=== PATIENT | female | born 1960 | race Caucasian/White ===

== ENCOUNTER 2016-11-27 14:53 | Emergency (ER) | payer BC, OTHER ==
[~2016-11-27] VITALS: Ht 154.9 cm; Wt 69.0 kg
[2016-11-27 15:05] VITALS: Ht 154.9 cm; Wt 69.0 kg
[2016-11-27] MEDS ORDERED: morphine 4 MG/ML VIAL IV STA (16:27)
[2016-11-27] MEDS ORDERED: ONDANSETRON 4 MG INJ IV STA (16:27)
[2016-11-27] MEDS ORDERED: HYDROCODONE/APAP (10/325) TAB PO ONE (16:30)
[2016-11-27 16:46] LABS: ADD SCAN DIFF NO
[2016-11-27 16:49] LABS: ABNORMAL IP MESSAGE 1; HEMATOCRIT 34.3 % (37.0-47.0); MEAN CORPUSCULAR HEMOGLOBIN 35.7 pg (29.0-33.0); MEAN CORPUSCULAR VOLUME 102.1 fl (82.0-101.0); MEAN PLATELET VOLUME 12.1 fl (7.4-10.4); RED BLOOD COUNT 3.36 10^6/ul (4.20-5.40); RED CELL DISTRIBUTION WIDTH 13.8 % (11.5-14.5)
[2016-11-27 17:22] LABS: ALBUMIN 3.3 g/dl (3.3-4.9); ALBUMIN/GLOBULIN RATIO 1.17; BILIRUBIN,DIRECT 0.5 mg/dl (0.00-0.20); BILIRUBIN,INDIRECT 2.8 mg/dl (0-1.1); BILIRUBIN,TOTAL 3.3 mg/dl (0.2-1.3); CALCIUM 8.5 mg/dl (8.4-10.2); CREATININE 0.41 mg/dl (0.44-1.00); POTASSIUM 3.5 mmol/L (3.5-5.1); TOTAL PROTEIN 6.1 g/dl (6.1-8.1)
--- NOTE | 2016-11-27 18:15 | RADRPT ---
PROCEDURE: Abdominal ultrasound CLINICAL INDICATION: Abdominal Pain TECHNIQUE: Multiple real-time images were acquired of the patient's right upper quadrant abdomen a nd retroperitoneum utilizing a high resolution transducer. COMPARISON: None FINDINGS: The liver measures 15.2 cm, and demonstrates moderately increased echogenicity. The main portal vein is patent with proper directional flow. There is no intrahepatic biliary ductal dilatation. The ext rahepatic common bile duct measures 3 mm. There is a 6.4 x 5.6 x 5.8 cm partially circumscribed heterogeneous mass in the posterior aspect of the right lobe of the liver. Minimal foci of vascular flow noted within it on Doppler. The gallbladder is without stones, wall thickening, or pericholecystic fluid. The visualized pancreas is unremarkable. The spleen measures 13.2 cm in length. The right kidney measures 11.5 x 5.1 x 6.1 cm and demonstrates normal echotexture. There is no right renal calculus or hydronephrosis. The visualized abdominal aorta and IVC are grossly unremarkable. IMPRESSION: 6.4 cm partially circumscribed mass with minimal vascular flow in the right lobe of the liver is non specific with differential considerations including the primary hepatic lesions/malignancy or a meta stasis. A contrast-enhanced CT or MR study is recommended for further evaluation. Moderate fatty infiltration of the liver. Mild splenomegaly. No cholelithiasis or acute cholecystitis. Normal CBD. RPTAT: EE Physician Citlalli Date Time Electronically viewed and signed by Physician Citlalli on 11/27/2016 18:14 /
[2016-11-27 18:22] LABS: LYMPHOCYTES # 0.2 10^3/ul (0.8-2.9); MONOCYTE # 0.2 10^3/ul (0.3-0.9); NEUTROPHIL # 1.8 10^3/ul (1.6-7.5)
[2016-11-27 18:23] LABS: PLATELET ESTIMATE PLT APPEAR DECREASED
[2016-11-27] MEDS ORDERED: TRAM50TA2 PO (19:13)
[2016-11-27] MEDS ORDERED: RANI150T9 PO (19:13)
--- NOTE | 2016-11-27 19:16 | ERD ---
ER Documentation Chief Complaint Date/Time DATE: 11/27/16 TIME: 19:14 Chief Complaint 8/10 abd pain x 1 week with N/V x yesterday HPI This is a 55-year-old female who complains of epigastric pain after eating yesterday with one episode of nausea vomiting is nonbilious nonbloody. She says today she still having pain after eating which occurs about 30 minutes after food. There is some radiation of pain to the back. She has no chest pain shortness of breath. Patient says she has a history of thrombocytopenia for years is not been worked up before. Patient was never been an alcoholic does not abuse NSAIDs. She describes the pain is crampy sometimes sharp currently is mild ROS All systems reviewed and are negative except as per history of present illness. Medications Home Meds Active Scripts Ranitidine Hcl* (Zantac*) 150 Mg Tablet, 150 MG PO BID Y for EPIGASTRIC PAIN, # 30 TAB Prov:CHIP,MECCASTOLOS A. DO 11/27/16 Tramadol HCl (Tramadol HCl) 50 Mg Tablet, 50 MG PO Q6, #20 TAB Prov:LESHAWNOS,APOSTOLOS A. DO 11/27/16 Allergies Allergies: Coded Allergies: No Known Allergy (Unverified , 11/27/16) PMhx/Soc History of Surgery: Yes (CSECTIONX3) Anesthesia Reaction: No Hx Neurological Disorder: No Hx Respiratory Disorders: No Hx Cardiac Disorders: No Hx Psychiatric Problems: No Hx Miscellaneous Medical Probl: Yes (DM) Hx Alcohol Use: No Hx Substance Use: No Hx Tobacco Use: Yes (2 CIG/WEEK) Smoking Status: Light tobacco smoker FmHx Family History: No coronary disease Physical Exam Vitals Vital Signs Date Time Temp Pulse Resp B/P Pulse Ox O2 Delivery O2 Flow Rate FiO2 11/27/16 15:05 98.9 69 16 152/65 99 Physical Exam Const: Well-developed, well-nourished Head: Atraumatic, normocephalic Eyes: Normal Conjunctiva, PERRLA, EOMI, normal sclera, no nystagmus ENT: Normal External Ears, Nose and Mouth, moist mucus membranes. Neck: Full range of motion. No meningismus, no lymphadenopathy. Resp: Clear to auscultation bilaterally, no wheezing, rhonchi, rales Cardio: Regular rate and rhythm, no murmurs, S1 S2 present Abd: Soft, mild epigastric tenderness, non distended. Normal bowel sounds, no guarding or rebound, no pulsitile abdominal masses or bruits Skin: No petechiae or rashes, no ecchymosis , no maculopapular rash Back: No midline or flank tenderness Ext: No cyanosis, or edema, FROM x 4, normal inspection, neurovascularly intact x 4 Neur: Awake and alert, STR 5/5 x 4, sensation intact x 4, no focal findings, cerebellum intact Psych: Normal Mood and Affect Result Diagram: 11/27/16 1640 11/27/16 1640 Results 24 hrs Laboratory Tests Test 11/27/16 16:40 White Blood Count 2.210^3/ul Red Blood Count 3.3610^6/ul Hemoglobin 12.0g/dl Hematocrit 34.3% Mean Corpuscular Volume 102.1fl Mean Corpuscular Hemoglobin 35.7pg Mean Corpuscular Hemoglobin Concent 35.0g/dl Red Cell Distribution Width 13.8% Platelet Count 4310^3/UL Mean Platelet Volume 12.1fl Neutrophils % 82.0% Band Neutrophils % 3.0% Lymphocytes % 8.0% Monocytes % 7.0% Neutrophils # 1.810^3/ul Lymphocytes # 0.210^3/ul Monocytes # 0.210^3/ul Platelet Estimate PLT APPEAR DECREASED Macrocytosis 1+ Sodium Level 134mmol/L Potassium Level 3.5mmol/L Chloride Level 100mmol/L Carbon Dioxide Level 28mmol/L Anion Gap 10 Blood Urea Nitrogen 10mg/dl Creatinine 0.41mg/dl Glucose Level 252mg/dl Calcium Level 8.5mg/dl Total Bilirubin 3.3mg/dl Direct Bilirubin 0.50mg/dl Indirect Bilirubin 2.8mg/dl Aspartate Amino Transf (AST/SGOT) 116IU/L Alanine Aminotransferase (ALT/SGPT) 62IU/L Alkaline Phosphatase 315IU/L Total Protein 6.1g/dl Albumin 3.3g/dl Globulin 2.80g/dl Albumin/Globulin Ratio 1.17 Lipase 87U/L Current Medications Medications (Trade) Dose Ordered Sig/Payton Route PRN Reason Start Time Stop Time Status Last Admin Dose Admin Morphine Sulfate (morphine) 4 mg ONCE STAT IV 11/27/16 16:27 11/27/16 16:31 DC Ondansetron HCl (Zofran Inj) 4 mg ONCE STAT IV 11/27/16 16:27 11/27/16 16:31 DC Acetaminophen/ Hydrocodone Bitart ([place] (10/325)) 1 tab ONCE ONCE PO 11/27/16 16:30 11/27/16 16:31 DC 11/27/16 18:58 Procedures/MDM PROCEDURE: Abdominal ultrasound CLINICAL INDICATION: Abdominal Pain TECHNIQUE: Multiple real-time images were acquired of the patient's right upper quadrant abdomen and retroperitoneum utilizing a high resolution transducer. COMPARISON: None FINDINGS: The liver measures 15.2 cm, and demonstrates moderately increased echogenicity. The main portal vein is patent with proper directional flow. There is no intrahepatic biliary ductal dilatation. The extrahepatic common bile duct measures 3 mm. There is a 6.4 x 5.6 x 5.8 cm partially circumscribed heterogeneous mass in the posterior aspect of the right lobe of the liver. Minimal foci of vascular flow noted within it on Doppler. The gallbladder is without stones, wall thickening, or pericholecystic fluid. The visualized pancreas is unremarkable. The spleen measures 13.2 cm in length. The right kidney measures 11.5 x 5.1 x 6.1 cm and demonstrates normal echotexture. There is no right renal calculus or hydronephrosis. The visualized abdominal aorta and IVC are grossly unremarkable. IMPRESSION: 6.4 cm partially circumscribed mass with minimal vascular flow in the right lobe of the liver is nonspecific with differential considerations including the primary hepatic lesions/malignancy or a metastasis. A contrast-enhanced CT or MR study is recommended for further evaluation. Moderate fatty infiltration of the liver. Mild splenomegaly. No cholelithiasis or acute cholecystitis. Normal CBD. RPTAT: EE Physician Citlalli Date Time Electronically viewed and signed by Physician Citlalli on 11/27/2016 18:14 RA/ CC: ELLIOTT SAUNDERS DO Patient is a low white blood count of 2.2 and 42,000 platelets also has mild elevated bilirubin and liver function test. There is a liver lesion in the right lobe of the liver. Patient did not know she had this. Had an extensive discussion with the patient about her blood work and her liver mass and needs to see her doctor for workup including daycare provider with MRI of liver as well as bone marrow biopsy. The patient says she has had low platelets for years does not recall her last levels. No history of spontaneous bleeding. I did stress the urgency of her following up and she understands I will call her doctor Wednesday Otherwise I feel her pain is likely due to some type of gastric issue up with pain after eating without gallbladder stones she could have biliary colic. Have her follow-up Departure Diagnosis: Primary Impression: Liver mass, right lobe Additional Impressions: Leukocytosis, unspecified Thrombocytopenia Abdominal pain Abdominal location: epigastric Qualified Code: R10.13 - Epigastric pain Condition: Stable Patient Instructions: Abdominal Pain, Thrombocytopenia ELLIOTT SAUNDERS DO Nov 27, 2016 19:16
[2016-11-27 19:45] VITALS: BP 140/71; PULSE 74; RESP 16; TEMP 98.6
[2016-12-01 06:56] LABS: PLATELET COUNT 43 10^3/UL (140-415); WHITE BLOOD COUNT 2.2 10^3/ul (4.8-10.8)
== END 2016-11-27 19:46 | disposition home or self-care (01) ==
LOC: FTE 14:53
DX: R16.0 Hepatomegaly, not elsewhere classified (principal); D72.829 Elevated white blood cell count, unspecified; D69.6 Thrombocytopenia, unspecified; E11.9 Type 2 diabetes mellitus without complications; F17.210 Nicotine dependence, cigarettes, uncomplicated
CPT/HCPCS: 76705; 80053; 83690; 85025; Z7502; Z7610; J2270; J2405

== ENCOUNTER 2017-03-18 13:07 | Inpatient (IN) | payer OTHER ==
[~2017-03-18] VITALS: Ht 162.6 cm; Wt 79.5 kg
[~2017-03-18 13:07] MED LIST: RANI150T9 PO; TRAM50TA2 PO
[2017-03-18 15:35] LABS: ABNORMAL IP MESSAGE 1; BASOPHILS % 0.6 % (0.0-2.0); EOSINOPHILS # 0.1 10^3/ul (0.0-0.5); EOSINOPHILS % 3.6 % (0.0-7.0); HEMATOCRIT 34.9 % (37.0-47.0); HEMOGLOBIN 12.1 g/dl (12.0-16.0); LYMPHOCYTES # 0.7 10^3/ul (0.8-2.9); LYMPHOCYTES % 18.3 % (15.0-51.0); MEAN CORPUSCULAR HEMOGLOBIN 36.6 pg (29.0-33.0); MEAN CORPUSCULAR HGB CONC 34.7 g/dl (32.0-37.0); MEAN CORPUSCULAR VOLUME 105.4 fl (82.0-101.0); MEAN PLATELET VOLUME 11.1 fl (7.4-10.4); MONOCYTE # 0.4 10^3/ul (0.3-0.9); MONOCYTES % 11.4 % (0.0-11.0); NEUTROPHIL # 2.4 10^3/ul (1.6-7.5); NEUTROPHILS % 65.8 % (39.0-77.0); PLATELET COUNT 63 10^3/UL (140-415); RED BLOOD COUNT 3.31 10^6/ul (4.20-5.40); RED CELL DISTRIBUTION WIDTH 14.7 % (11.5-14.5); WHITE BLOOD COUNT 3.6 10^3/ul (4.8-10.8)
[2017-03-18 15:37] LABS: POSITIVE DIFF @See below
[2017-03-18 15:44] LABS: INR 1.47; PARTIAL THROMBOPLASTIN TIME 36.4 Sec (25.0-35.0); PROTIME 17.9 Sec (12.2-14.2); PT RATIO 1.4
[2017-03-18] MEDS ORDERED: SIMV20TA2 PO (15:46)
[2017-03-18 15:50] LABS: ALANINE AMINOTRANSFERASE 60 IU/L (13-69); ALBUMIN 2.8 g/dl (3.3-4.9); ALKALINE PHOSPHATASE 302 IU/L (42-121); ANION GAP 8 (8-16); ASPARTATE AMINO TRANSFERASE 108 IU/L (15-46); BILIRUBIN,INDIRECT 4.7 mg/dl (0-1.1); BILIRUBIN,TOTAL 6.7 mg/dl (0.2-1.3); BLOOD UREA NITROGEN 8 mg/dl (7-20); CALCIUM 8.4 mg/dl (8.4-10.2); CARBON DIOXIDE 29 mmol/L (21-31); CHLORIDE 100 mmol/L (97-110); CREATININE 0.41 mg/dl (0.44-1.00); GLUCOSE 255 mg/dl (70-220); POTASSIUM 3.3 mmol/L (3.5-5.1); SODIUM 134 mmol/L (135-144); TOTAL PROTEIN 6.3 g/dl (6.1-8.1)
--- NOTE | 2017-03-18 15:54 | RADRPT ---
PROCEDURE: XR Chest. CLINICAL INDICATION: chest pain TECHNIQUE: Single AP view of the chest were obtained COMPARISON: None FINDINGS: The heart and mediastinum are within normal limits. The pulmonary vasculature are unremarkable. The aorta demonstrates atherosclerotic calcifications. There is blunting of the left costophrenic angl e with possible small left effusion. There is no right-sided effusion. The remainder of the lungs ar e otherwise clear. There is no pneumothorax. Degenerative changes are seen within the thoracic spin e. There is no acute osseous abnormality. IMPRESSION: Likely small left-sided pleural effusion with mild left basilar atelectasis. RPTAT: AA .David Wynn MD, MD Date Time Electronically viewed and signed by .David Wynn MD, on 03/18/2017 15:54 .Yonas/
[2017-03-18 16:01] LABS: B-TYPE NATRIURETIC PEPTIDE 98 PG/ML (0-125)
[2017-03-18 16:04] LABS: TROPONIN-I < 0.012 ng/ml (0.00-0.12)
[2017-03-18 16:15] LABS: ADD UMIC YES; UR ASCORBIC ACID NEGATIVE (NEGATIVE); UR BILIRUBIN (Dip) 1+ mg/dL (NEGATIVE); UR BLOOD (Dip) NEGATIVE (NEGATIVE); UR CLARITY SLIGHTLY CLOUDY (CLEAR); UR COLOR AMBER (YELLOW); UR GLUCOSE (Dip) 1+ mg/dL (NEGATIVE); UR KETONES (Dip) NEGATIVE (NEGATIVE); UR LEUKOCYTE ESTERASE (Dip) NEGATIVE Leu/ul (NEGATIVE); UR MUCUS MANY /HPF (NONE SEEN); UR NITRITE (Dip) NEGATIVE (NEGATIVE); UR RBC 2 /HPF (0-5); UR SPECIFIC GRAVITY (Dip) 1.032 (1.003-1.030); UR SQUAMOUS EPITHELIAL CELL FEW /HPF (FEW); UR TOTAL PROTEIN (Dip) 1+ mg/dl (NEGATIVE); UR UROBILINOGEN (Dip) 2+ mg/dL (NEGATIVE)
--- NOTE | 2017-03-18 16:40 | ERA ---
ER Documentation Chief Complaint Date/Time DATE: 03/18/17 TIME: 16:38 Chief Complaint Complains of SOB recently on antibiotics not working HPI This patient is a 56-year-old female with past medical history of type 2 diabetes, high cholesterol, liver mass/cyst diagnosed via ultrasound recently, now presenting to the emergency department today with complaints of shortness of breath ongoing intermittently for the past 3 days. She states symptoms are worse today. Symptoms are worse on exertion. She has never had these symptoms in the past, prior to 1 month ago when she developed a cough that has persisted by antibiotics being prescribed at that time. She is a former smoker of 1 pack per month for 10 years. She reports significant shortness of breath with short distances around her house forcing her to sit down to rest. The patient also endorses suprapubic discomfort but no tenderness. She does not endorse any urinary or bowel movement complaints otherwise. She denies any fever or chills. She denies a headache or vision changes. She does have yellow eyes. She denies nausea or vomiting. She denies chest pain. At rest, she does not feel short of breath. She has been told in the past that she has a little bit of fluid at the base of her lungs. She denies any focal deficits. ROS All systems reviewed and are negative except as per history of present illness. Medications Home Meds Reported Medications Metformin Hcl* (Metformin Hcl*) 500 Mg Tablet, 500 MG PO WITH BREAKFAST, #30 TAB EVERY OTHER DAY 03/18/17 Ergocalciferol (Vitamin D2) (VITAMIN D2) 50,000 Unit Capsule, 09656 UNIT PO Q7D , CAP 03/18/17 Simvastatin (Simvastatin) 20 Mg Tablet, 20 MG PO DAILY, #30 TAB 03/18/17 Discontinued Scripts Ranitidine Hcl* (Zantac*) 150 Mg Tablet, 150 MG PO BID Y for EPIGASTRIC PAIN, # 30 TAB Prov:MECCA SAUNDERSSTLORINS A. DO 11/27/16 Tramadol HCl (Tramadol HCl) 50 Mg Tablet, 50 MG PO Q6, #20 TAB Prov:LEKKOS,APOSTOLOS A. DO 11/27/16 Allergies Allergies: Coded Allergies: No Known Allergy (Unverified , 03/18/17) PMhx/Soc History of Surgery: Yes (CSECTIONX3) Anesthesia Reaction: No Hx Neurological Disorder: No Hx Respiratory Disorders: No Hx Cardiac Disorders: Yes (HIGH COLESTEROL; " CHEST INFECTION") Hx Psychiatric Problems: No Hx Miscellaneous Medical Probl: Yes (DM) Hx Alcohol Use: No Hx Substance Use: No Hx Tobacco Use: Yes (2 CIG/WEEK) Smoking Status: Current every day smoker FmHx Family History: No diabetes Physical Exam Vitals Vital Signs Date Time Temp Pulse Resp B/P Pulse Ox O2 Delivery O2 Flow Rate FiO2 03/18/17 17:11 98.9 99 16 118/90 100 Room Air 03/18/17 13:22 98.6 92 20 186/70 98 Physical Exam Const: NAD, Well developed, Well nourished Head: Atraumatic Eyes: Normal Conjunctiva ENT: Normal External Ears, Nose and Mouth. Neck: Full range of motion..~ No meningismus. Resp: bibasilar rales Cardio: Regular rate and rhythm, systolic murmur (known) Abd: Soft, non distended, suprapubic discomfort. Normal bowel sounds Skin: No petechiae or rashes Back: No midline or flank tenderness Ext: No cyanosis, or edema Neur: Awake and alert Psych: Normal Mood and Affect Result Diagram: 03/18/17 1520 03/18/17 1520 Results 24 hrs Laboratory Tests Test 03/18/17 15:20 03/18/17 15:47 White Blood Count 3.610^3/ul Red Blood Count 3.3110^6/ul Hemoglobin 12.1g/dl Hematocrit 34.9% Mean Corpuscular Volume 105.4fl Mean Corpuscular Hemoglobin 36.6pg Mean Corpuscular Hemoglobin Concent 34.7g/dl Red Cell Distribution Width 14.7% Platelet Count 6310^3/UL Mean Platelet Volume 11.1fl Neutrophils % 65.8% Lymphocytes % 18.3% Monocytes % 11.4% Eosinophils % 3.6% Basophils % 0.6% Nucleated Red Blood Cells % 0.0/100WBC Neutrophils # 2.410^3/ul Lymphocytes # 0.710^3/ul Monocytes # 0.410^3/ul Eosinophils # 0.110^3/ul Basophils # 0.010^3/ul Nucleated Red Blood Cells # 0.010^3/ul Prothrombin Time 17.9Sec Prothrombin Time Ratio 1.4 INR International Normalized Ratio 1.47 Activated Partial Thromboplast Time 36.4Sec Sodium Level 134mmol/L Potassium Level 3.3mmol/L Chloride Level 100mmol/L Carbon Dioxide Level 29mmol/L Anion Gap 8 Blood Urea Nitrogen 8mg/dl Creatinine 0.41mg/dl Glucose Level 255mg/dl Calcium Level 8.4mg/dl Total Bilirubin 6.7mg/dl Direct Bilirubin 2.00mg/dl Indirect Bilirubin 4.7mg/dl Aspartate Amino Transf (AST/SGOT) 108IU/L Alanine Aminotransferase (ALT/SGPT) 60IU/L Alkaline Phosphatase 302IU/L Troponin I < 0.012ng/ml B-Type Natriuretic Peptide 98PG/ML Total Protein 6.3g/dl Albumin 2.8g/dl Globulin 3.50g/dl Albumin/Globulin Ratio 0.80 Lipase 100U/L Urine Color BRANDON Urine Clarity SLIGHTLY CLOUDY Urine pH 5.0 Urine Specific [place] 1.032 Urine Ketones NEGATIVEmg/dL Urine Nitrite NEGATIVEmg/dL Urine Bilirubin 1+mg/dL Urine Urobilinogen 2+mg/dL Urine Leukocyte Esterase NEGATIVELeu/ul Urine Microscopic RBC 2/HPF Urine Microscopic WBC 3/HPF Urine Squamous Epithelial Cells FEW/HPF Urine Mucus MANY/HPF Urine Hemoglobin NEGATIVEmg/dL Urine Glucose 1+mg/dL Urine Total Protein 1+mg/dl Current Medications Medications (Trade) Dose Ordered Sig/Payton Route PRN Reason Start Time Stop Time Status Last Admin Dose Admin Ondansetron HCl (Zofran Inj) 4 mg BRIDGE ORDER PRN IV NAUSEA AND/OR VOMITING 03/18/17 18:30 03/19/17 18:29 Acetaminophen (Tylenol Tab) 650 mg ER BRIDGE PRN PO MILD PAIN/FEVER 03/18/17 18:30 03/19/17 18:29 Procedures/MDM MDM Patient's presentation warrants further investigation. The patient was initially triaged to 82, but there is concern of higher acuity and she was brought up to my attention. The patient had blood work drawn to evaluate for a cardiac versus metabolic abnormality. She also had a chest x-ray performed. LABS The patient's blood work was obtained and reviewed. The patient CBC showed a leukopenia in addition to a thrombocytopenia. The patient is afebrile, and I do not suspect a systemic infection. The patient is not anemic today. The patient's CMP shows mild hyponatremia and hypokalemia that does not need to be emergently treated. Her renal function is unremarkable. She does have a hyperglycemia, but no anion gap and no concern of DKA. The patient's LFTs are concerning for obstructive liver disease. She has a significantly elevated hyperbilirubinemia in addition to a transaminitis and hypoalbuminemia. Liver dysfunction also correlates with her thrombocytopenia. I do not see evidence of a systemic infection. However, am concerned of liver failure. Urinalysis does not demonstrate obvious infectious etiology. EKG EKG read by me: Rate/Rhythm: Regular rate and rhythm at a rate of 93 Intervals: Normal Echo: Normal Impression: No evidence of ischemia or arrhythmia IMAGING IMPRESSION: Likely small left-sided pleural effusion with mild left basilar atelectasis. Electronically viewed and signed by .David Wynn MD, MD on 03/18/2017 15:54 TREATMENT/DISPOSITION The patient's presentation is concerning for active cholestatic liver disease. She also has evidence of a pleural effusion on a chest x-ray with bibasilar rales on exam. This could be from liver dysfunction. She has scleral icterus as well which is concerning for liver failure. I do not suspect a systemic infection. The patient will have a right upper quadrant ultrasound ordered for further evaluation of her liver and gallbladder. She will be admitted to the panel service as per her insurance. Departure Diagnosis: Primary Impression: Shortness of breath Additional Impressions: Pleural effusion Obstructive cholestatic liver disease Thrombocytopenia Transaminitis Hyperbilirubinemia Condition: CHANCE Harris MD Mar 18, 2017 16:40
[2017-03-18] MEDS ORDERED: ERGO500037 PO (16:58)
[2017-03-18] MEDS ORDERED: METF500T4 PO (16:59)
[2017-03-18 17:11] VITALS: TEMP 98.9
[2017-03-18] MEDS ORDERED: ONDANSETRON 4 MG INJ IV PRN (18:30)
[2017-03-18] MEDS ORDERED: ACETAMINOPHEN 325 MG TAB PO PRN (18:30)
[2017-03-18 18:52] LABS: HAAIG REFLEX REFLEX FILED
--- NOTE | 2017-03-18 19:02 | RADRPT ---
PROCEDURE: Right upper quadrant ultrasound CLINICAL INDICATION: Jaundice TECHNIQUE: Multiple real-time images were acquired of the patient's abdomen and right retroperiton eum utilizing a high resolution transducer. COMPARISON: 11/27/2016 FINDINGS: The liver is coarse and heterogeneous in echotexture in echogenicity and measures 15.5 cm. There is new nodularity along the liver surface suggesting cirrhosis. A stable 6.8 x 6.3 x 6.5 cm mass is not ed in the posterior right hepatic lobe. No other focal liver lesions are seen. The gallbladder is pa rtially distended. The gallbladder is completely filled with gallstones. There is mild thickening of the gallbladder wall which is nonspecific finding in the setting of cirrhosis. The intra and extrah epatic bile ducts are normal in caliber. The common bile duct measures 4.4 mm. Doppler images demon strate the portal vein to be patent with hepatopetal flow. Doppler images demonstrate patent portal vein with hepatopetal flow. Midline images demonstrate the pancreas head and body to be normal in echogenicity without obvious i nflammatory change. Pancreatic tail is not seen Survey views of the right kidney demonstrate no evidence of hydronephrosis or renal calculi. The ri ght kidney measures 11.1 cm. New mild ascites is seen. IMPRESSION: 1. Cirrhotic appearing liver with coarse echotexture nodular surface which appears to have progress ed since the prior examination. 2. Stable 6.8 x 6.3 x 6.5 cm mass in the posterior right hepatic lobe. This is highly concerning fo r primary hepatocellular carcinoma. Recommend please phase CT or MRI for further characterization. 3. Extensive cholelithiasis. There is thickening of the gallbladder wall which is nonspecific findi ng in the setting of cirrhosis. 4. No biliary duct dilatation. 5. Interval development of mild ascites in the upper abdomen. 6. Patent portal vein with hepatopetal flow RPTAT: HH .Akira Colon MD, Date Time Electronically viewed and signed by .Akira Colon MD, MD on 03/18/2017 19:01 .W/
--- NOTE | 2017-03-18 19:58 | HP ---
Date/Time of Note Date/Time of Note DATE: 03/18/17 TIME: 19:44 Assessment/Plan VTE Prophylaxis VTE Prophylaxis Intervention: SCD's Lines/Catheters IV Catheter Type (from Nrsg): Peripheral IV Assessment/Plan Assessment/Plan 56 yo F with pmhx DM2 HTN HL here with 3-4 weeks GARCIA, LE swelling and abd distension. Liver imaging concerning for possible malignancy -triple phase CT ordered -check urine p/c given proteinuria -lasix for edema -check BNP though more likely volume overload from hepatic process -check hepatitis serologies and ferritin -cont home BP meds -hold metformin, SSI and check a1c -hold statin -macrocytosis most likely 2/2 underlying hepatic process but will check b12/tsh/ folate HPI/ROS Admit Date/Time Admit Date/Time Hx of Present Illness CC SOB HPI 56 yo F with pmhx DM2, vitamin D deficiency, HL presents with 3 weeks jaundice and SOB. Pt states she was started on a medication for her cholesterol that starts with a Z 3-4 weeks ago since then has been having progressive abd distension, LE edema, jaundice and GARCIA. No heavy EtOH abuse. No use of supplements/vitamins. PMH/Family/Social Social History Smoking Status: Current every day smoker Exam/Review of Systems Vital Signs Vitals Vital Signs Date Time Temp Pulse Resp B/P Pulse Ox O2 Delivery O2 Flow Rate FiO2 03/18/17 17:11 98.9 99 16 118/90 100 Room Air Exam Exam +jaundice with scleral icterus no mrg lungs with decreased breath sounds bl bases abd mildly distended 1+ bl pitting edema EOMI MMM labs and imaging reviewed problematic liver lesion noted Labs Result Diagram: 03/18/17 1520 03/18/17 1520 YOON ALVAREZ MD Mar 18, 2017 19:55
[2017-03-18] MEDS ORDERED: DOCUSATE SODIUM 100 MG CAP PO PRN (20:00)
[2017-03-18] MEDS ORDERED: MAGNESIUM HYDROXIDE 30ML CUP PO PRN (20:00)
[2017-03-18] MEDS ORDERED: NACL 0.9% 3 ML SYG IV SCH (20:00)
[2017-03-18] MEDS ORDERED: HYDROCODONE/APAP (5/325) TAB PO PRN (20:00)
[2017-03-18] MEDS ORDERED: BISACODYL (EC) 5 MG TAB PO PRN (20:00)
[2017-03-18] MEDS ORDERED: SOD CHLORIDE 0.9% 100 ML ONE (20:20)
[2017-03-18] MEDS ORDERED: IODIXANOL LOCM 100 ML BTL ONE (20:20)
[2017-03-18 20:29] LABS: HEPATITIS B CORE ANTIBODY REACTIVE (NEGATIVE)
[2017-03-18] MEDS ORDERED: GLUCOSE GEL 15 GRAM TUBE BUCCAL PRN (20:30)
[2017-03-18] MEDS ORDERED: GLUCAGON 1 MG INJ IM PRN (20:30)
[2017-03-18] MEDS ORDERED: DEXTROSE 50% 50 ML SYRINGE IV PRN ×2 (20:30)
[2017-03-18] MEDS ORDERED: GLUCOSE GEL 15 GRAM TUBE PO PRN ×2 (20:30)
[2017-03-18] MEDS: INSULIN ASPART [NOVOLOG] 3 ML PEN SC SCH (21:00)
--- NOTE | 2017-03-18 21:37 | RADRPT ---
PROCEDURE: CT abdomen and pelvis with intravenous contrast. CLINICAL INDICATION: Pain. TECHNIQUE: CT of the abdomen/pelvis was performed utilizing axial images with reconstructions in s agittal and coronal planes after uneventful administration of 100 cc Omnipaque 300. Images of the li bonilla were obtained in triple phase. The administered radiation dose is CTDI 17 mGy, DLP 3137 mGy-cm. One or more of the following dose reduction techniques were used: automated exposure control, adjust ment of the mA and/or kV according to patient size and/or use of iterative reconstruction technique. COMPARISON: No pertinent prior examinations were submitted for comparison. FINDINGS: Visualized Chest: The visualized lung bases are clear. Abdomen: The pancreas, and adrenal glands are unremarkable. The liver is small with diffusely nodular conto ur suggestive of cirrhosis. There is a 7.5 cm heterogeneously enhancing lesion within the right hepa tic lobe which contains some central fat density. There is a 5.7 cm lobulated lesion within the supe rior aspect of the right hepatic lobe. This lesion is partially exophytic. There appear to be severa l smaller adjacent satellite nodules. There is mild splenomegaly. The gallbladder is filled with stones and contains some wall calcificati ons. Upper abdominal varices are noted. The kidneys are without hydronephrosis. No definite urinary calculi are seen. There is no evidence of bowel obstruction. The appendix is normal. No intra-abdominal free air is seen. Numerous diverticula are noted along the sigmoid colon and descending colon without evidence of diverticulitis. There is moderate to marked intra-abdominal ascites. No intra-abdominal adenopathy is identified. V ascular calcifications are noted within the aorta and its branches. Pelvis: There is no evidence of pelvic adenopathy. The uterus and ovaries are without enlargement. The uri nary bladder is unremarkable. There is ascites within the pelvis. Osseous structures: Unremarkable. 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 Cirrhotic liver with associated splenomegaly and upper abdominal varices as well as moderate to larg e ascites. Cholelithiasis. Colonic diverticulosis. RPTAT: HIKT .Victor Hugo Kulkarni MD, MD Date Time Electronically viewed and signed by .Victor Hugo Kulkarni MD, on 03/18/2017 21:36 .T/
[2017-03-18 21:53] VITALS: BP 184/79; RESP 18
[2017-03-18 22:16] LABS: THYROID STIMULATING HORMONE 6.07 MIU/L (0.465-4.680)
[2017-03-18 22:21] VITALS: BP 152/70; PULSE 95; RESP 18
[2017-03-18 22:50] LABS: FOLATE 10.4 ng/ml (2.8-20.0)
[2017-03-18 23:54] VITALS: Ht 162.6 cm; Wt 79.5 kg
[2017-03-19 01:59] VITALS: BP 155/73
[2017-03-19] MEDS: ACCU-CHEK XX SCH (02:00)
[2017-03-19 06:14] LABS: ABNORMAL IP MESSAGE 1; BASOPHILS % 0.6 % (0.0-2.0); EOSINOPHILS # 0.1 10^3/ul (0.0-0.5); EOSINOPHILS % 3.4 % (0.0-7.0); LYMPHOCYTES # 0.7 10^3/ul (0.8-2.9); LYMPHOCYTES % 21.7 % (15.0-51.0); MEAN CORPUSCULAR HGB CONC 34.5 g/dl (32.0-37.0); MEAN CORPUSCULAR VOLUME 104.3 fl (82.0-101.0); MEAN PLATELET VOLUME 11.9 fl (7.4-10.4); MONOCYTE # 0.4 10^3/ul (0.3-0.9); MONOCYTES % 12.2 % (0.0-11.0); NEUTROPHILS % 61.8 % (39.0-77.0); PLATELET COUNT 51 10^3/UL (140-415); RED BLOOD COUNT 2.78 10^6/ul (4.20-5.40); RED CELL DISTRIBUTION WIDTH 14.6 % (11.5-14.5); WHITE BLOOD COUNT 3.3 10^3/ul (4.8-10.8)
[2017-03-19 06:28] LABS: POSITIVE DIFF @See below
[2017-03-19 07:01] LABS: ALBUMIN 2.1 g/dl (3.3-4.9); ALBUMIN/GLOBULIN RATIO 0.72; BILIRUBIN,DIRECT 1.3 mg/dl (0.00-0.20); BILIRUBIN,INDIRECT 3.2 mg/dl (0-1.1); BILIRUBIN,TOTAL 4.5 mg/dl (0.2-1.3); CALCIUM 7.5 mg/dl (8.4-10.2); CREATININE 0.38 mg/dl (0.44-1.00); POTASSIUM 3.2 mmol/L (3.5-5.1)
[2017-03-19 07:43] VITALS: BP 131/69; RESP 18
[2017-03-19] MEDS: INSULIN ASPART [NOVOLOG] 3 ML PEN SC SCH ×4 (08:15→20:17)
[2017-03-19] MEDS ORDERED: IODIXANOL LOCM 100 ML BTL ONE (10:50)
[2017-03-19] MEDS: ENOXAPARIN 40 MG/0.4 ML SYG SC SCH (12:07)
--- NOTE | 2017-03-19 14:08 | CONS ---
DATE OF ADMISSION: 03/18/2017 DATE OF CONSULTATION: 03/19/2017 REASON FOR CONSULTATION: Hepatic masses and thrombocytopenia. Dear Dr. Montano: Thank you very much for asking me to see this very interesting and pleasant patient in oncologic consultation. As you know, Ms. Vazquez is a 56-year-old female, who was admitted to [facility] after presenting to the emergency room on 11/15/2016. The patient had been experiencing increasing abdominal distention, shortness of breath and some pleuritic-type chest pain. The patient states that her symptoms began approximately 1 month ago. At that time, she had a cough and saw her primary physician, who started her on antibiotics. She does not recall the name. The patient also had been started on a cholesterol-lowering agent as her physician told her that she had hypercholesterolemia. The patient took these medications for approximately 1 month during which time the patient's symptoms increased. She felt that possibly the symptoms were related to the cholesterol- lowering agents. As mentioned, the patient had been experiencing increasing abdominal distention. She also had increasing shortness of breath and cough. There was no hemoptysis. Patient does admit to some hot flashes and possible night sweats. She attributes that to being menopausal. Patient, as noted, has had increasing abdominal distention, but appetite has been good. She states that she, however, has gained approximately 20 to 30 pounds over the past month. The patient has noted a change in urine so that her urine has been dark in color. She has noted some scleral icterus as well. There has been no change in stool color. Patient denies any hematemesis, melena or hematochezia. The patient apparently did have some type of recent outside studies done, which revealed some type of hepatic abnormality. For this reason, the patient was told to come to the emergency room. On 03/18/2017, the patient did have a CT scan of the abdomen and pelvis. This showed 2 hepatic masses and several smaller nodules. The same time, there were changes consistent with cirrhosis of liver. The liver was small in size and nodular. There was mild splenomegaly noted as well as upper abdominal varices. There was moderate to marked ascites. There was no mesenteric or retroperitoneal lymphadenopathy, no pelvic lymphadenopathy noted. There was cholelithiasis. The patient had a chest x-ray done as well. This shows a small left-sided pleural effusion. An ultrasound of the abdomen also revealed a cirrhotic-appearing liver. There was a 6.8 x 6.3 x 6.5-cm mass in the posterior right hepatic lobe, which was felt to be concerning for hepatocellular carcinoma. This was noted on the previous CT scan. The patient has had MRI scan ordered. Laboratory today reveals a white count of 3300 with an absolute neutrophil count of 2000 and absolute lymphocyte count of 700, hemoglobin 10, hematocrit 29, MCV 104.3, MCH 36, MCHC 34.5, RDW 14.6 and platelet count 51,000. Prothrombin time 17.9 seconds with an INR of 1.47. PTT is 36.4 seconds. A comprehensive metabolic panel reveals a sodium 134, potassium 3.3, creatinine 0.41 with a BUN of 8. Glucose is 255, calcium 8.5, and albumin is 2.8, total bilirubin 6.7 with a direct of 2, an indirect of 4.7, AST 108, ALT 60, alkaline phosphatase 304. Albumin is only 2.8. A ferritin is 238. Vitamin B12 is 399. Folic acid 10.4. TSH is 6.07, and free T4 is 1.17. The patient's past history includes apparently only history of diabetes mellitus as well as vitamin B deficiency. She has no history of hypertension, heart disease or renal and has not been told in the past of any hepatic disease. Only surgeries in the past have included 3 sections. Last menstrual period was approximately 20 years ago. The patient has never taken hormone replacement therapy. She is 3, para 3, AB 0. Patient has never taken hormone replacement therapy. Last mammogram was approximately a year and half ago. Patient states she has quit smoking 10 days ago, states until that time that a pack of cigarettes lasted 2 or 3 weeks. She does admit to regular alcohol use. She denies daily alcohol use, is somewhat vague about how much alcohol she drinks. Patient has not knowingly been exposed to industrial toxins or ionizing radiation. Family history is unremarkable. It should be noted that the patient denies any history of hepatitis. She does admit, however, to receiving blood transfusion with the of her first child approximately 30 years ago. Does not recall any flu-like symptoms following this. Patient has had serologies, which show hepatitis B core antibody reactive. Hepatitis B surface antigen and hepatitis C antibody are negative. Patient denies any IV drug use. PHYSICAL EXAMINATION: GENERAL: At this time reveals a well-developed, well-nourished female, who is in no acute distress. VITAL SIGNS: Temperature 98, pulse 78, respirations 18, blood pressure 131/69. Pulse oximetry is 97 percent on room air. SKIN: No ecchymoses, no petechiae or rashes. There are some spider telangiectasias noted. HEENT: Normocephalic. No evidence of trauma. The pupils equal, round, react to light and accommodation. Sclerae are icteric. Oral mucosa is moist without lesions. Tongue is well papillated. There is no gingival hyperplasia. No hypertrophy of Waldeyer's ring. No mucosal telangiectasias. NECK: Supple. No jugular distention or thyroid enlargement. CHEST: Clear to auscultation and percussion, except for decreased breath sounds in both bases. There are no rhonchi, wheezes, rales or rubs. No pain on percussion of the spine, sternum, clavicles or ribs. NODES: No palpable lymphadenopathy in any xnark-mvnc-ozizvgs area. BREASTS: Symmetrical. No masses, skin retraction, nipple inversion. HEART: Regular sinus rhythm. No S3, S4, murmurs. No rubs. ABDOMEN: Distended with obvious ascites. The liver is not palpable. The spleen tip is ballotable in the left upper quadrant. There are no hernia defects. EXTREMITIES: Good range of motion. No clubbing or cyanosis. There is bilateral 1+ pretibial pitting edema. There are no palpable cords or Homans 'sign. NEUROLOGIC: Normal. There is no asterixis. DISCUSSION: This patient has radiographic evidence of cirrhosis. This includes a nodular, shrunken liver. There does appear to be portal hypertension with varices noted as well as some splenomegaly. As a result, the patient does have mild leukopenia and thrombocytopenia, which I feel is on the basis of splenic sequestration. The patient, as noted, does have abnormal liver functions. This should be attributed to the patient's underlying liver disease, although it is somewhat unusual in that the patient's hyperbilirubinemia is indirect rather than direct or an even split. For this reason, I would be concerned about the possibility of hemolysis. As noted, the patient does have hepatic masses seen on both ultrasound and a CT scan. Certainly, this could represent a primary hepatocellular carcinoma occurring in the presence of cirrhosis. It could also represent "regenerative nodules." An MRI of the liver has been requested as well as a bone scan. Also, an alpha-fetoprotein has been requested. We will obtain a haptoglobin as well as an LDH. Also, evaluate for other reasons for cirrhosis, including obtaining an alpha-1 antitrypsin as well as a serum copper and ceruloplasmin. The patient does have 2 other possible causes for cirrhosis, including alcohol use and/or previous hepatitis B . Ultimately, it will be necessary to obtain a liver biopsy. Although the patient's pro time and PTT are adequate, her platelet count is only 66,000. Although this may be adequate, the radiologist would likely prefer that the patient be transfused with platelets prior to any such procedure. Once again, thank you very much for the opportunity of participating in the medical care of this very interesting and pleasant patient. I will be happy to follow this patient with you and assist in her oncologic and hematologic evaluation and follow up as necessary. Dictated By: Manuel Schwartz MD /rob/timothy /Document#: [id number]
--- NOTE | 2017-03-19 14:14 | PN ---
Date/Time of Note Date/Time of Note DATE: 03/19/17 TIME: 14:09 Assessment/Plan VTE Prophylaxis VTE Prophylaxis Intervention: SCD's Lines/Catheters IV Catheter Type (from Nrsg): Saline Lock Assessment/Plan Assessment/Plan 56 yo F with pmhx DM2 HTN HL here with 3-4 weeks GARCIA, LE swelling and abd distension. Liver imaging concerning for possible malignancy -check CT chest and nm bone scan to eval for mets v occult primary -onc on cs -cont lasix -cont home BP meds -check hep b core (HepC neg) urine p/c very low #macrocytosis most likely 2/2 underlying hepatic process, onc has ordered additional labs #subclinical hypothyroid: outpatient f/u #DM2: old metformin, SSI and check a1c #?HL: hold statin Subjective 24 Hr Interval Summary Free Text/Dictation Triple phase results dw pt and oncologist Exam/Review of Systems Vital Signs Vitals Vital Signs Date Time Temp Pulse Resp B/P Pulse Ox O2 Delivery O2 Flow Rate FiO2 03/19/17 07:43 98.0 78 18 131/69 97 03/18/17 22:21 Room Air Intake and Output 03/18/17 03/18/17 03/19/17 15:00 23:00 07:00 Intake Total 450 ml Output Total 5 ml Balance 445 ml Exam nad no mrg +jaundice +edema responds to questions appropriately CT 3x phase with liver lesion concerning for cancer ft4 nl Results Result Diagram: 03/19/17 0539 03/19/17 0539 Results 24 hrs Laboratory Tests Test 03/18/17 15:20 03/18/17 15:30 03/18/17 15:47 03/18/17 18:30 White Blood Count 3.6 #L Red Blood Count 3.31 L Hemoglobin 12.1 Hematocrit 34.9 L Mean Corpuscular Volume 105.4 H Mean Corpuscular Hemoglobin 36.6 H Mean Corpuscular Hemoglobin Concent 34.7 Red Cell Distribution Width 14.7 H Platelet Count 63 #L Mean Platelet Volume 11.1 H Neutrophils % 65.8 Lymphocytes % 18.3 Monocytes % 11.4 H Eosinophils % 3.6 Basophils % 0.6 Nucleated Red Blood Cells % 0.0 Neutrophils # 2.4 Lymphocytes # 0.7 L Monocytes # 0.4 Eosinophils # 0.1 Basophils # 0.0 Nucleated Red Blood Cells # 0.0 Prothrombin Time 17.9 H Prothrombin Time Ratio 1.4 INR International Normalized Ratio 1.47 Activated Partial Thromboplast Time 36.4 H Sodium Level 134 L Potassium Level 3.3 L Chloride Level 100 Carbon Dioxide Level 29 Anion Gap 8 Blood Urea Nitrogen 8 Creatinine 0.41 L Glucose Level 255 H Calcium Level 8.4 Total Bilirubin 6.7 H Direct Bilirubin 2.00 H Indirect Bilirubin 4.7 H Aspartate Amino Transf (AST/SGOT) 108 H Alanine Aminotransferase (ALT/SGPT) 60 Alkaline Phosphatase 302 H Troponin I < 0.012 B-Type Natriuretic Peptide 98 91 Total Protein 6.3 Albumin 2.8 L Globulin 3.50 H Albumin/Globulin Ratio 0.80 Lipase 100 Urine Random Creatinine 298.53 Urine Total Protein 6.0 1+ H Hemoglobin A1c 5.9 Urine Color BRANDON Urine Clarity SLIGHTLY CLOUDY A Urine pH 5.0 Urine Specific [place] 1.032 H Urine Ketones NEGATIVE Urine Nitrite NEGATIVE Urine Bilirubin 1+ H Urine Urobilinogen 2+ H Urine Leukocyte Esterase NEGATIVE Urine Microscopic RBC 2 Urine Microscopic WBC 3 Urine Squamous Epithelial Cells FEW Urine Mucus MANY A Urine Hemoglobin NEGATIVE Urine Glucose 1+ H Ferritin 238.0 Vitamin B12 Level 999 H Folate 10.4 Thyroid Stimulating Hormone (TSH) 6.070 H Hepatitis B Surface Antigen NEGATIVE Hepatitis B Core Total Antibody REACTIVE H Hepatitis C Antibody NEGATIVE Test 03/18/17 22:33 03/19/17 05:39 03/19/17 08:22 03/19/17 12:44 Bedside Glucose 241 H 166 179 White Blood Count 3.3 L Red Blood Count 2.78 L Hemoglobin 10.0 L Hematocrit 29.0 L Mean Corpuscular Volume 104.3 H Mean Corpuscular Hemoglobin 36.0 H Mean Corpuscular Hemoglobin Concent 34.5 Red Cell Distribution Width 14.6 H Platelet Count 51 L Mean Platelet Volume 11.9 H Neutrophils % 61.8 Lymphocytes % 21.7 Monocytes % 12.2 H Eosinophils % 3.4 Basophils % 0.6 Nucleated Red Blood Cells % 0.0 Neutrophils # 2.0 Lymphocytes # 0.7 L Monocytes # 0.4 Eosinophils # 0.1 Basophils # 0.0 Nucleated Red Blood Cells # 0.0 Sodium Level 132 L Potassium Level 3.2 L Chloride Level 103 Carbon Dioxide Level 27 Anion Gap 5 L Blood Urea Nitrogen 6 L Creatinine 0.38 L Glucose Level 225 H Calcium Level 7.5 L Total Bilirubin 4.5 #H Direct Bilirubin 1.30 #H Indirect Bilirubin 3.2 H Aspartate Amino Transf (AST/SGOT) 84 H Alanine Aminotransferase (ALT/SGPT) 52 Alkaline Phosphatase 305 H Total Protein 5.0 #L Albumin 2.1 L Globulin 2.90 Albumin/Globulin Ratio 0.72 Free Thyroxine 1.17 Medications Medications Current Medications Acetaminophen (Tylenol Tab) 650 mg Q6H PRN PO PAIN LEVEL 1-3 OR FEVER; Start at 20:00 Acetaminophen/ Hydrocodone Bitart ([place] (5/325)) 1 tab Q6H PRN PO MODERATE PAIN LEVEL 4-6; Start 03/18/17 at 20:00 Docusate Sodium (Colace) 100 mg Q12H PRN PO CONSTIPATION; Start 03/18/17 at 20: 00 Magnesium Hydroxide (Milk Of Mag) 30 ml DAILY PRN PO CONSTIPATION; Start at 20:00 Bisacodyl (Dulcolax) 5 mg DAILY PRN PO CONSTIPATION; Start 03/18/17 at 20:00 Enoxaparin Sodium (Lovenox) 40 mg DAILY SC Last administered on 03/19/17t 12:07 ; Admin Dose 40 MG; Start 03/19/17 at 09:00 Diagnostic Test (Pha) (Accu-Chek) 1 ea 02 XX ; Start 03/19/17 at 02:00 Miscellaneous Information 1 ea NOTE XX ; Start 03/18/17 at 20:30 Glucose (Glutose) 15 gm Q15M PRN PO DECREASED GLUCOSE; Start 03/18/17 at 20:30 Glucose (Glutose) 22.5 gm Q15M PRN PO DECREASED GLUCOSE; Start 03/18/17 at 20: 30 Dextrose (D50w Syringe) 25 ml Q15M PRN IV DECREASED GLUCOSE; Start 03/18/17 at 20:30 Dextrose (D50w Syringe) 50 ml Q15M PRN IV DECREASED GLUCOSE; Start 03/18/17 at 20:30 Glucagon (Glucagen) 1 mg Q15M PRN IM DECREASED GLUCOSE; Start 03/18/17 at 20:30 Glucose (Glutose) 15 gm Q15M PRN BUCCAL DECREASED GLUCOSE; Start 03/18/17 at 20 :30 YOON ALVAREZ MD Mar 19, 2017 14:14
[2017-03-19 14:37] VITALS: BP 160/68; RESP 18
--- NOTE | 2017-03-19 14:41 | RADRPT ---
PROCEDURE: CT Chest with contrast. CLINICAL INDICATION: Thrombocytopenia. Liver lesion. Evaluate for metastases. TECHNIQUE: CT scan of the chest with contrast was performed following the uncomplicated intravenou s administration of 90 cc of Visipaque 320. Coronal and sagittal reformatted images were obtained f rom the axial source images. Images were reviewed on a high-resolution PACS workstation. CTDIvol (mG y): 12.69; Total Exam DLP (mGy-cm): 516.89. One or more of the following dose reduction techniques were utilized: - Automated exposure control. - Adjustment of the mA and/or kV according to patient size. - Use of iterative reconstruction technique. COMPARISON: CT abdomen/pelvis 03/18/2017. Chest x-ray 03/18/2017. FINDINGS: Limited imaging of the lower neck is unremarkable. The heart is not enlarged. There is no pericardial effusion. There is no mediastinal, hilar or axi llary lymphadenopathy. The thoracic aorta is normal in caliber. Atherosclerotic calcification is p resent. Coronary artery calcifications are present. The pulmonary arteries are not enlarged. Small left and trace right pleural effusions are present. Subsegmental atelectasis is seen within th e left lung base. Nonspecific reticular densities are seen within the periphery of the right upper l obe. There is no lobar consolidation. There is no concerning pulmonary nodule. The tracheobronchial tree is normal in caliber. Limited imaging of the upper abdomen demonstrates cirrhosis and portal hypertension as evidenced by abdominal varices and splenomegaly. Multiple masses are seen throughout the liver. Diffuse mesenteri c edema and small volume ascites of the upper abdomen are also present. Mild degenerative changes of the thoracic spine are present. Diffuse subcutaneous soft tissue edema is observed. IMPRESSION: No evidence of pulmonary metastases. Trace right and small left pleural effusions with left basilar subsegmental atelectasis. Nonspecific reticular densities are seen within the periphery of the right upper lobe which may reflect resolvi ng pneumonitis/inflammation. Cirrhosis and portal hypertension with multiple hepatic masses most compatible with hepatocellular c arcinoma. Please refer to recent dedicated CT abdomen/pelvis. RPTAT: [id number] .Alexandria Henderson MD, MD Date Time Electronically viewed and signed by .Alexandria Henderson MD, MD on 03/19/2017 14:41 .T/
[2017-03-19 15:37] LABS: RETICULOCYTE COUNT % 4.4 % (0.5-1.5)
--- NOTE | 2017-03-19 16:19 | RADRPT ---
PROCEDURE: Whole body bone scan study CLINICAL INDICATION: Liver lesion most compatible with hepatocellular carcinoma, rule out osseous l esions TECHNIQUE: Following the intravenous injection of 25 mCi of Tc-99m MDP, whole body anterior and po sterior planar images were obtained along with spot views of the skull and ribs. COMPARISON: No prior bone scan studies. FINDINGS: No definite abnormal focal areas of increased radiotracer concentration are seen in the skeletal sys tem and distribution of radionuclide is homogeneous in the skull, spine, sternum, rib cages bilatera lly, pelvis and visualized portions of the upper and lower extremities bilaterally. Physiologic uptake is visualized in the kidneys and there is no definite evidence of obstructive uro jose or mass abnormalities of the kidneys. IMPRESSION: No definite scintigraphic evidence to suggest the presence of skeletal metastases. RPTAT: HH Physician Valente Date Time Electronically viewed and signed by Physician Valente on 03/19/2017 16:18 /
[2017-03-19] MEDS: ACETAMINOPHEN 325 MG TAB PO PRN (20:09)
[2017-03-19 21:05] VITALS: BP 131/61; RESP 18
[2017-03-20] MEDS: ACCU-CHEK XX SCH (02:14)
[2017-03-20 02:17] VITALS: BP 112/56; RESP 18
[2017-03-20 07:59] VITALS: BP 144/67; RESP 18
[2017-03-20] MEDS: INSULIN ASPART [NOVOLOG] 3 ML PEN SC SCH ×5 (08:16→20:54)
--- NOTE | 2017-03-20 08:34 | CONS ---
Date/Time of Note Date/Time of Note DATE: 03/20/17 TIME: 08:28 Consult Date/Type/Reason Admit Date/Time Mar 18, 2017 at 18:21 Initial Consult Date Subjective No overnight events. Pt had multiple tests performed yesterday. Eating breakfast today. Denies nausea/vomiting. No melena or hematochezia. Objective Vital Signs Date Time Temp Pulse Resp B/P Pulse Ox O2 Delivery O2 Flow Rate FiO2 03/20/17 07:59 97.8 88 18 144/67 96 03/18/17 22:21 Room Air Intake and Output 03/19/17 03/19/17 03/20/17 15:00 23:00 07:00 Intake Total 1720 ml 620 ml Balance 1720 ml 620 ml Exam NAD/A&Ox4 OP clear JVD not elevated Anicteric RRR nml s1s2 no m/g/r CTA except mild decrease at the bases Distended abdomen, positive fluid wave No c/c/1+ edema Results/Medications Result Diagram: 03/19/17 0539 03/19/17 0539 Results 24 hrs Laboratory Tests Test 03/19/17 12:44 03/19/17 14:16 03/19/17 14:20 03/19/17 17:35 Bedside Glucose 179 227 H Hepatitis B Core Total Antibody REACTIVE H Absolute Reticulocyte Count 0.151 H Percent Reticulocyte Count 4.4 H Lactate Dehydrogenase 1029 H Test 03/19/17 20:14 03/20/17 02:12 03/20/17 08:03 Bedside Glucose 226 H 212 142 Medications Current Medications Acetaminophen (Tylenol Tab) 650 mg Q6H PRN PO PAIN LEVEL 1-3 OR FEVER Last administered on 03/19/17t 20:09; Admin Dose 650 MG; Start 03/18/17 at 20:00 Acetaminophen/ Hydrocodone Bitart ([place] (5/325)) 1 tab Q6H PRN PO MODERATE PAIN LEVEL 4-6; Start 03/18/17 at 20:00 Docusate Sodium (Colace) 100 mg Q12H PRN PO CONSTIPATION; Start 03/18/17 at 20: 00 Magnesium Hydroxide (Milk Of Mag) 30 ml DAILY PRN PO CONSTIPATION; Start at 20:00 Bisacodyl (Dulcolax) 5 mg DAILY PRN PO CONSTIPATION; Start 03/18/17 at 20:00 Enoxaparin Sodium (Lovenox) 40 mg DAILY SC Last administered on 03/19/17 12:07 ; Admin Dose 40 MG; Start 03/19/17 at 09:00 Diagnostic Test (Pha) (Accu-Chek) 1 ea 02 XX Last administered on 03/20/17 02: 14; Admin Dose 1 EA; Start 03/19/17 at 02:00 Miscellaneous Information 1 ea NOTE XX ; Start 03/18/17 at 20:30 Glucose (Glutose) 15 gm Q15M PRN PO DECREASED GLUCOSE; Start 03/18/17 at 20:30 Glucose (Glutose) 22.5 gm Q15M PRN PO DECREASED GLUCOSE; Start 03/18/17 at 20: 30 Dextrose (D50w Syringe) 25 ml Q15M PRN IV DECREASED GLUCOSE; Start 03/18/17 at 20:30 Dextrose (D50w Syringe) 50 ml Q15M PRN IV DECREASED GLUCOSE; Start 03/18/17 at 20:30 Glucagon (Glucagen) 1 mg Q15M PRN IM DECREASED GLUCOSE; Start 03/18/17 at 20:30 Glucose (Glutose) 15 gm Q15M PRN BUCCAL DECREASED GLUCOSE; Start 03/18/17 at 20 :30 Assessment/Plan Problems: (1) Shortness of breath (2) Hyperbilirubinemia (3) Pleural effusion (4) Thrombocytopenia (5) Transaminitis (6) Obstructive cholestatic liver disease Additional Assessment/Plan Shikha Vazquez is a 65yo female who presents to this hospital with abdominal pain and is found to have ascites secondary to liver cirrhosis. Liver also demonstrates multiple lesions concerning for primary hepatocellular carcinoma as the AFP is quite elevated. No signs of extra-hepatic lesions present. Coags slightly elevated and pt has pancytopenia c/w underlying liver cirrhosis and sequestration of blood cells (supported by elevated retic). -Agree with liver biopsy. Would recommend drainage of ascites as well for fluid evaluation (SAAG, cytology, etc) -Recommend giving pt vitamin K at this time to improve coags prior to liver biopsy on Wednesday. -If plts less than 50k, recommend transfusing plts prior to procedure. -Will check CEA to screen for colon cancer-poor man's screen. Inocencio Smith MD Hematology/Oncology INOCENCIO SMITH Mar 20, 2017 08:34
[2017-03-20] MEDS ORDERED: PHYTONADIONE 5 MG in DEXTROSE 5% 50 ML IVPB ONE (09:00)
[2017-03-20] MEDS: ENOXAPARIN 40 MG/0.4 ML SYG SC SCH (09:02)
--- NOTE | 2017-03-20 11:37 | PN ---
Date/Time of Note Date/Time of Note DATE: 03/20/17 TIME: 11:34 Assessment/Plan VTE Prophylaxis VTE Prophylaxis Intervention: SCD's Lines/Catheters IV Catheter Type (from Nrs): Saline Lock Urinary Cath still in place: No Assessment/Plan Assessment/Plan 56 yo F with pmhx DM2 HTN HL here with 3-4 weeks GARCIA, LE swelling and abd distension. Liver imaging concerning for possible malignancy. 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 AFP also very high -cancer staging w/u negative -onc on cs -cont lasix -cont home BP meds -check hep b sAb (HepC neg) #macrocytosis most likely 2/2 underlying hepatic process, onc has ordered additional labs #subclinical hypothyroid: outpatient f/u #DM2: old metformin, SSI and check a1c #?HL: hold statin liver biopsy and para for wednesday. will order tomorrow Subjective 24 Hr Interval Summary Free Text/Dictation Anxious about the results of her work up Exam/Review of Systems Vital Signs Vitals Vital Signs Date Time Temp Pulse Resp B/P Pulse Ox O2 Delivery O2 Flow Rate FiO2 03/20/17 07:59 97.8 88 18 144/67 96 03/18/17 22:21 Room Air Intake and Output 03/19/17 03/19/17 03/20/17 15:00 23:00 07:00 Intake Total 1720 ml 620 ml Balance 1720 ml 620 ml Exam nad MMM no mrg no rashes responds to questions appropriately Results Result Diagram: 03/19/17 0539 03/19/17 0539 Results 24 hrs Laboratory Tests Test 03/19/17 12:44 03/19/17 14:16 03/19/17 14:20 03/19/17 17:35 Bedside Glucose 179 227 H Hepatitis B Core Total Antibody REACTIVE H Absolute Reticulocyte Count 0.151 H Percent Reticulocyte Count 4.4 H Lactate Dehydrogenase 1029 H Test 03/19/17 20:14 03/20/17 02:12 03/20/17 08:03 Bedside Glucose 226 H 212 142 Medications Medications Current Medications Acetaminophen (Tylenol Tab) 650 mg Q6H PRN PO PAIN LEVEL 1-3 OR FEVER Last administered on 03/19/17t 20:09; Admin Dose 650 MG; Start 03/18/17 at 20:00 Acetaminophen/ Hydrocodone Bitart ([place] (5/325)) 1 tab Q6H PRN PO MODERATE PAIN LEVEL 4-6; Start 03/18/17 at 20:00 Docusate Sodium (Colace) 100 mg Q12H PRN PO CONSTIPATION; Start 03/18/17 at 20: 00 Magnesium Hydroxide (Milk Of Mag) 30 ml DAILY PRN PO CONSTIPATION; Start at 20:00 Bisacodyl (Dulcolax) 5 mg DAILY PRN PO CONSTIPATION; Start 03/18/17 at 20:00 Diagnostic Test (Pha) (Accu-Chek) 1 ea 02 XX Last administered on 03/20/17t 02: 14; Admin Dose 1 EA; Start 03/19/17 at 02:00 Miscellaneous Information 1 ea NOTE XX ; Start 03/18/17 at 20:30 Glucose (Glutose) 15 gm Q15M PRN PO DECREASED GLUCOSE; Start 03/18/17 at 20:30 Glucose (Glutose) 22.5 gm Q15M PRN PO DECREASED GLUCOSE; Start 03/18/17 at 20: 30 Dextrose (D50w Syringe) 25 ml Q15M PRN IV DECREASED GLUCOSE; Start 03/18/17 at 20:30 Dextrose (D50w Syringe) 50 ml Q15M PRN IV DECREASED GLUCOSE; Start 03/18/17 at 20:30 Glucagon (Glucagen) 1 mg Q15M PRN IM DECREASED GLUCOSE; Start 03/18/17 at 20:30 Glucose (Glutose) 15 gm Q15M PRN BUCCAL DECREASED GLUCOSE; Start 03/18/17 at 20 :30 YOON ALVAREZ MD Mar 20, 2017 11:36
[2017-03-20 14:12] VITALS: BP 146/68; RESP 18
[2017-03-20] MEDS: ACETAMINOPHEN 325 MG TAB PO PRN ×2 (16:21→20:55)
[2017-03-20 20:55] VITALS: BP 145/65; PULSE 85; RESP 18
[2017-03-21] MEDS: ACCU-CHEK XX SCH (02:00)
[2017-03-21 06:23] LABS: ABNORMAL IP MESSAGE 1; BASOPHILS % 0.5 % (0.0-2.0); EOSINOPHILS # 0.1 10^3/ul (0.0-0.5); EOSINOPHILS % 3.4 % (0.0-7.0); HEMOGLOBIN 10.3 g/dl (12.0-16.0); LYMPHOCYTES # 0.8 10^3/ul (0.8-2.9); LYMPHOCYTES % 19.9 % (15.0-51.0); MEAN CORPUSCULAR HEMOGLOBIN 36.8 pg (29.0-33.0); MEAN CORPUSCULAR HGB CONC 35.5 g/dl (32.0-37.0); MEAN CORPUSCULAR VOLUME 103.6 fl (82.0-101.0); MEAN PLATELET VOLUME 11.3 fl (7.4-10.4); MONOCYTE # 0.5 10^3/ul (0.3-0.9); MONOCYTES % 13.6 % (0.0-11.0); NEUTROPHIL # 2.4 10^3/ul (1.6-7.5); NEUTROPHILS % 62.3 % (39.0-77.0); PLATELET COUNT 52 10^3/UL (140-415); RED CELL DISTRIBUTION WIDTH 14.3 % (11.5-14.5); WHITE BLOOD COUNT 3.8 10^3/ul (4.8-10.8)
[2017-03-21 06:39] LABS: INR 1.67; PROTIME 19.8 Sec (12.2-14.2); PT RATIO 1.5
[2017-03-21 06:55] LABS: POSITIVE DIFF @See below
[2017-03-21 08:05] VITALS: BP 135/63; RESP 18
[2017-03-21] MEDS: INSULIN ASPART [NOVOLOG] 3 ML PEN SC SCH ×4 (08:05→21:15)
[2017-03-21 08:43] LABS: INR 1.56; PROTIME 18.8 Sec (12.2-14.2); PT RATIO 1.5
--- NOTE | 2017-03-21 12:33 | PN ---
Date/Time of Note Date/Time of Note DATE: 03/21/17 TIME: 12:32 Assessment/Plan VTE Prophylaxis VTE Prophylaxis Intervention: SCD's Lines/Catheters IV Catheter Type (from Nrs): Saline Lock Urinary Cath still in place: No Assessment/Plan Assessment/Plan 56 yo F with pmhx DM2 HTN HL here with 3-4 weeks GARCIA, LE swelling and abd distension. Liver imaging concerning for possible malignancy. 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 AFP also very high -cancer staging w/u negative -onc on cs -cont lasix -cont home BP meds -Hep B c AB +, sAg and sAb neg-->distant resolved infection v low level chronic infection #macrocytosis most likely 2/2 underlying hepatic process #subclinical hypothyroid: outpatient f/u (TSH high, ft4 nl) #DM2: hold metformin. SSI a1c 5.9 #?HL: hold statin liver biopsy and para for wednesday. ordered along with para fluid studies. NPO at [place] Subjective 24 Hr Interval Summary Free Text/Dictation Pt in washroom at time of my attempted eval Exam/Review of Systems Vital Signs Vitals Vital Signs Date Time Temp Pulse Resp B/P Pulse Ox O2 Delivery O2 Flow Rate FiO2 03/21/17 08:05 98.0 96 18 135/63 95 03/20/17 20:55 Room Air Intake and Output 03/20/17 03/20/17 03/21/17 15:00 23:00 07:00 Intake Total 50.5 ml 1240 ml 800 ml Output Total 1100 ml Balance 50.5 ml 1240 ml -300 ml Exam Pt in washroom at time of my attempted eval Results Result Diagram: 03/21/17 0542 03/19/17 0539 Results 24 hrs Laboratory Tests Test 03/20/17 17:24 03/20/17 20:43 03/21/17 03:40 03/21/17 05:42 Bedside Glucose 191 198 202 White Blood Count 3.8 L Red Blood Count 2.80 L Hemoglobin 10.3 L Hematocrit 29.0 L Mean Corpuscular Volume 103.6 H Mean Corpuscular Hemoglobin 36.8 H Mean Corpuscular Hemoglobin Concent 35.5 Red Cell Distribution Width 14.3 Platelet Count 52 L Mean Platelet Volume 11.3 H Neutrophils % 62.3 Lymphocytes % 19.9 Monocytes % 13.6 H Eosinophils % 3.4 Basophils % 0.5 Nucleated Red Blood Cells % 0.0 Neutrophils # 2.4 Lymphocytes # 0.8 Monocytes # 0.5 Eosinophils # 0.1 Basophils # 0.0 Nucleated Red Blood Cells # 0.0 Prothrombin Time 19.8 H Prothrombin Time Ratio 1.5 INR International Normalized Ratio 1.67 Activated Partial Thromboplast Time 42.0 H Test 03/21/17 07:41 03/21/17 07:58 03/21/17 12:02 03/21/17 12:10 Prothrombin Time 18.8 H Prothrombin Time Ratio 1.5 INR International Normalized Ratio 1.56 Bedside Glucose 152 206 Lab Scanned Report REFERENCE LAB Medications Medications Current Medications Acetaminophen (Tylenol Tab) 650 mg Q6H PRN PO PAIN LEVEL 1-3 OR FEVER Last administered on 03/20/17 20:55; Admin Dose 650 MG; Start 03/18/17 at 20:00 Acetaminophen/ Hydrocodone Bitart ([place] (5/325)) 1 tab Q6H PRN PO MODERATE PAIN LEVEL 4-6; Start 03/18/17 at 20:00 Docusate Sodium (Colace) 100 mg Q12H PRN PO CONSTIPATION; Start 03/18/17 at 20: 00 Magnesium Hydroxide (Milk Of Mag) 30 ml DAILY PRN PO CONSTIPATION; Start at 20:00 Bisacodyl (Dulcolax) 5 mg DAILY PRN PO CONSTIPATION; Start 03/18/17 at 20:00 Diagnostic Test (Pha) (Accu-Chek) 1 ea 02 XX Last administered on 03/20/17 02: 14; Admin Dose 1 EA; Start 03/19/17 at 02:00 Miscellaneous Information 1 ea NOTE XX ; Start 03/18/17 at 20:30 Glucose (Glutose) 15 gm Q15M PRN PO DECREASED GLUCOSE; Start 03/18/17 at 20:30 Glucose (Glutose) 22.5 gm Q15M PRN PO DECREASED GLUCOSE; Start 03/18/17 at 20: 30 Dextrose (D50w Syringe) 25 ml Q15M PRN IV DECREASED GLUCOSE; Start 03/18/17 at 20:30 Dextrose (D50w Syringe) 50 ml Q15M PRN IV DECREASED GLUCOSE; Start 03/18/17 at 20:30 Glucagon (Glucagen) 1 mg Q15M PRN IM DECREASED GLUCOSE; Start 03/18/17 at 20:30 Glucose (Glutose) 15 gm Q15M PRN BUCCAL DECREASED GLUCOSE; Start 03/18/17 at 20 :30 YOON ALVAREZ MD Mar 21, 2017 12:33
--- NOTE | 2017-03-21 13:25 | CONS ---
Date/Time of Note Date/Time of Note DATE: 03/21/17 TIME: 13:23 Consult Date/Type/Reason Admit Date/Time Mar 18, 2017 at 18:21 Subjective No new issues. Feels well. Bx set up for tomorrow along with paracentesis. Objective Vital Signs Date Time Temp Pulse Resp B/P Pulse Ox O2 Delivery O2 Flow Rate FiO2 03/21/17 08:05 98.0 96 18 135/63 95 03/20/17 20:55 Room Air Intake and Output 03/20/17 03/20/17 03/21/17 15:00 23:00 07:00 Intake Total 50.5 ml 1240 ml 800 ml Output Total 1100 ml Balance 50.5 ml 1240 ml -300 ml Exam NAD/A&Ox4 Anicteric CTA B distended, +fluid wave 1+ LE edema No flank pain CN 2-12 intact No rash Results/Medications Result Diagram: 03/21/17 0542 03/19/17 0539 Results 24 hrs Laboratory Tests Test 03/20/17 17:24 03/20/17 20:43 03/21/17 03:40 03/21/17 05:42 Bedside Glucose 191 198 202 White Blood Count 3.8 L Red Blood Count 2.80 L Hemoglobin 10.3 L Hematocrit 29.0 L Mean Corpuscular Volume 103.6 H Mean Corpuscular Hemoglobin 36.8 H Mean Corpuscular Hemoglobin Concent 35.5 Red Cell Distribution Width 14.3 Platelet Count 52 L Mean Platelet Volume 11.3 H Neutrophils % 62.3 Lymphocytes % 19.9 Monocytes % 13.6 H Eosinophils % 3.4 Basophils % 0.5 Nucleated Red Blood Cells % 0.0 Neutrophils # 2.4 Lymphocytes # 0.8 Monocytes # 0.5 Eosinophils # 0.1 Basophils # 0.0 Nucleated Red Blood Cells # 0.0 Prothrombin Time 19.8 H Prothrombin Time Ratio 1.5 INR International Normalized Ratio 1.67 Activated Partial Thromboplast Time 42.0 H Test 03/21/17 07:41 03/21/17 07:58 03/21/17 12:02 03/21/17 12:10 Prothrombin Time 18.8 H Prothrombin Time Ratio 1.5 INR International Normalized Ratio 1.56 Bedside Glucose 152 206 Lab Scanned Report REFERENCE LAB Medications Current Medications Acetaminophen (Tylenol Tab) 650 mg Q6H PRN PO PAIN LEVEL 1-3 OR FEVER Last administered on 03/20/17 20:55; Admin Dose 650 MG; Start 03/18/17 at 20:00 Acetaminophen/ Hydrocodone Bitart ([place] (5/325)) 1 tab Q6H PRN PO MODERATE PAIN LEVEL 4-6; Start 03/18/17 at 20:00 Docusate Sodium (Colace) 100 mg Q12H PRN PO CONSTIPATION; Start 03/18/17 at 20: 00 Magnesium Hydroxide (Milk Of Mag) 30 ml DAILY PRN PO CONSTIPATION; Start at 20:00 Bisacodyl (Dulcolax) 5 mg DAILY PRN PO CONSTIPATION; Start 03/18/17 at 20:00 Diagnostic Test (Pha) (Accu-Chek) 1 ea 02 XX Last administered on 03/20/17 02: 14; Admin Dose 1 EA; Start 03/19/17 at 02:00 Miscellaneous Information 1 ea NOTE XX ; Start 03/18/17 at 20:30 Glucose (Glutose) 15 gm Q15M PRN PO DECREASED GLUCOSE; Start 03/18/17 at 20:30 Glucose (Glutose) 22.5 gm Q15M PRN PO DECREASED GLUCOSE; Start 03/18/17 at 20: 30 Dextrose (D50w Syringe) 25 ml Q15M PRN IV DECREASED GLUCOSE; Start 03/18/17 at 20:30 Dextrose (D50w Syringe) 50 ml Q15M PRN IV DECREASED GLUCOSE; Start 03/18/17 at 20:30 Glucagon (Glucagen) 1 mg Q15M PRN IM DECREASED GLUCOSE; Start 03/18/17 at 20:30 Glucose (Glutose) 15 gm Q15M PRN BUCCAL DECREASED GLUCOSE; Start 03/18/17 at 20 :30 Assessment/Plan Problems: (1) Shortness of breath (2) Hyperbilirubinemia (3) Pleural effusion (4) Thrombocytopenia (5) Transaminitis (6) Obstructive cholestatic liver disease Additional Assessment/Plan Pt admitted with abdominal pain and found to have cirrhotic liver and ascites along with two hepatic masses concerning for neoplasm. AFP elevated. HEP B+. Query primary hepatocellular carcinoma. -Bx in am -Check coags in am -If plts less than 50, tx 1 u plts prior to bx. Can be given during time of procedure as plts can be transfused over 30 min. Inocencio Smith MD Heme/Onc INOCENCIO SMITH Mar 21, 2017 13:25
[2017-03-21 14:53] VITALS: BP 129/57; RESP 18
--- NOTE | 2017-03-21 16:36 | RADRPT ---
PROCEDURE: US Abdomen (limited). CLINICAL INDICATION: Abdominal pain and distension. TECHNIQUE: Multiple real-time longitudinal and transverse images of the four quadrants of the abdo men were acquired utilizing a curved array transducer. Images were reviewed on a high-resolution PAC S workstation. COMPARISON: None FINDINGS: There is a small amount of ascites. Paracentesis was not performed. IMPRESSION: 1. Small amount of ascites. 2. Paracentesis not performed. RPTAT: QQ .Ben Curran MD, Date Time Electronically viewed and signed by .Ben Curran MD, on 03/21/2017 16:35 .R/
[2017-03-21] MEDS: ACETAMINOPHEN 325 MG TAB PO PRN (19:13)
[2017-03-21 19:30] VITALS: BP 120/59; RESP 20
[2017-03-21] MEDS ORDERED: ALPRAZOLAM 1 MG TAB PO ONE (21:00)
[2017-03-22] MEDS: ACCU-CHEK XX SCH (02:00)
[2017-03-22 02:10] VITALS: BP 128/62; RESP 20
[2017-03-22 06:21] LABS: ABNORMAL IP MESSAGE 1; BASOPHILS % 0.8 % (0.0-2.0); EOSINOPHILS # 0.2 10^3/ul (0.0-0.5); EOSINOPHILS % 4.9 % (0.0-7.0); HEMATOCRIT 30.7 % (37.0-47.0); HEMOGLOBIN 10.6 g/dl (12.0-16.0); LYMPHOCYTES # 0.8 10^3/ul (0.8-2.9); LYMPHOCYTES % 21.9 % (15.0-51.0); MEAN CORPUSCULAR HEMOGLOBIN 36.3 pg (29.0-33.0); MEAN CORPUSCULAR HGB CONC 34.5 g/dl (32.0-37.0); MEAN CORPUSCULAR VOLUME 105.1 fl (82.0-101.0); MEAN PLATELET VOLUME 10.9 fl (7.4-10.4); MONOCYTE # 0.5 10^3/ul (0.3-0.9); MONOCYTES % 13.5 % (0.0-11.0); NEUTROPHIL # 2.2 10^3/ul (1.6-7.5); NEUTROPHILS % 58.4 % (39.0-77.0); PLATELET COUNT 57 10^3/UL (140-415); RED BLOOD COUNT 2.92 10^6/ul (4.20-5.40); RED CELL DISTRIBUTION WIDTH 14.5 % (11.5-14.5); WHITE BLOOD COUNT 3.7 10^3/ul (4.8-10.8)
[2017-03-22 06:36] LABS: INR 1.7; PROTIME 20.1 Sec (12.2-14.2); PT RATIO 1.6
[2017-03-22 06:37] LABS: POSITIVE DIFF @See below
[2017-03-22 07:42] VITALS: BP 131/64; RESP 16
[2017-03-22] MEDS: INSULIN ASPART [NOVOLOG] 3 ML PEN SC SCH ×4 (08:15→20:55)
[2017-03-22] MEDS ORDERED: SOD CHLORIDE 0.9% 250 ML IV* ONE (11:17)
--- NOTE | 2017-03-22 11:37 | PN ---
Date/Time of Note Date/Time of Note DATE: 03/22/17 TIME: 11:30 Assessment/Plan VTE Prophylaxis VTE Prophylaxis Intervention: ambulation, contraindicated VTE Contraindication Reason: thrombocytopenia Lines/Catheters IV [facility]from [facility] Saline Lock Urinary Cath still in place: No Assessment/Plan Chief Complaint/Hosp Course Assessment/Plan: 56 yo F with pmhx DM2 HTN HL here with 3-4 weeks of GARCIA, LE swelling and abd distension. Liver imaging concerning for possible malignancy. 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 AFP also very high. 1. liver mass-masses found on imaging, AFP elevated as well, concerning for possible malignancy. Hematology oncology on case as well. Also, Hep B c AB +, sAg and sAb neg--> likely the result of distant resolved infection v low level chronic infection. Paracentesis was attempted, but not enough ascites fluid to be removed. -We will plan for another attempt at liver biopsy tomorrow after given FFP later this evening, monitor INR in the morning. Paracentesis was attempted, but not enough ascites fluid to be removed. -Will add spironolactone and p.o. Lasix for now given findings of cirrhosis on imaging studies. -cont home BP meds 2. macrocytosis most likely 2/2 underlying hepatic process -Monitor 3. subclinical hypothyroid: outpatient f/u (TSH high, ft4 nl) -Monitor for now 4. DM2: hold metformin - a1c 5.9 - continue ISS 5. HL: holding statin Problems: Subjective 24 Hr Interval Summary Free Text/Dictation Apparently paracentesis was attempted yesterday, but not enough ascitic fluid to take out. Patient not able to get liver biopsy today due to elevated INR. Patient denies abdominal pain. No other acute events overnight. Exam/Review of Systems Vital Signs Vitals Vital Signs Date Time Temp Pulse Resp B/P Pulse Ox O2 Delivery O2 Flow Rate FiO2 03/22/17 07:42 97.7 86 16 131/64 95 03/20/17 20:55 Room Air Intake and Output 03/21/17 03/21/17 03/22/17 15:00 23:00 07:00 Intake Total 1280 ml 400 ml Balance 1280 ml 400 ml Exam Standing in room, Nad, alert Clear to auscultation bilaterally no mrg +jaundice +edema responds to questions appropriately Results Result Diagram: 03/22/17 0528 03/19/17 0539 Results 24 hrs Laboratory Tests Test 03/21/17 12:02 03/21/17 12:10 03/21/17 17:16 03/21/17 21:08 Lab Scanned Report REFERENCE LAB Bedside Glucose 206 196 216 Test 03/22/17 02:17 03/22/17 05:27 03/22/17 05:28 03/22/17 08:26 Bedside Glucose 218 127 Prothrombin Time 20.1 H Prothrombin Time Ratio 1.6 INR International Normalized Ratio 1.70 White Blood Count 3.7 L Red Blood Count 2.92 L Hemoglobin 10.6 L Hematocrit 30.7 L Mean Corpuscular Volume 105.1 H Mean Corpuscular Hemoglobin 36.3 H Mean Corpuscular Hemoglobin Concent 34.5 Red Cell Distribution Width 14.5 Platelet Count 57 L Mean Platelet Volume 10.9 H Neutrophils % 58.4 Lymphocytes % 21.9 Monocytes % 13.5 H Eosinophils % 4.9 Basophils % 0.8 Nucleated Red Blood Cells % 0.0 Neutrophils # 2.2 Lymphocytes # 0.8 Monocytes # 0.5 Eosinophils # 0.2 Basophils # 0.0 Nucleated Red Blood Cells # 0.0 Medications Medications Current Medications Acetaminophen (Tylenol Tab) 650 mg Q6H PRN PO PAIN LEVEL 1-3 OR FEVER Last administered on 03/21/17 19:13; Admin Dose 650 MG; Start 03/18/17 at 20:00 Acetaminophen/ Hydrocodone Bitart ([place] (5/325)) 1 tab Q6H PRN PO MODERATE PAIN LEVEL 4-6; Start 03/18/17 at 20:00 Docusate Sodium (Colace) 100 mg Q12H PRN PO CONSTIPATION; Start 03/18/17 at 20: 00 Magnesium Hydroxide (Milk Of Mag) 30 ml DAILY PRN PO CONSTIPATION; Start at 20:00 Bisacodyl (Dulcolax) 5 mg DAILY PRN PO CONSTIPATION; Start 03/18/17 at 20:00 Diagnostic Test (Pha) (Accu-Chek) 1 ea 02 XX Last administered on 03/20/17 02: 14; Admin Dose 1 EA; Start 03/19/17 at 02:00 Miscellaneous Information 1 ea NOTE XX ; Start 03/18/17 at 20:30 Glucose (Glutose) 15 gm Q15M PRN PO DECREASED GLUCOSE; Start 03/18/17 at 20:30 Glucose (Glutose) 22.5 gm Q15M PRN PO DECREASED GLUCOSE; Start 03/18/17 at 20: 30 Dextrose (D50w Syringe) 25 ml Q15M PRN IV DECREASED GLUCOSE; Start 03/18/17 at 20:30 Dextrose (D50w Syringe) 50 ml Q15M PRN IV DECREASED GLUCOSE; Start 03/18/17 at 20:30 Glucagon (Glucagen) 1 mg Q15M PRN IM DECREASED GLUCOSE; Start 03/18/17 at 20:30 Glucose 15 gm 15 gm Q15M PRN BUCCAL DECREASED GLUCOSE; Start 03/18/17 at 20:30 Sodium Chloride (NS) 250 ml @ 0 mls/hr Q0M ONCE IV* ; Start 03/22/17 at 11:17; Stop 03/22/17 at 11:18; Status UNJULIA JOEL Mar 22, 2017 11:37
[2017-03-22] MEDS: FUROSEMIDE 20 MG TAB PO SCH (12:33)
[2017-03-22] MEDS: SPIRONOLACTONE 50 MG TAB PO SCH (12:34)
[2017-03-22 14:00] VITALS: BP 144/69; RESP 16
[2017-03-22 19:26] VITALS: BP 122/63; RESP 20
--- NOTE | 2017-03-22 19:45 | PN ---
DATE: 03/22/2017 SUBJECTIVE DATA: Patient states she is feeling well. Does not complain of abdominal pain. Still has some shortness of breath. She has not had any night sweats. OBJECTIVE DATA: GENERAL: Patient is a well-developed, well-nourished female, who is in no acute distress. VITAL SIGNS: Temperature 98.8, pulse 88 per minute and regular, respirations 16, blood pressure 144/69, pulse oximetry is 97 percent on room air. SKIN: No ecchymosis, no petechiae or rashes. There are some spider telangiectasias. HEENT: Normocephalic, no evidence of trauma. The pupils equal, round, reactive to light and accommodation. Sclerae are icteric. Oral mucosa is moist without lesions. Tongue is well papillated. There is no gingival hyperplasia. No hypertrophy of Waldeyer's ring. NECK: Neck is supple. No jugular distention, or thyroid enlargement. CHEST: Clear to auscultation and percussion. No rhonchi, wheezes, rales, or rubs. There are decreased breath sounds in both bases. HEART: Regular sinus rhythm. No S3, S4, murmurs, nodes. No palpable lymphadenopathy in any lymph node bearing area. ABDOMEN: Abdomen is distended, unable to palpate liver or spleen. EXTREMITIES: Good range of motion. No clubbing, edema, or cyanosis. No palpable cords or Homans sign. NEUROLOGIC: Neurologic is normal. There is no asterixis. LABORATORY DATA: White count today is 3,700, with an absolute neutrophil count of 2,200, hemoglobin 10.6, hematocrit 30.7, and platelet count is 57,000. Prothrombin time is 20.1 seconds. INR of 1.7. No PTT done today. Alpha fetoprotein is 931. The LDH is 1,029. Haptoglobin is pending. ASSESSMENT: 1. Cirrhosis with portal hypertension. 2. Multiple hepatic masses. Rule out a primary hepatocellular carcinoma versus repeat regenerative nodules. 3. Thrombocytopenia secondary to portal hypertension. 4. Coagulopathy secondary to liver disease. DISCUSSION: Paracentesis was attempted today and there was not enough free fluid to obtain for sampling. The patient is to have a CT or ultrasound guided needle biopsy of the liver in order to determine the nature of these hepatic nodules. The alpha fetoprotein of nearly a 1,000 suggest primary hepatocellular carcinoma, but does not rule out the possibility of regenerative nodules. As noted, the patient's protime is 20.1 seconds and PTT was 42 seconds. It is planned that the patient will receive fresh frozen plasma to correct what is a coagulopathy due to decreased production of hepatic dependent coagulation factors. Will also, however, check a fibrinogen level to determine if the patient would benefit from a crap septate. Dictated By: Manuel Schwartz MD /rob/mando /Document#: [id number]
[2017-03-22] MEDS ORDERED: ALPRAZOLAM 1 MG TAB PO PRN (22:30)
[2017-03-23] MEDS: ACCU-CHEK XX SCH (02:00)
[2017-03-23 02:06] VITALS: BP 128/62; RESP 20
[2017-03-23 05:27] LABS: ABNORMAL IP MESSAGE 1; BASOPHILS % 0.6 % (0.0-2.0); EOSINOPHILS # 0.1 10^3/ul (0.0-0.5); LYMPHOCYTES # 0.8 10^3/ul (0.8-2.9); MEAN CORPUSCULAR HEMOGLOBIN 36.4 pg (29.0-33.0); MEAN CORPUSCULAR HGB CONC 34.5 g/dl (32.0-37.0); MEAN CORPUSCULAR VOLUME 105.5 fl (82.0-101.0); MEAN PLATELET VOLUME 10.4 fl (7.4-10.4); MONOCYTE # 0.5 10^3/ul (0.3-0.9); MONOCYTES % 13.4 % (0.0-11.0); NEUTROPHILS % 57.1 % (39.0-77.0); PLATELET COUNT 59 10^3/UL (140-415); RED BLOOD COUNT 2.75 10^6/ul (4.20-5.40); RED CELL DISTRIBUTION WIDTH 14.6 % (11.5-14.5); WHITE BLOOD COUNT 3.5 10^3/ul (4.8-10.8)
[2017-03-23 05:38] LABS: INR 1.58; PT RATIO 1.5
[2017-03-23 05:53] LABS: ALBUMIN 2.2 g/dl (3.3-4.9); ALBUMIN/GLOBULIN RATIO 0.75; BILIRUBIN,DIRECT 1.3 mg/dl (0.00-0.20); BILIRUBIN,INDIRECT 3.4 mg/dl (0-1.1); BILIRUBIN,TOTAL 4.7 mg/dl (0.2-1.3); CALCIUM 7.8 mg/dl (8.4-10.2); CREATININE 0.47 mg/dl (0.44-1.00); POTASSIUM 3.3 mmol/L (3.5-5.1); TOTAL PROTEIN 5.1 g/dl (6.1-8.1)
[2017-03-23 06:01] LABS: POSITIVE DIFF @See below
[2017-03-23 06:41] LABS: ALBUMIN 2.2 g/dl (3.3-4.9); BILIRUBIN,DIRECT 1.4 mg/dl (0.00-0.20); BILIRUBIN,INDIRECT 3.4 mg/dl (0-1.1); BILIRUBIN,TOTAL 4.8 mg/dl (0.2-1.3)
[2017-03-23 07:27] VITALS: BP 131/61; RESP 16
[2017-03-23] MEDS: INSULIN ASPART [NOVOLOG] 3 ML PEN SC SCH ×4 (08:15→20:58)
[2017-03-23] MEDS: SPIRONOLACTONE 50 MG TAB PO SCH (08:31)
[2017-03-23] MEDS: FUROSEMIDE 20 MG TAB PO SCH (08:32)
--- NOTE | 2017-03-23 10:00 | PN ---
Date/Time of Note Date/Time of Note DATE: 03/23/17 TIME: 09:56 Assessment/Plan VTE Prophylaxis VTE Prophylaxis Intervention: ambulation, contraindicated VTE Contraindication Reason: thrombocytopenia Lines/Catheters IV [facility] Saline Lock Urinary Cath still in place: No Assessment/Plan Chief Complaint/Hosp Course Assessment/Plan: 56 yo F with pmhx DM2 HTN HL here with 3-4 weeks of GARCIA, LE swelling and abd distension. Liver imaging concerning for possible malignancy. 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 AFP also very high. 1. liver mass-masses found on imaging, AFP elevated as well, concerning for possible malignancy. Hematology oncology on case as well. (Also, Hep B c AB +, sAg and sAb neg--> likely the result of distant resolved infection v low level chronic infection). Paracentesis was attempted earlier this admission, but not enough ascites fluid to be removed. -For liver biopsy today, follow-up final results from biopsy when obtained. Again, paracentesis was attempted earlier this admission, but not enough ascites fluid to be removed. -Continue low-dose spironolactone and p.o. Lasix for now (started yesterday) given findings of cirrhosis on imaging studies. -cont home BP meds 2. macrocytosis most likely 2/2 underlying hepatic process -Monitor 3. subclinical hypothyroid: outpatient f/u (TSH high, ft4 nl) -Monitor for now 4. DM2: hold metformin - a1c 5.9 - continue ISS 5. HL: holding statin Problems: Subjective 24 Hr Interval Summary Free Text/Dictation Still waiting for liver biopsy to be performed, received FFP last night. Seen by hematology oncology team yesterday as well. Exam/Review of Systems Vital Signs Vitals Vital Signs Date Time Temp Pulse Resp B/P Pulse Ox O2 Delivery O2 Flow Rate FiO2 03/23/17 07:27 98.0 94 16 131/61 95 03/20/17 20:55 Room Air Intake and Output 03/22/17 03/22/17 03/23/17 15:00 23:00 07:00 Intake Total 2160 ml 703 ml Balance 2160 ml 703 ml Exam Nad, alert Clear to auscultation bilaterally no mrg +jaundice +edema responds to questions appropriately Results Result Diagram: 03/23/17 0504 03/23/17 0504 Results 24 hrs Laboratory Tests Test 03/22/17 12:39 03/22/17 17:24 03/22/17 19:35 03/22/17 20:50 Bedside Glucose 160 218 182 Fibrinogen 107.0 L Test 03/23/17 02:02 03/23/17 05:04 03/23/17 05:23 03/23/17 08:06 Bedside Glucose 171 128 White Blood Count 3.5 L Red Blood Count 2.75 L Hemoglobin 10.0 L Hematocrit 29.0 L Mean Corpuscular Volume 105.5 H Mean Corpuscular Hemoglobin 36.4 H Mean Corpuscular Hemoglobin Concent 34.5 Red Cell Distribution Width 14.6 H Platelet Count 59 L Mean Platelet Volume 10.4 Neutrophils % 57.1 Lymphocytes % 24.0 Monocytes % 13.4 H Eosinophils % 4.0 Basophils % 0.6 Nucleated Red Blood Cells % 0.0 Neutrophils # 2.0 Lymphocytes # 0.8 Monocytes # 0.5 Eosinophils # 0.1 Basophils # 0.0 Nucleated Red Blood Cells # 0.0 Prothrombin Time 19.0 H Prothrombin Time Ratio 1.5 INR International Normalized Ratio 1.58 Sodium Level 133 L Potassium Level 3.3 L Chloride Level 103 Carbon Dioxide Level 28 Anion Gap 5 L Blood Urea Nitrogen 7 Creatinine 0.47 Glucose Level 162 Calcium Level 7.8 L Total Bilirubin 4.7 H Direct Bilirubin 1.30 H Indirect Bilirubin 3.4 H Aspartate Amino Transf (AST/SGOT) 75 H Alanine Aminotransferase (ALT/SGPT) 50 Alkaline Phosphatase 256 H Total Protein 5.1 L Albumin 2.2 L Globulin 2.90 Albumin/Globulin Ratio 0.75 Lab Scanned Report BLOOD TRANSFUSION Medications Medications Current Medications Acetaminophen (Tylenol Tab) 650 mg Q6H PRN PO PAIN LEVEL 1-3 OR FEVER Last administered on 03/21/17t 19:13; Admin Dose 650 MG; Start 03/18/17 at 20:00 Acetaminophen/ Hydrocodone Bitart ([place] (5/325)) 1 tab Q6H PRN PO MODERATE PAIN LEVEL 4-6; Start 03/18/17 at 20:00 Docusate Sodium (Colace) 100 mg Q12H PRN PO CONSTIPATION; Start 03/18/17 at 20: 00 Magnesium Hydroxide (Milk Of Mag) 30 ml DAILY PRN PO CONSTIPATION; Start at 20:00 Bisacodyl (Dulcolax) 5 mg DAILY PRN PO CONSTIPATION; Start 03/18/17 at 20:00 Diagnostic Test (Pha) (Accu-Chek) 1 ea 02 XX Last administered on 03/20/17 02: 14; Admin Dose 1 EA; Start 03/19/17 at 02:00 Miscellaneous Information 1 ea NOTE XX ; Start 03/18/17 at 20:30 Glucose (Glutose) 15 gm Q15M PRN PO DECREASED GLUCOSE; Start 03/18/17 at 20:30 Glucose (Glutose) 22.5 gm Q15M PRN PO DECREASED GLUCOSE; Start 03/18/17 at 20: 30 Dextrose (D50w Syringe) 25 ml Q15M PRN IV DECREASED GLUCOSE; Start 03/18/17 at 20:30 Dextrose (D50w Syringe) 50 ml Q15M PRN IV DECREASED GLUCOSE; Start 03/18/17 at 20:30 Glucagon (Glucagen) 1 mg Q15M PRN IM DECREASED GLUCOSE; Start 03/18/17 at 20:30 Glucose (Glutose) 15 gm Q15M PRN BUCCAL DECREASED GLUCOSE; Start 03/18/17 at 20 :30 Spironolactone (Aldactone) 50 mg DAILY PO Last administered on 03/22/17 12:34 ; Admin Dose 50 MG; Start 03/22/17 at 12:00 Furosemide (Lasix) 20 mg DAILY PO Last administered on 03/22/17 12:33; Admin Dose 20 MG; Start 03/22/17 at 12:00 Alprazolam (Xanax) 1 mg HS PRN PO ANXIETY Last administered on 03/22/17 22:30 ; Admin Dose 1 MG; Start 03/22/17 at 22:30 JULIA VIDES Mar 23, 2017 10:00
[2017-03-23] MEDS ORDERED: POTASSIUM CHLORIDE (SR) 20 MEQ TAB PO STA ×2 (10:21→11:27)
[2017-03-23] MEDS ORDERED: POTASSIUM CHLORIDE 250 ML IVPB STA (10:48)
--- NOTE | 2017-03-23 11:47 | CONS ---
Date/Time of Note Date/Time of Note DATE: 03/23/17 TIME: 11:47 Assessment/Plan Assessment/Plan Additional Assessment/Plan [facility] INPATIENT CONSULTATION NOTE DATE OF SERVICE: 03/23/2017 PLACE OF SERVICE: [facility], sixth floor ASSESSMENT AND PLAN: A very-pleasant but unfortunate 56-year-old lady with hepatocellular carcinoma in the setting of decompensated cirrhosis with ascites , as well as complication of portal hypertension indicated by significant varices as well as thrombocytopenia. Patient is certainly not a candidate for surgical intervention. She might benefit from local therapy of the liver in the form of transarterial chemoembolization (TACE). There is also the option of systemic chemotherapy with sorafenib or other newer second line agents if above intervention fail. After multidisciplinary discussion, we do believe that there are adequate signs on the CT scan of abdomen and pelvis dated 2016 that shows arterially enhancing lesions in the right lobe of the liver with appropriate amount of washout on the delayed images which would be characteristic of hepatocellular carcinoma, especially when coupled with her elevated alpha-fetoprotein. There is therefore, no indication for biopsy and the patient can be treated with a diagnosis of HCC. I have explained this to the patient and answered all questions. Patient appeared to understand and agreed with the plans. Also discussed with multiple physicians on the team. With above assessment, I've recommended the followin. Continue medical care until stable enough for discharge 2. I will ask my office to kindly coordinate getting the patient to TACE 3. Follow-up with Dr. Schwartz in oncology 4. Multidisciplinary tumor board presentation Thank you very much for having me involved in the care of this very pleasant patient and wonderful family. If you have any questions, please feel free to contact me at [phone]. Nature of presenting problem: High severity Please note that, given the moderate number of diagnoses or management options, the extensive amount and/or complexity of data needed to be reviewed, and high risk of complications and/or morbidity or mortality, this qualifies as high complexity type of decision-making. Disclaimers: 1. Inadvertent spelling and grammatical errors are likely due to electronic health record (EHR)/dictation software used and do not reflect on the quality of delivered patient care. 2. The electronic timestamp recorded on this note does not necessarily reflect the actual date and time of the visit or the service. 3. Portions of this note may have been created through electronic templates and computer algorithms that might bring in information either from the system or from other physicians and providers. Please note that such information may or may not contain errors, the occurrence of which are outside of my control. In general (but not always) this happens either in the beginning or at the end of the note. The portion of the note that I have created are generally done in 1 continuous block of text, flanked at the beginning and at the end by " ", and entered into one field in the EHR. 4. There may be other unanticipated errors in the note that are outside of my control. I can only attest to the portions of the note that I have created. Updated clinical summary: A very-pleasant but unfortunate 56-year-old lady with hepatocellular carcinoma in the setting of likely hepatic steatosis-related and currently decompensated cirrhosis with ascites, as well as complication of portal hypertension indicated by significant varices as well as thrombocytopenia. Comorbidities: 1. Cirrhosis, complicated by ascites and portal hypertension as evidenced by significant varices intra-abdominally, recanalized umbilical vein, and thrombocytopenia with platelets in the 50s-60s. Significant liver function and injury parameters are abnormalities with total bilirubin of 6.7 and alkaline phosphatase of 304. INR 1.58. 2. Hepatocellular carcinoma within cirrhotic liver. AFP 931 03/19/2017. 3. BMI 30.1 (used to be heavier for many decades) 4. Diabetes mellitus type 2 5. Hypertension 6. Hyperlipidemia 7. Vitamin D deficiency 8. Jaundice 3 weeks 9. Malnutrition (albumin 2.2 after resuscitation) 10. C-sections (3); G3, P3, Ab0 11. Cholelithiasis 12. Colonic diverticulosis CONSULTATION REQUESTED BY: Nano Feliciano MD Dear Dr. Feliciano, Thank you very much for the opportunity to participate in the care of this very pleasant lady and I am certain her wonderful family. HISTORY OF PRESENT ILLNESS: The patient is a very pleasant but unfortunate 56- year-old lady with multiple above-mentioned comorbidities whom we were kindly asked to consult regarding management of newly discovered liver lesions within cirrhotic liver. Patient initially presented to [facility] emergency department and was admitted to the hospital on 03/18/2017 with 3-4 week history of dyspnea on exertion, lower extremity swelling and abdominal distention. There was also mention of jaundice without any noted significant abdominal pain. Please note that the patient does not drink heavily, does not use other legal or illegal substances, has not been taking heavy herbal medications, and does not have any known hepatitis issues in the past. There was a blood transfusion more than 30 years ago, and her hepatitis B core antibody is positive. However, hepatitis B surface antigen and hepatitis C antibody are negative. There is also no history of intravenous drug abuse. Patient does drink alcohol, but unclear whether he was having in the past or not. ALLERGIES: NO KNOWN DRUG ALLERGIES MEDICATIONS Documented in the electronic records and reviewed by me. Please see the electronic records for details, as well as details for inpatient medications which were also reviewed by me. SOCIAL HISTORY: The patient lives with family. + Tob; + ETOH (social; no DUI; no AA; no prior issues); - IVDU; blood transfusion with of her first child more than 30 years ago. FAMILY HISTORY: There are no significant medical, surgical or oncologic issues in the family as reported by the patient or reflected in the chart. REVIEW OF SYSTEMS: Other than mentioned above, there were no other pertinent positives or pertinent negatives in an otherwise complete 14 point review of systems. PHYSICAL EXAMINATION GENERAL: The patient appears to be a very pleasant lady of descent lying in bed, appearing stated age, and otherwise in no acute distress. BMI: 30.1 VITAL SIGNS: AVSS (please also see auto important data if available as well as the electronic records) HEENT: Normocephalic and atraumatic. Extraocular muscles and hearing are grossly intact bilaterally and symmetrically. Sclerae are very minimally icteric. Oral cavity is clear; oral mucosa appear to be pink and moist. Dentition: fair to poor with some missing teeth. NECK: Supple. There is no lymphadenopathy or JVD. There is no submental, submandibular or supraclavicular lymphadenopathy. CHEST: Rises symmetrically with each breath; patient is breathing comfortably. There are no audible wheezes, rales or rhonchi on the gross exam. HEART: Pulse is regular and palpable on the right wrist. Capillary refill is normal. Carotid pulses are palpable bilaterally and symmetrically in the neck. EXTREMITIES: Lower extremities contain 3+ pitting edema around the ankles bilaterally and symmetrically. ABDOMEN: Abdomen is soft, nontender and nondistended. No evidence of ascites, organomegaly, caput medusae, engorged subcutaneous veins, or other abnormalities. There are no peritoneal signs or guarding. SKIN: Appears to be pink and feels warm to touch. NEUROLOGIC: Awake, alert, and follows commands appropriately. LABORATORY DATA: See below IMAGING: See electronic chart. Please note that I've personally reviewed all pertinent available images and I agree in general with their overall reported findings. 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 The liver is small with diffusely nodular contour suggestive of cirrhosis. There is a 7.5 cm heterogeneously enhancing lesion within the right hepatic lobe which contains some central fat density. There is a 5.7 cm lobulated lesion within the superior aspect of the right hepatic lobe. This lesion is partially exophytic. There appear to be several smaller adjacent satellite nodules. There is mild splenomegaly. The gallbladder is filled with stones and contains some wall calcifications. Upper abdominal varices are noted. Cirrhotic liver with associated splenomegaly and upper abdominal varices as well as moderate to large ascites. Cholelithiasis. Colonic diverticulosis. My own review of these images is consistent with HCC given the classic washout that we see on the delayed images as well as the enhancement of the lesions on the arterial phase. Discussed and confirmed with Dr. Curran from radiology. Consultation Date/Type/Reason Admit Date/Time Mar 18, 2017 at 18:21 Social History Smoking Status: Former smoker Exam/Review of Systems Vital Signs Vitals Vital Signs Date Time Temp Pulse Resp B/P Pulse Ox O2 Delivery O2 Flow Rate FiO2 03/23/17 07:27 98.0 94 16 131/61 95 03/20/17 20:55 Room Air Intake and Output 03/22/17 03/22/17 03/23/17 15:00 23:00 07:00 Intake Total 2160 ml 703 ml Balance 2160 ml 703 ml Results Result Diagram: 03/23/17 0504 03/23/17 0504 Results 24 hrs Laboratory Tests Test 03/22/17 12:39 03/22/17 17:24 03/22/17 19:35 03/22/17 20:50 Bedside Glucose 160 218 182 Fibrinogen 107.0 L Test 03/23/17 02:02 03/23/17 05:04 03/23/17 05:23 03/23/17 08:06 Bedside Glucose 171 128 White Blood Count 3.5 L Red Blood Count 2.75 L Hemoglobin 10.0 L Hematocrit 29.0 L Mean Corpuscular Volume 105.5 H Mean Corpuscular Hemoglobin 36.4 H Mean Corpuscular Hemoglobin Concent 34.5 Red Cell Distribution Width 14.6 H Platelet Count 59 L Mean Platelet Volume 10.4 Neutrophils % 57.1 Lymphocytes % 24.0 Monocytes % 13.4 H Eosinophils % 4.0 Basophils % 0.6 Nucleated Red Blood Cells % 0.0 Neutrophils # 2.0 Lymphocytes # 0.8 Monocytes # 0.5 Eosinophils # 0.1 Basophils # 0.0 Nucleated Red Blood Cells # 0.0 Prothrombin Time 19.0 H Prothrombin Time Ratio 1.5 INR International Normalized Ratio 1.58 Sodium Level 133 L Potassium Level 3.3 L Chloride Level 103 Carbon Dioxide Level 28 Anion Gap 5 L Blood Urea Nitrogen 7 Creatinine 0.47 Glucose Level 162 Calcium Level 7.8 L Total Bilirubin 4.7 H Direct Bilirubin 1.30 H Indirect Bilirubin 3.4 H Aspartate Amino Transf (AST/SGOT) 75 H Alanine Aminotransferase (ALT/SGPT) 50 Alkaline Phosphatase 256 H Total Protein 5.1 L Albumin 2.2 L Globulin 2.90 Albumin/Globulin Ratio 0.75 Lab Scanned Report BLOOD TRANSFUSION Test 03/23/17 11:33 Bedside Glucose 121 Medications Medications Current Medications Acetaminophen (Tylenol Tab) 650 mg Q6H PRN PO PAIN LEVEL 1-3 OR FEVER Last administered on 03/21/17t 19:13; Admin Dose 650 MG; Start 03/18/17 at 20:00 Acetaminophen/ Hydrocodone Bitart ([place] (5/325)) 1 tab Q6H PRN PO MODERATE PAIN LEVEL 4-6; Start 03/18/17 at 20:00 Docusate Sodium (Colace) 100 mg Q12H PRN PO CONSTIPATION; Start 03/18/17 at 20: 00 Magnesium Hydroxide (Milk Of Mag) 30 ml DAILY PRN PO CONSTIPATION; Start at 20:00 Bisacodyl (Dulcolax) 5 mg DAILY PRN PO CONSTIPATION; Start 03/18/17 at 20:00 Diagnostic Test (Pha) (Accu-Chek) 1 ea 02 XX Last administered on 03/20/17 02: 14; Admin Dose 1 EA; Start 03/19/17 at 02:00 Miscellaneous Information 1 ea NOTE XX ; Start 03/18/17 at 20:30 Glucose (Glutose) 15 gm Q15M PRN PO DECREASED GLUCOSE; Start 03/18/17 at 20:30 Glucose (Glutose) 22.5 gm Q15M PRN PO DECREASED GLUCOSE; Start 03/18/17 at 20: 30 Dextrose (D50w Syringe) 25 ml Q15M PRN IV DECREASED GLUCOSE; Start 03/18/17 at 20:30 Dextrose (D50w Syringe) 50 ml Q15M PRN IV DECREASED GLUCOSE; Start 03/18/17 at 20:30 Glucagon (Glucagen) 1 mg Q15M PRN IM DECREASED GLUCOSE; Start 03/18/17 at 20:30 Glucose (Glutose) 15 gm Q15M PRN BUCCAL DECREASED GLUCOSE; Start 03/18/17 at 20 :30 Spironolactone (Aldactone) 50 mg DAILY PO Last administered on 03/22/17 12:34 ; Admin Dose 50 MG; Start 03/22/17 at 12:00 Furosemide (Lasix) 20 mg DAILY PO Last administered on 03/22/17 12:33; Admin Dose 20 MG; Start 03/22/17 at 12:00 Alprazolam (Xanax) 1 mg HS PRN PO ANXIETY Last administered on 03/22/17 22:30 ; Admin Dose 1 MG; Start 03/22/17 at 22:30 CASPER LLAMAS M.D. Mar 23, 2017 11:47
[2017-03-23 13:42] VITALS: BP 146/67; RESP 16
[2017-03-23 19:25] VITALS: BP 134/63; RESP 20
[2017-03-24] MEDS: ACCU-CHEK XX SCH (01:56)
[2017-03-24 02:04] VITALS: BP 139/63; RESP 20
[2017-03-24] MEDS: ACETAMINOPHEN 325 MG TAB PO PRN (02:56)
[2017-03-24 06:12] LABS: ABNORMAL IP MESSAGE 1; BASOPHILS % 0.6 % (0.0-2.0); EOSINOPHILS # 0.2 10^3/ul (0.0-0.5); EOSINOPHILS % 4.5 % (0.0-7.0); HEMATOCRIT 28.1 % (37.0-47.0); HEMOGLOBIN 9.7 g/dl (12.0-16.0); LYMPHOCYTES # 0.8 10^3/ul (0.8-2.9); LYMPHOCYTES % 21.6 % (15.0-51.0); MEAN CORPUSCULAR HEMOGLOBIN 36.7 pg (29.0-33.0); MEAN CORPUSCULAR HGB CONC 34.5 g/dl (32.0-37.0); MEAN CORPUSCULAR VOLUME 106.4 fl (82.0-101.0); MEAN PLATELET VOLUME 10.7 fl (7.4-10.4); MONOCYTE # 0.5 10^3/ul (0.3-0.9); NEUTROPHIL # 2.1 10^3/ul (1.6-7.5); NEUTROPHILS % 58.7 % (39.0-77.0); PLATELET COUNT 59 10^3/UL (140-415); RED BLOOD COUNT 2.64 10^6/ul (4.20-5.40); RED CELL DISTRIBUTION WIDTH 14.8 % (11.5-14.5); WHITE BLOOD COUNT 3.6 10^3/ul (4.8-10.8)
[2017-03-24 06:16] LABS: POSITIVE DIFF @See below
[2017-03-24 06:46] LABS: ALBUMIN/GLOBULIN RATIO 0.68; BILIRUBIN,DIRECT 0.9 mg/dl (0.00-0.20); BILIRUBIN,INDIRECT 2.9 mg/dl (0-1.1); BILIRUBIN,TOTAL 3.8 mg/dl (0.2-1.3); CALCIUM 7.7 mg/dl (8.4-10.2); CREATININE 0.46 mg/dl (0.44-1.00); POTASSIUM 3.5 mmol/L (3.5-5.1); TOTAL PROTEIN 4.9 g/dl (6.1-8.1)
[2017-03-24 07:38] VITALS: BP 124/60; RESP 16
[2017-03-24] MEDS: SPIRONOLACTONE 50 MG TAB PO SCH (08:39)
[2017-03-24] MEDS: FUROSEMIDE 20 MG TAB PO SCH (08:39)
[2017-03-24] MEDS: INSULIN ASPART [NOVOLOG] 3 ML PEN SC SCH (09:46)
--- NOTE | 2017-03-24 09:54 | PDOCDIS ---
Discharge Instructions CONDITION Patient Condition: Stable HOME CARE INSTRUCTIONS: Special Diet: carb control ACTIVITY: Activity Restrictions: Slowly Increase Activity FOLLOW UP/APPOINTMENTS Follow-up Plan Please take your medications as prescribed, please follow-up with your hematology oncology doctor and hepatobiliary surgeon in the clinic in the next few days to begin your therapy. JULIA VIDES Mar 24, 2017 09:54
[2017-03-24] MEDS ORDERED: UDMOM PO (09:56)
[2017-03-24] MEDS ORDERED: DOCU-216 PO (09:56)
[2017-03-24] MEDS ORDERED: ALPR1TAB7 PO (09:56)
[2017-03-24] MEDS ORDERED: LAS20 PO (09:56)
[2017-03-24] MEDS ORDERED: SPIR50TA PO (09:56)
--- NOTE | 2017-03-24 10:31 | DS ---
DATE OF ADMISSION: 03/18/2017 DATE OF DISCHARGE: 03/24/2017 DISCHARGE SUMMARY: This is a 56-year-old female originally admitted on March 18, 2017, being discharged home on March 24, 2017. The patient initially came in with shortness of breath symptoms and lower extremity swelling and abdominal distention. She had imaging studies performed of her abdomen and pelvis that were concerning for possible malignancy of the liver as there was some abnormal liver lesions found, so she was admitted to the med-surg floor, seen by hematology oncology team and hepatobiliary surgery team during this hospital stay. She had very elevated alpha-fetoprotein levels and was diagnosed with hepatocellular carcinoma. The patient initially was scheduled for a liver biopsy, but upon further review by Hematology team, interventional radiology team and hepatobiliary surgery team there was enough information on the imaging studies and alpha fetoprotein elevation. Blood tests to determine that this was in fact a hepatocellular carcinoma and recommendations were made for trans arterial chemoembolization, which will begin as an outpatient. So, no biopsy was performed during this admission. The patient was also diagnosed with signs of cirrhosis and a paracentesis was attempted, but there was not enough ascitic fluid to be drained. The patient was started on Lasix and Aldactone as well to help control her symptoms regarding this. Over the course of her hospital stay, she was treated for diabetes as well and hypertension. Her A1c was actually found to be 5.9. She was able to ambulate and tolerate a p.o. diet. Her lower extremity swelling symptoms shortness of breath symptoms are improved as well. She was also diagnosed with subclinical hypothyroidism, but was asymptomatic as her TSH was high, but her free T4 levels were normal so this was continued to be monitored and after getting clearance from the business objects consultant teams the patient will be discharged home today in improved condition. However, she will need close follow-up as an outpatient and she will follow up with hepatobiliary surgery team to begin TACE, which is the transarterial chemoembolization. She will follow up with the Hematology-Oncology team in the office as well to begin treatment for hepatocellular carcinoma. DISCHARGE MEDICATIONS: Discharge medications include the followin. Alprazolam 1 mg p.o. q.h.s. p.r.n. 2. Colace 100 mg p.o. q.12 hours p.r.n. 3. Lasix 20 mg p.o. daily. 4. Milk of Magnesia 30 mL orally daily p.r.n. 5. Spironolactone 50 mg daily. 6. Vitamin D2 50,000 units q.week. 7. Metformin 500 mg with breakfast. FINAL DIAGNOSES: 1. Abdominal pain, shortness of breath symptoms and lower extremity swelling secondary to cirrhosis. 2. Liver mass diagnosed with hepatocellular carcinoma. To begin TACE therapy as an outpatient. 3. Macrocytosis most likely secondary to underlying hepatic process. 4. Subclinical hypothyroidism. No clinical symptoms. 5. Type 2 diabetes. A1c is 5.9. 6. High cholesterol. 7. Vitamin D2 deficiency. Time to discharge the patient was 45 minutes. Dictated By: Chano Feliciano MD /rob/mat /Document#: [id number] HEATHER
== END 2017-03-24 12:50 | disposition home or self-care (01) | DRG 435 ==
LOC: FTE 13:07 → MS2 18:21
PROVIDERS: ADMIT Internal Medicine; ATTEND Internal Medicine
PROC: 30233K1 Transfusion of Nonautologous Frozen Plasma into Peripheral Vein, Percutaneous Approach (ICD-10-PCS; principal; 2017-03-23)
DX: C22.0 Liver cell carcinoma (principal); K83.1 Obstruction of bile duct; J90 Pleural effusion, not elsewhere classified; D68.9 Coagulation defect, unspecified; D69.59 Other secondary thrombocytopenia; E88.09 Other disorders of plasma-protein metabolism, not elsewhere classified; K76.6 Portal hypertension; B18.1 Chronic viral hepatitis B without delta-agent; K74.60 Unspecified cirrhosis of liver; E11.9 Type 2 diabetes mellitus without complications; I10 Essential (primary) hypertension; D75.89 Other specified diseases of blood and blood-forming organs; E78.5 Hyperlipidemia, unspecified; E55.9 Vitamin D deficiency, unspecified; E02 Subclinical iodine-deficiency hypothyroidism; Z87.891 Personal history of nicotine dependence; Z79.4 Long term (current) use of insulin
CPT/HCPCS: 36430; 71010; 71260; 74178; 76705; 78306; 80053; 80076; 81001; 81003; 82103; 82105; 82247; 82248; 82390; 82525; 82607; 82728; 82746; 82962; 83010; 83036; 83615; 83690; 83880; 84155; 84439; 84443; 84484; 85025; 85045; 85384; 85610; 85730; 86704; 86706; 86709; 86803; 86850; 86900; 86901; 87340; 93005; A9503; J1650; J1815; J3480; J7040; P9059; Q9967

== ENCOUNTER 2017-04-07 18:10 | Emergency (ER) | payer OTHER ==
[~2017-04-07] VITALS: Ht 162.6 cm; Wt 80.0 kg
[~2017-04-07 18:10] MED LIST changes: +ALPR1TAB7 PO; +DOCU-216 PO; +ERGO500037 PO; +LAS20 PO; +METF500T4 PO; -RANI150T9 PO; +SPIR50TA PO; -TRAM50TA2 PO; +UDMOM PO
[2017-04-07 18:33] VITALS: Ht 162.6 cm; Wt 80.0 kg
--- NOTE | 2017-04-07 19:00 | ERD ---
ER Documentation Chief Complaint Date/Time DATE: 04/07/17 TIME: 18:57 Chief Complaint billateral lower AP, SOB, dizzy, pounding [place], [place] HPI Patient is a 56-year-old female who presents with gradual onset, intermittent, mild to moderate, dull bilateral lower quadrant abdominal pain for the last 3 weeks. Pain is associated with increasing abdominal distention and shortness of breath. She states that several hours ago, the pain became more severe, as well as feeling more short of breath and having palpitations. She denies chest pain or back pain. She reports nonproductive cough. She has history of liver cancer and cirrhosis. She denies fever or vomiting, denies dark stools. She has had constipation. ROS All systems reviewed and are negative except as per history of present illness. Medications Home Meds Active Scripts Docusate Sodium (Dok) 100 Mg Capsule, 100 MG PO Q12H Y for CONSTIPATION, #60 CAP Prov:PEEWEEJULIA S. 03/24/17 Alprazolam* (Alprazolam*) 1 Mg Tablet, 1 MG PO HS Y for ANXIETY, #20 TAB Prov:PEEWEEJULIA S. 03/24/17 Furosemide (Lasix) 20 Mg Tab, 20 MG PO DAILY, #30 TAB 4 Refills Prov:PEEWEEJULIA S. 03/24/17 Reported Medications Metformin Hcl* (Metformin Hcl*) 500 Mg Tablet, 500 MG PO WITH BREAKFAST, #30 TAB EVERY OTHER DAY 03/18/17 Ergocalciferol (Vitamin D2) (VITAMIN D2) 50,000 Unit Capsule, 72744 UNIT PO Q7D , CAP 03/18/17 Discontinued Scripts Magnesium Hydroxide* ([place]erc[place]' MOM*) 30 Ml Susp, 30 ML PO DAILY Y for CONSTIPATION, #1 BOTTLE Prov:PEEWEEJULIA S. 03/24/17 Spironolactone* (Aldactone*) 50 Mg Tablet, 50 MG PO DAILY, #30 TAB 4 Refills Prov:PEEWEEJULIA S. 03/24/17 Allergies Allergies: Coded Allergies: No Known Allergy (Unverified , 04/07/17) PMhx/Soc Past medical history: Cirrhosis, hepatocellular carcinoma Past surgical history: Denies Social history: Denies tobacco or alcohol History of Surgery: No Anesthesia Reaction: No Hx Neurological Disorder: No Hx Respiratory Disorders: No Hx Cardiac Disorders: No Hx Psychiatric Problems: No Hx Miscellaneous Medical Probl: Yes (Cirrhosis, Liver CA, DM2) Hx Alcohol Use: No Hx Substance Use: No Hx Tobacco Use: Yes Smoking Status: Current some day smoker FmHx Noncontributory Physical Exam Vitals Vital Signs Date Time Temp Pulse Resp B/P Pulse Ox O2 Delivery O2 Flow Rate FiO2 04/07/17 22:01 98.0 98 17 129/75 96 Room Air 04/07/17 21:00 98.0 99 20 127/73 96 Room Air 04/07/17 20:00 98.1 102 26 109/90 96 Room Air 04/07/17 18:45 98.3 100 23 147/79 97 Room Air 04/07/17 18:33 98.3 105 23 147/79 97 Physical Exam Const: Alert, no acute distress Head: Atraumatic Eyes: Normal Conjunctiva, Moderate conjunctival icterus, mild pallor ENT: Normal External Ears, Nose and Mouth. Mucous membranes moist Neck: Full range of motion..~ No meningismus. No JVD Resp: Clear to auscultation bilaterally, No wheezes, no rales Cardio: Mild tachycardia, regular rhythm, no murmurs Abd: Soft, Distended, mild tenderness in bilateral lower quadrants and suprapubic area, no rebound or guarding Skin: No petechiae or rashes Back: No midline or flank tenderness Ext: No cyanosis, 1+ pitting edema bilateral shins, symmetric, no calf tenderness Neur: Awake and alert, Cranial nerves II through XII intact bilaterally, strength and sensation full in 4 extremities. Psych: Normal Mood and Affect Result Diagram: 04/07/17190404/07/171904 Results 24 hrs Laboratory Tests Test 04/07/17 18:55 04/07/17 19:05 04/07/17 23:10 Urine Color BRANDON Urine Clarity CLOUDY Urine pH 5.0 Urine Specific [place] 1.023 Urine Ketones NEGATIVEmg/dL Urine Nitrite NEGATIVEmg/dL Urine Bilirubin 2+mg/dL Urine Urobilinogen 2+mg/dL Urine Leukocyte Esterase NEGATIVELeu/ul Urine Microscopic RBC 19/HPF Urine Microscopic WBC 5/HPF Urine Squamous Epithelial Cells MODERATE/HPF Urine Uric Acid Crystals MANY/HPF Urine Bacteria FEW/HPF Urine Hyaline Casts FEW/HPF Urine Mucus FEW/HPF Urine Hemoglobin 3+mg/dL Urine Glucose 1+mg/dL Urine Total Protein 1+mg/dl White Blood Count 4.510^3/ul Red Blood Count 3.4110^6/ul Hemoglobin 12.4g/dl Hematocrit 35.9% Mean Corpuscular Volume 105.3fl Mean Corpuscular Hemoglobin 36.4pg Mean Corpuscular Hemoglobin Concent 34.5g/dl Red Cell Distribution Width 14.8% Platelet Count 8110^3/UL Mean Platelet Volume 9.9fl Neutrophils % 72.3% Lymphocytes % 13.9% Monocytes % 9.3% Eosinophils % 3.1% Basophils % 0.7% Nucleated Red Blood Cells % 0.0/100WBC Neutrophils # 3.310^3/ul Lymphocytes # 0.610^3/ul Monocytes # 0.410^3/ul Eosinophils # 0.110^3/ul Basophils # 0.010^3/ul Nucleated Red Blood Cells # 0.010^3/ul Prothrombin Time 18.1Sec Prothrombin Time Ratio 1.4 INR International Normalized Ratio 1.48 Sodium Level 131mmol/L Potassium Level 4.0mmol/L Chloride Level 98mmol/L Carbon Dioxide Level 28mmol/L Anion Gap 9 Blood Urea Nitrogen 7mg/dl Creatinine 0.48mg/dl Glucose Level 179mg/dl Calcium Level 8.2mg/dl Total Bilirubin 7.5mg/dl Direct Bilirubin 2.90mg/dl Indirect Bilirubin 4.6mg/dl Aspartate Amino Transf (AST/SGOT) 110IU/L Alanine Aminotransferase (ALT/SGPT) 67IU/L Alkaline Phosphatase 322IU/L Total Protein 6.5g/dl Albumin 2.8g/dl Globulin 3.70g/dl Albumin/Globulin Ratio 0.75 Body Fluid Type PERITONEAL Body Fluid Volume 5.5ml Body Fluid Color YELLOW Body Fluid Appearance CLEAR Body Fluid WBC 88/cmm Body Fluid RBC (Auto) 0/uL Body Fluid Polynuclear WBCs (%) 20.4% Body Fluid Mononuclear Cells % Auto 79.6% Current Medications Medications (Trade) Dose Ordered Sig/[place] Route PRN Reason Start Time Stop Time Status Last Admin Dose Admin Morphine Sulfate (morphine) 4 mg ONCE STAT IV 04/07/17 20:05 04/07/17 20:09 DC 04/07/17 20:11 Ondansetron HCl (Zofran Inj) 4 mg ONCE STAT IV 04/07/17 20:05 04/07/17 20:09 DC 04/07/17 20:13 Procedures/MDM EKG read by me: Time 0 34, rate 93 Rhythm: Normal sinus [place]: Left axis deviation Intervals: Normal ST-T waves: no ischemic changes Ectopy: No Q-waves: No Q waves, poor R-wave progression Impression: No evidence of ischemia or arrhythmia Procedure - Paracentesis by me: Patient consented, sterilely draped, full prep, gown, glove, mask, time out performed. Anesthesia: 1% lidocaine locally Location: Right Lower Quadrant Device: Needle aspiration with [id number] drainage Results: 4.5 liters clear fluid, without bleeding No complications. ED Ultrasound: Fluid pocket localized by me under concurrent ultrasound guidance. Real time image archived in the medical record confirming anatomy. MDM: Patient is a 56-year-old female who presents to the ER with gradual onset of diffuse abdominal pain that is primarily in the left lower quadrant and associated with shortness of breath. The patient has known cirrhosis with hepatocellular carcinoma. She also is known to have ascites, but was not able to receive paracentesis during last admission. She has had significant accumulation of fluid since that time. She has a benign abdominal exam, EKG and chest x-ray except for small pleural effusion. She does not have symptoms that I believe are concerning for pulmonary embolism. I suspect that her symptoms are related to her underlying ascites. A paracentesis was performed, and after removal of 4.5 L of fluid, the patient had a benign abdominal exam and stated that she felt much better. Her respiratory symptoms are completely resolved. There is no evidence of SBP or significant electrolyte abnormality. The patient will be discharged with return precautions and advised to follow-up closely with her PMD. Departure Diagnosis: Primary Impression: Ascites Ascites type: malignant Qualified Code: R18.0 - Malignant ascites Additional Impressions: Thrombocytopenia Pleural effusion Condition: MICHELLE Lee MD Apr 07, 2017 19:00
[2017-04-07 19:19] LABS: ADD UMIC YES; UR ASCORBIC ACID NEGATIVE (NEGATIVE); UR BACTERIA FEW /HPF (NONE SEEN); UR BILIRUBIN (Dip) 2+ mg/dL (NEGATIVE); UR BLOOD (Dip) 3+ mg/dL (NEGATIVE); UR CLARITY CLOUDY (CLEAR); UR COLOR AMBER (YELLOW); UR GLUCOSE (Dip) 1+ mg/dL (NEGATIVE); UR KETONES (Dip) NEGATIVE (NEGATIVE); UR LEUKOCYTE ESTERASE (Dip) NEGATIVE Leu/ul (NEGATIVE); UR MUCUS FEW /HPF (NONE SEEN); UR NITRITE (Dip) NEGATIVE (NEGATIVE); UR RBC 19 /HPF (0-5); UR SPECIFIC GRAVITY (Dip) 1.023 (1.003-1.030); UR SQUAMOUS EPITHELIAL CELL MODERATE /HPF (FEW); UR TOTAL PROTEIN (Dip) 1+ mg/dl (NEGATIVE); UR URIC ACID CRYSTAL MANY /HPF (NONE SEEN); UR UROBILINOGEN (Dip) 2+ mg/dL (NEGATIVE)
[2017-04-07 19:21] LABS: ABNORMAL IP MESSAGE 1; BASOPHILS % 0.7 % (0.0-2.0); EOSINOPHILS # 0.1 10^3/ul (0.0-0.5); EOSINOPHILS % 3.1 % (0.0-7.0); HEMATOCRIT 35.9 % (37.0-47.0); HEMOGLOBIN 12.4 g/dl (12.0-16.0); LYMPHOCYTES # 0.6 10^3/ul (0.8-2.9); LYMPHOCYTES % 13.9 % (15.0-51.0); MEAN CORPUSCULAR HEMOGLOBIN 36.4 pg (29.0-33.0); MEAN CORPUSCULAR HGB CONC 34.5 g/dl (32.0-37.0); MEAN CORPUSCULAR VOLUME 105.3 fl (82.0-101.0); MEAN PLATELET VOLUME 9.9 fl (7.4-10.4); MONOCYTE # 0.4 10^3/ul (0.3-0.9); MONOCYTES % 9.3 % (0.0-11.0); NEUTROPHIL # 3.3 10^3/ul (1.6-7.5); NEUTROPHILS % 72.3 % (39.0-77.0); PLATELET COUNT 81 10^3/UL (140-415); RED BLOOD COUNT 3.41 10^6/ul (4.20-5.40); RED CELL DISTRIBUTION WIDTH 14.8 % (11.5-14.5); WHITE BLOOD COUNT 4.5 10^3/ul (4.8-10.8)
[2017-04-07 19:25] LABS: POSITIVE DIFF @See below
[2017-04-07 19:38] LABS: ALBUMIN 2.8 g/dl (3.3-4.9); ALBUMIN/GLOBULIN RATIO 0.75; BILIRUBIN,DIRECT 2.9 mg/dl (0.00-0.20); BILIRUBIN,INDIRECT 4.6 mg/dl (0-1.1); BILIRUBIN,TOTAL 7.5 mg/dl (0.2-1.3); CALCIUM 8.2 mg/dl (8.4-10.2); CREATININE 0.48 mg/dl (0.44-1.00); PT RATIO 1.4; TOTAL PROTEIN 6.5 g/dl (6.1-8.1)
--- NOTE | 2017-04-07 19:53 | RADRPT ---
PROCEDURE: XR Chest. CLINICAL INDICATION: Abdominal Pain TECHNIQUE: Single frontal view of the chest was obtained. COMPARISON: 03/18/2017 FINDINGS: The cardiomediastinal silhouette is normal size. Pulmonary vasculature is within normal limits. Th ere is a small left pleural effusion. There is left base atelectasis. There is mild to moderate aort ic calcification.. No signs of pleural fluid or pneumothorax are seen. The osseous structures and soft tissues are unre markable. IMPRESSION: 1. Small left pleural effusion, and left base atelectasis. 2. Mild to moderate aortic calcification. RPTAT: HBST .Americo Dempsey MD, MD Date Time Electronically viewed and signed by .Americo Dempsey MD, on 04/07/2017 19:53 .T/
[2017-04-07 19:58] LABS: INR 1.48; PROTIME 18.1 Sec (12.2-14.2)
[2017-04-07] MEDS ORDERED: morphine 4 MG/ML VIAL IV STA (20:05)
[2017-04-07] MEDS ORDERED: ONDANSETRON 4 MG INJ IV STA (20:05)
[2017-04-07 22:01] VITALS: TEMP 98
[2017-04-08 00:08] LABS: FLD MN% 79.6 %; FLD PMN% 20.4 %; FLD RBC 0 /uL; FLD WBC 88 /cmm
[2017-04-08 00:14] LABS: FLD CLARITY CLEAR; FLD COLOR YELLOW; FLD TYPE PERITONEAL; FLD VOLUME 5.5 ml
[2017-04-08 01:00] VITALS: BP 100/63; PULSE 93; RESP 17
[2017-04-08] MEDS ORDERED: HYDROCODONE/APAP (5/325) TAB PO ONE (01:00)
== END 2017-04-08 01:08 | disposition home or self-care (01) ==
LOC: E/R 18:10
DX: D69.6 Thrombocytopenia, unspecified (principal); R18.0 Malignant ascites; J90 Pleural effusion, not elsewhere classified; E11.9 Type 2 diabetes mellitus without complications; F17.210 Nicotine dependence, cigarettes, uncomplicated; Z79.84 Long term (current) use of oral hypoglycemic drugs; Z85.05 Personal history of malignant neoplasm of liver
CPT/HCPCS: 71010; 80053; 81001; 85025; 85610; 89051; 93005; 96374; 96375; J2270; J2405; Z7502; Z7610

== ENCOUNTER 2017-04-10 18:02 | Emergency (ER) | payer OTHER ==
[~2017-04-10] VITALS: Ht 172.7 cm; Wt 100.0 kg
[~2017-04-10 18:02] MED LIST changes: -SPIR50TA PO; -UDMOM PO
[2017-04-10 18:06] VITALS: Ht 172.7 cm; Wt 100.0 kg
[2017-04-10] MEDS ORDERED: morphine 4 MG/ML VIAL IV STA (18:10)
[2017-04-10] MEDS ORDERED: ONDANSETRON 4 MG INJ IV STA (18:10)
[2017-04-10] MEDS ORDERED: SOD CHLORIDE 0.9% 500 ML IV STA (18:10)
[2017-04-10 18:18] LABS: ABNORMAL IP MESSAGE 1; BASOPHILS % 0.2 % (0.0-2.0); EOSINOPHILS % 0.2 % (0.0-7.0); HEMATOCRIT 34.5 % (37.0-47.0); HEMOGLOBIN 12.4 g/dl (12.0-16.0); LYMPHOCYTES # 0.7 10^3/ul (0.8-2.9); LYMPHOCYTES % 7.3 % (15.0-51.0); MEAN CORPUSCULAR HEMOGLOBIN 37.7 pg (29.0-33.0); MEAN CORPUSCULAR HGB CONC 35.9 g/dl (32.0-37.0); MEAN CORPUSCULAR VOLUME 104.9 fl (82.0-101.0); MEAN PLATELET VOLUME 9.7 fl (7.4-10.4); MONOCYTE # 0.6 10^3/ul (0.3-0.9); MONOCYTES % 6.6 % (0.0-11.0); NEUTROPHIL # 7.6 10^3/ul (1.6-7.5); NEUTROPHILS % 84.9 % (39.0-77.0); PLATELET COUNT 70 10^3/UL (140-415); RED BLOOD COUNT 3.29 10^6/ul (4.20-5.40); RED CELL DISTRIBUTION WIDTH 15.2 % (11.5-14.5); WHITE BLOOD COUNT 8.9 10^3/ul (4.8-10.8)
[2017-04-10 18:22] LABS: POSITIVE DIFF @See below
[2017-04-10 18:28] LABS: INR 1.54; PARTIAL THROMBOPLASTIN TIME 36.1 Sec (25.0-35.0); PROTIME 18.6 Sec (12.2-14.2); PT RATIO 1.5
[2017-04-10 18:44] LABS: ALBUMIN 2.6 g/dl (3.3-4.9); ALBUMIN/GLOBULIN RATIO 0.66; BILIRUBIN,DIRECT 3.4 mg/dl (0.00-0.20); BILIRUBIN,INDIRECT 6.4 mg/dl (0-1.1); BILIRUBIN,TOTAL 9.8 mg/dl (0.2-1.3); CALCIUM 8.1 mg/dl (8.4-10.2); CREATININE 0.49 mg/dl (0.44-1.00); POTASSIUM 3.9 mmol/L (3.5-5.1); TOTAL PROTEIN 6.5 g/dl (6.1-8.1)
[2017-04-10 18:54] LABS: TROPONIN-I 0.013 ng/ml (0.00-0.12)
--- NOTE | 2017-04-10 19:01 | ERD ---
ER Documentation Chief Complaint Date/Time DATE: 04/10/17 TIME: 18:57 Chief Complaint AP with n/v since earlier today with history of liver cirosis HPI 56-year-old female presents with some abdominal pain with nausea and vomiting earlier in the day. She is feeling somewhat better now. She has a history of liver cirrhosis of liver mass and was recently admitted to the hospital. 2 days ago she had a paracentesis. She denies having enough fluid to need a paracentesis currently. He denies any fevers and chills. Her abdominal pain is just generalized and not severe. ROS All systems reviewed and are negative except as per history of present illness. Medications Home Meds Active Scripts Ondansetron (Zofran Odt) 4 Mg Tab.rapdis, 4 MG PO Q6, #10 Prov:CARYL CALHOUN DO 04/10/17 Naproxen* (Naproxen*) 500 Mg Tablet, 500 MG PO BID Y for PAIN, #14 TAB Prov:CARYL CALHOUN DO 04/10/17 Hydrocodone/Acetaminophen ([place] 5-325 Tablet) 1 Each Tablet, 1 EACH PO Q6, #20 TAB Prov:CARYL CALHOUN DO 04/10/17 Alprazolam* (Alprazolam*) 1 Mg Tablet, 1 MG PO HS Y for ANXIETY, #20 TAB Prov:JULIA VIDES S. 03/24/17 Furosemide (Lasix) 20 Mg Tab, 20 MG PO DAILY, #30 TAB 4 Refills Prov:JULIA VIDES S. 03/24/17 Reported Medications Metformin Hcl* (Metformin Hcl*) 500 Mg Tablet, 500 MG PO WITH BREAKFAST, #30 TAB EVERY OTHER DAY 03/18/17 Ergocalciferol (Vitamin D2) (VITAMIN D2) 50,000 Unit Capsule, 65709 UNIT PO Q7D , CAP 03/18/17 Discontinued Scripts Docusate Sodium (Dok) 100 Mg Capsule, 100 MG PO Q12H Y for CONSTIPATION, #60 CAP Prov:JULIA VIDES S. 03/24/17 Magnesium Hydroxide* ([place] MOM*) 30 Ml Susp, 30 ML PO DAILY Y for CONSTIPATION, #1 BOTTLE Prov:JULIA VIDES S. 03/24/17 Spironolactone* (Aldactone*) 50 Mg Tablet, 50 MG PO DAILY, #30 TAB 4 Refills Prov:JULIA VIDES. 03/24/17 Allergies Allergies: Coded Allergies: No Known Allergy (Unverified , 04/10/17) PMhx/Soc History of Surgery: No Anesthesia Reaction: No Hx Neurological Disorder: No Hx Respiratory Disorders: No Hx Cardiac Disorders: No Hx Psychiatric Problems: No Hx Miscellaneous Medical Probl: Yes (Cirrhosis, Liver CA, DM2) Hx Alcohol Use: No Hx Substance Use: No Hx Tobacco Use: Yes Smoking Status: Former smoker Physical Exam Vitals Vital Signs Date Time Temp Pulse Resp B/P Pulse Ox O2 Delivery O2 Flow Rate FiO2 04/10/17 20:36 98 18 111/71 97 Room Air 04/10/17 18:06 98.7 112 18 154/82 98 Physical Exam Const: [] No obvious distress Head: Atraumatic Eyes: Scleral icterus ENT: Normal External Ears, Nose and Mouth. Neck: Full range of motion..~ No JVD. Resp: Clear to auscultation bilaterally Cardio: Mild regular tachycardia, no murmurs Abd: Soft, no specific tenderness, mild dull distention with positive fluid wave, abdomen is not firm and is soft.. Normal bowel sounds Skin: No petechiae or rashes mild jaundice Back: No midline or flank tenderness Ext: No cyanosis, bilateral lower extremity edema Neur: Awake and alert and oriented 3, no focal deficits Psych: Normal Mood and Affect Result Diagram: 04/10/17 1800 04/10/17 1800 Results 24 hrs Laboratory Tests Test 04/10/17 18:00 White Blood Count 8.910^3/ul Red Blood Count 3.2910^6/ul Hemoglobin 12.4g/dl Hematocrit 34.5% Mean Corpuscular Volume 104.9fl Mean Corpuscular Hemoglobin 37.7pg Mean Corpuscular Hemoglobin Concent 35.9g/dl Red Cell Distribution Width 15.2% Platelet Count 7010^3/UL Mean Platelet Volume 9.7fl Neutrophils % 84.9% Lymphocytes % 7.3% Monocytes % 6.6% Eosinophils % 0.2% Basophils % 0.2% Nucleated Red Blood Cells % 0.0/100WBC Neutrophils # 7.610^3/ul Lymphocytes # 0.710^3/ul Monocytes # 0.610^3/ul Eosinophils # 0.010^3/ul Basophils # 0.010^3/ul Nucleated Red Blood Cells # 0.010^3/ul Prothrombin Time 18.6Sec Prothrombin Time Ratio 1.5 INR International Normalized Ratio 1.54 Activated Partial Thromboplast Time 36.1Sec Sodium Level 130mmol/L Potassium Level 3.9mmol/L Chloride Level 98mmol/L Carbon Dioxide Level 26mmol/L Anion Gap 10 Blood Urea Nitrogen 9mg/dl Creatinine 0.49mg/dl Glucose Level 190mg/dl Calcium Level 8.1mg/dl Total Bilirubin 9.8mg/dl Direct Bilirubin 3.40mg/dl Indirect Bilirubin 6.4mg/dl Aspartate Amino Transf (AST/SGOT) 123IU/L Alanine Aminotransferase (ALT/SGPT) 68IU/L Alkaline Phosphatase 259IU/L Troponin I 0.013ng/ml Total Protein 6.5g/dl Albumin 2.6g/dl Globulin 3.90g/dl Albumin/Globulin Ratio 0.66 Lipase 81U/L Current Medications Medications (Trade) Dose Ordered Sig/[place] Route PRN Reason Start Time Stop Time Status Last Admin Dose Admin Sodium Chloride (NS) 500 ml @ 500 mls/hr Q1H STAT IV 04/10/17 18:10 04/10/17 19:09 DC 04/10/17 18:30 Morphine Sulfate (morphine) 4 mg ONCE STAT IV 04/10/17 18:10 04/10/17 18:12 DC 04/10/17 18:30 Ondansetron HCl (Zofran Inj) 4 mg ONCE STAT IV 04/10/17 18:10 04/10/17 18:12 DC 04/10/17 18:29 Procedures/MDM Abdominal pain and vomiting 56-year-old female with liver failure. Laboratories are not significantly changed from prior. She was given 4 mg of Zofran as well as 4 mg of morphine after which she feels much better. She has had extensive imaging recently I see no reason for region currently. She does not currently need a paracentesis. Persistent thrombocytopenia and other laboratories consistent with liver failure. Signs of cardiac ischemia. I am discharging her with patient follow-up with her primary care doctor next few days as well as her liver specialist. She is being discharged in stable condition with analgesic pain medication. Return precautions were given EKG interpretation: Sinus tachycardia rate of 104, left axis deviation, no ST or T-wave changes concerning for acute ischemia, normal intervals. Departure Diagnosis: Primary Impression: Abdominal pain Additional Impression: Liver failure Condition: Stable CARYL CALHOUN DO Apr 10, 2017 19:00
[2017-04-10] MEDS ORDERED: NAPR-688 PO (19:59)
[2017-04-10] MEDS ORDERED: HYDR-906 PO (19:59)
[2017-04-10] MEDS ORDERED: ONDA4TAB11 PO (19:59)
[2017-04-10 20:36] VITALS: BP 111/71; PULSE 98; RESP 18
--- NOTE | 2017-04-10 20:50 | RADRPT ---
PROCEDURE: US abdomen limited right upper quadrant. CLINICAL INDICATION: Mild increased bilirubin/pain TECHNIQUE: Multiple real-time images were acquired of the patient's right upper quadrant of the ab domen utilizing a high resolution transducer. COMPARISON: CT abdomen and pelvis of 03/18/2017 FINDINGS: No gallstones are identified within the gallbladder. There is no pericholecystic fluid or gallbladder wall thickening. The common bile duct measures 5.2 mm in maximal dimension. Moderate large amount of ascites. There is diffuse increased hepatic echogenicity and scalloping of the liver margin consistent with cirrhosis again seen. There is hepatopedal portal venous flow. The re is an approximate 6.1 x 6.6 x 6.2 cm heterogeneous echotexture mass in the right lobe of the live r suspicious for hepatocellular carcinoma. No abnormality of the pancreatic head or body is seen. Pa ncreatic tail is not seen due to bowel gas. The right kidney measures 10.9 cm in length and is unrem arkable. IMPRESSION: Cirrhosis. 6.6 cm mass in right lobe of liver suspicious for hepatocellular carcinoma. Additional ma sses are seen on the CT. Moderately large amount of ascites again seen. Pancreatic tail not seen. Pl ease see above. RPTAT: HJES .Familia Leo MD, Date Time Electronically viewed and signed by .Familia Leo MD, on 04/10/2017 20:50 .S/
== END 2017-04-10 20:37 | disposition home or self-care (01) ==
LOC: E/R 18:02
DX: K72.90 Hepatic failure, unspecified without coma (principal); E11.9 Type 2 diabetes mellitus without complications; Z85.05 Personal history of malignant neoplasm of liver; Z87.891 Personal history of nicotine dependence
CPT/HCPCS: 36415; 76705; 80053; 83690; 84484; 85025; 85610; 85730; 93005; 96374; 96375; J2270; J2405; J7040; Z7502

== ENCOUNTER 2017-04-17 18:20 | Inpatient (IN) | payer OTHER ==
[~2017-04-17] VITALS: Ht 160 cm; Wt 88.1 kg
[~2017-04-17 18:20] MED LIST changes: -DOCU-216 PO; +HYDR-906 PO; +NAPR-688 PO; +ONDA4TAB11 PO
[2017-04-17 21:04] VITALS: Ht 160 cm; Wt 88.1 kg
[2017-04-17 21:06] VITALS: BP 142/65
[2017-04-17] MEDS ORDERED: FURO40TA4 PO (21:29)
[2017-04-17] MEDS ORDERED: HYDR-3666 PO (21:33)
[2017-04-17] MEDS ORDERED: POLY17PO6 PO (21:36)
[2017-04-18 02:00] VITALS: BP 128/64
[2017-04-18] MEDS ORDERED: NACL 0.9% 3 ML SYG IV SCH (03:30)
[2017-04-18] MEDS ORDERED: ONDANSETRON 4 MG INJ IV PRN (03:30)
[2017-04-18] MEDS ORDERED: FUROSEMIDE 40 MG INJ IV ONE (03:30)
[2017-04-18] MEDS ORDERED: morphine 2 MG INJ IV ONE (05:00)
[2017-04-18] MEDS ORDERED: DEXTROSE 50% 50 ML SYRINGE IV PRN ×2 (06:00)
[2017-04-18] MEDS ORDERED: GLUCAGON 1 MG INJ IM PRN (06:00)
[2017-04-18] MEDS ORDERED: GLUCOSE GEL 15 GRAM TUBE BUCCAL PRN (06:00)
[2017-04-18] MEDS ORDERED: PANTOPRAZOLE 40 MG INJ IV SCH (06:00)
[2017-04-18] MEDS ORDERED: GLUCOSE GEL 15 GRAM TUBE PO PRN ×2 (06:00)
[2017-04-18 06:05] LABS: ABNORMAL IP MESSAGE 1; BASOPHILS % 0.4 % (0.0-2.0); EOSINOPHILS # 0.2 10^3/ul (0.0-0.5); HEMATOCRIT 32.6 % (37.0-47.0); LYMPHOCYTES # 0.6 10^3/ul (0.8-2.9); LYMPHOCYTES % 12.9 % (15.0-51.0); MEAN CORPUSCULAR HEMOGLOBIN 35.3 pg (29.0-33.0); MEAN CORPUSCULAR HGB CONC 33.7 g/dl (32.0-37.0); MEAN CORPUSCULAR VOLUME 104.5 fl (82.0-101.0); MEAN PLATELET VOLUME 9.8 fl (7.4-10.4); MONOCYTE # 0.5 10^3/ul (0.3-0.9); NEUTROPHIL # 3.2 10^3/ul (1.6-7.5); NEUTROPHILS % 71.1 % (39.0-77.0); PLATELET COUNT 73 10^3/UL (140-415); RED BLOOD COUNT 3.12 10^6/ul (4.20-5.40); RED CELL DISTRIBUTION WIDTH 15.2 % (11.5-14.5); WHITE BLOOD COUNT 4.5 10^3/ul (4.8-10.8)
[2017-04-18 06:13] LABS: POSITIVE DIFF @See below
[2017-04-18 06:50] LABS: ALBUMIN 2.2 g/dl (3.3-4.9); ALBUMIN/GLOBULIN RATIO 0.64; BILIRUBIN,DIRECT 3.1 mg/dl (0.00-0.20); BILIRUBIN,INDIRECT 4.2 mg/dl (0-1.1); BILIRUBIN,TOTAL 7.3 mg/dl (0.2-1.3); CREATININE 0.46 mg/dl (0.44-1.00); POTASSIUM 3.2 mmol/L (3.5-5.1); TOTAL PROTEIN 5.6 g/dl (6.1-8.1)
--- NOTE | 2017-04-18 07:57 | HP ---
Date/Time of Note Date/Time of Note DATE: 04/18/17 TIME: 07:51 Assessment/Plan VTE Prophylaxis VTE Prophylaxis Intervention: SCD's Lines/Catheters IV [facility]from [facility] Saline Lock Assessment/Plan Chief Complaint/Hosp Course This is a 55 year female being [facility] for: #1 abdominal ascites secondary to liver cancer #2 Hepatocellular carcinoma #3 history of hepatitis B #4 diabetes #5 transaminitis Plan: We will check ammonia level. Checks CBC CMP. Patient is currently stable. Will order a therapeutic paracentesis. Patient is currently stable. Patient likely will be able to be discharged home once the paracentesis is performed. She will need to follow-up with her oncologist in the coming days for treatment of her liver cancer. May need to increase dose of patient's Lasix that she states that the dose that she has at home is not resulting in much urine output. Further treatment strategy will be implemented as per the clinical course Problems: HPI/ROS Admit Date/Time Admit Date/Time Apr 17, 2017 at 20:03 Hx of Present Illness This is a 56-year-old female who was transferred from [facility] for intractable abdominal pain and abdominal ascites. Patient presented to [facility] for evaluation of abdominal distention shortness of breath. Patient was recently diagnosed with liver cancer and has had increased abdominal distention with shortness of breath since her last paracentesis 3 weeks ago. When she last had a paracentesis she had approximately 4-1/2 L drained. She has chronic lower extremity swelling. She is on Lasix at home however she states that she does not really notice it working too well. She stated at the hospital that she felt short of breath. She denied any cough or chest pain or vomiting or black stools or diarrhea at the ED there. I [facility] therapeutic paracentesis was attempted however was unsuccessful. Upon arrival to [facility],: Patient was seen laying in bed in no acute distress. She does not appear tachypneic and was able to speak in full sentences without any issue. She stated that she was feeling better than how she was when she presented to the transferring hospital. She is following with a liver specialist/customer care voice consultant as an outpatient for her liver cancer and she is to be undergoing treatment in this coming week. Allergies: NKDA Medications: See MAR ROS Const: As per HPI Eyes : No pain discharge or redness or change in visual acuity ENT: No pain, sore throat, congestion, congestion, dysphagia or discharge Respiratory: No shortness of breath, cough, sputum, wheezing, or pleuritic pain Cardiovascular: No chest pain, palpitation, PND, or edema GI : As per HPI Genitourinary: No dysuria, hematuria, flank pain , discharge or CVA tenderness Musculoskeletal: No joint pain, back pain, neck pain, restricted range of motion in neck or joints Skin: No rash, bruising or hives Neuro: No headache, dizziness, syncope, seizure, focal weakness Endocrine: No polyuria, polydipsia, temperature intolerance Psych: No hallucination, depression, anxiety or suicidal ideation PMH/Family/Social Past Medical History Liver cancer, hepatitis B, diabetes Past Surgical History Previous paracentesis Family History Significant Family History: no pertinent family hx Social History Alcohol Use: sober Smoking Status: Former smoker Drug Use: none Exam/Review of Systems Vital Signs Vitals Vital Signs Date Time Temp Pulse Resp B/P Pulse Ox O2 Delivery O2 Flow Rate FiO2 04/18/17 02:00 98.2 92 128/64 92 Intake and Output 04/17/17 04/17/17 04/18/17 15:00 23:00 07:00 Intake Total 480 ml Balance 480 ml Exam Exam General: Patient is a morbidly obese female lying in bed in no acute distress HEENT: Atraumatic, normocephalic. The pupils are equal, round and reactive. Extraocular motor are intact, scleral icterus Neck: Supple with full range of motion. No rigidity or meningismus Chest: Nontender Lungs: Clear to auscultation bilaterally no crackles rales or wheezing Heart: Normal S1-S2, Regular rhythm and rate. No murmur, S3, or S4 Abdomen: Soft, distended abdomen, visible fluid, nontender to palpation Extremities: Normal to inspection, no edema no cyanosis Neurologic: Normal mental status, speech normal, cranial nerves II through XII are intact, motor and sensory are intact, no focal weakness, no asterixis Additional Comments Pertinent laboratory findings from transferring facility are as follows, please see transfer recommendation for full report: Chest x-ray: Cardiomegaly with mild vascular congestion with small left layering effusion. Troponin first set negative. INR 1.69 PT 19.0 AST 96 ALT 51 alk phos 252 bili total 12.2 BNP 86 Bilirubin is 12.2 Labs Result Diagram: 04/18/1752904/18/17529 Medications Medications Current Medications Ondansetron HCl (Zofran Inj) 4 mg Q6H PRN IV NAUSEA AND/OR VOMITING; Start at 03:30 Pantoprazole (Protonix Iv) 40 mg DAILY@06 IV Last administered on 04/18/17t 05 :48; Admin Dose 40 MG; Start 04/18/17 at 06:00 Diagnostic Test (Pha) (Accu-Chek) 1 ea 02 XX ; Start 04/19/17 at 02:00 Diagnostic Test (Pha) (Accu-Chek) 1 ea 02 XX ; Start 04/19/17 at 02:00 Miscellaneous Information 1 ea NOTE XX ; Start 04/18/17 at 06:00 Glucose (Glutose) 15 gm Q15M PRN PO DECREASED GLUCOSE; Start 04/18/17 at 06:00 Glucose (Glutose) 22.5 gm Q15M PRN PO DECREASED GLUCOSE; Start 04/18/17 at 06: 00 Dextrose (D50w Syringe) 25 ml Q15M PRN IV DECREASED GLUCOSE; Start 04/18/17 at 06:00 Dextrose (D50w Syringe) 50 ml Q15M PRN IV DECREASED GLUCOSE; Start 04/18/17 at 06:00 Glucagon (Glucagen) 1 mg Q15M PRN IM DECREASED GLUCOSE; Start 04/18/17 at 06: 00 Glucose (Glutose) 15 gm Q15M PRN BUCCAL DECREASED GLUCOSE; Start 04/18/17 at 06:00 JOHN FERGUSON Apr 18, 2017 07:57
[2017-04-18 08:00] VITALS: BP 121/60; RESP 19
[2017-04-18] MEDS ORDERED: ALPRAZOLAM 1 MG TAB PO PRN (08:00)
[2017-04-18] MEDS: INSULIN ASPART [NOVOLOG] 3 ML PEN SC SCH ×4 (08:11→20:14)
[2017-04-18] MEDS: FUROSEMIDE 40 MG TAB PO SCH (08:17)
[2017-04-18] MEDS: morphine 2 MG INJ IV PRN ×2 (11:45→20:08)
[2017-04-18 14:00] VITALS: BP 119/50; RESP 20
--- NOTE | 2017-04-18 14:17 | PN ---
Date/Time of Note Date/Time of Note DATE: 04/18/17 TIME: 14:09 Assessment/Plan VTE Prophylaxis VTE Prophylaxis Intervention: SCD's Lines/Catheters IV Catheter Type (from Nrs): Saline Lock Assessment/Plan Assessment/Plan 56 yo F with hcc c/b ascites here for symptomatic ascities PLAN para today. if feeling well,can go home today or tomorrow Subjective 24 Hr Interval Summary Free Text/Dictation Pt reports she went to an OSH a few days ago but was told she didnt have enough fluid around her belly to drain. Scheduled to start chemo wednesday Exam/Review of Systems Vital Signs Vitals Vital Signs Date Time Temp Pulse Resp B/P Pulse Ox O2 Delivery O2 Flow Rate FiO2 04/18/17 08:00 98.1 85 19 121/60 9 Intake and Output 04/17/17 04/17/17 04/18/17 15:00 23:00 07:00 Intake Total 480 ml Balance 480 ml Exam nad no mrg lungs clear no rashes responds to questions appropriately Results Result Diagram: 04/18/17 0530 04/18/17 0530 Results 24 hrs Laboratory Tests Test 04/17/17 21:42 04/18/17 05:30 04/18/17 07:52 04/18/17 08:59 Bedside Glucose 170 186 White Blood Count 4.5 #L Red Blood Count 3.12 L Hemoglobin 11.0 L Hematocrit 32.6 L Mean Corpuscular Volume 104.5 H Mean Corpuscular Hemoglobin 35.3 H Mean Corpuscular Hemoglobin Concent 33.7 Red Cell Distribution Width 15.2 H Platelet Count 73 L Mean Platelet Volume 9.8 Neutrophils % 71.1 Lymphocytes % 12.9 L Monocytes % 10.0 Eosinophils % 4.0 Basophils % 0.4 Nucleated Red Blood Cells % 0.0 Neutrophils # 3.2 Lymphocytes # 0.6 L Monocytes # 0.5 Eosinophils # 0.2 Basophils # 0.0 Nucleated Red Blood Cells # 0.0 Sodium Level 130 L Potassium Level 3.2 L Chloride Level 94 L Carbon Dioxide Level 32 H Anion Gap 7 L Blood Urea Nitrogen 9 Creatinine 0.46 Glucose Level 181 Hemoglobin A1c 5.5 Calcium Level 8.0 L Total Bilirubin 7.3 H Direct Bilirubin 3.10 H Indirect Bilirubin 4.2 H Aspartate Amino Transf (AST/SGOT) 106 H Alanine Aminotransferase (ALT/SGPT) 68 Alkaline Phosphatase 279 H Total Protein 5.6 L Albumin 2.2 L Globulin 3.40 H Albumin/Globulin Ratio 0.64 Ammonia 23 Test 04/18/17 11:42 Bedside Glucose 186 Medications Medications Current Medications Ondansetron HCl (Zofran Inj) 4 mg Q6H PRN IV NAUSEA AND/OR VOMITING; Start at 03:30 Diagnostic Test (Pha) (Accu-Chek) 1 ea 02 XX ; Start 04/19/17 at 02:00 Miscellaneous Information 1 ea NOTE XX ; Start 04/18/17 at 06:00 Glucose (Glutose) 15 gm Q15M PRN PO DECREASED GLUCOSE; Start 04/18/17 at 06:00 Glucose (Glutose) 22.5 gm Q15M PRN PO DECREASED GLUCOSE; Start 04/18/17 at 06: 00 Dextrose (D50w Syringe) 25 ml Q15M PRN IV DECREASED GLUCOSE; Start 04/18/17 at 06:00 Dextrose (D50w Syringe) 50 ml Q15M PRN IV DECREASED GLUCOSE; Start 04/18/17 at 06:00 Glucagon (Glucagen) 1 mg Q15M PRN IM DECREASED GLUCOSE; Start 04/18/17 at 06: 00 Glucose (Glutose) 15 gm Q15M PRN BUCCAL DECREASED GLUCOSE; Start 04/18/17 at 06:00 Alprazolam (Xanax) 1 mg HS PRN PO ANXIETY; Start 04/18/17 at 08:00 Furosemide (Lasix) 40 mg DAILY PO Last administered on 04/18/17 08:17; Admin Dose 40 MG; Start 04/18/17 at 09:00 Morphine Sulfate (morphine) 2 mg Q4H PRN IV pain Last administered on 11:45; Admin Dose 2 MG; Start 04/18/17 at 10:00 YOON ALVAREZ MD Apr 18, 2017 14:17
[2017-04-18 14:47] LABS: INR 1.77; PROTIME 20.8 Sec (12.2-14.2); PT RATIO 1.6
[2017-04-18 14:48] LABS: PARTIAL THROMBOPLASTIN TIME 39.4 Sec (25.0-35.0)
[2017-04-18] MEDS ORDERED: LIDOCAINE 1% (MPF) 5 ML VIAL ONE (16:51)
--- NOTE | 2017-04-18 18:36 | RADRPT ---
PROCEDURE: Ultrasound guided paracentesis CLINICAL INDICATION: Ascites TECHNIQUE: The risks benefits and alternatives of the procedure were explained to the patient. In formed written consent was obtained. The patient understood the risks benefits and alternatives and wished to proceed with the procedure. A time out was performed. The overlying skin of the right lower quadrant of the abdomen was prepped and draped in the usual sterile fashion. Approximately 10 cc of lidocaine was injected locally for pain control. Utilizing ultrasound guidance, an 6-[place] p aracentesis catheter was placed into the peritoneal cavity without difficulty. Fluid was drained i nto vacuum bottles. After completion of draining fluid, the catheter was removed and direct pressur e was applied to the puncture site. A compression bandage was then placed at the puncture site. e patient tolerated the procedure well without complication. The fluid was sent to the lab for fu rther analysis. COMPARISON: Ultrasound dated 04/10/2017 FINDINGS: Surgeon: Jalyn SCOTT. Preprocedural diagnosis: Ascites. Postprocedural diagnosis: Ascites. Samples removed: 1600 cc of clear yellow fluid was obtained. Complications: None. Estimated blood loss: 0 cc. Condition: Stable and unchanged. IMPRESSION: 1. Successful ultrasound-guided paracentesis. RPTAT: QQ .Billy Gunderson MD, MD Date Time Electronically viewed and signed by .Billy Gunderson MD, on 04/18/2017 18:35 .M/
[2017-04-18 20:00] VITALS: BP 114/59; RESP 17
[2017-04-18 20:35] LABS: FLD MN % (M) 41 %; FLD OTHER CELLS 40 %; FLD PMN % (M) 19 %
[2017-04-18 20:36] LABS: FLD CLARITY CLEAR; FLD COLOR YELLOW; FLD MN% 76.6 %; FLD PMN% 23.4 %; FLD RBC 0 /uL; FLD TYPE ASCITES; FLD WBC 132 /cmm; PATH REVIEW? YES
[2017-04-19] MEDS: morphine 2 MG INJ IV PRN ×2 (01:59→07:04)
[2017-04-19 02:00] VITALS: BP 141/65; RESP 19
[2017-04-19] MEDS: ACCU-CHEK XX SCH ×2 (02:00→20:57)
[2017-04-19] MEDS ORDERED: ACCU-CHEK XX SCH (02:00)
[2017-04-19 07:40] VITALS: BP 133/61; RESP 18
[2017-04-19] MEDS: INSULIN ASPART [NOVOLOG] 3 ML PEN SC SCH ×4 (08:18→20:57)
[2017-04-19] MEDS: FUROSEMIDE 40 MG TAB PO SCH (08:41)
[2017-04-19 14:00] VITALS: BP 130/62; RESP 20
--- NOTE | 2017-04-19 15:18 | DS ---
Date/Time of Note Date/Time of Note DATE: 04/19/17 TIME: 15:13 Discharge Summary Admission/Discharge Info Admit Date/Time Apr 17, 2017 at 20:03 Discharge Date/Time Discharge Diagnosis 1. Ascites, s/p paracentesis 04/18/2017 2. Hepatocellular carcinoma, chemotherapy per Dr. Schwartz 3. Hepatitis B 4. diabetes, on metformin Patient Condition: Stable Hx of Present Illness This is a 56-year-old female who was transferred from [facility] for intractable abdominal pain and abdominal ascites. Patient presented to [facility] for evaluation of abdominal distention shortness of breath. Patient was recently diagnosed with liver cancer and has had increased abdominal distention with shortness of breath since her last paracentesis 3 weeks ago. When she last had a paracentesis she had approximately 4-1/2 L drained. She has chronic lower extremity swelling. She is on Lasix at home however she states that she does not really notice it working too well. She stated at the hospital that she felt short of breath. She denied any cough or chest pain or vomiting or black stools or diarrhea at the ED there. I [facility] therapeutic paracentesis was attempted however was unsuccessful. Upon arrival to [facility],: Patient was seen laying in bed in no acute distress. She does not appear tachypneic and was able to speak in full sentences without any issue. She stated that she was feeling better than how she was when she presented to the transferring hospital. She is following with a liver specialist/inspector precision as an outpatient for her liver cancer and she is to be undergoing treatment in this coming week. Hospital Course Patient got paracentesis on 04/18/2017 with removal of 1600 cc fluid. Fluid 132 with protein<2(not check albumin). Symptoms improved. She will be discharged to follow up with Dr. Schwartz tomorrow for start of chemotherapy. Home Meds Active Scripts Ondansetron (Zofran Odt) 4 Mg Tab.rapdis, 4 MG PO Q6, #10 Prov:CARYL CALHOUN DO 04/10/17 Alprazolam* (Alprazolam*) 1 Mg Tablet, 1 MG PO HS Y for ANXIETY, #20 TAB Prov:JULIA VIDES. 03/24/17 Reported Medications Polyethylene Glycol* (Miralax*) 17 Gm Powd.pack, 17 GM PO DAILY, #30 PACKET 04/17/17 Hydrocodone/Acetaminophen ([place] 10-325 mg Tablet) 1 Each Tablet, 1 EACH PO Q6 Y for PAIN, TAB 04/17/17 Furosemide (Lasix) 40 Mg Tab, 40 MG PO DAILY, TAB 04/17/17 Metformin Hcl* (Metformin Hcl*) 500 Mg Tablet, 500 MG PO WITH BREAKFAST, #30 TAB Every morning 03/18/17 Ergocalciferol (Vitamin D2) (VITAMIN D2) 50,000 Unit Capsule, 06154 UNIT PO Q7D , CAP 03/18/17 Discontinued Scripts Naproxen* (Naproxen*) 500 Mg Tablet, 500 MG PO BID Y for PAIN, #14 TAB Prov:CARYL CALHOUN DO 04/10/17 Hydrocodone/Acetaminophen ([place] 5-325 Tablet) 1 Each Tablet, 1 EACH PO Q6, #20 TAB Prov:UNIQUECARYL DO 04/10/17 Furosemide (Lasix) 20 Mg Tab, 20 MG PO DAILY, #30 TAB 4 Refills Prov:JULIA VIDES 03/24/17 Follow-up Plan Dr. Schwartz to [facility] PCP in one week Primary Care Provider Terrence Perez Pending Labs Laboratory Tests Test 04/18/17 17:23 04/18/17 20:12 04/19/17 01:54 04/19/17 08:16 Bedside Glucose 209mg/dL (70-220) 190mg/dL (70-220) 181mg/dL (70-220) 153mg/dL (70-220) Test 04/19/17 11:40 Bedside Glucose 138mg/dL (70-220) TYRESE DUBON MD Apr 19, 2017 15:18
[2017-04-19 19:35] VITALS: BP 128/61; RESP 20
[2017-04-20 01:57] VITALS: BP 108/63; RESP 18
[2017-04-20 07:44] VITALS: BP 124/56; RESP 18
[2017-04-20] MEDS: FUROSEMIDE 40 MG TAB PO SCH (08:07)
[2017-04-20] MEDS: INSULIN ASPART [NOVOLOG] 3 ML PEN SC SCH ×2 (08:09→12:07)
[2017-04-20 12:32] LABS: PATH REVIEW CH
--- NOTE | 2017-04-20 13:28 | DS ---
Date/Time of Note Date/Time of Note DATE: 04/20/17 TIME: 13:26 Discharge Summary Admission/Discharge Info Admit Date/Time Apr 17, 2017 at 20:03 Discharge Date/Time Discharge Diagnosis 1. Ascites, s/p paracentesis 04/18/2017 2. Hepatocellular carcinoma, chemotherapy per Dr. Schwartz 3. Hepatitis B 4. diabetes, on metformin Patient Condition: Stable Hx of Present Illness Hospital Course This is a 56-year-old female who was transferred from [facility] for intractable abdominal pain and abdominal ascites. Patient presented to [facility] for evaluation of abdominal distention shortness of breath. Patient was recently diagnosed with liver cancer and has had increased abdominal distention with shortness of breath since her last paracentesis 3 weeks ago. When she last had a paracentesis she had approximately 4-1/2 L drained. She has chronic lower extremity swelling. She is on Lasix at home however she states that she does not really notice it working too well. She stated at the hospital that she felt short of breath. She denied any cough or chest pain or vomiting or black stools or diarrhea at the ED there. I [facility] therapeutic paracentesis was attempted however was unsuccessful. Upon arrival to [facility],: Patient was seen laying in bed in no acute distress. She does not appear tachypneic and was able to speak in full sentences without any issue. She stated that she was feeling better than how she was when she presented to the transferring hospital. She is following with a liver specialist/certified teacher assistant as an outpatient for her liver cancer and she is to be undergoing treatment in this coming week. Patient got paracentesis on 04/18/2017 with removal of 1600 cc fluid. Fluid 132 with protein<2. Symptoms improved. She will be discharged to follow up with PCP and Dr. Schwartz outpatient. Home Meds Active Scripts Ondansetron (Zofran Odt) 4 Mg Tab.rapdis, 4 MG PO Q6, #10 Prov:CARYL CALHOUN DO 04/10/17 Alprazolam* (Alprazolam*) 1 Mg Tablet, 1 MG PO HS Y for ANXIETY, #20 TAB Prov:JULIA VIDES. 03/24/17 Reported Medications Polyethylene Glycol* (Miralax*) 17 Gm Powd.pack, 17 GM PO DAILY, #30 PACKET 04/17/17 Hydrocodone/Acetaminophen (Lorcet Hd 10-325 mg Tablet) 1 Each Tablet, 1 EACH PO Q6 Y for PAIN, TAB 04/17/17 Furosemide (Lasix) 40 Mg Tab, 40 MG PO DAILY, TAB 04/17/17 Metformin Hcl* (Metformin Hcl*) 500 Mg Tablet, 500 MG PO WITH BREAKFAST, #30 TAB Every morning 03/18/17 Ergocalciferol (Vitamin D2) (VITAMIN D2) 50,000 Unit Capsule, 62219 UNIT PO Q7D , CAP 03/18/17 Discontinued Scripts Naproxen* (Naproxen*) 500 Mg Tablet, 500 MG PO BID Y for PAIN, #14 TAB Prov:UNIQUECARYL DO 04/10/17 Hydrocodone/Acetaminophen (Letha 5-325 Tablet) 1 Each Tablet, 1 EACH PO Q6, #20 TAB Prov:CARYL CALHOUN DO 04/10/17 Furosemide (Lasix) 20 Mg Tab, 20 MG PO DAILY, #30 TAB 4 Refills Prov:JULIA VIDES 03/24/17 Follow-up Plan Dr. Schwartz to [facility] PCP in one week Primary Care Provider Terrence Perez Pending Labs Laboratory Tests Test 04/19/17 17:45 04/19/17 20:54 04/20/17 07:54 04/20/17 12:01 Bedside Glucose 198mg/dL (70-220) 174mg/dL (70-220) 197mg/dL (70-220) 207mg/dL (70-220) TYRESE DUBON MD Apr 20, 2017 13:28
== END 2017-04-20 14:54 | disposition home or self-care (01) | DRG 948 ==
LOC: PP2 20:03
PROVIDERS: ADMIT Internal Medicine; ATTEND Internal Medicine
PROC: 0W9G3ZZ Drainage of Peritoneal Cavity, Percutaneous Approach (ICD-10-PCS; principal; 2017-04-18)
DX: R18.8 Other ascites (principal); C22.8 Malignant neoplasm of liver, primary, unspecified as to type; C78.7 Secondary malignant neoplasm of liver and intrahepatic bile duct; B19.10 Unspecified viral hepatitis B without hepatic coma; E11.9 Type 2 diabetes mellitus without complications
CPT/HCPCS: 80053; 82042; 82140; 82962; 83036; 84157; 85025; 85610; 85730; 87070; 87116; 88104; 88305; 89051; C9113; J1815; J1940; J2270; J2405

== ENCOUNTER 2017-04-26 13:32 | Inpatient (IN) | payer OTHER ==
[~2017-04-26] VITALS: Ht 160 cm; Wt 85.5 kg
[~2017-04-26 13:32] MED LIST changes: +FURO40TA4 PO; +HYDR-3666 PO; -HYDR-906 PO; -LAS20 PO; -NAPR-688 PO; +POLY17PO6 PO
[2017-04-26 13:45] VITALS: BP 153/67; PULSE 86; RESP 18; Ht 160 cm; Wt 85.5 kg
[2017-04-26] MEDS ORDERED: NACL 0.9% 3 ML SYG IV SCH (15:00)
[2017-04-26] MEDS ORDERED: HYDROCODONE/APAP (5/325) TAB PO PRN (15:00)
[2017-04-26] MEDS ORDERED: CEFTRIAXONE 1 GM/50 ML (PMX) 50 ML IVPB SCH (15:00)
--- NOTE | 2017-04-26 15:06 | HP ---
Date/Time of Note Date/Time of Note DATE: 04/26/17 TIME: 15:05 Assessment/Plan VTE Prophylaxis VTE Prophylaxis Intervention: SCD's Assessment/Plan Assessment/Plan 1. Altered mental status secondary to hepatic encephalopathy vs UTI vs SBP - Patient has been acting different per sister at bedside - Will monitor and if need be will place on 1:1 sitter due to patient pulling at lines and getting out of bed - Ammonia 88 and will start on Lactulose and titrate to 2-3 BM per day - CT head performed at outside hospital negative for acute abnormalities 2. UTI - UA showed +nitrates and leuk esterase - Will send for cultures and started on empiric antibiotics 3. Hepatic encephalopathy - Will start on Lactulose - Monitor LFT - If no improvement, will consider GI consult 4. Abdominal pain 2/2 SBP vs liver CA vs ascites - Will order diagnostic paracentesis to rule out SBP - Currently on antibiotics and will monitor - Last paracentesis performed was 04/18/17 at this facility 5. Hypokalemia - K 2.6 and replaced. Will recheck and replace as needed 6. Hyperammonemia - ammonia level 88 - Start on lactulose - continue to monitor 7. ?Pneumonia - Will start on treatment for HCAP given recent hospitalization - CXR shows perihilar infiltrate 8. Pulmonary congestion - will continue on Lasix and monitor 9. h/o Liver CA - Per family request, consulted patients oncologist, Dr. Schwartz - Will continue on Sorafenib 400mg BID, patients family to bring home medication to use 10. Tobacco abuse - will diet counselor about cessation once more alert 11. Diabetes Mellitus - ISS and accuchecks - Hold home Metformin - check A1c 12. Code status - Full code 13. Diet - Carb control 14. GI ppx - PPI 15. DVT ppx - SCD 16. Disposition - Admit to med/surg for further workup and evaluation HPI/ROS Admit Date/Time Admit Date/Time Apr 26, 2017 at 13:32 Hx of Present Illness 56 yo F with PMH DM and Liver CA dx February 2017 was transferred from outside hospital secondary to altered mental status. Patient sister was at bedside and history obtained from sister. Patient is altered and poor historian and only oriented to self. Patient lives at home with daughter and has been acting strange for the past couple days. She was brought to the ED this am due to confusion. CT head performed was negative for any acute issues. Patient was found to have an elevated ammonia level and possible UTI. Patient was recently started on chemotherapy per her oncologist Dr. Schwartz, who was contacted and did not believe was associated with chemotherapy. Patient admits to abdominal pain but denies any fevers, shortness of breath, constipation, dizziness, or LOC. ROS All 12 systems reviewed and pertinent positives as per HPI. Patient altered and ROS not completely reliable. Subjective hx not possible: other (altered mental status) Constitutional: disoriented, No febrile, No nausea Eyes: no complaints ENT: no complaints Respiratory: no complaints Cardiovascular: No chest pain, No edema, No palpitations Gastrointestinal: pain, No constipation, No diarrhea, No nausea, No vomiting Genitourinary: no complaints Musculoskeletal: no complaints Skin: no complaints Neurologic: confusion Endocrine: no complaints Lymphatic: no complaints Psychological: no complaints Immunologic: no complaints PMH/Family/Social Past Medical History Medical History: diabetes, other (liver carcinoma) Past Surgical History Past Surgical Hx: no surgical history Family History Significant Family History: no pertinent family hx Social History Alcohol Use: none Smoking Status: Current every day smoker Drug Use: none Exam/Review of Systems Exam Constitutional: alert, oriented (only to self), other Psych: nl mood/affect Head: atraumatic, normocephalic Eyes: EOMI, PERRL, icteric ENMT: mucosa pink and moist Neck: non-tender, supple Respiratory: clear to auscultation, diminished breath sounds, No crackles/rales, No wheezing Cardiovascular: regular rate and rhythm, No murmurs/extra sounds, No systolic murmur Gastrointestinal: ascites, distended, tender Musculoskeletal: nl extremities to inspection Extremities: No cyanosis, No edema Neurological: confused, lethargic Skin: No ecchymosis, No rash or lesions Lymph: nl lymph nodes Medications Medications Home medications reviewed Procedures Procedures CXR- pulmonary vascular congestion and interstitial prominence. Perihilar infiltrate lung/pleural effusions CT brain- no acute abnormalities LAB RESULTS from outside hospital WBC 7.0 Hbg 13.6 Hct 38.6 NA 130 K 2.6 Cl 91 CO2 32 BUN 7 Cr 0.4 Glu 138 Ammonia 88 LA 2.2 ANISA LEUNG MD Apr 26, 2017 15:05
--- NOTE | 2017-04-26 15:42 | RADRPT ---
PROCEDURE: US Abdomen limited . CLINICAL INDICATION: Ascites TECHNIQUE: Multiple real-time images were acquired of the patient's abdomen utilizing a high resol ution transducer. COMPARISON: None FINDINGS: There is a small to moderate amount of ascites. RPTAT: AA IMPRESSION: Small to moderate amount of ascites. .Rey Chino MD, MD Date Time Electronically viewed and signed by .Rey Chino MD, on 04/26/2017 15:42 .S/
[2017-04-26] MEDS ORDERED: VANCOMYCIN IV PER PHARMACY XX SCH (16:00)
[2017-04-26] MEDS ORDERED: AZITHROMYCIN 500MG/NS (PMX) 250 ML IVPB SCH (16:00)
[2017-04-26] MEDS ORDERED: FUROSEMIDE 40 MG INJ IV ONE (16:00)
[2017-04-26] MEDS ORDERED: VANCOMYCIN 1.75 GM in NS 500 ML IVPB SCH (17:00)
[2017-04-26 17:12] LABS: ADD UMIC YES; UR ASCORBIC ACID NEGATIVE (NEGATIVE); UR BILIRUBIN (Dip) 2+ mg/dL (NEGATIVE); UR BLOOD (Dip) 3+ mg/dL (NEGATIVE); UR CLARITY CLOUDY (CLEAR); UR COLOR AMBER (YELLOW); UR GLUCOSE (Dip) NEGATIVE (NEGATIVE); UR KETONES (Dip) NEGATIVE (NEGATIVE); UR LEUKOCYTE ESTERASE (Dip) NEGATIVE Leu/ul (NEGATIVE); UR MUCUS FEW /HPF (NONE SEEN); UR NITRITE (Dip) NEGATIVE (NEGATIVE); UR RBC > 182 /HPF (0-5); UR SPECIFIC GRAVITY (Dip) 1.016 (1.003-1.030); UR SQUAMOUS EPITHELIAL CELL FEW /HPF (FEW); UR TOTAL PROTEIN (Dip) 2+ mg/dl (NEGATIVE); UR UROBILINOGEN (Dip) 2+ mg/dL (NEGATIVE)
[2017-04-26] MEDS ORDERED: LIDOCAINE 1% (MPF) 5 ML VIAL ONE (17:27)
[2017-04-26 17:52] LABS: INR 1.67; PROTIME 19.8 Sec (12.2-14.2); PT RATIO 1.5
[2017-04-26] MEDS: INSULIN ASPART [NOVOLOG] 3 ML PEN SC SCH ×2 (17:55→20:59)
[2017-04-26] MEDS: LACTULOSE 30ML CUP PO SCH ×2 (18:23→20:58)
[2017-04-26] MEDS: FUROSEMIDE 40 MG INJ IV SCH (18:28)
[2017-04-26 18:34] LABS: FLD PMN% 17.4 %; FLD RBC 0 /uL; FLD WBC 109 /cmm
[2017-04-26 18:46] LABS: FLD TYPE ASCITES
[2017-04-26 18:47] LABS: FLD CLARITY SLIGHTLY CLOUDY; FLD COLOR AMBER
[2017-04-26 18:48] LABS: FLD MN% 82.6 %; FLUID TYPE PARACENTESIS FLUID; LACTATE DEHYDROGENASE 257 IU/L (313-618); TOTAL PROTEIN < 2.0 g/dl (6.1-8.1)
[2017-04-26 19:48] VITALS: BP 145/65; RESP 18
--- NOTE | 2017-04-26 19:54 | RADRPT ---
PROCEDURE: Ultrasound guided paracentesis. CLINICAL INDICATION: Ascites and shortness of breath. COMPARISON: 04/18/2017. TECHNIQUE: The risks, benefits, and alternatives were explained to the patient and/or the patient's family, inc luding but not limited to bleeding, infection, pain, visceral or vascular damage, shock, and . The patient and/or the patient's family understood the risks and the alternatives and wished to pro ceed with the procedure. Informed written consent was obtained. A procedural time out was performed . The patient's name, date of , and procedure to be performed were verified. Utilizing ultrasound guidance, optimal location for entry to the peritoneal cavity was ascertained. The overlying skin was prepped and draped in the usual sterile fashion. Approximately 10 ml of 1% Xylocaine was injected locally for pain control. Using ultrasound guidance, an 8 Afghan catheter wa s introduced into the peritoneal cavity in the left lower quadrant without difficulty. FINDINGS: Initial images demonstrate ascites. Approximately 4.5 liters of serous fluid was aspirated and sent for laboratory analysis. The patient tolerated the procedure well without complication. IMPRESSION: 1. Successful ultrasound-guided paracentesis. RPTAT: QQ .Ben Curran MD, Date Time Electronically viewed and signed by .Ben Curran MD, on 04/26/2017 19:53 .R/
[2017-04-26] MEDS: CEFEPIME 1GM/50 ML (PMX) 50 ML IVPB SCH (20:58)
[2017-04-27] MEDS: ACCU-CHEK XX SCH (01:09)
[2017-04-27 01:38] VITALS: BP 116/57; RESP 18
[2017-04-27] MEDS ORDERED: ACCU-CHEK XX SCH (02:00)
[2017-04-27] MEDS: VANCOMYCIN 1.25 GM in SOD CHLORIDE 0.9% 250 ML IVPB SCH ×2 (05:17→17:38)
[2017-04-27] MEDS: LACTULOSE 30ML CUP PO SCH ×3 (05:18→20:16)
[2017-04-27] MEDS: HYDROCODONE/APAP (5/325) TAB PO PRN ×2 (05:18→23:27)
[2017-04-27] MEDS: PANTOPRAZOLE (EC) 40 MG TAB PO SCH (05:18)
[2017-04-27] MEDS: FUROSEMIDE 40 MG INJ IV SCH ×2 (05:21→17:36)
[2017-04-27 05:52] LABS: ABNORMAL IP MESSAGE 1; BASOPHIL # 0.1 10^3/ul (0.0-0.1); BASOPHILS % 0.6 % (0.0-2.0); EOSINOPHILS # 0.2 10^3/ul (0.0-0.5); EOSINOPHILS % 2.2 % (0.0-7.0); HEMATOCRIT 32.1 % (37.0-47.0); HEMOGLOBIN 11.1 g/dl (12.0-16.0); LYMPHOCYTES # 1.1 10^3/ul (0.8-2.9); LYMPHOCYTES % 13.8 % (15.0-51.0); MEAN CORPUSCULAR HEMOGLOBIN 35.9 pg (29.0-33.0); MEAN CORPUSCULAR HGB CONC 34.6 g/dl (32.0-37.0); MEAN CORPUSCULAR VOLUME 103.9 fl (82.0-101.0); MEAN PLATELET VOLUME 10.2 fl (7.4-10.4); MONOCYTE # 0.7 10^3/ul (0.3-0.9); MONOCYTES % 8.4 % (0.0-11.0); NEUTROPHIL # 5.6 10^3/ul (1.6-7.5); PLATELET COUNT 58 10^3/UL (140-415); RED BLOOD COUNT 3.09 10^6/ul (4.20-5.40); RED CELL DISTRIBUTION WIDTH 16.1 % (11.5-14.5); WHITE BLOOD COUNT 8.1 10^3/ul (4.8-10.8)
[2017-04-27 05:57] LABS: POSITIVE DIFF @See below
[2017-04-27 06:28] LABS: ALBUMIN 1.7 g/dl (3.3-4.9); ALBUMIN/GLOBULIN RATIO 0.54; BILIRUBIN,DIRECT 3.9 mg/dl (0.00-0.20); BILIRUBIN,INDIRECT 5.4 mg/dl (0-1.1); BILIRUBIN,TOTAL 9.3 mg/dl (0.2-1.3); CALCIUM 7.3 mg/dl (8.4-10.2); CREATININE 0.44 mg/dl (0.44-1.00); MAGNESIUM 1.6 mg/dl (1.7-2.5); TOTAL PROTEIN 4.8 g/dl (6.1-8.1)
[2017-04-27 06:30] LABS: POTASSIUM 2.7 mmol/L (3.5-5.1)
[2017-04-27] MEDS ORDERED: POTASSIUM CHLORIDE (SR) 20 MEQ TAB PO STA (06:40)
[2017-04-27] MEDS ORDERED: NEXAVAR PO SCH (07:00)
[2017-04-27] MEDS: INSULIN ASPART [NOVOLOG] 3 ML PEN SC SCH ×4 (07:50→20:16)
[2017-04-27] MEDS ORDERED: MAGNESIUM SULFATE 1 GM/D5W 100 ML IVPB ONE (08:00)
[2017-04-27] MEDS ORDERED: POTASSIUM CHLORIDE 250 ML IVPB ONE (08:00)
[2017-04-27 08:05] VITALS: BP 138/63; RESP 18
--- NOTE | 2017-04-27 08:48 | CONS ---
DATE OF ADMISSION: 04/26/2017 DATE OF CONSULTATION: 04/27/2017 REQUESTING PHYSICIAN: Dr. Sarah Coker. REASON FOR CONSULTATION: Hepatocellular carcinoma. Dear Dr. Coker: Thank you very much for asking me to see this very pleasant patient in oncologic consultation. As y ou know, I am familiar with Ms. Vazquez. She is a 56-year-old female who I originally saw in a [place] [facility] admission on 03/18/2017. At that time, the patient was admitted with multiple hepatic ma sses and thrombocytopenia. The patient was found to have, as noted, evidence of multiple hepatic masses. The liver was small a nd nodular in size. There was mild splenomegaly as well as evidence of gastric and upper abdominal varices. There was moderate to marked ascites. There was no mesenteric or retroperitoneal lymphade nopathy noted at that time. The patient was felt to have hepatocellular carcinoma. A biopsy was never performed but radiographi c imaging was felt to be classic. At the same time, the patient did have an alpha-fetoprotein of 93 01. Other tumor markers were negative. The patient did have paracenteses while in the hospital and was discharged to be followed up as an o utpatient. Since that time, the patient has undergone several outpatient paracenteses. The last as an outpatient was on 04/21/2017, although the patient has now undergone another paracentesis on adm ission to the hospital on 04/26/2017. The patient has been receiving Furosemide at home in an attempt to lessen ascites. She had been ins tructed to take potassium as she stated she could not tolerate the Spironolactone. The patient also had been started on sorafenib (NEXAVAR). The dose was 400 mg twice a day. The [facility] started this also on approximately 04/21/2017 as it took time for her to get the medications. The patient is now admitted to [facility] after presenting to the emergency room a [facility] on 04/26/2017 with a change in mental status. The patient's family states colby t the patient was confused and lethargic. The patient was taken to the emergency room at [facility] and it was reported that her pneu monia there was 88. The patient was transferred to [facility]. As mentioned, she did undergo an ultra sound-guided paracentesis on 04/26/2017 of which 4.5 liters of serous fluid was removed. On admission to the hospital, the patient's white count was 8100, hemoglobin 11.1, hematocrit 32.1, MCV 103.9, MCH 25.9, MCHC 34.6 and platelet count 58,000. Protime 19.8 seconds, INR of 1.67, PTT 39 seconds. Chemistry panel revealed a sodium 133, potassium 2.7, chloride 95, CO2 35, BUN 12, creati nine 0.44, calcium of 7.3, albumin of 1.7 and total protein of 4.8. The total bilirubin was 9.3 wit h a direct bilirubin of 3.9, AST 181, ALT 101 and alkaline phosphatase 187. [place] 0457 is only 30. MEDICATIONS: The patient is presently receiving lactulose. Other medications at the present time i nclude: 1. Pantoprazole 40 mg daily. 2. Vancomycin 1.25 mg q.12h. 3. Cefepime 500 mg q.12h. 4. Furosemide 40 mg twice a day. 5. Insulin on a p.r.n. basis. The patient is also receiving hydrocodone with acetaminophen 10/325 q.6h. on a p.r.n. basis, ondanse dylon 4 mg IV q.4h. p.r.n. and Lactulose 20 grams q.8h. ALLERGIES: THE PATIENT IS STATED TO BE ALLERGIC TO MORPHINE. PAST MEDICAL HISTORY: The patient's past history includes only history of diabetes mellitus as well as a history of B12 deficiency. She has no history of hypertension, heart disease, renal disease a nd in the past, prior to the February admission, states she had never been told of any hepatic dise ase. It should be noted that the patient did have hepatitis serologies performed during the [facility] admission and was found to have hepatitis B core antibody. Hepatitis C was negative. Hepatitis B surface antigen was negative. PAST SURGICAL HISTORY: The patient's only surgeries in the past have included 3 sections. She has had multiple paracenteses at this time. SOCIAL HISTORY: Patient's last menstrual period was approximately 20 years ago. She has never take n hormone replacement therapy. She is 3, para 3, AB 0. Has never been on hormone replaceme nt therapy. Last mammogram was almost 2 years ago. The patient states that she was a previous smoker but quit smoking approximately 6 weeks ago. She s tates until that time a pack of cigarettes lasted 2-3 weeks. She does admit to regular alcohol use. She is somewhat vague about how much alcohol she does drink. The patient has not been knowingly been exposed to any industrial toxins or ionizing radiation. As mentioned, has been started recently on sorafenib. FAMILY HISTORY: Unremarkable. PHYSICAL EXAMINATION GENERAL: At this time reveals a well-developed, lethargic and obviously icteric female who is in no acute distress. VITAL SIGNS: Temperature 98.6, pulse 86 per minute and regular, respirations 18, blood pressure 116 /57, pulse oximetry is 90. SKIN: Grossly icteric. There are spider telangiectasias. No rashes are noted. No petechiae or ec chymoses. HEENT: Normocephalic. No evidence of trauma. The pupils are equal, round, react to light and acco mmodation. Sclerae are 4+ icteric. Oral mucosa is moist without lesions. Tongue is well papillate d. No gingival hyperplasia, no hypertrophy of Waldeyer's ring. NECK: Supple, no jugular venous distention or thyroid enlargement. No carotid bruits. CHEST: Clear to auscultation and percussion. No rhonchi, wheezes, rales or rubs, although there ar e decreased breath sounds in both bases. BREASTS: Atrophic, no masses, skin retraction, or nipple inversion. HEART: Regular sinus rhythm, no S3 or S4. There is a grade II/ systolic murmur heard along the l eft sternal border. It does not radiate to the neck or axilla. ABDOMEN: Distended, with obvious ascites. The spleen tip is ballottable in the left upper quadrant . I cannot feel the liver. There are no hernia defects noted. EXTREMITIES: Good range of motion. No clubbing or cyanosis. There is 2+, bilateral pedal and pret ibial edema with no palpable cords or Randi's sign. NEUROLOGIC: Reveals no focal neurologic abnormalities. The patient is lethargic; however, does hav e asterixis. DISCUSSION: This patient does have hepatocellular carcinoma. Although there is no tissue diagnosis , the patient's radiographic appearance and alpha fetoprotein of almost 1000 is consistent with this diagnosis. The patient has multiple hepatic lesions involving both lobes and was never felt to be a candidate f or any surgical intervention. It was thought at one time perhaps the patient could undergo a transa rterial catheter chemoembolization and this was trying to be arranged as an outpatient. It is not c lear, however, at this time, the patient could tolerate such intervention without further deteriorat ion in liver function. As noted, she had recently been started on sorafenib 400 mg twice a day. This, however, may not be tolerable given the patient's hepatic dysfunction. The only other therapeutic options for the patient's advanced hepatocellular carcinoma would be the use of some other type of chemotherapy intervention. Another option might be a trial of a checkpoin t inhibitor such as Nivolumab (Opdivo). This agent would likely have less symptoms, less toxicity t joy other cytotoxic chemotherapies. At the present time, the patient's major morbidity is the hepatic encephalopathy related to the michelle ent's underlying liver dysfunction. I feel that the prognosis is extremely poor and it is unlikely that the patient will be able to tolerate any type of aggressive therapy for her hepatocellular carc inoma. At this time, I would suggest discontinuation of the sorafenib until the patient's hepatic encephalo jose can be adequately treated. Once again, thank you very much for the opportunity of participating in the medical care of this bonilla y interesting and pleasant patient. I will be happy to follow this patient with you and assist in h er oncologic evaluation and follow up as necessary. Dictated By: TONE KAPLAN MD, SR/BRENNAN Conf#: [id number] DID#: [id number]
[2017-04-27] MEDS: ONDANSETRON 4 MG INJ IV PRN ×2 (09:02→14:53)
[2017-04-27] MEDS: CEFEPIME 1GM/50 ML (PMX) 50 ML IVPB SCH ×2 (09:44→20:16)
--- NOTE | 2017-04-27 15:09 | PN ---
Date/Time of Note Date/Time of Note DATE: 04/27/17 TIME: 15:06 Assessment/Plan VTE Prophylaxis VTE Prophylaxis Intervention: SCD's Lines/Catheters IV C[facility] Type [facility]from [facility] Peripheral IV Urinary Cath still in place: No Assessment/Plan Chief Complaint/Hosp Course 1. Acute encephalopathy. Most probably toxic metabolic from underlying hyperammonemia. Improved status post lactulose. Continue lactulose. Brain CT scan at outside facility negative for any acute findings. 2. Abdominal pain. Most likely secondary to underlying ascites. Status post paracentesis with removal of more than 1 L of fluid on 04/26/2017. 3. Possible underlying urinary tract infection. Positive urinalysis. Pending urine cultures. Continue empiric antibiotics. 4. Perihilar infiltrate on chest x-ray from outside facility. The patient on antibiotic for healthcare associated pneumonia. Repeat chest x-ray. 5. Moderate pulmonary vascular congestion on CXR from outside facility. Most probably from right-sided heart failure provided the patient's history of hepatocellular carcinoma. 6. Hepatocellular carcinoma. Oncology following. 7. Thrombocytopenia. Most probably secondary to #6. Continue to monitor the patient for any active bleeding. 8. Diabetes mellitus. Hemoglobin A1c within normal limits. Hold biguanides. Continue sliding scale insulin. 9. Nicotine use. Cessation advised. 10. Transaminitis with hyperbilirubinemia. Most probably secondary to #6. Avoid hepatotoxic medications. 11. Fluids, electrolytes, and nutrition. Carbohydrate controlled, low sodium diet. 12. DVT prophylaxis. Bilateral SCDs. 13. Plan. Continue antimicrobials. Continue to monitor mental status closely. Case discussed with Dr. Coker. Problems: Subjective 24 Hr Interval Summary Free Text/Dictation Denies any abdominal pain. Exam/Review of Systems Vital Signs Vitals Vital Signs Date Time Temp Pulse Resp B/P Pulse Ox O2 Delivery O2 Flow Rate FiO2 04/27/17 08:05 98.2 81 18 138/63 94 04/26/17 13:45 Room Air Intake and Output 04/26/17 04/26/17 04/27/17 15:00 23:00 07:00 Intake Total 200 ml 600 ml Output Total 500 ml Balance -300 ml 600 ml Exam General: Adequately build 56 year-old female lying in bed in no apparent distress. HEENT: Normocephalic, atraumatic. Eyes: icteric sclerae, conjunctivae clear. ENT : Nasal septum midline, oral mucosa moist. Neck supple, JVD noticed. Respiratory: Bilaterally diminished breath sounds. No use of accessory muscles of respiration. Cardiovascular: S1, S2 heard. Regular rate and rhythm. Abdomen: Distended. Ascites. Genitourinary: Deferred. Extremities: No cyanosis, no clubbing. B/L LE 2-3+ pitting edema. Neurologic: Cranial nerves II through XII grossly intact. The patient is awake, alert, and oriented. Results Result Diagram: 04/27/17 0457 04/27/17 0457 Results 24 hrs Laboratory Tests Test 04/26/17 16:30 04/26/17 16:37 04/26/17 17:20 04/26/17 18:00 Urine Color BRANDON Urine Clarity CLOUDY A Urine pH 5.0 Urine Specific [place] 1.016 Urine Ketones NEGATIVE Urine Nitrite NEGATIVE Urine Bilirubin 2+ H Urine Urobilinogen 2+ H Urine Leukocyte Esterase NEGATIVE Urine Microscopic RBC > 182 H Urine Microscopic WBC > 182 H Urine Squamous Epithelial Cells FEW Urine Hyaline Casts FEW A Urine Mucus FEW A Urine Hemoglobin 3+ H Urine Glucose NEGATIVE Urine Total Protein 2+ H Prothrombin Time 19.8 H Prothrombin Time Ratio 1.5 INR International Normalized Ratio 1.67 Activated Partial Thromboplast Time 39.0 H Body Fluid Type ASCITES Body Fluid Volume 1050.0 Body Fluid Color BRANDON Body Fluid Appearance SLIGHTLY CLOUDY Body Fluid WBC 109 Body Fluid RBC (Auto) 0 Body Fluid Polynuclear WBCs (%) 17.4 Body Fluid Mononuclear Cells % Auto 82.6 Body Fluid Total Protein Body Fluid Lactate Dehydrogenase Lactate Dehydrogenase 257 L Total Protein < 2.0 L Bedside Glucose 99 Test 04/26/17 20:59 04/27/17 04:57 04/27/17 08:23 04/27/17 12:49 Bedside Glucose 120 116 114 White Blood Count 8.1 # Red Blood Count 3.09 L Hemoglobin 11.1 L Hematocrit 32.1 L Mean Corpuscular Volume 103.9 H Mean Corpuscular Hemoglobin 35.9 H Mean Corpuscular Hemoglobin Concent 34.6 Red Cell Distribution Width 16.1 H Platelet Count 58 #L Mean Platelet Volume 10.2 Neutrophils % 70.0 Lymphocytes % 13.8 L Monocytes % 8.4 Eosinophils % 2.2 Basophils % 0.6 Nucleated Red Blood Cells % 0.0 Neutrophils # 5.6 Lymphocytes # 1.1 Monocytes # 0.7 Eosinophils # 0.2 Basophils # 0.1 Nucleated Red Blood Cells # 0.0 Sodium Level 133 L Potassium Level 2.7 *L Chloride Level 95 L Carbon Dioxide Level 35 H Anion Gap 6 L Blood Urea Nitrogen 12 Creatinine 0.44 Glucose Level 118 Hemoglobin A1c 5.2 Calcium Level 7.3 L Magnesium Level 1.6 L Total Bilirubin 9.3 H Direct Bilirubin 3.90 H Indirect Bilirubin 5.4 H Aspartate Amino Transf (AST/SGOT) 181 H Alanine Aminotransferase (ALT/SGPT) 101 H Alkaline Phosphatase 187 H Ammonia 30 Total Protein 4.8 #L Albumin 1.7 L Globulin 3.10 Albumin/Globulin Ratio 0.54 Medications Medications Current Medications Ondansetron HCl (Zofran Inj) 4 mg Q6H PRN IV NAUSEA AND/OR VOMITING Last administered on 04/27/17 09:02; Admin Dose 4 MG; Start 04/26/17 at 15:00 Acetaminophen/ Hydrocodone Bitart ([place] (5/325)) 1 tab Q6H PRN PO MODERATE PAIN LEVEL 4-6 Last administered on 04/26/17 22:03; Admin Dose 1 TAB; Start 04/26/17 at 15:00 Acetaminophen/ Hydrocodone Bitart ([place] (5/325)) 2 tab Q6H PRN PO SEVERE PAIN LEVEL 7-10 Last administered on 04/27/17 05:18; Admin Dose 2 TAB; Start 04/26 at 15:00 Pantoprazole (Protonix Tab) 40 mg DAILY@06 PO Last administered on 04/27/17 05:18; Admin Dose 40 MG; Start 04/27/17 at 06:00 Lactulose (Enulose) 20 gm Q8 PO Last administered on 04/27/17 13:12; Admin Dose 20 GM; Start 04/26/17 at 15:00 Diagnostic Test (Pha) 1 ea 1 ea 02 XX ; Start 04/27/17 at 02:00 Cefepime HCl 50 ml @ 100 mls/hr Q12 IVPB Last administered on 04/27/17 09:44 ; Admin Dose 100 MLS/HR; Start 04/26/17 at 21:00 Vancomycin HCl/ Sodium Chloride (Vancocin/NS) 250 ml @ 83.333 mls/ hr Q12H IVPB Last administered on 04/27/17 05:17; Admin Dose 83.333 MLS/HR; Start at 06:00 Non-Formulary Medication 2 ea BID@ PO Last administered on 04/27/17 06: 18; Admin Dose 2 EA; Start 04/27/17 at 07:00; Status Future Hold Miscellaneous Information Patients own medicat... BID@10,16 XX ; Start at 10:00 Miscellaneous Information (*Rx Drug Level Order Reminder*) 1 ONCE ONCE XX ; Start 04/28/17 at 05:00; Stop 04/28/17 at 05:01 HARI MESA NP Apr 27, 2017 15:09
[2017-04-27 17:38] VITALS: BP 157/66; PULSE 87
--- NOTE | 2017-04-27 21:30 | RADRPT ---
PROCEDURE: XR Chest. CLINICAL INDICATION: Shortness of breath. TECHNIQUE: Single frontal view. COMPARISON: 04/07/2017. FINDINGS: There is mild atelectasis at the lung bases. The lungs are otherwise clear. The heart size is normal. There is calcification in the aorta consistent with atherosclerosis. There is no pleural effusion. There is no pneumothorax. IMPRESSION: 1. Mild atelectasis at the lung bases. 2. Atherosclerosis. 3. Otherwise unremarkable chest radiograph. RPTAT: QQ .Ben Curran MD, MD Date Time Electronically viewed and signed by .Ben Curran MD, MD on 04/27/2017 21:30 .R/
[2017-04-28] MEDS: ACCU-CHEK XX SCH (00:45)
[2017-04-28 05:55] LABS: ABNORMAL IP MESSAGE 1; BASOPHIL # 0.1 10^3/ul (0.0-0.1); BASOPHILS % 0.7 % (0.0-2.0); EOSINOPHILS # 0.1 10^3/ul (0.0-0.5); EOSINOPHILS % 0.8 % (0.0-7.0); HEMATOCRIT 35.8 % (37.0-47.0); HEMOGLOBIN 12.7 g/dl (12.0-16.0); LYMPHOCYTES # 0.9 10^3/ul (0.8-2.9); LYMPHOCYTES % 8.1 % (15.0-51.0); MEAN CORPUSCULAR HEMOGLOBIN 37.2 pg (29.0-33.0); MEAN CORPUSCULAR HGB CONC 35.5 g/dl (32.0-37.0); MEAN PLATELET VOLUME 9.7 fl (7.4-10.4); MONOCYTE # 0.7 10^3/ul (0.3-0.9); NEUTROPHIL # 9.2 10^3/ul (1.6-7.5); NEUTROPHILS % 79.6 % (39.0-77.0); NUCLEATED RED BLOOD CELLS% 0.3 /100WBC (0.0-0.0); PLATELET COUNT 76 10^3/UL (140-415); RED BLOOD COUNT 3.41 10^6/ul (4.20-5.40); RED CELL DISTRIBUTION WIDTH 16.3 % (11.5-14.5); WHITE BLOOD COUNT 11.5 10^3/ul (4.8-10.8)
[2017-04-28 05:58] VITALS: BP 165/76; PULSE 95; RESP 18
[2017-04-28] MEDS: FUROSEMIDE 40 MG INJ IV SCH ×2 (05:59→18:38)
[2017-04-28] MEDS: PANTOPRAZOLE (EC) 40 MG TAB PO SCH (06:00)
[2017-04-28] MEDS: LACTULOSE 30ML CUP PO SCH ×3 (06:00→21:38)
[2017-04-28 06:08] LABS: POSITIVE DIFF @See below
[2017-04-28 06:24] LABS: MAGNESIUM 1.8 mg/dl (1.7-2.5); PHOSPHORUS 3.3 mg/dl (2.5-4.9)
[2017-04-28 06:28] LABS: ALBUMIN 2.2 g/dl (3.3-4.9); ALBUMIN/GLOBULIN RATIO 0.73; BILIRUBIN,DIRECT 5.8 mg/dl (0.00-0.20); BILIRUBIN,INDIRECT 5.7 mg/dl (0-1.1); BILIRUBIN,TOTAL 11.5 mg/dl (0.2-1.3); CALCIUM 7.4 mg/dl (8.4-10.2); CREATININE 0.64 mg/dl (0.44-1.00); POTASSIUM 3.4 mmol/L (3.5-5.1); TOTAL PROTEIN 5.2 g/dl (6.1-8.1)
[2017-04-28] MEDS: VANCOMYCIN 1.25 GM in SOD CHLORIDE 0.9% 250 ML IVPB SCH (07:50)
[2017-04-28 08:11] VITALS: BP 134/60; RESP 18
[2017-04-28] MEDS: INSULIN ASPART [NOVOLOG] 3 ML PEN SC SCH ×4 (08:45→21:00)
[2017-04-28] MEDS ORDERED: POTASSIUM CHLORIDE (SR) 10 MEQ TAB PO ONE (11:00)
[2017-04-28] MEDS ORDERED: POTASSIUM CHLORIDE (SR) 20 MEQ TAB PO STA (11:11)
--- NOTE | 2017-04-28 11:23 | PN ---
Date/Time of Note Date/Time of Note DATE: 04/28/17 TIME: 11:16 Assessment/Plan VTE Prophylaxis VTE Prophylaxis Intervention: SCD's Lines/Catheters IV C[facility]ter Type (from [facility]): Peripheral IV Urinary Cath still in place: No Assessment/Plan Chief Complaint/Hosp Course 1. Acute encephalopathy. Most probably toxic metabolic from underlying hyperammonemia. Improved status post lactulose. Continue lactulose. Brain CT scan at outside facility negative for any acute findings. 2. Hyperammonemia. Continue lactulose. 3. Abdominal pain. Largely resolved. Most likely secondary to underlying ascites. Status post paracentesis with removal of more than 1 L of fluid on . 4. Possible underlying urinary tract infection. Positive urinalysis. Urine cultures inconclusive. 5. Perihilar infiltrate on chest x-ray from outside facility. Repeat chest x- ray to [facility] negative for any infiltrates. 6. Moderate pulmonary vascular congestion on CXR. Most probably from a right- sided heart failure provided the patient's history of hepatocellular carcinoma. Improved on current x-ray. Continue diuresis. 7. Hepatocellular carcinoma. Being followed by oncology. 8. Transaminitis with hyperbilirubinemia. Most probably secondary to #6. Obtain gastroenterology evaluation. Avoid hepatotoxic medications. 9. Thrombocytopenia. Most probably secondary to #6. Continue to monitor the patient for any active bleeding. 10. Diabetes mellitus. Hemoglobin A1c within normal limits. Hold biguanides. Continue sliding scale insulin. 11. Nicotine use. Cessation advised. 12. Fluids, electrolytes, and nutrition. Carbohydrate controlled, low sodium diet. 13. DVT prophylaxis. Bilateral SCDs. 14. Plan. Discontinue antimicrobials. Add rifaximin to the drug regimen. Continue to monitor mental status closely. Obtain gastroenterology consult. Case discussed with Dr. Coker. Problems: Subjective 24 Hr Interval Summary Free Text/Dictation Patient is more awake and alert today. Denies any abdominal pain. Exam/Review of Systems Vital Signs Vitals Vital Signs Date Time Temp Pulse Resp B/P Pulse Ox O2 Delivery O2 Flow Rate FiO2 04/28/17 08:11 97.9 85 18 134/60 94 04/28/17 05:58 Room Air Intake and Output 04/27/17 04/27/17 04/28/17 14:59 22:59 06:59 Intake Total 650 ml 560 ml 1300 ml Output Total 700 ml Balance 650 ml -140 ml 1300 ml Exam General: Adequately build 56 year-old female lying in bed in no apparent distress. HEENT: Normocephalic, atraumatic. Eyes: icteric sclerae, conjunctivae clear. ENT : Nasal septum midline, oral mucosa moist. Neck supple, JVD noticed. Respiratory: Bilaterally diminished breath sounds. No use of accessory muscles of respiration. Cardiovascular: S1, S2 heard. Regular rate and rhythm. Abdomen: Distended. Ascites. Genitourinary: Deferred. Extremities: No cyanosis, no clubbing. B/L LE 2-3+ pitting edema. Neurologic: Cranial nerves II through XII grossly intact. The patient is awake, alert, and oriented. Results Result Diagram: 04/28/17 0503 04/28/17 0503 Results 24 hrs Laboratory Tests Test 04/27/17 12:49 04/27/17 17:36 04/27/17 20:15 04/28/17 05:03 Bedside Glucose 114 109 110 White Blood Count 11.5 #H Red Blood Count 3.41 L Hemoglobin 12.7 Hematocrit 35.8 L Mean Corpuscular Volume 105.0 H Mean Corpuscular Hemoglobin 37.2 H Mean Corpuscular Hemoglobin Concent 35.5 Red Cell Distribution Width 16.3 H Platelet Count 76 #L Mean Platelet Volume 9.7 Neutrophils % 79.6 H Lymphocytes % 8.1 L Monocytes % 6.0 Eosinophils % 0.8 Basophils % 0.7 Nucleated Red Blood Cells % 0.3 H Neutrophils # 9.2 H Lymphocytes # 0.9 Monocytes # 0.7 Eosinophils # 0.1 Basophils # 0.1 Nucleated Red Blood Cells # 0.0 Sodium Level 133 L Potassium Level 3.4 L Chloride Level 92 L Carbon Dioxide Level 31 Anion Gap 13 # Blood Urea Nitrogen 16 Creatinine 0.64 Glucose Level 141 Calcium Level 7.4 L Phosphorus Level 3.3 Magnesium Level 1.8 Total Bilirubin 11.5 H Direct Bilirubin 5.80 H Indirect Bilirubin 5.7 H Aspartate Amino Transf (AST/SGOT) 229 H Alanine Aminotransferase (ALT/SGPT) 105 H Alkaline Phosphatase 187 H Ammonia 59 #H Total Protein 5.2 L Albumin 2.2 L Globulin 3.00 Albumin/Globulin Ratio 0.73 Vancomycin Level Trough 10.9 Test 04/28/17 08:34 Bedside Glucose 140 Medications Medications Current Medications Ondansetron HCl (Zofran Inj) 4 mg Q6H PRN IV NAUSEA AND/OR VOMITING Last administered on 04/27/17 14:53; Admin Dose 4 MG; Start 04/26/17 at 15:00 Acetaminophen/ Hydrocodone Bitart ([place] (5/325)) 1 tab Q6H PRN PO MODERATE PAIN LEVEL 4-6 Last administered on 04/26/17 22:03; Admin Dose 1 TAB; Start 04/26/17 at 15:00 Acetaminophen/ Hydrocodone Bitart ([place] (5/325)) 2 tab Q6H PRN PO SEVERE PAIN LEVEL 7-10 Last administered on 04/27/17 23:27; Admin Dose 2 TAB; Start 04/26 at 15:00 Pantoprazole (Protonix Tab) 40 mg DAILY@06 PO Last administered on 04/28/17 06 :00; Admin Dose 40 MG; Start 04/27/17 at 06:00 Lactulose (Enulose) 20 gm Q8 PO Last administered on 04/28/17 06:00; Admin Dose 20 GM; Start 04/26/17 at 15:00 Diagnostic Test (Pha) 1 ea 1 ea 02 XX ; Start 04/27/17 at 02:00 Cefepime HCl (Maxipime 1gm/50 ml (Pmx)) 50 ml @ 100 mls/hr Q12 IVPB Last administered on 04/27/17 20:16; Admin Dose 100 MLS/HR; Start 04/26/17 at 21: 00 Non-Formulary Medication 2 ea BID@, PO Last administered on 04/27/17 06: 18; Admin Dose 2 EA; Start 04/27/17 at 07:00; Status Future Hold Miscellaneous Information Patients own medicat... BID@ XX ; Start at 10:00 Vancomycin HCl/ Sodium Chloride (Vancocin/NS) 250 ml @ 83.333 mls/ hr Q12H IVPB ; Start 04/28/17 at 18:00 HARI MESA NP Apr 28, 2017 11:23
--- NOTE | 2017-04-28 13:36 | CONS ---
Date/Time of Note Date/Time of Note DATE: 04/28/17 TIME: 13:28 Assessment/Plan Assessment/Plan Additional Assessment/Plan First I have discussed with patient having a family conference her son and daughter in the room and they are receptive once all family members are available. I will ask social work service to schedule at the family's convenience. Patient is a full code, I do not intend to open up conversations related to hospice care for at this time even palliative care. I have been told by nursing staff that she is not receptive to either and feels that she will survive her liver cancer. First family conference I suggest just hearing the family how, allowing them to express themselves. I will open up the conversation as to their understanding of her underlying medical, goals of care , fears, expectations from healthcare providers. I have been told by nursing staff that her family is not receptive to discussing ongoing goals of care. Ask social work service to schedule family conference. Consultation Date/Type/Reason Admit Date/Time Apr 26, 2017 at 13:32 Type of Consultation: Palliative care Hx of Present Illness This 56-year-old female was admitted with mental status changes and elevated ammonia levels. She has a history of hepatic masses, imaging studies were highly suggestive as well as tumor markers biopsy done. She has been seen by Dr. Schwartz, I reviewed his consultation notes. Patient also presented with abdominal discomfort which is mostly resolved she was diagnosed with urinary tract infection, transaminitis hyperbilirubinemia, thrombocytopenia. She is considered to have a poor prognosis. Eyes: no complaints ENT: no complaints Respiratory: no complaints Cardiovascular: No chest pain, No edema, No palpitations Gastrointestinal: pain, No constipation, No diarrhea, No nausea, No vomiting Genitourinary: no complaints Musculoskeletal: no complaints Skin: no complaints Neurologic: confusion Lymphatic: no complaints Psychological: nl mood/affect Immunologic: no complaints Past Medical History Medical History: diabetes, other (liver carcinoma) Past Surgical History Past Surgical Hx: no surgical history Social History Alcohol Use: none Smoking Status: Current every day smoker Drug Use: none Exam/Review of Systems Vital Signs Vitals Vital Signs Date Time Temp Pulse Resp B/P Pulse Ox O2 Delivery O2 Flow Rate FiO2 04/28/17 08:11 97.9 85 18 134/60 94 04/28/17 05:58 Room Air Intake and Output 04/27/17 04/27/17 04/28/17 15:00 23:00 07:00 Intake Total 650 ml 560 ml 1300 ml Output Total 700 ml Balance 650 ml -140 ml 1300 ml Results Result Diagram: 04/28/17 0503 04/28/17 0503 Results 24 hrs Laboratory Tests Test 04/27/17 17:36 04/27/17 20:15 04/28/17 05:03 04/28/17 08:34 Bedside Glucose 109 110 140 White Blood Count 11.5 #H Red Blood Count 3.41 L Hemoglobin 12.7 Hematocrit 35.8 L Mean Corpuscular Volume 105.0 H Mean Corpuscular Hemoglobin 37.2 H Mean Corpuscular Hemoglobin Concent 35.5 Red Cell Distribution Width 16.3 H Platelet Count 76 #L Mean Platelet Volume 9.7 Neutrophils % 79.6 H Lymphocytes % 8.1 L Monocytes % 6.0 Eosinophils % 0.8 Basophils % 0.7 Nucleated Red Blood Cells % 0.3 H Neutrophils # 9.2 H Lymphocytes # 0.9 Monocytes # 0.7 Eosinophils # 0.1 Basophils # 0.1 Nucleated Red Blood Cells # 0.0 Sodium Level 133 L Potassium Level 3.4 L Chloride Level 92 L Carbon Dioxide Level 31 Anion Gap 13 # Blood Urea Nitrogen 16 Creatinine 0.64 Glucose Level 141 Calcium Level 7.4 L Phosphorus Level 3.3 Magnesium Level 1.8 Total Bilirubin 11.5 H Direct Bilirubin 5.80 H Indirect Bilirubin 5.7 H Aspartate Amino Transf (AST/SGOT) 229 H Alanine Aminotransferase (ALT/SGPT) 105 H Alkaline Phosphatase 187 H Ammonia 59 #H Total Protein 5.2 L Albumin 2.2 L Globulin 3.00 Albumin/Globulin Ratio 0.73 Vancomycin Level Trough 10.9 Test 04/28/17 12:28 Bedside Glucose 143 Medications Medications Current Medications Ondansetron HCl (Zofran Inj) 4 mg Q6H PRN IV NAUSEA AND/OR VOMITING Last administered on 04/27/17 14:53; Admin Dose 4 MG; Start 04/26/17 at 15:00 Acetaminophen/ Hydrocodone Bitart ([place] (5/325)) 1 tab Q6H PRN PO MODERATE PAIN LEVEL 4-6 Last administered on 04/26/17 22:03; Admin Dose 1 TAB; Start 04/26/17 at 15:00 Acetaminophen/ Hydrocodone Bitart ([place] (5/325)) 2 tab Q6H PRN PO SEVERE PAIN LEVEL 7-10 Last administered on 04/27/17 23:27; Admin Dose 2 TAB; Start 04/26 at 15:00 Pantoprazole (Protonix Tab) 40 mg DAILY@06 PO Last administered on 04/28/17 06 :00; Admin Dose 40 MG; Start 04/27/17 at 06:00 Lactulose (Enulose) 20 gm Q8 PO Last administered on 04/28/17 06:00; Admin Dose 20 GM; Start 04/26/17 at 15:00 Diagnostic Test (Pha) (Accu-Chek) 1 ea 02 XX ; Start 04/27/17 at 02:00 Non-Formulary Medication 2 ea BID@,17 PO Last administered on 04/27/17 06: 18; Admin Dose 2 EA; Start 04/27/17 at 07:00; Status Future Hold Miscellaneous Information Patients own medicat... BID@, XX ; Start at 10:00 Rifaximin (Xifaxan) 550 mg BID PO ; Start 04/28/17 at 21:00 DOLORES COREAS Apr 28, 2017 13:36
[2017-04-28] MEDS: HYDROCODONE/APAP (5/325) TAB PO PRN (14:01)
[2017-04-28] MEDS ORDERED: DEXTROSE 50% 50 ML SYRINGE IV PRN ×2 (14:30)
[2017-04-28] MEDS ORDERED: GLUCOSE GEL 15 GRAM TUBE PO PRN ×2 (14:30)
[2017-04-28] MEDS ORDERED: GLUCOSE GEL 15 GRAM TUBE BUCCAL PRN (14:30)
[2017-04-28] MEDS ORDERED: GLUCAGON 1 MG INJ IM PRN (14:30)
--- NOTE | 2017-04-28 16:20 | CONS ---
Date/Time of Note Date/Time of Note DATE: 04/28/17 TIME: 15:40 Assessment/Plan Assessment/Plan Chief Complaint/Hosp Course Summary Assessment and Plan: Assessment: Hepatic encephalopathy Transaminitis Hyperbilirubinemia HCC- being followed by Dr. Schwartz Hyperammonemia- secondary to liver disease Thrombocytopenia- secondary to liver disease UTI- treated Plan: Continue PPI Continue lactulose and Xifaxan p.o. if patient unable to tolerate p.o. change lactulose to rectal Will order hepatitis panel Plan family meeting with Dr. Villatoro tomorrow at 10:30 AM Patient is seen in collaboration with Dr. Kang Chief Complaint/Reason for Visit: Transaminitis Hyperbilirubinemia History of Present Illness: This 56-year-old female with past medical history of hepatocellular carcinoma based on radiographic appearance and alpha fetoprotein of almost 1000. Patient was admitted to the hospital with mental status changes and elevated ammonia levels. Patient also c/o lower abdominal discomfort which almost completely resolved, with a urinary tract infection,. I have been asked to consult due to transaminitis hyperbilirubinemia. She is currently on lactulose, rifaximin was started today she is considered to have a poor prognosis. Plan for family meeting tomorrow with Dr. Cramer. Continue Xifaxan and lactulose p.o. as tolerate, unable to tolerate p.o. medication change lactulose to per rectum. Will check for hepatitis. Past Medical History: DM HCC Allergies: Morphine Family History: No pertinent family history Social History: Smoker PHYSICAL EXAMINATION: GENERAL: Chronically ill appearing, alert & oriented x 3, he is at times, jaundice SKIN: No lesions, stigmata chronic liver disease, no evidence of bleeding diathesis, purpura lower extremities LYMPHATIC: No palpable lymphadenopathy. HEAD: Normocephalic, atraumatic, no tenderness. EYES: Pupils equal reactive to light and accommodation, full extraocular movements, icteric, no discharge. EARS/NOSE AND THROAT: Ears normal, nose normal, oropharynx normal, oral membranes well hydrated without lesions. NECK: Supple, no masses, thyroid normal, JVP within normal limits, carotids normal without bruits. CHEST: Inspection within normal limits. CARDIOVASCULAR: Heart: Regular rate and rhythm, no murmurs, gallops or rubs. Peripheral pulses present within normal limits, no cyanosis, clubbing or edemas. No pulsatile abdominal mass RESPIRATORY: Lungs clear to auscultation and percussion, no wheezing, no rubs GASTROINTESTINAL AND LIVER: Abdomen: Soft, non tenderness, distended, no hernias , no masses, hepatomegaly, no guarding, no rebound tenderness, normoactive bowel sounds. Rectal: Deferred. GENITOURINARY: Female genitalia within normal limits. EXTREMITIES: BLE edema Problems: Consultation Date/Type/Reason Admit Date/Time Apr 26, 2017 at 13:32 Date of Consultation: Apr 28, 2017 Type of Consultation: GI Reason for Consultation Transaminitis Hyperbilirubinemia Eyes: no complaints ENT: no complaints Respiratory: no complaints Cardiovascular: No chest pain, No edema, No palpitations Gastrointestinal: pain, No constipation, No diarrhea, No nausea, No vomiting Genitourinary: no complaints Musculoskeletal: no complaints Skin: no complaints Neurologic: confusion Lymphatic: no complaints Psychological: nl mood/affect Immunologic: no complaints Past Medical History Medical History: diabetes, other (liver carcinoma) Past Surgical History Past Surgical Hx: no surgical history, other ( 3) Social History Alcohol Use: none Smoking Status: Current every day smoker Drug Use: none Exam/Review of Systems Vital Signs Vitals Vital Signs Date Time Temp Pulse Resp B/P Pulse Ox O2 Delivery O2 Flow Rate FiO2 04/28/17 08:11 97.9 85 18 134/60 94 04/28/17 05:58 Room Air Intake and Output 04/27/17 04/27/17 04/28/17 15:00 23:00 07:00 Intake Total 650 ml 560 ml 1300 ml Output Total 700 ml Balance 650 ml -140 ml 1300 ml Results Result Diagram: 04/28/17 0503 04/28/17 0503 Results 24 hrs Laboratory Tests Test 04/27/17 17:36 04/27/17 20:15 04/28/17 05:03 04/28/17 08:34 Bedside Glucose 109 110 140 White Blood Count 11.5 #H Red Blood Count 3.41 L Hemoglobin 12.7 Hematocrit 35.8 L Mean Corpuscular Volume 105.0 H Mean Corpuscular Hemoglobin 37.2 H Mean Corpuscular Hemoglobin Concent 35.5 Red Cell Distribution Width 16.3 H Platelet Count 76 #L Mean Platelet Volume 9.7 Neutrophils % 79.6 H Lymphocytes % 8.1 L Monocytes % 6.0 Eosinophils % 0.8 Basophils % 0.7 Nucleated Red Blood Cells % 0.3 H Neutrophils # 9.2 H Lymphocytes # 0.9 Monocytes # 0.7 Eosinophils # 0.1 Basophils # 0.1 Nucleated Red Blood Cells # 0.0 Sodium Level 133 L Potassium Level 3.4 L Chloride Level 92 L Carbon Dioxide Level 31 Anion Gap 13 # Blood Urea Nitrogen 16 Creatinine 0.64 Glucose Level 141 Calcium Level 7.4 L Phosphorus Level 3.3 Magnesium Level 1.8 Total Bilirubin 11.5 H Direct Bilirubin 5.80 H Indirect Bilirubin 5.7 H Aspartate Amino Transf (AST/SGOT) 229 H Alanine Aminotransferase (ALT/SGPT) 105 H Alkaline Phosphatase 187 H Ammonia 59 #H Total Protein 5.2 L Albumin 2.2 L Globulin 3.00 Albumin/Globulin Ratio 0.73 Vancomycin Level Trough 10.9 Test 04/28/17 12:28 Bedside Glucose 143 Medications Medications Current Medications Ondansetron HCl (Zofran Inj) 4 mg Q6H PRN IV NAUSEA AND/OR VOMITING Last administered on 04/27/17 14:53; Admin Dose 4 MG; Start 04/26/17 at 15:00 Acetaminophen/ Hydrocodone Bitart ([place] (5/325)) 1 tab Q6H PRN PO MODERATE PAIN LEVEL 4-6 Last administered on 04/26/17 22:03; Admin Dose 1 TAB; Start 04/26/17 at 15:00 Acetaminophen/ Hydrocodone Bitart ([place] (5/325)) 2 tab Q6H PRN PO SEVERE PAIN LEVEL 7-10 Last administered on 04/28/17 14:01; Admin Dose 2 TAB; Start at 15:00 Pantoprazole (Protonix Tab) 40 mg DAILY@06 PO Last administered on 04/28/17 06 :00; Admin Dose 40 MG; Start 04/27/17 at 06:00 Lactulose (Enulose) 20 gm Q8 PO Last administered on 04/28/17 14:00; Admin Dose 20 GM; Start 04/26/17 at 15:00 Diagnostic Test (Pha) (Accu-Chek) 1 ea 02 XX ; Start 04/27/17 at 02:00 Non-Formulary Medication 2 ea BID@ PO Last administered on 04/27/17 06: 18; Admin Dose 2 EA; Start 04/27/17 at 07:00; Status Future Hold Miscellaneous Information Patients own medicat... BID@ XX ; Start at 10:00 Rifaximin (Xifaxan) 550 mg BID PO ; Start 04/28/17 at 21:00 Miscellaneous Information 1 ea NOTE XX ; Start 04/28/17 at 14:30 Glucose (Glutose) 15 gm Q15M PRN PO DECREASED GLUCOSE; Start 04/28/17 at 14:30 Glucose (Glutose) 22.5 gm Q15M PRN PO DECREASED GLUCOSE; Start 04/28/17 at 14: 30 Dextrose (D50w Syringe) 25 ml Q15M PRN IV DECREASED GLUCOSE; Start 04/28/17 at 14:30 Dextrose (D50w Syringe) 50 ml Q15M PRN IV DECREASED GLUCOSE; Start 04/28/17 at 14:30 Glucagon (Glucagen) 1 mg Q15M PRN IM DECREASED GLUCOSE; Start 04/28/17 at 14:30 Glucose (Glutose) 15 gm Q15M PRN BUCCAL DECREASED GLUCOSE; Start 04/28/17 at 14 :30 Copies To: CC: KORIN KANG MD, VICTORIA Apr 28, 2017 15:50
--- NOTE | 2017-04-28 17:17 | PN ---
DATE: 04/28/2017 SUBJECTIVE: The patient is lethargic but states that she is feeling better. She realizes that she has been lapsing in and out of sleep but does respond appropriately when aroused. OBJECTIVE: GENERAL: The patient is a well-developed, grossly icteric female who is lethargic but arousable. VITAL SIGNS: Temperature 97.6, pulse 85, respirations 18, blood pressure 134/60, pulse oximetry is 94% on room air. SKIN: Grossly icteric. There are scattered ecchymoses, and there are spider telangiectasias. HEENT: Normocephalic. No evidence of trauma. The pupils are equal, round, reactive to light and a ccommodation. Sclerae are 4+ icteric. Oral mucosa is moist without lesions. Tongue is well papill ated. There is no gingival hyperplasia. No hypertrophy of Waldeyer ring. No mucosal telangiectasi as. NECK: Supple. No jugular venous distention or thyroid enlargement. CHEST: Clear except for decreased breath sounds in both bases. Diaphragms appear elevated. HEART: Regular sinus rhythm. No S3, S4 or murmurs. No rubs. BREASTS: No masses, skin retraction or nipple inversion. NODES: No palpable lymphadenopathy in lymph node-bearing area. ABDOMEN: Distended. There is ascites. The spleen tip is a ballottable in the left upper quadrant. I cannot palpate or ballot the liver. Bowel sounds are decreased. EXTREMITIES: No clubbing or cyanosis. There is 2+ bilateral pretibial and pedal edema, but there a re no palpable cords or Homans' sign. NEUROLOGIC: No focal neurologic abnormalities. The patient is lethargic, and there is asterixis. IMPRESSION: 1. Primary hepatocellular carcinoma. 2. Cirrhosis and hepatic encephalopathy. PLAN: The patient is presently continuing on lactulose. She is also on rifaximin which was started today. The blood ammonia this morning was 59. It was reported to be 30 yesterday. At this time, I would continue the present therapy. As noted earlier, the patient's sorafenib has b een discontinued due to the poor liver function. Apparently, a family conference has been scheduled for tomorrow. Unfortunately, I will not be able to attend but if this can be delayed until 04/30/2017, I will make it my business to attend. Dictated By: TONE KAPLAN MD SR/NTS Conf#: [id number] DID#: [id number]
[2017-04-28] MEDS ORDERED: VANCOMYCIN 1.5 GM in SOD CHLORIDE 0.9% 250 ML IVPB SCH (18:00)
[2017-04-28 18:38] VITALS: BP 140/63; PULSE 75
[2017-04-28 20:45] VITALS: BP 132/62; RESP 20
[2017-04-28] MEDS: RIFAXIMIN 550 MG TAB PO SCH (21:38)
[2017-04-29] MEDS: ACCU-CHEK XX SCH (01:12)
[2017-04-29 01:55] VITALS: BP 136/64; RESP 20
[2017-04-29 05:32] LABS: ABNORMAL IP MESSAGE 1; BASOPHIL # 0.1 10^3/ul (0.0-0.1); BASOPHILS % 0.4 % (0.0-2.0); EOSINOPHILS # 0.3 10^3/ul (0.0-0.5); EOSINOPHILS % 1.6 % (0.0-7.0); HEMATOCRIT 34.7 % (37.0-47.0); HEMOGLOBIN 11.8 g/dl (12.0-16.0); LYMPHOCYTES # 1.4 10^3/ul (0.8-2.9); LYMPHOCYTES % 8.8 % (15.0-51.0); MEAN CORPUSCULAR HEMOGLOBIN 35.5 pg (29.0-33.0); MEAN CORPUSCULAR VOLUME 104.5 fl (82.0-101.0); MONOCYTE # 0.9 10^3/ul (0.3-0.9); MONOCYTES % 5.6 % (0.0-11.0); NEUTROPHIL # 12.9 10^3/ul (1.6-7.5); NEUTROPHILS % 80.3 % (39.0-77.0); NUCLEATED RED BLOOD CELLS # 0.1 10^3/ul (0.0-0.0); NUCLEATED RED BLOOD CELLS% 0.4 /100WBC (0.0-0.0); RED BLOOD COUNT 3.32 10^6/ul (4.20-5.40); RED CELL DISTRIBUTION WIDTH 16.3 % (11.5-14.5); WHITE BLOOD COUNT 16.1 10^3/ul (4.8-10.8)
[2017-04-29 05:47] LABS: POSITIVE DIFF @See below
[2017-04-29 05:49] LABS: PLATELET COUNT 79 10^3/UL (140-415)
[2017-04-29 06:02] LABS: ALBUMIN/GLOBULIN RATIO 0.52
[2017-04-29 06:07] LABS: MAGNESIUM 1.9 mg/dl (1.7-2.5); PHOSPHORUS 3.5 mg/dl (2.5-4.9)
[2017-04-29 06:17] LABS: ALBUMIN 1.8 g/dl (3.3-4.9); BILIRUBIN,DIRECT 4.9 mg/dl (0.00-0.20); BILIRUBIN,INDIRECT 5.4 mg/dl (0-1.1); BILIRUBIN,TOTAL 10.3 mg/dl (0.2-1.3); CREATININE 0.73 mg/dl (0.44-1.00); POTASSIUM 3.5 mmol/L (3.5-5.1); TOTAL PROTEIN 5.2 g/dl (6.1-8.1)
[2017-04-29] MEDS: FUROSEMIDE 40 MG INJ IV SCH ×2 (06:20→18:05)
[2017-04-29] MEDS: PANTOPRAZOLE (EC) 40 MG TAB PO SCH (06:38)
[2017-04-29] MEDS: LACTULOSE 30ML CUP PO SCH ×3 (06:38→21:28)
[2017-04-29] MEDS: INSULIN ASPART [NOVOLOG] 3 ML PEN SC SCH ×4 (07:50→21:00)
[2017-04-29 07:53] VITALS: BP 145/67; PULSE 88; RESP 16
--- NOTE | 2017-04-29 07:58 | CONS ---
Date/Time of Note Date/Time of Note DATE: 04/29/17 TIME: 07:57 Assessment/Plan Assessment/Plan Chief Complaint/Hosp Course This 56-year-old female was admitted with mental status changes and elevated ammonia levels. She has a history of hepatic masses, imaging studies were highly suggestive as well as tumor markers biopsy done. She has been seen by Dr. Schwartz, I reviewed his consultation notes. Patient also presented with abdominal discomfort which is mostly resolved she was diagnosed with urinary tract infection, transaminitis hyperbilirubinemia, thrombocytopenia. She is considered to have a poor prognosis. Problems: Additional Assessment/Plan Family conference today at 1030 Consultation Date/Type/Reason Admit Date/Time Apr 26, 2017 at 13:32 Initial Consult Date 04/28/17 Type of Consultation: GI Exam/Review of Systems Vital Signs Vitals Vital Signs Date Time Temp Pulse Resp B/P Pulse Ox O2 Delivery O2 Flow Rate FiO2 04/29/17 07:53 98.0 88 16 145/67 94 Room Air Intake and Output 04/28/17 04/28/17 04/29/17 15:00 23:00 07:00 Intake Total 250 ml 440 ml 400 ml Output Total 700 ml 550 ml Balance 250 ml -260 ml -150 ml Results Result Diagram: 04/29/17 0500 04/29/17 0505 Results 24 hrs Laboratory Tests Test 04/28/17 08:34 04/28/17 12:28 04/28/17 17:38 04/28/17 17:55 Bedside Glucose 140 143 168 Hepatitis A Antibody Total NEGATIVE Hepatitis B Surface Antigen NEGATIVE Hepatitis B Surface Antibody NEGATIVE Hepatitis C Antibody NEGATIVE Test 04/28/17 21:36 04/29/17 05:00 04/29/17 05:05 Bedside Glucose 147 White Blood Count 16.1 #H Red Blood Count 3.32 L Hemoglobin 11.8 L Hematocrit 34.7 L Mean Corpuscular Volume 104.5 H Mean Corpuscular Hemoglobin 35.5 H Mean Corpuscular Hemoglobin Concent 34.0 Red Cell Distribution Width 16.3 H Platelet Count 79 L Mean Platelet Volume 10.0 Neutrophils % 80.3 H Lymphocytes % 8.8 L Monocytes % 5.6 Eosinophils % 1.6 Basophils % 0.4 Nucleated Red Blood Cells % 0.4 H Neutrophils # 12.9 H Lymphocytes # 1.4 Monocytes # 0.9 Eosinophils # 0.3 Basophils # 0.1 Nucleated Red Blood Cells # 0.1 H Phosphorus Level 3.5 Magnesium Level 1.9 Ammonia 69 H Sodium Level 132 L Potassium Level 3.5 Chloride Level 95 L Carbon Dioxide Level 32 H Anion Gap 9 Blood Urea Nitrogen 22 H Creatinine 0.73 Glucose Level 116 Calcium Level 8.0 L Total Bilirubin 10.3 H Direct Bilirubin 4.90 H Indirect Bilirubin 5.4 H Aspartate Amino Transf (AST/SGOT) 234 H Alanine Aminotransferase (ALT/SGPT) 107 H Alkaline Phosphatase 183 H Total Protein 5.2 L Albumin 1.8 L Globulin 3.40 H Albumin/Globulin Ratio 0.52 Medications Medications Current Medications Ondansetron HCl (Zofran Inj) 4 mg Q6H PRN IV NAUSEA AND/OR VOMITING Last administered on 04/27/17 14:53; Admin Dose 4 MG; Start 04/26/17 at 15:00 Acetaminophen/ Hydrocodone Bitart ([place] (5/325)) 1 tab Q6H PRN PO MODERATE PAIN LEVEL 4-6 Last administered on 04/26/17 22:03; Admin Dose 1 TAB; Start 04/26/17 at 15:00 Acetaminophen/ Hydrocodone Bitart ([place] (5/325)) 2 tab Q6H PRN PO SEVERE PAIN LEVEL 7-10 Last administered on 04/28/17 14:01; Admin Dose 2 TAB; Start at 15:00 Pantoprazole (Protonix Tab) 40 mg DAILY@06 PO Last administered on 04/29/17 06 :38; Admin Dose 40 MG; Start 04/27/17 at 06:00 Lactulose (Enulose) 20 gm Q8 PO Last administered on 04/29/17 06:38; Admin Dose 20 GM; Start 04/26/17 at 15:00 Diagnostic Test (Pha) (Accu-Chek) 1 ea 02 XX ; Start 04/27/17 at 02:00 Non-Formulary Medication 2 ea BID@,17 PO Last administered on 04/27/17 06: 18; Admin Dose 2 EA; Start 04/27/17 at 07:00; Status Future Hold Miscellaneous Information Patients own medicat... BID@10,16 XX ; Start at 10:00 Rifaximin (Xifaxan) 550 mg BID PO Last administered on 04/28/17t 21:38; Admin Dose 550 MG; Start 04/28/17 at 21:00 Miscellaneous Information 1 ea NOTE XX ; Start 04/28/17 at 14:30 Glucose (Glutose) 15 gm Q15M PRN PO DECREASED GLUCOSE; Start 04/28/17 at 14:30 Glucose (Glutose) 22.5 gm Q15M PRN PO DECREASED GLUCOSE; Start 04/28/17 at 14: 30 Dextrose (D50w Syringe) 25 ml Q15M PRN IV DECREASED GLUCOSE; Start 04/28/17 at 14:30 Dextrose (D50w Syringe) 50 ml Q15M PRN IV DECREASED GLUCOSE; Start 04/28/17 at 14:30 Glucagon (Glucagen) 1 mg Q15M PRN IM DECREASED GLUCOSE; Start 04/28/17 at 14:30 Glucose (Glutose) 15 gm Q15M PRN BUCCAL DECREASED GLUCOSE; Start 04/28/17 at 14 :30 DOLORES COREAS Apr 29, 2017 07:58
[2017-04-29] MEDS: RIFAXIMIN 550 MG TAB PO SCH ×2 (09:44→20:57)
--- NOTE | 2017-04-29 12:04 | PN ---
Date/Time of Note Date/Time of Note DATE: 04/29/17 TIME: 12:01 Assessment/Plan VTE Prophylaxis VTE Prophylaxis Intervention: SCD's Lines/Catheters IV [facility]ter Type [facility]from [facility] [place] Urinary Cath still in place: No Assessment/Plan Chief Complaint/Hosp Course Summary Assessment and Plan: Assessment: Hepatic encephalopathy Transaminitis Hyperbilirubinemia HCC- being followed by Dr. Schwartz Hyperammonemia- secondary to liver disease Thrombocytopenia- secondary to liver disease UTI- treated Plan: Continue PPI Ammonia- trending up- will continue to monitor Continue lactulose and Xifaxan p.o. as ordered if patient unable to tolerate p.o. must change lactulose to rectal Hepatitis panel - negative Plan family meeting with Dr. Villatoro today- another familoy meeting scheduled for tomorrow to also include Dr. Schwartz Pt with poor prognosis Patient is seen in collaboration with Dr. Kang Subjective: Course reviewed with nursing staff Patient interviewed and examined All labs, imaging and other results reviewed The patient more confused today, not able to answer name, event, or time family at bedside, discussed status of patient and reviewed medications i.e. Xifaxan and lactulose Patient has poor prognosis, currently a full code. We will continue to monitor ammonia level and continue medication at this time. PHYSICAL EXAMINATION: GENERAL: Chronically ill appearing, alert and confused, jaundice SKIN: No lesions, stigmata chronic liver disease, no evidence of bleeding diathesis, purpura lower extremities LYMPHATIC: No palpable lymphadenopathy. HEAD: Normocephalic, atraumatic, no tenderness. EYES: Pupils equal reactive to light and accommodation, full extraocular movements, icteric, no discharge. EARS/NOSE AND THROAT: Ears normal, nose normal, oropharynx normal, oral membranes well hydrated without lesions. NECK: Supple, no masses, thyroid normal, JVP within normal limits, carotids normal without bruits. CHEST: Inspection within normal limits. CARDIOVASCULAR: Heart: Regular rate and rhythm, no murmurs, gallops or rubs. Peripheral pulses present within normal limits, no cyanosis, clubbing or edemas. No pulsatile abdominal mass RESPIRATORY: Lungs clear to auscultation and percussion, no wheezing, no rubs GASTROINTESTINAL AND LIVER: Abdomen: Soft, non tenderness, distended, no hernias , no masses, hepatomegaly, no guarding, no rebound tenderness, normoactive bowel sounds. Rectal: Deferred. GENITOURINARY: Female genitalia within normal limits. EXTREMITIES: BLE edema Problems: Exam/Review of Systems Vital Signs Vitals Vital Signs Date Time Temp Pulse Resp B/P Pulse Ox O2 Delivery O2 Flow Rate FiO2 04/29/17 07:53 98.0 88 16 145/67 94 Room Air Intake and Output 04/28/17 04/28/17 04/29/17 15:00 23:00 07:00 Intake Total 250 ml 440 ml 400 ml Output Total 700 ml 550 ml Balance 250 ml -260 ml -150 ml Results Result Diagram: 04/29/17 0500 04/29/17 0505 Results 24 hrs Laboratory Tests Test 04/28/17 12:28 04/28/17 17:38 04/28/17 17:55 04/28/17 21:36 Bedside Glucose 143 168 147 Hepatitis A Antibody Total NEGATIVE Hepatitis B Surface Antigen NEGATIVE Hepatitis B Surface Antibody NEGATIVE Hepatitis C Antibody NEGATIVE Test 04/29/17 05:00 04/29/17 05:05 04/29/17 08:30 White Blood Count 16.1 #H Red Blood Count 3.32 L Hemoglobin 11.8 L Hematocrit 34.7 L Mean Corpuscular Volume 104.5 H Mean Corpuscular Hemoglobin 35.5 H Mean Corpuscular Hemoglobin Concent 34.0 Red Cell Distribution Width 16.3 H Platelet Count 79 L Mean Platelet Volume 10.0 Neutrophils % 80.3 H Lymphocytes % 8.8 L Monocytes % 5.6 Eosinophils % 1.6 Basophils % 0.4 Nucleated Red Blood Cells % 0.4 H Neutrophils # 12.9 H Lymphocytes # 1.4 Monocytes # 0.9 Eosinophils # 0.3 Basophils # 0.1 Nucleated Red Blood Cells # 0.1 H Phosphorus Level 3.5 Magnesium Level 1.9 Ammonia 69 H Sodium Level 132 L Potassium Level 3.5 Chloride Level 95 L Carbon Dioxide Level 32 H Anion Gap 9 Blood Urea Nitrogen 22 H Creatinine 0.73 Glucose Level 116 Calcium Level 8.0 L Total Bilirubin 10.3 H Direct Bilirubin 4.90 H Indirect Bilirubin 5.4 H Aspartate Amino Transf (AST/SGOT) 234 H Alanine Aminotransferase (ALT/SGPT) 107 H Alkaline Phosphatase 183 H Total Protein 5.2 L Albumin 1.8 L Globulin 3.40 H Albumin/Globulin Ratio 0.52 Bedside Glucose 113 Medications Medications Current Medications Ondansetron HCl (Zofran Inj) 4 mg Q6H PRN IV NAUSEA AND/OR VOMITING Last administered on 04/27/17 14:53; Admin Dose 4 MG; Start 04/26/17 at 15:00 Acetaminophen/ Hydrocodone Bitart ([place] (5/325)) 1 tab Q6H PRN PO MODERATE PAIN LEVEL 4-6 Last administered on 04/26/17 22:03; Admin Dose 1 TAB; Start 04/26/17 at 15:00 Acetaminophen/ Hydrocodone Bitart ([place] (5/325)) 2 tab Q6H PRN PO SEVERE PAIN LEVEL 7-10 Last administered on 04/28/17 14:01; Admin Dose 2 TAB; Start at 15:00 Pantoprazole (Protonix Tab) 40 mg DAILY@06 PO Last administered on 04/29/17 06 :38; Admin Dose 40 MG; Start 04/27/17 at 06:00 Lactulose (Enulose) 20 gm Q8 PO Last administered on 04/29/17 06:38; Admin Dose 20 GM; Start 04/26/17 at 15:00 Diagnostic Test (Pha) (Accu-Chek) 1 ea 02 XX ; Start 04/27/17 at 02:00 Non-Formulary Medication 2 ea BID@,17 PO Last administered on 04/27/17 06: 18; Admin Dose 2 EA; Start 04/27/17 at 07:00; Status Future Hold Miscellaneous Information Patients own medicat... BID@16 XX ; Start at 10:00 Rifaximin (Xifaxan) 550 mg BID PO Last administered on 04/29/17 09:44; Admin Dose 550 MG; Start 04/28/17 at 21:00 Miscellaneous Information 1 ea NOTE XX ; Start 04/28/17 at 14:30 Glucose (Glutose) 15 gm Q15M PRN PO DECREASED GLUCOSE; Start 04/28/17 at 14:30 Glucose (Glutose) 22.5 gm Q15M PRN PO DECREASED GLUCOSE; Start 04/28/17 at 14: 30 Dextrose (D50w Syringe) 25 ml Q15M PRN IV DECREASED GLUCOSE; Start 04/28/17 at 14:30 Dextrose (D50w Syringe) 50 ml Q15M PRN IV DECREASED GLUCOSE; Start 04/28/17 at 14:30 Glucagon (Glucagen) 1 mg Q15M PRN IM DECREASED GLUCOSE; Start 04/28/17 at 14:30 Glucose (Glutose) 15 gm Q15M PRN BUCCAL DECREASED GLUCOSE; Start 04/28/17 at 14 :30 NINA MCKAY Apr 29, 2017 12:04
[2017-04-29 13:03] VITALS: BP 141/65; RESP 18
--- NOTE | 2017-04-29 14:11 | PN ---
Date/Time of Note Date/Time of Note DATE: 04/29/17 TIME: 14:10 Assessment/Plan VTE Prophylaxis VTE Prophylaxis Intervention: SCD's Lines/Catheters IV Catheter Type (from [facility]): Saline Lock Urinary Cath still in place: No Assessment/Plan Chief Complaint/Hosp Course 1. Acute encephalopathy. Most probably toxic metabolic from underlying hyperammonemia. Improved status post lactulose. Continue lactulose. Brain CT scan at outside facility negative for any acute findings. 2. Hyperammonemia. Continue lactulose. 3. Abdominal pain. Largely resolved. Most likely secondary to underlying ascites. Status post paracentesis with removal of more than 1 L of fluid on . 4. Possible underlying urinary tract infection. Positive urinalysis. Urine cultures inconclusive. 5. Perihilar infiltrate on chest x-ray from outside facility. Repeat chest x- ray to [facility] negative for any infiltrates. 6. Moderate pulmonary vascular congestion on CXR. Most probably from a right- sided heart failure provided the patient's history of hepatocellular carcinoma. Improved on current x-ray. Continue diuresis. 7. Hepatocellular carcinoma. Being followed by oncology. 8. Transaminitis with hyperbilirubinemia. Most probably secondary to #6. Gastroenterology following. Avoid hepatotoxic medications. 9. Thrombocytopenia. Most probably secondary to #6. Continue to monitor the patient for any active bleeding. 10. Diabetes mellitus. Hemoglobin A1c within normal limits. Hold biguanides. Continue sliding scale insulin. 11. Nicotine use. Cessation advised. 12. Fluids, electrolytes, and nutrition. Carbohydrate controlled, low sodium diet. 13. DVT prophylaxis. Bilateral SCDs. 14. Plan. Continue current management. Palliative Care following the patient. Case discussed with Dr. Coker. Problems: Subjective 24 Hr Interval Summary Free Text/Dictation Vital signs stable. More lethargic today. Exam/Review of Systems Vital Signs Vitals Vital Signs Date Time Temp Pulse Resp B/P Pulse Ox O2 Delivery O2 Flow Rate FiO2 04/29/17 13:03 97.7 93 18 141/65 94 04/29/17 07:53 Room Air Intake and Output 04/28/17 04/28/17 04/29/17 15:00 23:00 07:00 Intake Total 250 ml 440 ml 400 ml Output Total 700 ml 550 ml Balance 250 ml -260 ml -150 ml Exam General: Adequately build 56 year-old female lying in bed in no apparent distress. HEENT: Normocephalic, atraumatic. Eyes: icteric sclerae, conjunctivae clear. ENT : Nasal septum midline, oral mucosa moist. Neck supple, JVD noticed. Respiratory: Bilaterally diminished breath sounds. No use of accessory muscles of respiration. Cardiovascular: S1, S2 heard. Regular rate and rhythm. Abdomen: Distended. Ascites. Genitourinary: Deferred. Extremities: No cyanosis, no clubbing. B/L LE 2-3+ pitting edema. Neurologic: Somnolent. Results Result Diagram: 04/29/17 0500 04/29/17 0505 Results 24 hrs Laboratory Tests Test 04/28/17 17:38 04/28/17 17:55 04/28/17 21:36 04/29/17 05:00 Hepatitis A Antibody Total NEGATIVE Hepatitis B Surface Antigen NEGATIVE Hepatitis B Surface Antibody NEGATIVE Hepatitis C Antibody NEGATIVE Bedside Glucose 168 147 White Blood Count 16.1 #H Red Blood Count 3.32 L Hemoglobin 11.8 L Hematocrit 34.7 L Mean Corpuscular Volume 104.5 H Mean Corpuscular Hemoglobin 35.5 H Mean Corpuscular Hemoglobin Concent 34.0 Red Cell Distribution Width 16.3 H Platelet Count 79 L Mean Platelet Volume 10.0 Neutrophils % 80.3 H Lymphocytes % 8.8 L Monocytes % 5.6 Eosinophils % 1.6 Basophils % 0.4 Nucleated Red Blood Cells % 0.4 H Neutrophils # 12.9 H Lymphocytes # 1.4 Monocytes # 0.9 Eosinophils # 0.3 Basophils # 0.1 Nucleated Red Blood Cells # 0.1 H Phosphorus Level 3.5 Magnesium Level 1.9 Ammonia 69 H Test 04/29/17 05:05 04/29/17 08:30 04/29/17 13:05 Sodium Level 132 L Potassium Level 3.5 Chloride Level 95 L Carbon Dioxide Level 32 H Anion Gap 9 Blood Urea Nitrogen 22 H Creatinine 0.73 Glucose Level 116 Calcium Level 8.0 L Total Bilirubin 10.3 H Direct Bilirubin 4.90 H Indirect Bilirubin 5.4 H Aspartate Amino Transf (AST/SGOT) 234 H Alanine Aminotransferase (ALT/SGPT) 107 H Alkaline Phosphatase 183 H Total Protein 5.2 L Albumin 1.8 L Globulin 3.40 H Albumin/Globulin Ratio 0.52 Bedside Glucose 113 121 Medications Medications Current Medications Ondansetron HCl (Zofran Inj) 4 mg Q6H PRN IV NAUSEA AND/OR VOMITING Last administered on 04/27/17 14:53; Admin Dose 4 MG; Start 04/26/17 at 15:00 Acetaminophen/ Hydrocodone Bitart ([place] (5/325)) 1 tab Q6H PRN PO MODERATE PAIN LEVEL 4-6 Last administered on 04/26/17 22:03; Admin Dose 1 TAB; Start 04/26/17 at 15:00 Acetaminophen/ Hydrocodone Bitart ([place] (5/325)) 2 tab Q6H PRN PO SEVERE PAIN LEVEL 7-10 Last administered on 04/28/17 14:01; Admin Dose 2 TAB; Start at 15:00 Pantoprazole (Protonix Tab) 40 mg DAILY@06 PO Last administered on 04/29/17 06 :38; Admin Dose 40 MG; Start 04/27/17 at 06:00 Lactulose (Enulose) 20 gm Q8 PO Last administered on 04/29/17 06:38; Admin Dose 20 GM; Start 04/26/17 at 15:00 Diagnostic Test (Pha) (Accu-Chek) 1 ea 02 XX ; Start 04/27/17 at 02:00 Non-Formulary Medication 2 ea BID@,17 PO Last administered on 04/27/17 06: 18; Admin Dose 2 EA; Start 04/27/17 at 07:00; Status Future Hold Miscellaneous Information Patients own medicat... BID@ XX ; Start at 10:00 Rifaximin (Xifaxan) 550 mg BID PO Last administered on 04/29/17 09:44; Admin Dose 550 MG; Start 04/28/17 at 21:00 Miscellaneous Information 1 ea NOTE XX ; Start 04/28/17 at 14:30 Glucose (Glutose) 15 gm Q15M PRN PO DECREASED GLUCOSE; Start 04/28/17 at 14:30 Glucose (Glutose) 22.5 gm Q15M PRN PO DECREASED GLUCOSE; Start 04/28/17 at 14: 30 Dextrose (D50w Syringe) 25 ml Q15M PRN IV DECREASED GLUCOSE; Start 04/28/17 at 14:30 Dextrose (D50w Syringe) 50 ml Q15M PRN IV DECREASED GLUCOSE; Start 04/28/17 at 14:30 Glucagon (Glucagen) 1 mg Q15M PRN IM DECREASED GLUCOSE; Start 04/28/17 at 14:30 Glucose (Glutose) 15 gm Q15M PRN BUCCAL DECREASED GLUCOSE; Start 04/28/17 at 14 :30 HARI MESA NP Apr 29, 2017 14:11 HARI MESA NP Apr 29, 2017 14:11
--- NOTE | 2017-04-29 14:41 | PN ---
Date/Time of Note Date/Time of Note DATE: 04/29/17 TIME: 14:38 Assessment/Plan VTE Prophylaxis VTE Prophylaxis Intervention: other (thrombocytopenia) Lines/Catheters IV [facility]from [facility] Saline Lock Urinary Cath still in place: No Assessment/Plan Assessment/Plan Debilitated woman with very poor liver function and history of hepatoma. Family is to meet with Dr. Schwartz tomorrow morning but prognosis seems quite dismal. Palliative care seems the best approach. Subjective 24 Hr Interval Summary Subjective hx not possible: pt non-verbal (discussed with 6 fammily members) Exam/Review of Systems Vital Signs Vitals Vital Signs Date Time Temp Pulse Resp B/P Pulse Ox O2 Delivery O2 Flow Rate FiO2 04/29/17 13:03 97.7 93 18 141/65 94 04/29/17 07:53 Room Air Intake and Output 04/28/17 04/28/17 04/29/17 15:00 23:00 07:00 Intake Total 250 ml 440 ml 400 ml Output Total 700 ml 550 ml Balance 250 ml -260 ml -150 ml Exam asleep but comfortable appearing. jaundiced. Results Result Diagram: 04/29/17 0500 04/29/17 0505 Results 24 hrs Laboratory Tests Test 04/28/17 17:38 04/28/17 17:55 04/28/17 21:36 04/29/17 05:00 Hepatitis A Antibody Total NEGATIVE Hepatitis B Surface Antigen NEGATIVE Hepatitis B Surface Antibody NEGATIVE Hepatitis C Antibody NEGATIVE Bedside Glucose 168 147 White Blood Count 16.1 #H Red Blood Count 3.32 L Hemoglobin 11.8 L Hematocrit 34.7 L Mean Corpuscular Volume 104.5 H Mean Corpuscular Hemoglobin 35.5 H Mean Corpuscular Hemoglobin Concent 34.0 Red Cell Distribution Width 16.3 H Platelet Count 79 L Mean Platelet Volume 10.0 Neutrophils % 80.3 H Lymphocytes % 8.8 L Monocytes % 5.6 Eosinophils % 1.6 Basophils % 0.4 Nucleated Red Blood Cells % 0.4 H Neutrophils # 12.9 H Lymphocytes # 1.4 Monocytes # 0.9 Eosinophils # 0.3 Basophils # 0.1 Nucleated Red Blood Cells # 0.1 H Phosphorus Level 3.5 Magnesium Level 1.9 Ammonia 69 H Test 04/29/17 05:05 04/29/17 08:30 04/29/17 13:05 Sodium Level 132 L Potassium Level 3.5 Chloride Level 95 L Carbon Dioxide Level 32 H Anion Gap 9 Blood Urea Nitrogen 22 H Creatinine 0.73 Glucose Level 116 Calcium Level 8.0 L Total Bilirubin 10.3 H Direct Bilirubin 4.90 H Indirect Bilirubin 5.4 H Aspartate Amino Transf (AST/SGOT) 234 H Alanine Aminotransferase (ALT/SGPT) 107 H Alkaline Phosphatase 183 H Total Protein 5.2 L Albumin 1.8 L Globulin 3.40 H Albumin/Globulin Ratio 0.52 Bedside Glucose 113 121 Medications Medications Current Medications Ondansetron HCl (Zofran Inj) 4 mg Q6H PRN IV NAUSEA AND/OR VOMITING Last administered on 04/27/17 14:53; Admin Dose 4 MG; Start 04/26/17 at 15:00 Acetaminophen/ Hydrocodone Bitart ([place] (5/325)) 1 tab Q6H PRN PO MODERATE PAIN LEVEL 4-6 Last administered on 04/26/17 22:03; Admin Dose 1 TAB; Start 04/26/17 at 15:00 Acetaminophen/ Hydrocodone Bitart ([place] (5/325)) 2 tab Q6H PRN PO SEVERE PAIN LEVEL 7-10 Last administered on 04/28/17 14:01; Admin Dose 2 TAB; Start at 15:00 Pantoprazole (Protonix Tab) 40 mg DAILY@06 PO Last administered on 04/29/17 06 :38; Admin Dose 40 MG; Start 04/27/17 at 06:00 Lactulose (Enulose) 20 gm Q8 PO Last administered on 04/29/17 06:38; Admin Dose 20 GM; Start 04/26/17 at 15:00 Diagnostic Test (Pha) (Accu-Chek) 1 ea 02 XX ; Start 04/27/17 at 02:00 Non-Formulary Medication 2 ea BID@ PO Last administered on 04/27/17 06: 18; Admin Dose 2 EA; Start 04/27/17 at 07:00; Status Future Hold Miscellaneous Information Patients own medicat... BID@ XX ; Start at 10:00 Rifaximin (Xifaxan) 550 mg BID PO Last administered on 04/29/17 09:44; Admin Dose 550 MG; Start 11/1/17 at 21:00 Miscellaneous Information 1 ea NOTE XX ; Start 04/28/17 at 14:30 Glucose (Glutose) 15 gm Q15M PRN PO DECREASED GLUCOSE; Start 04/28/17 at 14:30 Glucose (Glutose) 22.5 gm Q15M PRN PO DECREASED GLUCOSE; Start 04/28/17 at 14: 30 Dextrose (D50w Syringe) 25 ml Q15M PRN IV DECREASED GLUCOSE; Start 04/28/17 at 14:30 Dextrose (D50w Syringe) 50 ml Q15M PRN IV DECREASED GLUCOSE; Start 04/28/17 at 14:30 Glucagon (Glucagen) 1 mg Q15M PRN IM DECREASED GLUCOSE; Start 04/28/17 at 14:30 Glucose (Glutose) 15 gm Q15M PRN BUCCAL DECREASED GLUCOSE; Start 04/28/17 at 14 :30 SARAH SUAREZ MD Apr 29, 2017 14:41
[2017-04-29 20:05] VITALS: BP 160/72; RESP 16
[2017-04-30] MEDS: ACCU-CHEK XX SCH (02:00)
[2017-04-30 02:32] VITALS: BP 143/69; RESP 20
[2017-04-30 05:08] LABS: ABNORMAL IP MESSAGE 1; BASOPHIL # 0.1 10^3/ul (0.0-0.1); BASOPHILS % 0.6 % (0.0-2.0); EOSINOPHILS # 0.2 10^3/ul (0.0-0.5); EOSINOPHILS % 1.7 % (0.0-7.0); HEMATOCRIT 33.1 % (37.0-47.0); HEMOGLOBIN 11.4 g/dl (12.0-16.0); LYMPHOCYTES # 1.2 10^3/ul (0.8-2.9); LYMPHOCYTES % 9.3 % (15.0-51.0); MEAN CORPUSCULAR HEMOGLOBIN 36.8 pg (29.0-33.0); MEAN CORPUSCULAR HGB CONC 34.4 g/dl (32.0-37.0); MEAN CORPUSCULAR VOLUME 106.8 fl (82.0-101.0); MEAN PLATELET VOLUME 9.3 fl (7.4-10.4); MONOCYTES % 7.6 % (0.0-11.0); NEUTROPHIL # 9.8 10^3/ul (1.6-7.5); NEUTROPHILS % 77.3 % (39.0-77.0); NUCLEATED RED BLOOD CELLS% 0.2 /100WBC (0.0-0.0); PLATELET COUNT 70 10^3/UL (140-415); RED CELL DISTRIBUTION WIDTH 16.7 % (11.5-14.5); WHITE BLOOD COUNT 12.7 10^3/ul (4.8-10.8)
[2017-04-30 05:46] LABS: ALBUMIN 1.8 g/dl (3.3-4.9); ALBUMIN/GLOBULIN RATIO 0.58; BILIRUBIN,DIRECT 4.6 mg/dl (0.00-0.20); BILIRUBIN,INDIRECT 4.8 mg/dl (0-1.1); BILIRUBIN,TOTAL 9.4 mg/dl (0.2-1.3); CALCIUM 7.6 mg/dl (8.4-10.2); CREATININE 0.81 mg/dl (0.44-1.00); POTASSIUM 3.6 mmol/L (3.5-5.1); TOTAL PROTEIN 4.9 g/dl (6.1-8.1)
[2017-04-30 06:14] LABS: POSITIVE DIFF @See below
[2017-04-30] MEDS: PANTOPRAZOLE (EC) 40 MG TAB PO SCH (06:29)
[2017-04-30] MEDS: FUROSEMIDE 40 MG INJ IV SCH ×2 (06:29→18:13)
[2017-04-30] MEDS: LACTULOSE 30ML CUP PO SCH ×3 (06:29→21:39)
[2017-04-30 07:31] VITALS: BP 165/72; PULSE 92; RESP 16
[2017-04-30] MEDS: INSULIN ASPART [NOVOLOG] 3 ML PEN SC SCH ×4 (07:50→21:00)
[2017-04-30] MEDS: RIFAXIMIN 550 MG TAB PO SCH ×3 (09:00→21:39)
--- NOTE | 2017-04-30 09:18 | PN ---
Date/Time of Note Date/Time of Note DATE: 04/30/17 TIME: 09:15 Assessment/Plan VTE Prophylaxis VTE Prophylaxis Intervention: SCD's Lines/Catheters IV C[facility]ter Type (from [facility]): Saline Lock Urinary Cath still in place: No Assessment/Plan Chief Complaint/Hosp Course 1. Acute encephalopathy. Most probably toxic metabolic from underlying hyperammonemia. Improved status post lactulose. Continue lactulose. Brain CT scan at outside facility negative for any acute findings. 2. Hyperammonemia. Continue lactulose. 3. Abdominal pain. Largely resolved. Most likely secondary to underlying ascites. Status post paracentesis with removal of more than 1 L of fluid on . 4. Hepatocellular carcinoma. Being followed by oncology. 5. Transaminitis with hyperbilirubinemia. Most probably secondary to #6. Gastroenterology following. Avoid hepatotoxic medications. 6. Thrombocytopenia. Most probably secondary to #6. Continue to monitor the patient for any active bleeding. 7. Diabetes mellitus. Hemoglobin A1c within normal limits. Hold biguanides. Continue sliding scale insulin. 8. Nicotine use. Cessation advised. 9. Hyponatremia. Monitor. If worsening will institute fluid restriction. 10. Fluids, electrolytes, and nutrition. Carbohydrate controlled, low sodium diet. 11. DVT prophylaxis. Bilateral SCDs. 12. Plan. Continue current management. Monitor sodium levels. Palliative Care following the patient. Case discussed with Dr. Coker. Problems: Subjective 24 Hr Interval Summary Free Text/Dictation Denies any abdominal pain. Patient somnolent. Exam/Review of Systems Vital Signs Vitals Vital Signs Date Time Temp Pulse Resp B/P Pulse Ox O2 Delivery O2 Flow Rate FiO2 04/30/17 07:31 97.7 92 16 165/72 94 Room Air Intake and Output 04/29/17 04/29/17 04/30/17 15:00 23:00 07:00 Intake Total 100 ml 120 ml Balance 100 ml 120 ml Exam General: Adequately build 56 year-old female lying in bed in no apparent distress. HEENT: Normocephalic, atraumatic. Eyes: icteric sclerae, conjunctivae clear. ENT : Nasal septum midline, oral mucosa moist. Neck supple, JVD noticed. Respiratory: Bilaterally diminished breath sounds. No use of accessory muscles of respiration. Cardiovascular: S1, S2 heard. Regular rate and rhythm. Abdomen: Distended. Ascites. Genitourinary: Deferred. Extremities: No cyanosis, no clubbing. B/L LE 2-3+ pitting edema. Neurologic: Somnolent. Results Result Diagram: 04/30/17 0443 04/30/173 Results 24 hrs Laboratory Tests Test 04/29/17 13:05 04/29/17 18:01 04/29/17 20:59 04/30/17 04:43 Bedside Glucose 121 120 123 White Blood Count 12.7 #H Red Blood Count 3.10 L Hemoglobin 11.4 L Hematocrit 33.1 L Mean Corpuscular Volume 106.8 H Mean Corpuscular Hemoglobin 36.8 H Mean Corpuscular Hemoglobin Concent 34.4 Red Cell Distribution Width 16.7 H Platelet Count 70 L Mean Platelet Volume 9.3 Neutrophils % 77.3 H Lymphocytes % 9.3 L Monocytes % 7.6 Eosinophils % 1.7 Basophils % 0.6 Nucleated Red Blood Cells % 0.2 H Neutrophils # 9.8 H Lymphocytes # 1.2 Monocytes # 1.0 H Eosinophils # 0.2 Basophils # 0.1 Nucleated Red Blood Cells # 0.0 Sodium Level 132 L Potassium Level 3.6 Chloride Level 95 L Carbon Dioxide Level 31 Anion Gap 10 Blood Urea Nitrogen 27 H Creatinine 0.81 Glucose Level 129 Calcium Level 7.6 L Phosphorus Level 3.6 Total Bilirubin 9.4 H Direct Bilirubin 4.60 H Indirect Bilirubin 4.8 H Aspartate Amino Transf (AST/SGOT) 273 H Alanine Aminotransferase (ALT/SGPT) 103 H Alkaline Phosphatase 167 H Ammonia 64 H Total Protein 4.9 L Albumin 1.8 L Globulin 3.10 Albumin/Globulin Ratio 0.58 Test 04/30/17 08:35 Bedside Glucose 129 Medications Medications Current Medications Ondansetron HCl (Zofran Inj) 4 mg Q6H PRN IV NAUSEA AND/OR VOMITING Last administered on 04/27/17 14:53; Admin Dose 4 MG; Start 04/26/17 at 15:00 Acetaminophen/ Hydrocodone Bitart ([place] (5/325)) 1 tab Q6H PRN PO MODERATE PAIN LEVEL 4-6 Last administered on 04/26/17 22:03; Admin Dose 1 TAB; Start 04/26/17 at 15:00 Acetaminophen/ Hydrocodone Bitart ([place] (5/325)) 2 tab Q6H PRN PO SEVERE PAIN LEVEL 7-10 Last administered on 04/28/17 14:01; Admin Dose 2 TAB; Start at 15:00 Pantoprazole (Protonix Tab) 40 mg DAILY@06 PO Last administered on 04/30/17 06 :29; Admin Dose 40 MG; Start 04/27/17 at 06:00 Lactulose (Enulose) 20 gm Q8 PO Last administered on 04/30/17 06:29; Admin Dose 20 GM; Start 04/26/17 at 15:00 Diagnostic Test (Pha) (Accu-Chek) 1 ea 02 XX ; Start 04/27/17 at 02:00 Non-Formulary Medication 2 ea BID@,17 PO Last administered on 04/27/17 06: 18; Admin Dose 2 EA; Start 04/27/17 at 07:00; Status Future Hold Miscellaneous Information Patients own medicat... BID@ XX ; Start at 10:00 Rifaximin (Xifaxan) 550 mg BID PO Last administered on 04/29/17 20:57; Admin Dose 550 MG; Start 04/28/17 at 21:00 Miscellaneous Information 1 ea NOTE XX ; Start 04/28/17 at 14:30 Glucose (Glutose) 15 gm Q15M PRN PO DECREASED GLUCOSE; Start 04/28/17 at 14:30 Glucose (Glutose) 22.5 gm Q15M PRN PO DECREASED GLUCOSE; Start 04/28/17 at 14: 30 Dextrose (D50w Syringe) 25 ml Q15M PRN IV DECREASED GLUCOSE; Start 04/28/17 at 14:30 Dextrose (D50w Syringe) 50 ml Q15M PRN IV DECREASED GLUCOSE; Start 04/28/17 at 14:30 Glucagon (Glucagen) 1 mg Q15M PRN IM DECREASED GLUCOSE; Start 04/28/17 at 14:30 Glucose (Glutose) 15 gm Q15M PRN BUCCAL DECREASED GLUCOSE; Start 04/28/17 at 14 :30 HARI MESA NP Apr 30, 2017 09:18
--- NOTE | 2017-04-30 12:44 | PN ---
DATE: 04/30/2017 SUBJECTIVE: I have had a long discussion with the patient's family regarding her status and outlook . The patient at this time is unable to give any information. OBJECTIVE: The patient is a well-developed, grossly icteric and lethargic female who is in no acute distress. VITAL SIGNS: Temperature 97.7 axillary, pulse 92, respirations 16, blood pressure 165/72, pulse oxi metry 94% on room air. SKIN: Grossly icteric. No rashes. There are spider telangiectasias. There are scattered ecchymos es. HEENT: Normocephalic. No evidence of trauma. Pupils equal, round, react to light and accommodatio n. Sclerae are 4+ icteric. Oral mucosa is moist without lesions. NECK: Supple, no jugular venous distention or thyroid enlargement. CHEST: Clear to auscultation and percussion. No rhonchi, wheezes, rales or rubs. There are decrea sed breath sounds in both bases due to elevated diaphragm. HEART: Regular sinus rhythm, no S3, S4 or murmurs. No rubs. ABDOMEN: Distended with obvious ascites. The patient does wince when palpated right upper quadrant . Unable to palpate the liver but spleen tip is ballottable. EXTREMITIES: Two plus pretibial and pedal edema. No palpable cords or Randi's sign. NEUROLOGIC: Does not reveal any focal neurologic abnormalities. The patient is lethargic but arous able. LABORATORY DATA: Sodium today 132, potassium 3.6, creatinine 0.81, BUN 17, bilirubin 9.4, total dir ect is 4.6. Ammonia is 64. White count 12,700, hemoglobin 11.4, hematocrit 33.1, platelet count is 70,000 ASSESSMENT: 1. Hepatocellular carcinoma. 2. Hepatic encephalopathy. 3. Cirrhosis. I have had a long discussion with the patient's family. They understand that the patient's status i s such that she will not recover from this condition and I have told them I feel that life expectanc y is a matter of less than 2 weeks. I have described the fact that patient cannot receive further sorafenib nor can she receive other cy totoxic chemotherapies. I have also discussed that the patient is not a candidate for liver transpl ant. We have discussed the possibility of agents such as nivolumab. I have told them that any treatment is palliative only. That nivolumab may lessen symptoms of hepatic encephalopathy if effective, it m ay prolong her life but this would only be a temporary basis. The patient's family wishes to proceed with nivolumab. Unfortunately, they have not made a decision about the patient's code status. We will order nivolumab, although as mentioned, I feel the patient's life expectancy is in terms of days or weeks unless the patient has a miraculous response to such therapy. Dictated By: TONE KAPLAN MD, SR/BRENNAN Conf#: [id number] DID#: [id number]
[2017-04-30 13:27] VITALS: BP 147/64; RESP 18
[2017-04-30] MEDS: POTASSIUM CHLORIDE 10 MEQ in SOD CHLORIDE 0.45% 1,000 ML IV SCH (13:43)
--- NOTE | 2017-04-30 16:04 | PN ---
Date/Time of Note Date/Time of Note DATE: 04/30/17 TIME: 16:00 Assessment/Plan VTE Prophylaxis VTE Prophylaxis Intervention: SCD's Lines/Catheters IV [facility]ter Type (from [facility]): [place] Urinary Cath still in place: No Assessment/Plan Chief Complaint/Hosp Course Summary Assessment and Plan: Assessment: Hepatic encephalopathy Transaminitis Hyperbilirubinemia HCC- being followed by Dr. Schwartz Hyperammonemia- secondary to liver disease Thrombocytopenia- secondary to liver disease UTI- treated Plan: Ammonia-slightly decrease- patient continues with confusion, now not answering questions Continue lactulose and Xifaxan p.o. as ordered if patient unable to tolerate p.o. must change lactulose to rectal Hepatitis panel - negative Family spoke with Dr. Schwartz today- Pt with very poor prognosis Patient is seen in collaboration with Dr. Kang Subjective: Course reviewed with nursing staff Patient interviewed and examined All labs, imaging and other results reviewed The patient status continues to decline, will continue xifaxan and lactulose at this time family at bedside, minimal improvement in ammonia level, however patient appears to be more confused than yesterday Patient has poor prognosis, currently a full code. PHYSICAL EXAMINATION: GENERAL: Chronically ill appearing, alert and confused, jaundice SKIN: No lesions, stigmata chronic liver disease, no evidence of bleeding diathesis, purpura lower extremities LYMPHATIC: No palpable lymphadenopathy. HEAD: Normocephalic, atraumatic, no tenderness. EYES: Pupils equal reactive to light and accommodation, full extraocular movements, icteric, no discharge. EARS/NOSE AND THROAT: Ears normal, nose normal, oropharynx normal, oral membranes well hydrated without lesions. NECK: Supple, no masses, thyroid normal, JVP within normal limits, carotids normal without bruits. CHEST: Inspection within normal limits. CARDIOVASCULAR: Heart: systolic murmurs RESPIRATORY: Lungs clear to auscultation and percussion, no wheezing, no rubs GASTROINTESTINAL AND LIVER: Abdomen: Soft, non tenderness, distended, no hernias , no masses, hepatomegaly, no guarding, no rebound tenderness, normoactive bowel sounds. Rectal: Deferred. GENITOURINARY: Female genitalia within normal limits. EXTREMITIES: BLE edema Problems: Exam/Review of Systems Vital Signs Vitals Vital Signs Date Time Temp Pulse Resp B/P Pulse Ox O2 Delivery O2 Flow Rate FiO2 04/30/17 13:27 98.4 92 18 147/64 96 04/30/17 07:31 Room Air Intake and Output 04/29/17 04/29/17 04/30/17 15:00 23:00 07:00 Intake Total 100 ml 120 ml Balance 100 ml 120 ml Results Result Diagram: 04/30/17 0443 04/30/17 0443 Results 24 hrs Laboratory Tests Test 04/29/17 18:01 04/29/17 20:59 04/30/17 04:43 04/30/17 08:35 Bedside Glucose 120 123 129 White Blood Count 12.7 #H Red Blood Count 3.10 L Hemoglobin 11.4 L Hematocrit 33.1 L Mean Corpuscular Volume 106.8 H Mean Corpuscular Hemoglobin 36.8 H Mean Corpuscular Hemoglobin Concent 34.4 Red Cell Distribution Width 16.7 H Platelet Count 70 L Mean Platelet Volume 9.3 Neutrophils % 77.3 H Lymphocytes % 9.3 L Monocytes % 7.6 Eosinophils % 1.7 Basophils % 0.6 Nucleated Red Blood Cells % 0.2 H Neutrophils # 9.8 H Lymphocytes # 1.2 Monocytes # 1.0 H Eosinophils # 0.2 Basophils # 0.1 Nucleated Red Blood Cells # 0.0 Sodium Level 132 L Potassium Level 3.6 Chloride Level 95 L Carbon Dioxide Level 31 Anion Gap 10 Blood Urea Nitrogen 27 H Creatinine 0.81 Glucose Level 129 Calcium Level 7.6 L Phosphorus Level 3.6 Total Bilirubin 9.4 H Direct Bilirubin 4.60 H Indirect Bilirubin 4.8 H Aspartate Amino Transf (AST/SGOT) 273 H Alanine Aminotransferase (ALT/SGPT) 103 H Alkaline Phosphatase 167 H Ammonia 64 H Total Protein 4.9 L Albumin 1.8 L Globulin 3.10 Albumin/Globulin Ratio 0.58 Test 04/30/17 12:22 Bedside Glucose 131 Medications Medications Current Medications Ondansetron HCl (Zofran Inj) 4 mg Q6H PRN IV NAUSEA AND/OR VOMITING Last administered on 04/27/17 14:53; Admin Dose 4 MG; Start 04/26/17 at 15:00 Acetaminophen/ Hydrocodone Bitart ([place] (5/325)) 1 tab Q6H PRN PO MODERATE PAIN LEVEL 4-6 Last administered on 04/26/17 22:03; Admin Dose 1 TAB; Start 04/26/17 at 15:00 Acetaminophen/ Hydrocodone Bitart ([place] (5/325)) 2 tab Q6H PRN PO SEVERE PAIN LEVEL 7-10 Last administered on 04/28/17 14:01; Admin Dose 2 TAB; Start at 15:00 Pantoprazole (Protonix Tab) 40 mg DAILY@06 PO Last administered on 04/30/17 06 :29; Admin Dose 40 MG; Start 04/27/17 at 06:00 Lactulose (Enulose) 20 gm Q8 PO Last administered on 04/30/17 13:42; Admin Dose 20 GM; Start 04/26/17 at 15:00 Diagnostic Test (Pha) (Accu-Chek) 1 ea 02 XX ; Start 04/27/17 at 02:00 Non-Formulary Medication 2 ea BID@,17 PO Last administered on 04/27/17 06: 18; Admin Dose 2 EA; Start 04/27/17 at 07:00; Status Future Hold Miscellaneous Information Patients own medicat... BID@ XX ; Start at 10:00 Rifaximin (Xifaxan) 550 mg BID PO Last administered on 04/30/17 10:31; Admin Dose 550 MG; Start 04/28/17 at 21:00 Miscellaneous Information 1 ea NOTE XX ; Start 04/28/17 at 14:30 Glucose (Glutose) 15 gm Q15M PRN PO DECREASED GLUCOSE; Start 04/28/17 at 14:30 Glucose (Glutose) 22.5 gm Q15M PRN PO DECREASED GLUCOSE; Start 04/28/17 at 14: 30 Dextrose (D50w Syringe) 25 ml Q15M PRN IV DECREASED GLUCOSE; Start 04/28/17 at 14:30 Dextrose (D50w Syringe) 50 ml Q15M PRN IV DECREASED GLUCOSE; Start 04/28/17 at 14:30 Glucagon (Glucagen) 1 mg Q15M PRN IM DECREASED GLUCOSE; Start 04/28/17 at 14:30 Glucose 15 gm 15 gm Q15M PRN BUCCAL DECREASED GLUCOSE; Start 04/28/17 at 14:30 Potassium Chloride/Sodium Chloride (KCl/1/2 NS) 1,005 ml @ 50 mls/hr Q20H6M IV Last administered on 11/3/17at 13:43; Admin Dose 50 MLS/HR; Start 04/30/17 at 13:00; Stop 05/03/17 at 12:59 NINA MCKAY Apr 30, 2017 16:04
[2017-04-30 20:00] VITALS: BP 135/61; RESP 18
[2017-05-01 00:29] VITALS: BP 141/66; RESP 18
[2017-05-01] MEDS: ACCU-CHEK XX SCH (02:00)
[2017-05-01 05:11] LABS: ABNORMAL IP MESSAGE 1; BASOPHIL # 0.1 10^3/ul (0.0-0.1); BASOPHILS % 0.7 % (0.0-2.0); EOSINOPHILS # 0.3 10^3/ul (0.0-0.5); EOSINOPHILS % 2.5 % (0.0-7.0); HEMATOCRIT 33.1 % (37.0-47.0); HEMOGLOBIN 11.4 g/dl (12.0-16.0); LYMPHOCYTES # 1.3 10^3/ul (0.8-2.9); LYMPHOCYTES % 11.2 % (15.0-51.0); MEAN CORPUSCULAR HEMOGLOBIN 36.8 pg (29.0-33.0); MEAN CORPUSCULAR HGB CONC 34.4 g/dl (32.0-37.0); MEAN CORPUSCULAR VOLUME 106.8 fl (82.0-101.0); MEAN PLATELET VOLUME 9.2 fl (7.4-10.4); MONOCYTE # 0.9 10^3/ul (0.3-0.9); MONOCYTES % 7.4 % (0.0-11.0); NEUTROPHIL # 8.3 10^3/ul (1.6-7.5); NEUTROPHILS % 72.7 % (39.0-77.0); NUCLEATED RED BLOOD CELLS% 0.3 /100WBC (0.0-0.0); PLATELET COUNT 72 10^3/UL (140-415); RED CELL DISTRIBUTION WIDTH 17.2 % (11.5-14.5); WHITE BLOOD COUNT 11.4 10^3/ul (4.8-10.8)
[2017-05-01 05:28] LABS: MAGNESIUM 1.9 mg/dl (1.7-2.5); PHOSPHORUS 3.4 mg/dl (2.5-4.9)
[2017-05-01 05:37] LABS: POSITIVE DIFF @See below
[2017-05-01] MEDS: LACTULOSE 30ML CUP PO SCH ×3 (06:41→21:24)
[2017-05-01] MEDS: PANTOPRAZOLE (EC) 40 MG TAB PO SCH (06:43)
[2017-05-01] MEDS: FUROSEMIDE 40 MG INJ IV SCH ×2 (06:43→18:52)
[2017-05-01 07:18] LABS: ALBUMIN 1.8 g/dl (3.3-4.9); ALBUMIN/GLOBULIN RATIO 0.54; BILIRUBIN,DIRECT 4.1 mg/dl (0.00-0.20); BILIRUBIN,INDIRECT 4.7 mg/dl (0-1.1); BILIRUBIN,TOTAL 8.8 mg/dl (0.2-1.3); CALCIUM 7.8 mg/dl (8.4-10.2); CREATININE 0.67 mg/dl (0.44-1.00); POTASSIUM 3.6 mmol/L (3.5-5.1); TOTAL PROTEIN 5.1 g/dl (6.1-8.1)
[2017-05-01] MEDS: INSULIN ASPART [NOVOLOG] 3 ML PEN SC SCH ×4 (07:50→21:00)
[2017-05-01 08:38] VITALS: BP 143/64; RESP 18
[2017-05-01] MEDS: RIFAXIMIN 550 MG TAB PO SCH ×2 (09:14→21:22)
--- NOTE | 2017-05-01 09:25 | PN ---
Date/Time of Note Date/Time of Note DATE: 05/01/17 TIME: 09:25 Assessment/Plan VTE Prophylaxis VTE Prophylaxis Intervention: SCD's Lines/Catheters IV [facility]ter Type (from [facility]): Peripheral IV Urinary Cath still in place: No Assessment/Plan Chief Complaint/Hosp Course 1. Acute encephalopathy. Most probably toxic metabolic from underlying hyperammonemia. Improved status post lactulose. Continue lactulose. Brain CT scan at outside facility negative for any acute findings. 2. Hyperammonemia. Continue lactulose. 3. Abdominal pain. Largely resolved. Most likely secondary to underlying ascites. Status post paracentesis with removal of more than 1 L of fluid on . 4. Hepatocellular carcinoma. Being followed by oncology. 5. Transaminitis with hyperbilirubinemia. Most probably secondary to #6. Gastroenterology following. Avoid hepatotoxic medications. 6. Thrombocytopenia. Most probably secondary to #6. Continue to monitor the patient for any active bleeding. 7. Diabetes mellitus. Hemoglobin A1c within normal limits. Hold biguanides. Continue sliding scale insulin. 8. Nicotine use. Cessation advised. 9. Hyponatremia. Monitor. If worsening will institute fluid restriction. 10. Fluids, electrolytes, and nutrition. Carbohydrate controlled, low sodium diet. 11. DVT prophylaxis. Bilateral SCDs. 12. Plan. Continue current management. Monitor sodium levels. Palliative Care following the patient. Very poor prognosis. Case discussed with Dr. Coker. Problems: Subjective 24 Hr Interval Summary Free Text/Dictation The patient appears to be depressed. Exam/Review of Systems Vital Signs Vitals Vital Signs Date Time Temp Pulse Resp B/P Pulse Ox O2 Delivery O2 Flow Rate FiO2 05/01/17 08:38 98.3 95 18 143/64 95 04/30/17 07:31 Room Air Intake and Output 04/30/17 04/30/17 05/01/17 15:00 23:00 07:00 Intake Total 325 ml 700 ml Balance 325 ml 700 ml Exam General: Adequately build 56 year-old female lying in bed in no apparent distress. HEENT: Normocephalic, atraumatic. Eyes: icteric sclerae, conjunctivae clear. ENT : Nasal septum midline, oral mucosa moist. Neck supple, JVD noticed. Respiratory: Bilaterally diminished breath sounds. No use of accessory muscles of respiration. Cardiovascular: S1, S2 heard. Regular rate and rhythm. Abdomen: Distended. Ascites. Genitourinary: Deferred. Extremities: No cyanosis, no clubbing. B/L LE 2-3+ pitting edema. Neurologic: Somnolent. Results Result Diagram: 05/01/17 0440 05/01/17 0440 Results 24 hrs Laboratory Tests Test 04/30/17 12:22 04/30/17 17:56 04/30/17 21:37 05/01/17 04:40 Bedside Glucose 131 170 145 White Blood Count 11.4 H Red Blood Count 3.10 L Hemoglobin 11.4 L Hematocrit 33.1 L Mean Corpuscular Volume 106.8 H Mean Corpuscular Hemoglobin 36.8 H Mean Corpuscular Hemoglobin Concent 34.4 Red Cell Distribution Width 17.2 H Platelet Count 72 L Mean Platelet Volume 9.2 Neutrophils % 72.7 Lymphocytes % 11.2 L Monocytes % 7.4 Eosinophils % 2.5 Basophils % 0.7 Nucleated Red Blood Cells % 0.3 H Neutrophils # 8.3 H Lymphocytes # 1.3 Monocytes # 0.9 Eosinophils # 0.3 Basophils # 0.1 Nucleated Red Blood Cells # 0.0 Sodium Level 132 L Potassium Level 3.6 Chloride Level 95 L Carbon Dioxide Level 34 H Anion Gap 7 L Blood Urea Nitrogen 32 H Creatinine 0.67 Glucose Level 135 Calcium Level 7.8 L Phosphorus Level 3.4 Magnesium Level 1.9 Total Bilirubin 8.8 H Direct Bilirubin 4.10 H Indirect Bilirubin 4.7 H Aspartate Amino Transf (AST/SGOT) 267 H Alanine Aminotransferase (ALT/SGPT) 102 H Alkaline Phosphatase 189 H Ammonia 57 H Total Protein 5.1 L Albumin 1.8 L Globulin 3.30 H Albumin/Globulin Ratio 0.54 Amylase Level 88 Lipase 149 Test 05/01/17 08:16 Bedside Glucose 149 Medications Medications Current Medications Ondansetron HCl (Zofran Inj) 4 mg Q6H PRN IV NAUSEA AND/OR VOMITING Last administered on 04/27/17 14:53; Admin Dose 4 MG; Start 04/26/17 at 15:00 Acetaminophen/ Hydrocodone Bitart ([place] (5/325)) 1 tab Q6H PRN PO MODERATE PAIN LEVEL 4-6 Last administered on 04/26/17 22:03; Admin Dose 1 TAB; Start 04/26/17 at 15:00 Acetaminophen/ Hydrocodone Bitart ([place] (5/325)) 2 tab Q6H PRN PO SEVERE PAIN LEVEL 7-10 Last administered on 04/28/17 14:01; Admin Dose 2 TAB; Start at 15:00 Pantoprazole (Protonix Tab) 40 mg DAILY@06 PO Last administered on 05/01/17 06 :43; Admin Dose 40 MG; Start 04/27/17 at 06:00 Lactulose (Enulose) 20 gm Q8 PO Last administered on 05/01/17 06:41; Admin Dose 20 GM; Start 04/26/17 at 15:00 Diagnostic Test (Pha) (Accu-Chek) 1 ea 02 XX ; Start 04/27/17 at 02:00 Non-Formulary Medication 2 ea BID@, PO Last administered on 04/27/17 06: 18; Admin Dose 2 EA; Start 04/27/17 at 07:00; Status Future Hold Miscellaneous Information Patients own medicat... BID@ XX ; Start at 10:00 Rifaximin (Xifaxan) 550 mg BID PO Last administered on 04/30/17 21:39; Admin Dose 550 MG; Start 04/28/17 at 21:00 Miscellaneous Information 1 ea NOTE XX ; Start 04/28/17 at 14:30 Glucose (Glutose) 15 gm Q15M PRN PO DECREASED GLUCOSE; Start 04/28/17 at 14:30 Glucose (Glutose) 22.5 gm Q15M PRN PO DECREASED GLUCOSE; Start 04/28/17 at 14: 30 Dextrose (D50w Syringe) 25 ml Q15M PRN IV DECREASED GLUCOSE; Start 04/28/17 at 14:30 Dextrose (D50w Syringe) 50 ml Q15M PRN IV DECREASED GLUCOSE; Start 04/28/17 at 14:30 Glucagon (Glucagen) 1 mg Q15M PRN IM DECREASED GLUCOSE; Start 04/28/17 at 14:30 Glucose 15 gm 15 gm Q15M PRN BUCCAL DECREASED GLUCOSE; Start 04/28/17 at 14:30 Potassium Chloride/Sodium Chloride (KCl/1/2 NS) 1,005 ml @ 50 mls/hr Q20H6M IV Last administered on 04/30/17 13:43; Admin Dose 50 MLS/HR; Start 04/30/17 at 13:00; Stop 05/03/17 at 12:59 HARI MESA NP May 01, 2017 09:25
--- NOTE | 2017-05-01 11:11 | PN ---
Date/Time of Note Date/Time of Note DATE: 05/01/17 TIME: 11:08 Assessment/Plan VTE Prophylaxis VTE Prophylaxis Intervention: other (per primary MD) Lines/Catheters IV Catheter Type (from Nrs): Peripheral IV Urinary Cath still in place: No Assessment/Plan Assessment/Plan Dr. Schwartz had family discussion yesterday. Nivolumab is being planned. However the likelihood of benefit is minimal. Family is apparently having difficulty accepting her impending . No new suggestions today. Subjective 24 Hr Interval Summary Free Text/Dictation Pt not coherent. She is resting quietly in no apparent distress. Exam/Review of Systems Vital Signs Vitals Vital Signs Date Time Temp Pulse Resp B/P Pulse Ox O2 Delivery O2 Flow Rate FiO2 05/01/17 08:38 98.3 95 18 143/64 95 04/30/17 07:31 Room Air Intake and Output 04/30/17 04/30/17 05/01/17 15:00 23:00 07:00 Intake Total 325 ml 700 ml Balance 325 ml 700 ml Exam Pt resting in no apparent distress. Obvious jaundice. Results Result Diagram: 05/01/17 0440 05/01/17 0440 Results 24 hrs Laboratory Tests Test 04/30/17 12:22 04/30/17 17:56 04/30/17 21:37 05/01/17 04:40 Bedside Glucose 131 170 145 White Blood Count 11.4 H Red Blood Count 3.10 L Hemoglobin 11.4 L Hematocrit 33.1 L Mean Corpuscular Volume 106.8 H Mean Corpuscular Hemoglobin 36.8 H Mean Corpuscular Hemoglobin Concent 34.4 Red Cell Distribution Width 17.2 H Platelet Count 72 L Mean Platelet Volume 9.2 Neutrophils % 72.7 Lymphocytes % 11.2 L Monocytes % 7.4 Eosinophils % 2.5 Basophils % 0.7 Nucleated Red Blood Cells % 0.3 H Neutrophils # 8.3 H Lymphocytes # 1.3 Monocytes # 0.9 Eosinophils # 0.3 Basophils # 0.1 Nucleated Red Blood Cells # 0.0 Sodium Level 132 L Potassium Level 3.6 Chloride Level 95 L Carbon Dioxide Level 34 H Anion Gap 7 L Blood Urea Nitrogen 32 H Creatinine 0.67 Glucose Level 135 Calcium Level 7.8 L Phosphorus Level 3.4 Magnesium Level 1.9 Total Bilirubin 8.8 H Direct Bilirubin 4.10 H Indirect Bilirubin 4.7 H Aspartate Amino Transf (AST/SGOT) 267 H Alanine Aminotransferase (ALT/SGPT) 102 H Alkaline Phosphatase 189 H Ammonia 57 H Total Protein 5.1 L Albumin 1.8 L Globulin 3.30 H Albumin/Globulin Ratio 0.54 Amylase Level 88 Lipase 149 Test 05/01/17 08:16 Bedside Glucose 149 Medications Medications Current Medications Ondansetron HCl (Zofran Inj) 4 mg Q6H PRN IV NAUSEA AND/OR VOMITING Last administered on 04/27/17 14:53; Admin Dose 4 MG; Start 04/26/17 at 15:00 Acetaminophen/ Hydrocodone Bitart ([place] (5/325)) 1 tab Q6H PRN PO MODERATE PAIN LEVEL 4-6 Last administered on 04/26/17 22:03; Admin Dose 1 TAB; Start 04/26/17 at 15:00 Acetaminophen/ Hydrocodone Bitart ([place] (5/325)) 2 tab Q6H PRN PO SEVERE PAIN LEVEL 7-10 Last administered on 04/28/17 14:01; Admin Dose 2 TAB; Start at 15:00 Pantoprazole (Protonix Tab) 40 mg DAILY@06 PO Last administered on 05/01/17 06 :43; Admin Dose 40 MG; Start 04/27/17 at 06:00 Lactulose (Enulose) 20 gm Q8 PO Last administered on 05/01/17 06:41; Admin Dose 20 GM; Start 04/26/17 at 15:00 Diagnostic Test (Pha) (Accu-Chek) 1 ea 02 XX ; Start 04/27/17 at 02:00 Non-Formulary Medication 2 ea BID@ PO Last administered on 04/27/17 06: 18; Admin Dose 2 EA; Start 04/27/17 at 07:00; Status Future Hold Miscellaneous Information Patients own medicat... BID@ XX ; Start at 10:00 Rifaximin (Xifaxan) 550 mg BID PO Last administered on 05/01/17 09:14; Admin Dose 550 MG; Start 04/28/17 at 21:00 Miscellaneous Information 1 ea NOTE XX ; Start 04/28/17 at 14:30 Glucose (Glutose) 15 gm Q15M PRN PO DECREASED GLUCOSE; Start 04/28/17 at 14:30 Glucose (Glutose) 22.5 gm Q15M PRN PO DECREASED GLUCOSE; Start 04/28/17 at 14: 30 Dextrose (D50w Syringe) 25 ml Q15M PRN IV DECREASED GLUCOSE; Start 04/28/17 at 14:30 Dextrose (D50w Syringe) 50 ml Q15M PRN IV DECREASED GLUCOSE; Start 04/28/17 at 14:30 Glucagon (Glucagen) 1 mg Q15M PRN IM DECREASED GLUCOSE; Start 04/28/17 at 14:30 Glucose 15 gm 15 gm Q15M PRN BUCCAL DECREASED GLUCOSE; Start 04/28/17 at 14:30 Potassium Chloride/Sodium Chloride (KCl/1/2 NS) 1,005 ml @ 50 mls/hr Q20H6M IV Last administered on 04/30/17t 13:43; Admin Dose 50 MLS/HR; Start 04/30/17 at 13:00; Stop 05/03/17 at 12:59 SARAH SUAREZ MD May 01, 2017 11:11
[2017-05-01] MEDS: POTASSIUM CHLORIDE 10 MEQ in SOD CHLORIDE 0.45% 1,000 ML IV SCH (11:21)
[2017-05-01] MEDS ORDERED: LACTULOSE ENEMA 1,000 ML BTL PR ONE (14:30)
--- NOTE | 2017-05-01 14:56 | PN ---
Date/Time of Note Date/Time of Note DATE: 05/01/17 TIME: 14:55 Assessment/Plan VTE Prophylaxis VTE Prophylaxis Intervention: SCD's Lines/Catheters [facility]from [facility] Peripheral IV Urinary Cath still in place: No Assessment/Plan Chief Complaint/Hosp Course Hepatic encephalopathy Transaminitis Hyperbilirubinemia HCC- being followed by Dr. Schwartz Hyperammonemia- secondary to liver disease Thrombocytopenia- secondary to liver disease UTI- treated Plan: Little throughout the present time We will sign off and be available as needed Subjective: Course reviewed with nursing staff Patient interviewed and examined All labs, imaging and other results reviewed The patient status continues to decline Basically unresponsive PHYSICAL EXAMINATION: GENERAL: Chronically ill appearing, alert and confused, jaundice SKIN: No lesions, stigmata chronic liver disease, no evidence of bleeding diathesis, purpura lower extremities LYMPHATIC: No palpable lymphadenopathy. HEAD: Normocephalic, atraumatic, no tenderness. EYES: Pupils equal reactive to light and accommodation, full extraocular movements, icteric, no discharge. EARS/NOSE AND THROAT: Ears normal, nose normal, oropharynx normal, oral membranes well hydrated without lesions. NECK: Supple, no masses, thyroid normal, JVP within normal limits, carotids normal without bruits. CHEST: Inspection within normal limits. CARDIOVASCULAR: Heart: systolic murmurs RESPIRATORY: Lungs clear to auscultation and percussion, no wheezing, no rubs GASTROINTESTINAL AND LIVER: Abdomen: Soft, non tenderness, distended, no hernias , no masses, hepatomegaly, no guarding, no rebound tenderness, normoactive bowel sounds. Rectal: Deferred. GENITOURINARY: Female genitalia within normal limits. EXTREMITIES: BLE edema Problems: Exam/Review of Systems Vital Signs Vitals Vital Signs Date Time Temp Pulse Resp B/P Pulse Ox O2 Delivery O2 Flow Rate FiO2 05/01/17 08:38 98.3 95 18 143/64 95 04/30/17 07:31 Room Air Intake and Output 04/30/17 04/30/17 05/01/17 15:00 23:00 07:00 Intake Total 325 ml 700 ml Balance 325 ml 700 ml Results Result Diagram: 05/01/17 0440 05/01/17 0440 Results 24 hrs Laboratory Tests Test 04/30/17 17:56 04/30/17 21:37 05/01/17 04:40 05/01/17 08:16 Bedside Glucose 170 145 149 White Blood Count 11.4 H Red Blood Count 3.10 L Hemoglobin 11.4 L Hematocrit 33.1 L Mean Corpuscular Volume 106.8 H Mean Corpuscular Hemoglobin 36.8 H Mean Corpuscular Hemoglobin Concent 34.4 Red Cell Distribution Width 17.2 H Platelet Count 72 L Mean Platelet Volume 9.2 Neutrophils % 72.7 Lymphocytes % 11.2 L Monocytes % 7.4 Eosinophils % 2.5 Basophils % 0.7 Nucleated Red Blood Cells % 0.3 H Neutrophils # 8.3 H Lymphocytes # 1.3 Monocytes # 0.9 Eosinophils # 0.3 Basophils # 0.1 Nucleated Red Blood Cells # 0.0 Sodium Level 132 L Potassium Level 3.6 Chloride Level 95 L Carbon Dioxide Level 34 H Anion Gap 7 L Blood Urea Nitrogen 32 H Creatinine 0.67 Glucose Level 135 Calcium Level 7.8 L Phosphorus Level 3.4 Magnesium Level 1.9 Total Bilirubin 8.8 H Direct Bilirubin 4.10 H Indirect Bilirubin 4.7 H Aspartate Amino Transf (AST/SGOT) 267 H Alanine Aminotransferase (ALT/SGPT) 102 H Alkaline Phosphatase 189 H Ammonia 57 H Total Protein 5.1 L Albumin 1.8 L Globulin 3.30 H Albumin/Globulin Ratio 0.54 Amylase Level 88 Lipase 149 Test 05/01/17 11:46 Bedside Glucose 134 Medications Medications Current Medications Ondansetron HCl (Zofran Inj) 4 mg Q6H PRN IV NAUSEA AND/OR VOMITING Last administered on 04/27/17 14:53; Admin Dose 4 MG; Start 04/26/17 at 15:00 Acetaminophen/ Hydrocodone Bitart ([place] (5/325)) 1 tab Q6H PRN PO MODERATE PAIN LEVEL 4-6 Last administered on 04/26/17 22:03; Admin Dose 1 TAB; Start 04/26/17 at 15:00 Acetaminophen/ Hydrocodone Bitart ([place] (5/325)) 2 tab Q6H PRN PO SEVERE PAIN LEVEL 7-10 Last administered on 04/28/17 14:01; Admin Dose 2 TAB; Start at 15:00 Pantoprazole (Protonix Tab) 40 mg DAILY@06 PO Last administered on 05/01/17 06 :43; Admin Dose 40 MG; Start 04/27/17 at 06:00 Lactulose (Enulose) 20 gm Q8 PO Last administered on 05/01/17 14:32; Admin Dose 20 GM; Start 04/26/17 at 15:00 Diagnostic Test (Pha) (Accu-Chek) 1 ea 02 XX ; Start 04/27/17 at 02:00 Non-Formulary Medication 2 ea BID@,17 PO Last administered on 04/27/17 06: 18; Admin Dose 2 EA; Start 04/27/17 at 07:00; Status Future Hold Miscellaneous Information Patients own medicat... BID@ XX ; Start at 10:00 Rifaximin (Xifaxan) 550 mg BID PO Last administered on 05/01/17 09:14; Admin Dose 550 MG; Start 04/28/17 at 21:00 Miscellaneous Information 1 ea NOTE XX ; Start 04/28/17 at 14:30 Glucose (Glutose) 15 gm Q15M PRN PO DECREASED GLUCOSE; Start 04/28/17 at 14:30 Glucose (Glutose) 22.5 gm Q15M PRN PO DECREASED GLUCOSE; Start 04/28/17 at 14: 30 Dextrose (D50w Syringe) 25 ml Q15M PRN IV DECREASED GLUCOSE; Start 04/28/17 at 14:30 Dextrose (D50w Syringe) 50 ml Q15M PRN IV DECREASED GLUCOSE; Start 04/28/17 at 14:30 Glucagon (Glucagen) 1 mg Q15M PRN IM DECREASED GLUCOSE; Start 04/28/17 at 14:30 Glucose 15 gm 15 gm Q15M PRN BUCCAL DECREASED GLUCOSE; Start 04/28/17 at 14:30 Potassium Chloride/Sodium Chloride (KCl/1/2 NS) 1,005 ml @ 50 mls/hr Q20H6M IV Last administered on 05/01/17 11:21; Admin Dose 50 MLS/HR; Start 04/30/17 at 13:00; Stop 05/03/17 at 12:59 KORIN DONATO MD May 01, 2017 14:56
[2017-05-01 15:37] VITALS: BP 155/72; RESP 18
[2017-05-01 18:53] VITALS: BP 149/69; PULSE 97
[2017-05-01 21:23] VITALS: BP 169/75; RESP 19
[2017-05-01] MEDS ORDERED: hydrALAzine 20 MG INJ IV PRN (22:00)
[2017-05-02 01:37] VITALS: BP 147/67; PULSE 67; RESP 17
[2017-05-02 02:00] VITALS: BP 166/69; RESP 19
[2017-05-02] MEDS: ACCU-CHEK XX SCH (02:00)
[2017-05-02 05:12] LABS: ABNORMAL IP MESSAGE 1; HEMATOCRIT 32.3 % (37.0-47.0); HEMOGLOBIN 11.1 g/dl (12.0-16.0); MEAN CORPUSCULAR HEMOGLOBIN 36.6 pg (29.0-33.0); MEAN CORPUSCULAR HGB CONC 34.4 g/dl (32.0-37.0); MEAN CORPUSCULAR VOLUME 106.6 fl (82.0-101.0); MEAN PLATELET VOLUME 9.3 fl (7.4-10.4); NUCLEATED RED BLOOD CELLS% 0.3 /100WBC (0.0-0.0); RED BLOOD COUNT 3.03 10^6/ul (4.20-5.40); RED CELL DISTRIBUTION WIDTH 17.3 % (11.5-14.5); WHITE BLOOD COUNT 11.1 10^3/ul (4.8-10.8)
[2017-05-02] MEDS: LACTULOSE 30ML CUP PO SCH ×2 (05:12→13:30)
[2017-05-02] MEDS: PANTOPRAZOLE (EC) 40 MG TAB PO SCH (05:12)
[2017-05-02] MEDS: FUROSEMIDE 40 MG INJ IV SCH ×2 (05:14→17:53)
[2017-05-02] MEDS: POTASSIUM CHLORIDE 10 MEQ in SOD CHLORIDE 0.45% 1,000 ML IV SCH (05:15)
[2017-05-02 05:28] LABS: MAGNESIUM 1.8 mg/dl (1.7-2.5); PHOSPHORUS 3.4 mg/dl (2.5-4.9)
[2017-05-02 06:36] LABS: ALBUMIN 1.7 g/dl (3.3-4.9); ALBUMIN/GLOBULIN RATIO 0.53; BILIRUBIN,DIRECT 4.5 mg/dl (0.00-0.20); BILIRUBIN,INDIRECT 4.8 mg/dl (0-1.1); BILIRUBIN,TOTAL 9.3 mg/dl (0.2-1.3); CALCIUM 7.6 mg/dl (8.4-10.2); CREATININE 0.66 mg/dl (0.44-1.00); POTASSIUM 3.3 mmol/L (3.5-5.1); TOTAL PROTEIN 4.9 g/dl (6.1-8.1)
[2017-05-02 07:31] VITALS: BP 159/73; RESP 20
[2017-05-02] MEDS: INSULIN ASPART [NOVOLOG] 3 ML PEN SC SCH ×4 (07:50→20:57)
[2017-05-02] MEDS ORDERED: POTASSIUM CHLORIDE 30 MEQ in DEXTROSE 5% 250 ML IVPB ONE (09:00)
[2017-05-02] MEDS: RIFAXIMIN 550 MG TAB PO SCH (09:24)
[2017-05-02 09:56] LABS: BASOPHIL # 0.1 10^3/ul (0.0-0.1); EOSINOPHILS # 0.4 10^3/ul (0.0-0.5); EOSINOPHILS % (M) 4 % (0.0-7.0); ERYTHROBLAST% (NRBC) (M) 1 % (0-0); LYMPHOCYTES # 0.8 10^3/ul (0.8-2.9); METAMYELOCYTES %M 4 % (0-0); MONOCYTE # 0.6 10^3/ul (0.3-0.9); MONOCYTES % (M) 5 % (0-11)
[2017-05-02 09:57] LABS: ANISOCYTOSIS 1+ (0-0); BURR CELLS 1+; HYPOCHROMASIA 1+ (0-0)
[2017-05-02 09:58] LABS: PLATELET COUNT 67 10^3/UL (140-415)
--- NOTE | 2017-05-02 11:12 | PN ---
Date/Time of Note Date/Time of Note DATE: 05/02/17 TIME: 11:09 Assessment/Plan VTE Prophylaxis VTE Prophylaxis Intervention: other (per primary MD) Lines/Catheters IV Catheter Type (from Nrs): Peripheral IV Urinary Cath still in place: Yes Reason Cath still needed: other (indicate) (obtunded) Assessment/Plan Assessment/Plan Pt remains in poor condition and unlikely to leave the hospital alive. Dr. Schwartz to see tomorrow. Hopefully the family will agree to comfort measures only since she is obviously terminal. Subjective 24 Hr Interval Summary Free Text/Dictation Pt sleeping quietly. No family here now. Exam/Review of Systems Vital Signs Vitals Vital Signs Date Time Temp Pulse Resp B/P Pulse Ox O2 Delivery O2 Flow Rate FiO2 05/02/17 07:31 97.6 92 20 159/73 96 05/02/17 01:37 Room Air Intake and Output 05/01/17 05/01/17 05/02/17 15:00 23:00 07:00 Intake Total 960 ml 640 ml Output Total 450 ml Balance 960 ml 190 ml Exam Constitutional: other (jaundiced. resting quietly) Head: normocephalic Eyes: icteric Neck: supple Respiratory: clear to auscultation Cardiovascular: regular rate and rhythm Gastrointestinal: soft Results Result Diagram: 05/02/17 0444 05/02/17 0444 Results 24 hrs Laboratory Tests Test 05/01/17 11:46 05/01/17 17:39 05/01/17 21:21 05/02/17 04:43 Bedside Glucose 134 186 165 Ammonia 74 H Test 05/02/17 04:44 05/02/17 09:22 White Blood Count 11.1 H Red Blood Count 3.03 L Hemoglobin 11.1 L Hematocrit 32.3 L Mean Corpuscular Volume 106.6 H Mean Corpuscular Hemoglobin 36.6 H Mean Corpuscular Hemoglobin Concent 34.4 Red Cell Distribution Width 17.3 H Platelet Count 67 L Mean Platelet Volume 9.3 Neutrophils % Segmented Neutrophils % (Manual) 69 Band Neutrophils % (Manual) 10 H Lymphocytes % Lymphocytes % (Manual) 7 L Monocytes % Monocytes % (Manual) 5 Eosinophils % Eosinophils % (Manual) 4 Basophils % Metamyelocytes % (manual) 4 H Nucleated Red Blood Cells % 1 H Neutrophils # Neutrophils # (Manual) 7.8 H Band Neutrophils # 1.1 H Absolute Lymphocytes (Manual) 0.7 L Lymphocytes # 0.8 Monocytes # 0.6 Absolute Monocytes (Manual) 0.5 Eosinophils # 0.4 Basophils # 0.1 Metamyelocytes # 0.4 H Nucleated Red Blood Cells # Hypochromasia 1+ Anisocytosis 1+ Macrocytosis 1+ Sodium Level 130 L Potassium Level 3.3 L Chloride Level 94 L Carbon Dioxide Level 35 H Anion Gap 4 L Blood Urea Nitrogen 31 H Creatinine 0.66 Glucose Level 129 Calcium Level 7.6 L Phosphorus Level 3.4 Magnesium Level 1.8 Total Bilirubin 9.3 H Direct Bilirubin 4.50 H Indirect Bilirubin 4.8 H Aspartate Amino Transf (AST/SGOT) 242 H Alanine Aminotransferase (ALT/SGPT) 103 H Alkaline Phosphatase 175 H Total Protein 4.9 L Albumin 1.7 L Globulin 3.20 Albumin/Globulin Ratio 0.53 Bedside Glucose 127 Medications Medications Current Medications Ondansetron HCl (Zofran Inj) 4 mg Q6H PRN IV NAUSEA AND/OR VOMITING Last administered on 04/27/17 14:53; Admin Dose 4 MG; Start 04/26/17 at 15:00 Acetaminophen/ Hydrocodone Bitart ([place] (5/325)) 1 tab Q6H PRN PO MODERATE PAIN LEVEL 4-6 Last administered on 04/26/17 22:03; Admin Dose 1 TAB; Start 04/26/17 at 15:00 Acetaminophen/ Hydrocodone Bitart ([place] (5/325)) 2 tab Q6H PRN PO SEVERE PAIN LEVEL 7-10 Last administered on 04/28/17 14:01; Admin Dose 2 TAB; Start at 15:00 Pantoprazole (Protonix Tab) 40 mg DAILY@06 PO Last administered on 05/02/17 05 :12; Admin Dose 40 MG; Start 04/27/17 at 06:00 Lactulose (Enulose) 20 gm Q8 PO Last administered on 05/02/17 05:12; Admin Dose 20 GM; Start 04/26/17 at 15:00 Diagnostic Test (Pha) (Accu-Chek) 1 ea 02 XX ; Start 04/27/17 at 02:00 Non-Formulary Medication 2 ea BID@,17 PO Last administered on 04/27/17 06: 18; Admin Dose 2 EA; Start 04/27/17 at 07:00; Status Future Hold Miscellaneous Information Patients own medicat... BID@10,16 XX ; Start at 10:00 Rifaximin (Xifaxan) 550 mg BID PO Last administered on 05/02/17 09:24; Admin Dose 550 MG; Start 04/28/17 at 21:00 Miscellaneous Information 1 ea NOTE XX ; Start 04/28/17 at 14:30 Glucose (Glutose) 15 gm Q15M PRN PO DECREASED GLUCOSE; Start 04/28/17 at 14:30 Glucose (Glutose) 22.5 gm Q15M PRN PO DECREASED GLUCOSE; Start 04/28/17 at 14: 30 Dextrose (D50w Syringe) 25 ml Q15M PRN IV DECREASED GLUCOSE; Start 04/28/17 at 14:30 Dextrose (D50w Syringe) 50 ml Q15M PRN IV DECREASED GLUCOSE; Start 04/28/17 at 14:30 Glucagon (Glucagen) 1 mg Q15M PRN IM DECREASED GLUCOSE; Start 04/28/17 at 14:30 Glucose 15 gm 15 gm Q15M PRN BUCCAL DECREASED GLUCOSE; Start 04/28/17 at 14:30 Potassium Chloride/Sodium Chloride (KCl/1/2 NS) 1,005 ml @ 50 mls/hr Q20H6M IV Last administered on 05/02/17 05:15; Admin Dose 50 MLS/HR; Start 04/30/17 at 13:00; Stop 05/03/17 at 12:59 Hydralazine HCl 10 mg 10 mg Q4H PRN IV ELEVATED SYSTOLIC BP; Start 05/01/17 at 22:00 Potassium Chloride/Dextrose (KCl/D5W) 265 ml @ 88.333 mls/ hr ONCE ONCE IVPB Last administered on 05/02/17 09:36; Admin Dose 88.333 MLS/HR; Start 05/02/17 at 09:00; Stop 05/02/17 at 11:59 SARAH SUAREZ MD May 02, 2017 11:12
[2017-05-02 11:56] LABS: URIC ACID 3.9 mg/dl (3.1-7.9)
--- NOTE | 2017-05-02 15:20 | PN ---
Date/Time of Note Date/Time of Note DATE: 05/02/17 TIME: 15:19 Assessment/Plan VTE Prophylaxis VTE Prophylaxis Intervention: SCD's Lines/Catheters IV Catheter Type (from [facility]): Peripheral IV Urinary Cath still in place: Yes Reason Cath still needed: other (indicate) Assessment/Plan Chief Complaint/Hosp Course 1. Acute encephalopathy. Most probably toxic metabolic from underlying hyperammonemia. Improved status post lactulose. Continue lactulose. Brain CT scan at outside facility negative for any acute findings. 2. Hyperammonemia. Continue lactulose. 3. Abdominal pain. Largely resolved. Most likely secondary to underlying ascites. Status post paracentesis with removal of more than 1 L of fluid on . 4. Hepatocellular carcinoma. Being followed by oncology. 5. Transaminitis with hyperbilirubinemia. Most probably secondary to #6. Gastroenterology following. Avoid hepatotoxic medications. 6. Thrombocytopenia. Most probably secondary to #6. Continue to monitor the patient for any active bleeding. 7. Diabetes mellitus. Hemoglobin A1c within normal limits. Hold biguanides. Continue sliding scale insulin. 8. Nicotine use. Cessation advised. 9. Hyponatremia. Monitor. If worsening will institute fluid restriction. Obtain nephrology evaluation. 10. Fluids, electrolytes, and nutrition. Carbohydrate controlled, low sodium diet. 11. DVT prophylaxis. Bilateral SCDs. 12. Plan. Replete potassium. Continue current management. Monitor sodium levels. Palliative Care following the patient. Very poor prognosis. Case discussed with Dr. Coker. Problems: Subjective 24 Hr Interval Summary Free Text/Dictation Was awake in the morning. Currently asleep. Exam/Review of Systems Vital Signs Vitals Vital Signs Date Time Temp Pulse Resp B/P Pulse Ox O2 Delivery O2 Flow Rate FiO2 05/02/17 07:31 97.6 92 20 159/73 96 05/02/17 01:37 Room Air Intake and Output 05/01/17 05/01/17 05/02/17 15:00 23:00 07:00 Intake Total 960 ml 640 ml Output Total 450 ml Balance 960 ml 190 ml Exam General: Adequately build 56 year-old female lying in bed in no apparent distress. HEENT: Normocephalic, atraumatic. Eyes: icteric sclerae, conjunctivae clear. ENT : Nasal septum midline, oral mucosa moist. Neck supple, JVD noticed. Respiratory: Bilaterally diminished breath sounds. No use of accessory muscles of respiration. Cardiovascular: S1, S2 heard. Regular rate and rhythm. Abdomen: Distended. Ascites. Genitourinary: Deferred. Extremities: No cyanosis, no clubbing. B/L LE 2-3+ pitting edema. Neurologic: Results Result Diagram: 05/02/17 0444 05/02/17 0444 Results 24 hrs Laboratory Tests Test 05/01/17 17:39 05/01/17 21:21 05/02/17 04:43 05/02/17 04:44 Bedside Glucose 186 165 Ammonia 74 H White Blood Count 11.1 H Red Blood Count 3.03 L Hemoglobin 11.1 L Hematocrit 32.3 L Mean Corpuscular Volume 106.6 H Mean Corpuscular Hemoglobin 36.6 H Mean Corpuscular Hemoglobin Concent 34.4 Red Cell Distribution Width 17.3 H Platelet Count 67 L Mean Platelet Volume 9.3 Neutrophils % Segmented Neutrophils % (Manual) 69 Band Neutrophils % (Manual) 10 H Lymphocytes % Lymphocytes % (Manual) 7 L Monocytes % Monocytes % (Manual) 5 Eosinophils % Eosinophils % (Manual) 4 Basophils % Metamyelocytes % (manual) 4 H Nucleated Red Blood Cells % 1 H Neutrophils # Neutrophils # (Manual) 7.8 H Band Neutrophils # 1.1 H Absolute Lymphocytes (Manual) 0.7 L Lymphocytes # 0.8 Monocytes # 0.6 Absolute Monocytes (Manual) 0.5 Eosinophils # 0.4 Basophils # 0.1 Metamyelocytes # 0.4 H Nucleated Red Blood Cells # Hypochromasia 1+ Anisocytosis 1+ Macrocytosis 1+ Sodium Level 130 L Potassium Level 3.3 L Chloride Level 94 L Carbon Dioxide Level 35 H Anion Gap 4 L Blood Urea Nitrogen 31 H Creatinine 0.66 Glucose Level 129 Calcium Level 7.6 L Phosphorus Level 3.4 Magnesium Level 1.8 Total Bilirubin 9.3 H Direct Bilirubin 4.50 H Indirect Bilirubin 4.8 H Aspartate Amino Transf (AST/SGOT) 242 H Alanine Aminotransferase (ALT/SGPT) 103 H Alkaline Phosphatase 175 H Total Protein 4.9 L Albumin 1.7 L Globulin 3.20 Albumin/Globulin Ratio 0.53 Test 05/02/17 09:22 05/02/17 10:42 05/02/17 11:15 05/02/17 11:16 Bedside Glucose 127 Urine Eosinophils % 0.0 Urine Osmolality 398 Urine Random Sodium 55 Osmolality 281 Uric Acid 3.9 Creatine Kinase 27 Thyroid Stimulating Hormone (TSH) 6.140 H Random Cortisol 17.4 Free Thyroxine 1.00 Test 05/02/17 12:44 Bedside Glucose 190 Medications Medications Current Medications Ondansetron HCl (Zofran Inj) 4 mg Q6H PRN IV NAUSEA AND/OR VOMITING Last administered on 04/27/17 14:53; Admin Dose 4 MG; Start 04/26/17 at 15:00 Acetaminophen/ Hydrocodone Bitart ([place] (5/325)) 1 tab Q6H PRN PO MODERATE PAIN LEVEL 4-6 Last administered on 04/26/17 22:03; Admin Dose 1 TAB; Start 04/26/17 at 15:00 Acetaminophen/ Hydrocodone Bitart ([place] (5/325)) 2 tab Q6H PRN PO SEVERE PAIN LEVEL 7-10 Last administered on 04/28/17 14:01; Admin Dose 2 TAB; Start at 15:00 Pantoprazole (Protonix Tab) 40 mg DAILY@06 PO Last administered on 05/02/17 05 :12; Admin Dose 40 MG; Start 04/27/17 at 06:00 Lactulose (Enulose) 20 gm Q8 PO Last administered on 05/02/17 13:30; Admin Dose 20 GM; Start 04/26/17 at 15:00 Diagnostic Test (Pha) (Accu-Chek) 1 ea 02 XX ; Start 04/27/17 at 02:00 Non-Formulary Medication 2 ea BID@ PO Last administered on 04/27/17 06: 18; Admin Dose 2 EA; Start 04/27/17 at 07:00; Status Future Hold Miscellaneous Information Patients own medicat... BID@ XX ; Start at 10:00 Rifaximin (Xifaxan) 550 mg BID PO Last administered on 05/02/17 09:24; Admin Dose 550 MG; Start 04/28/17 at 21:00 Miscellaneous Information 1 ea NOTE XX ; Start 04/28/17 at 14:30 Glucose (Glutose) 15 gm Q15M PRN PO DECREASED GLUCOSE; Start 04/28/17 at 14:30 Glucose (Glutose) 22.5 gm Q15M PRN PO DECREASED GLUCOSE; Start 04/28/17 at 14: 30 Dextrose (D50w Syringe) 25 ml Q15M PRN IV DECREASED GLUCOSE; Start 04/28/17 at 14:30 Dextrose (D50w Syringe) 50 ml Q15M PRN IV DECREASED GLUCOSE; Start 04/28/17 at 14:30 Glucagon (Glucagen) 1 mg Q15M PRN IM DECREASED GLUCOSE; Start 04/28/17 at 14:30 Glucose 15 gm 15 gm Q15M PRN BUCCAL DECREASED GLUCOSE; Start 04/28/17 at 14:30 Potassium Chloride/Sodium Chloride (KCl/1/2 NS) 1,005 ml @ 50 mls/hr Q20H6M IV Last administered on 05/02/17t 05:15; Admin Dose 50 MLS/HR; Start 04/30/17 at 13:00; Stop 05/03/17 at 12:59 Hydralazine HCl (Apresoline) 10 mg Q4H PRN IV ELEVATED SYSTOLIC BP; Start 05/01 at 22:00 HARI MESA NP May 02, 2017 15:20
[2017-05-02 17:08] VITALS: BP 160/73; RESP 20
[2017-05-02 18:39] LABS: PROTEIN/CREAT RATIO 0.44 RATIO
[2017-05-02 19:16] VITALS: BP 154/75; RESP 16
--- NOTE | 2017-05-02 21:09 | CONS ---
Date/Time of Note Date/Time of Note DATE: 05/02/17 TIME: 21:08 Assessment/Plan Assessment/Plan Additional Assessment/Plan 1. 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 acute hepatic encephalopathy 3 HCC 4. Acute transaminitis 5. Hypokalemia 6. DM II Plan: H & O following, plan is chemotherapy for HCC, Pt will need another paracentesis for ascites, will talk with Hospitalist team today BP stable Cr normal, pt is making good urine, I will order hYponatreia work up ( urine Na , Urine Osm, Serum osm, TSH, Free T4, Cortisol) Depending on labs we will decide if pt need IVF for hydration Not a candidate for tolvaptan at this point due to Elevated LFTs Thanks for consultation, I will conitnue to follow up Consultation Date/Type/Reason Admit Date/Time Apr 26, 2017 at 13:32 Date of Consultation: May 02, 2017 Type of Consultation: NEPHROLOGY Reason for Consultation Hyponatremia, rule out hepatorenal syndrome Referring Provider: YOON ALVAREZ MD Hx of Present Illness 56 yo F with PMH DM and Liver CA dx February 2017 was transferred from outside hospital secondary to altered mental status. Patient sister was at bedside and history obtained from sister. Patient is altered and poor historian and only oriented to self. Patient lives at home with daughter and has been acting strange for the past couple days. She was brought to the ED this am due to confusion. CT head performed was negative for any acute issues. Patient was found to have an elevated ammonia level and possible UTI. Patient was recently started on chemotherapy per her oncologist Dr. Schwartz, who was contacted and did not believe was associated with chemotherapy. Patient admits to abdominal pain but denies any fevers, shortness of breath, constipation, dizziness, or LOC. pt was seen by Oncology and plan is to do chemotherapy She is noted to have hyponatremia on admission which has been persistently dropping down and renal has been consulted for Hyponatremia Eyes: no complaints ENT: no complaints Respiratory: no complaints Cardiovascular: No chest pain, No edema, No palpitations Gastrointestinal: pain, No constipation, No diarrhea, No nausea, No vomiting Genitourinary: no complaints Musculoskeletal: no complaints Skin: no complaints Neurologic: confusion Lymphatic: no complaints Psychological: nl mood/affect Immunologic: no complaints Past Medical History Medical History: diabetes, other (liver carcinoma) Past Surgical History Past Surgical Hx: no surgical history, other ( 3) Family History Significant Family History: no pertinent family hx Social History Alcohol Use: none Smoking Status: Current every day smoker Drug Use: none Exam/Review of Systems Vital Signs Vitals Vital Signs Date Time Temp Pulse Resp B/P Pulse Ox O2 Delivery O2 Flow Rate FiO2 05/02/17 19:16 98.0 100 16 154/75 94 05/02/17 01:37 Room Air Intake and Output 05/01/17 05/01/17 05/02/17 15:00 23:00 07:00 Intake Total 960 ml 640 ml Output Total 450 ml Balance 960 ml 190 ml Exam General: Adequately build 56 year-old female lying in bed in no apparent distress. HEENT: Normocephalic, atraumatic. Eyes: icteric sclerae, conjunctivae clear. ENT : Nasal septum midline, oral mucosa moist. Neck supple, JVD noticed. Respiratory: Bilaterally diminished breath sounds. No use of accessory muscles of respiration. Cardiovascular: S1, S2 heard. Regular rate and rhythm. Abdomen: Distended. Ascites. Genitourinary: Deferred. Extremities: No cyanosis, no clubbing. B/L LE 2-3+ pitting edema. Results Result Diagram: 05/02/1744305/02/17443 Results 24 hrs Laboratory Tests Test 05/01/17 21:21 05/02/17 04:43 05/02/17 04:44 05/02/17 09:22 Bedside Glucose 165 127 Ammonia 74 H White Blood Count 11.1 H Red Blood Count 3.03 L Hemoglobin 11.1 L Hematocrit 32.3 L Mean Corpuscular Volume 106.6 H Mean Corpuscular Hemoglobin 36.6 H Mean Corpuscular Hemoglobin Concent 34.4 Red Cell Distribution Width 17.3 H Platelet Count 67 L Mean Platelet Volume 9.3 Neutrophils % Segmented Neutrophils % (Manual) 69 Band Neutrophils % (Manual) 10 H Lymphocytes % Lymphocytes % (Manual) 7 L Monocytes % Monocytes % (Manual) 5 Eosinophils % Eosinophils % (Manual) 4 Basophils % Metamyelocytes % (manual) 4 H Nucleated Red Blood Cells % 1 H Neutrophils # Neutrophils # (Manual) 7.8 H Band Neutrophils # 1.1 H Absolute Lymphocytes (Manual) 0.7 L Lymphocytes # 0.8 Monocytes # 0.6 Absolute Monocytes (Manual) 0.5 Eosinophils # 0.4 Basophils # 0.1 Metamyelocytes # 0.4 H Nucleated Red Blood Cells # Hypochromasia 1+ Anisocytosis 1+ Macrocytosis 1+ Sodium Level 130 L Potassium Level 3.3 L Chloride Level 94 L Carbon Dioxide Level 35 H Anion Gap 4 L Blood Urea Nitrogen 31 H Creatinine 0.66 Glucose Level 129 Calcium Level 7.6 L Phosphorus Level 3.4 Magnesium Level 1.8 Total Bilirubin 9.3 H Direct Bilirubin 4.50 H Indirect Bilirubin 4.8 H Aspartate Amino Transf (AST/SGOT) 242 H Alanine Aminotransferase (ALT/SGPT) 103 H Alkaline Phosphatase 175 H Total Protein 4.9 L Albumin 1.7 L Globulin 3.20 Albumin/Globulin Ratio 0.53 Test 05/02/17 10:42 05/02/17 11:15 05/02/17 11:16 05/02/17 12:44 Urine Eosinophils % 0.0 Urine Osmolality 398 Urine Random Creatinine 31.58 Urine Random Sodium 55 Urine Protein/Creatinine Ratio 0.44 Urine Total Protein 14.0 H Osmolality 281 Uric Acid 3.9 Creatine Kinase 27 Thyroid Stimulating Hormone (TSH) 6.140 H Random Cortisol 17.4 Free Thyroxine 1.00 Bedside Glucose 190 Test 05/02/17 17:51 Bedside Glucose 154 Medications Medications Current Medications Ondansetron HCl (Zofran Inj) 4 mg Q6H PRN IV NAUSEA AND/OR VOMITING Last administered on 04/27/17 14:53; Admin Dose 4 MG; Start 04/26/17 at 15:00 Acetaminophen/ Hydrocodone Bitart ([place] (5/325)) 1 tab Q6H PRN PO MODERATE PAIN LEVEL 4-6 Last administered on 04/26/17 22:03; Admin Dose 1 TAB; Start 04/26/17 at 15:00 Acetaminophen/ Hydrocodone Bitart ([place] (5/325)) 2 tab Q6H PRN PO SEVERE PAIN LEVEL 7-10 Last administered on 04/28/17 14:01; Admin Dose 2 TAB; Start at 15:00 Pantoprazole (Protonix Tab) 40 mg DAILY@06 PO Last administered on 05/02/17 05 :12; Admin Dose 40 MG; Start 04/27/17 at 06:00 Lactulose (Enulose) 20 gm Q8 PO Last administered on 05/02/17 13:30; Admin Dose 20 GM; Start 04/26/17 at 15:00 Diagnostic Test (Pha) (Accu-Chek) 1 ea 02 XX ; Start 04/27/17 at 02:00 Non-Formulary Medication 2 ea BID@,17 PO Last administered on 04/27/17 06: 18; Admin Dose 2 EA; Start 04/27/17 at 07:00; Status Future Hold Miscellaneous Information Patients own medicat... BID@ XX ; Start at 10:00 Rifaximin (Xifaxan) 550 mg BID PO Last administered on 05/02/17 09:24; Admin Dose 550 MG; Start 04/28/17 at 21:00 Miscellaneous Information 1 ea NOTE XX ; Start 04/28/17 at 14:30 Glucose (Glutose) 15 gm Q15M PRN PO DECREASED GLUCOSE; Start 04/28/17 at 14:30 Glucose (Glutose) 22.5 gm Q15M PRN PO DECREASED GLUCOSE; Start 04/28/17 at 14: 30 Dextrose (D50w Syringe) 25 ml Q15M PRN IV DECREASED GLUCOSE; Start 04/28/17 at 14:30 Dextrose (D50w Syringe) 50 ml Q15M PRN IV DECREASED GLUCOSE; Start 04/28/17 at 14:30 Glucagon (Glucagen) 1 mg Q15M PRN IM DECREASED GLUCOSE; Start 04/28/17 at 14:30 Glucose 15 gm 15 gm Q15M PRN BUCCAL DECREASED GLUCOSE; Start 04/28/17 at 14:30 Potassium Chloride/Sodium Chloride (KCl/1/2 NS) 1,005 ml @ 50 mls/hr Q20H6M IV Last administered on 05/02/17 05:15; Admin Dose 50 MLS/HR; Start 04/30/17 at 13:00; Stop 05/03/17 at 12:59 Hydralazine HCl (Apresoline) 10 mg Q4H PRN IV ELEVATED SYSTOLIC BP; Start 05/01 at 22:00 MAE VILCHIS MD May 02, 2017 21:08
[2017-05-02 23:35] VITALS: BP 154/72; RESP 14
[2017-05-03] MEDS: LACTULOSE ENEMA 1,000 ML BTL PR SCH ×3 (01:21→05:53)
[2017-05-03] MEDS: POTASSIUM CHLORIDE 10 MEQ in SOD CHLORIDE 0.45% 1,000 ML IV SCH (01:29)
[2017-05-03] MEDS: ACCU-CHEK XX SCH (02:00)
[2017-05-03 05:49] LABS: ABNORMAL IP MESSAGE 1; HEMATOCRIT 32.3 % (37.0-47.0); HEMOGLOBIN 10.9 g/dl (12.0-16.0); MEAN CORPUSCULAR HEMOGLOBIN 35.7 pg (29.0-33.0); MEAN CORPUSCULAR HGB CONC 33.7 g/dl (32.0-37.0); MEAN CORPUSCULAR VOLUME 105.9 fl (82.0-101.0); MEAN PLATELET VOLUME 9.5 fl (7.4-10.4); NUCLEATED RED BLOOD CELLS% 0.2 /100WBC (0.0-0.0); PLATELET COUNT 66 10^3/UL (140-415); RED BLOOD COUNT 3.05 10^6/ul (4.20-5.40); RED CELL DISTRIBUTION WIDTH 17.5 % (11.5-14.5)
[2017-05-03 05:53] VITALS: BP 141/69; PULSE 81; RESP 17
[2017-05-03] MEDS: FUROSEMIDE 40 MG INJ IV SCH ×2 (05:53→20:00)
[2017-05-03] MEDS ORDERED: PANTOPRAZOLE 40 MG INJ IV SCH (06:00)
[2017-05-03 06:05] LABS: POSITIVE DIFF @See below
[2017-05-03 06:14] LABS: CALCIUM 7.3 mg/dl (8.4-10.2); CREATININE 0.67 mg/dl (0.44-1.00); POTASSIUM 3.4 mmol/L (3.5-5.1)
[2017-05-03 06:16] LABS: MAGNESIUM 1.8 mg/dl (1.7-2.5); PHOSPHORUS 3.3 mg/dl (2.5-4.9)
[2017-05-03] MEDS: INSULIN ASPART [NOVOLOG] 3 ML PEN SC SCH ×4 (07:50→21:00)
[2017-05-03 08:30] VITALS: BP 135/63; RESP 18
[2017-05-03] MEDS ORDERED: RIFAXIMIN 550 MG TAB PO SCH (09:00)
[2017-05-03 09:20] LABS: ANISOCYTOSIS 1+ (0-0); BASOPHILS % (M) 1 % (0-2); EOSINOPHILS % (M) 4 % (0-7); METAMYELOCYTES %M 3 % (0-0); MONOCYTES % (M) 2 % (0-11); MYELOCYTES % (M) 2 % (0-0); PLATELET ESTIMATE DECREASED; POIKILOCYTOSIS 1+ (0-0); POLYCHROMASIA 2+ (0-0); REACTIVE LYMPHOCYTES% (M) 1 % (0-0)
[2017-05-03] MEDS ORDERED: ALBUMIN HUMAN 25% 100 ML IV ONE (12:00)
[2017-05-03] MEDS ORDERED: LACTULOSE ENEMA 1,000 ML BTL PR PRN (12:30)
[2017-05-03] MEDS: LACTULOSE 30ML CUP PO SCH ×2 (12:58→22:00)
[2017-05-03] MEDS ORDERED: LIDOCAINE 1% (MPF) 5 ML VIAL SC ONE (15:30)
[2017-05-03] MEDS ORDERED: DIPHENHYDRAMINE 50 MG INJ IV PRN (15:30)
--- NOTE | 2017-05-03 16:08 | PN ---
Date/Time of Note Date/Time of Note DATE: 05/03/17 TIME: 16:02 Assessment/Plan VTE Prophylaxis VTE Prophylaxis Intervention: SCD's Lines/Catheters IV Catheter Type (from [facility]): Peripheral IV Urinary Cath still in place: Yes Assessment/Plan Chief Complaint/Hosp Course Assessment and plan 1. Acute encephalopathy. Likely toxic metabolic from underlying hyperammonemia. Continue lactulose. CT scan of the brain was negative for any acute findings from outside hospital. 2. Hyperammonemia. Continue lactulose. 3. Abdominal pain secondary to ascites. Plan for another paracentesis. Of note patient did have recent paracentesis with more than a liter of fluid removed on April 26, 2017. 4. Metastatic carcinoma. Oncologist following. Tentative plan for chemotherapy per oncologist. 5. Transaminitis with hyperbilirubinemia secondary to hepatocellular carcinoma. Avoid hepatotoxic medications. 6. Normocytic anemia secondary to hepatocellular carcinoma. Monitor platelets and for signs of bleeding 7. Diabetes mellitus. Continue insulin regimen. 8. Nicotine use. Cessation was advised. 9. Hyponatremia. Temperature Regulator is following. Tentative plan for paracentesis in hopes for helping with sodium level. Disposition plan: Overall prognosis is poor. Tentative plan for palliative chemotherapy. Will plan for PICC line placement for administration. Will follow up with consultants Discussed plan of care with Dr. Tsang Problems: Subjective 24 Hr Interval Summary Free Text/Dictation Lethargic Exam/Review of Systems Vital Signs Vitals Vital Signs Date Time Temp Pulse Resp B/P Pulse Ox O2 Delivery O2 Flow Rate FiO2 05/03/17 08:30 98.6 91 18 135/63 94 05/03/17 05:53 Room Air Intake and Output 05/02/17 05/02/17 05/03/17 15:00 23:00 07:00 Intake Total 265 ml 850 ml 755 ml Output Total 600 ml Balance 265 ml 250 ml 755 ml Exam Constitutional: other (Awakens to noxious stimulus. Lethargic.) Head: normocephalic Eyes: icteric Neck: non-tender, supple Respiratory: diminished breath sounds Cardiovascular: regular rate and rhythm Gastrointestinal: non-tender, soft Musculoskeletal: swelling (bilateral lower extremities ) Neurological: other (alert, lethargic ) Results Result Diagram: 05/03/17 0453 05/03/17 0453 Results 24 hrs Laboratory Tests Test 05/02/17 17:51 05/02/17 20:54 05/03/17 04:53 05/03/17 08:55 Bedside Glucose 154 139 137 White Blood Count 10.0 Red Blood Count 3.05 L Hemoglobin 10.9 L Hematocrit 32.3 L Mean Corpuscular Volume 105.9 H Mean Corpuscular Hemoglobin 35.7 H Mean Corpuscular Hemoglobin Concent 33.7 Red Cell Distribution Width 17.5 H Platelet Count 66 L Mean Platelet Volume 9.5 Neutrophils % Segmented Neutrophils % (Manual) 74 Band Neutrophils % (Manual) 10 H Lymphocytes % Lymphocytes % (Manual) 3 L Reactive Lymphocytes % (Manual) 1 H Monocytes % Monocytes % (Manual) 2 Eosinophils % Eosinophils % (Manual) 4 Basophils % Basophils % (Manual) 1 Metamyelocytes % (manual) 3 H Myelocytes % (Manual) 2 H Nucleated Red Blood Cells % 0.2 H Neutrophils # Neutrophils # (Manual) 7.5 Band Neutrophils # 1.0 H Absolute Lymphocytes (Manual) 0.3 L Lymphocytes # Reactive Lymphocytes # 0.1 H Monocytes # Absolute Monocytes (Manual) 0.2 L Eosinophils # Basophils # Basophils # (Manual) 0.1 H Metamyelocytes # 0.3 H Myelocytes # 0.2 H Nucleated Red Blood Cells # Platelet Estimate DECREASED Polychromasia 2+ Poikilocytosis 1+ Anisocytosis 1+ Macrocytosis 1+ Sodium Level 129 L Potassium Level 3.4 L Chloride Level 92 L Carbon Dioxide Level 33 H Anion Gap 7 L Blood Urea Nitrogen 29 H Creatinine 0.67 Glucose Level 121 Calcium Level 7.3 L Phosphorus Level 3.3 Magnesium Level 1.8 Ammonia 66 H Test 05/03/17 12:56 Bedside Glucose 194 Medications Medications Current Medications Ondansetron HCl (Zofran Inj) 4 mg Q6H PRN IV NAUSEA AND/OR VOMITING Last administered on 04/27/17 14:53; Admin Dose 4 MG; Start 04/26/17 at 15:00 Acetaminophen/ Hydrocodone Bitart ([place] (5/325)) 1 tab Q6H PRN PO MODERATE PAIN LEVEL 4-6 Last administered on 04/26/17 22:03; Admin Dose 1 TAB; Start 04/26/17 at 15:00 Acetaminophen/ Hydrocodone Bitart ([place] (5/325)) 2 tab Q6H PRN PO SEVERE PAIN LEVEL 7-10 Last administered on 04/28/17 14:01; Admin Dose 2 TAB; Start at 15:00 Diagnostic Test (Pha) (Accu-Chek) 1 ea 02 XX ; Start 04/27/17 at 02:00 Non-Formulary Medication 2 ea BID@,17 PO Last administered on 04/27/17 06: 18; Admin Dose 2 EA; Start 04/27/17 at 07:00; Status Future Hold Miscellaneous Information Patients own medicat... BID@ XX ; Start at 10:00 Miscellaneous Information 1 ea NOTE XX ; Start 04/28/17 at 14:30 Glucose (Glutose) 15 gm Q15M PRN PO DECREASED GLUCOSE; Start 04/28/17 at 14:30 Glucose (Glutose) 22.5 gm Q15M PRN PO DECREASED GLUCOSE; Start 04/28/17 at 14: 30 Dextrose (D50w Syringe) 25 ml Q15M PRN IV DECREASED GLUCOSE; Start 04/28/17 at 14:30 Dextrose (D50w Syringe) 50 ml Q15M PRN IV DECREASED GLUCOSE; Start 04/28/17 at 14:30 Glucagon (Glucagen) 1 mg Q15M PRN IM DECREASED GLUCOSE; Start 04/28/17 at 14:30 Glucose (Glutose) 15 gm Q15M PRN BUCCAL DECREASED GLUCOSE; Start 04/28/17 at 14 :30 Hydralazine HCl (Apresoline) 10 mg Q4H PRN IV ELEVATED SYSTOLIC BP; Start 05/01 at 22:00 Rifaximin (Xifaxan) 550 mg BID PO ; Start 05/03/17 at 09:00; Status Future Hold Lactulose (Lactulose Enema) 100 ml Q6 PRN [place] NOTE; Start 05/03/17 at 12:30 Lactulose (Enulose) 20 gm Q8 PO Last administered on 05/03/17 12:58; Admin Dose 20 GM; Start 05/03/17 at 14:00 Diphenhydramine HCl (Benadryl) 25 mg Q6H PRN IV allergic reaction ; Start 05/03 at 15:30 Pantoprazole (Protonix Tab) 40 mg DAILY@06 PO ; Start 05/04/17 at 06:00 CECILIA SMITH May 03, 2017 16:08
--- NOTE | 2017-05-03 18:52 | RADRPT ---
PROCEDURE: US Abdomen (limited). CLINICAL INDICATION: Abdominal pain and distension. TECHNIQUE: Multiple real-time longitudinal and transverse images of the four quadrants of the abdo men were acquired utilizing a curved array transducer. Images were reviewed on a high-resolution PAC S workstation. COMPARISON: Images from paracentesis dated 04/26/2017. FINDINGS: There is a small amount of free fluid in the 4 quadrants of the abdomen. There is not enough fluid t o safely aspirate. Paracentesis was not performed. IMPRESSION: 1. Small amount of free fluid in the abdomen. Paracentesis was not performed. RPTAT: QQ .Ben Curran MD, MD Date Time Electronically viewed and signed by .Ben Curran MD, on 05/03/2017 18:14 .R/
[2017-05-03 20:25] VITALS: BP 145/67; RESP 20
--- NOTE | 2017-05-03 22:14 | CONS ---
Date/Time of Note Date/Time of Note DATE: 05/03/17 TIME: 22:10 Assessment/Plan Assessment/Plan Additional Assessment/Plan 1. 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 acute hepatic encephalopathy 3 HCC 4. Acute transaminitis 5. Hypokalemia 6. DM II Plan: H & O following, plan is chemotherapy for HCC, US guided paracentesis attempted today but not enough fluid as per Radiology sodium chloride tablet 1 gram PO TID Cr normal, pt is making good urine, S osm 281- Uric acid normal will follow up on Na in AM- if continues to remain low then we will consider 3% saline Not a candidate for tolvaptan at this point due to Elevated LFTs Consultation Date/Type/Reason Admit Date/Time Apr 26, 2017 at 13:32 Initial Consult Date 05/02/17 Type of Consultation: NEPHROLOGY Referring Provider: YOON ALVAREZ MD 24 HR Interval Summary Free Text/Dictation Na 129,K 3.4, US paracentesis attempted but not enough fluid to tap as per radiology Exam/Review of Systems Vital Signs Vitals Vital Signs Date Time Temp Pulse Resp B/P Pulse Ox O2 Delivery O2 Flow Rate FiO2 05/03/17 08:30 98.6 91 18 135/63 94 05/03/17 05:53 Room Air Intake and Output 05/02/17 05/02/17 05/03/17 15:00 23:00 07:00 Intake Total 265 ml 850 ml 755 ml Output Total 600 ml Balance 265 ml 250 ml 755 ml Exam Constitutional: alert Psych: no complaints Head: atraumatic, normocephalic Neck: non-tender, supple Respiratory: clear to auscultation, crackles/rales, diminished breath sounds Cardiovascular: nl pulses, regular rate and rhythm Gastrointestinal: ascites, distended, soft Musculoskeletal: swelling (1-2+ edema) Extremities: normal pulses Neurological: confused, lethargic Lymph: nl lymph nodes Results Result Diagram: 05/03/17 0453 05/03/17 0453 Results 24 hrs Laboratory Tests Test 05/03/17 04:53 05/03/17 08:55 05/03/17 12:56 05/03/17 17:34 White Blood Count 10.0 Red Blood Count 3.05 L Hemoglobin 10.9 L Hematocrit 32.3 L Mean Corpuscular Volume 105.9 H Mean Corpuscular Hemoglobin 35.7 H Mean Corpuscular Hemoglobin Concent 33.7 Red Cell Distribution Width 17.5 H Platelet Count 66 L Mean Platelet Volume 9.5 Neutrophils % Segmented Neutrophils % (Manual) 74 Band Neutrophils % (Manual) 10 H Lymphocytes % Lymphocytes % (Manual) 3 L Reactive Lymphocytes % (Manual) 1 H Monocytes % Monocytes % (Manual) 2 Eosinophils % Eosinophils % (Manual) 4 Basophils % Basophils % (Manual) 1 Metamyelocytes % (manual) 3 H Myelocytes % (Manual) 2 H Nucleated Red Blood Cells % 0.2 H Neutrophils # Neutrophils # (Manual) 7.5 Band Neutrophils # 1.0 H Absolute Lymphocytes (Manual) 0.3 L Lymphocytes # Reactive Lymphocytes # 0.1 H Monocytes # Absolute Monocytes (Manual) 0.2 L Eosinophils # Basophils # Basophils # (Manual) 0.1 H Metamyelocytes # 0.3 H Myelocytes # 0.2 H Nucleated Red Blood Cells # Platelet Estimate DECREASED Polychromasia 2+ Poikilocytosis 1+ Anisocytosis 1+ Macrocytosis 1+ Sodium Level 129 L Potassium Level 3.4 L Chloride Level 92 L Carbon Dioxide Level 33 H Anion Gap 7 L Blood Urea Nitrogen 29 H Creatinine 0.67 Glucose Level 121 Calcium Level 7.3 L Phosphorus Level 3.3 Magnesium Level 1.8 Ammonia 66 H Bedside Glucose 137 194 201 Medications Medications Current Medications Ondansetron HCl (Zofran Inj) 4 mg Q6H PRN IV NAUSEA AND/OR VOMITING Last administered on 04/27/17 14:53; Admin Dose 4 MG; Start 04/26/17 at 15:00 Acetaminophen/ Hydrocodone Bitart ([place] (5/325)) 1 tab Q6H PRN PO MODERATE PAIN LEVEL 4-6 Last administered on 04/26/17 22:03; Admin Dose 1 TAB; Start 04/26/17 at 15:00 Acetaminophen/ Hydrocodone Bitart ([place] (5/325)) 2 tab Q6H PRN PO SEVERE PAIN LEVEL 7-10 Last administered on 04/28/17 14:01; Admin Dose 2 TAB; Start at 15:00 Diagnostic Test (Pha) (Accu-Chek) 1 ea 02 XX ; Start 04/27/17 at 02:00 Non-Formulary Medication 2 ea BID@ PO Last administered on 04/27/17 06: 18; Admin Dose 2 EA; Start 04/27/17 at 07:00; Status Future Hold Miscellaneous Information Patients own medicat... BID@ XX ; Start at 10:00 Miscellaneous Information 1 ea NOTE XX ; Start 04/28/17 at 14:30 Glucose (Glutose) 15 gm Q15M PRN PO DECREASED GLUCOSE; Start 04/28/17 at 14:30 Glucose (Glutose) 22.5 gm Q15M PRN PO DECREASED GLUCOSE; Start 04/28/17 at 14: 30 Dextrose (D50w Syringe) 25 ml Q15M PRN IV DECREASED GLUCOSE; Start 04/28/17 at 14:30 Dextrose (D50w Syringe) 50 ml Q15M PRN IV DECREASED GLUCOSE; Start 04/28/17 at 14:30 Glucagon (Glucagen) 1 mg Q15M PRN IM DECREASED GLUCOSE; Start 04/28/17 at 14:30 Glucose (Glutose) 15 gm Q15M PRN BUCCAL DECREASED GLUCOSE; Start 04/28/17 at 14 :30 Hydralazine HCl (Apresoline) 10 mg Q4H PRN IV ELEVATED SYSTOLIC BP; Start 05/01 at 22:00 Rifaximin (Xifaxan) 550 mg BID PO ; Start 05/03/17 at 09:00; Status Future Hold Lactulose (Lactulose Enema) 100 ml Q6 PRN [place] NOTE; Start 05/03/17 at 12:30 Lactulose (Enulose) 20 gm Q8 PO Last administered on 05/03/17 12:58; Admin Dose 20 GM; Start 05/03/17 at 14:00 Diphenhydramine HCl (Benadryl) 25 mg Q6H PRN IV allergic reaction ; Start 05/03 at 15:30 Pantoprazole (Protonix Tab) 40 mg DAILY@06 PO ; Start 05/04/17 at 06:00 MAE VILCHIS MD May 03, 2017 22:14
[2017-05-03 23:29] VITALS: BP 145/67; RESP 20
[2017-05-04] MEDS: ACCU-CHEK XX SCH (02:00)
[2017-05-04 02:57] VITALS: BP 151/69; RESP 20
[2017-05-04] MEDS: PANTOPRAZOLE (EC) 40 MG TAB PO SCH (06:11)
[2017-05-04] MEDS: LACTULOSE 30ML CUP PO SCH ×3 (06:11→21:11)
[2017-05-04] MEDS: FUROSEMIDE 40 MG INJ IV SCH ×2 (06:16→18:21)
[2017-05-04 07:21] VITALS: BP 146/68; RESP 16
[2017-05-04] MEDS: INSULIN ASPART [NOVOLOG] 3 ML PEN SC SCH ×4 (07:50→21:00)
[2017-05-04] MEDS: SODIUM CHLORIDE 1 GM TAB PO SCH ×3 (09:07→21:11)
--- NOTE | 2017-05-04 10:00 | CONS ---
Date/Time of Note Date/Time of Note DATE: 05/04/17 TIME: 09:55 Assessment/Plan Assessment/Plan Additional Assessment/Plan 1. 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 2. acute hepatic encephalopathy- Ammonia level is still high 3 HCC 4. Acute transaminitis 5. Hypokalemia 6. DM II Plan: H & O following, plan is chemotherapy for HCC, US guided paracentesis attempted yesterday but not enough fluid as per Radiology NO labs today to review, I stopped IVF yesterday, on Na chloride tablet 1 gram TID - Talked with nurse to inform me with result. continue sodium chloride tablet 1 gram PO TID Cr normal, pt is making good urine, S osm 281- Uric acid normal will follow up on Na in today labs- if continues to remain lower than 125- then we will consider 3% saline Not a candidate for tolvaptan at this point due to Elevated LFTs Consultation Date/Type/Reason Admit Date/Time Apr 26, 2017 at 13:32 Initial Consult Date 05/02/17 Type of Consultation: NEPHROLOGY Referring Provider: YOON ALVAREZ MD 24 HR Interval Summary Free Text/Dictation NO labs today to review, yeterday paracentesis attempted but not enough fluid to remove, I stopped IVF yesterday, on Na chloride tablet 1 gram TID Exam/Review of Systems Vital Signs Vitals Vital Signs Date Time Temp Pulse Resp B/P Pulse Ox O2 Delivery O2 Flow Rate FiO2 05/04/17 07:21 99.2 102 16 146/68 93 05/03/17 05:53 Room Air Intake and Output 05/03/17 05/03/17 05/04/17 14:59 22:59 06:59 Intake Total 240 ml Output Total 1100 ml Balance -860 ml Exam Constitutional: alert, oriented, other (cachectic, malnourishd due ot Live [place] ) Psych: no complaints Head: normocephalic Eyes: nl conjunctiva, other (no jaundice ) Neck: non-tender, supple Respiratory: diminished breath sounds, normal air movement Cardiovascular: nl pulses, regular rate and rhythm Gastrointestinal: ascites, distended, non-tender, soft Musculoskeletal: joint tenderness, muscle weakness, nl extremities to inspection, swelling Neurological: other (awake, alert but intermittently confused ) Results Result Diagram: 05/03/17 0453 05/03/17 0453 Results 24 hrs Laboratory Tests Test 05/03/17 12:56 05/03/17 17:34 05/03/17 21:26 05/04/17 08:11 Bedside Glucose 194 201 134 151 Medications Medications Current Medications Ondansetron HCl (Zofran Inj) 4 mg Q6H PRN IV NAUSEA AND/OR VOMITING Last administered on 04/27/17 14:53; Admin Dose 4 MG; Start 04/26/17 at 15:00 Acetaminophen/ Hydrocodone Bitart ([place] (5/325)) 1 tab Q6H PRN PO MODERATE PAIN LEVEL 4-6 Last administered on 04/26/17 22:03; Admin Dose 1 TAB; Start 04/26/17 at 15:00 Acetaminophen/ Hydrocodone Bitart ([place] (5/325)) 2 tab Q6H PRN PO SEVERE PAIN LEVEL 7-10 Last administered on 04/28/17 14:01; Admin Dose 2 TAB; Start at 15:00 Diagnostic Test (Pha) (Accu-Chek) 1 ea 02 XX ; Start 04/27/17 at 02:00 Non-Formulary Medication 2 ea BID@,17 PO Last administered on 04/27/17 06: 18; Admin Dose 2 EA; Start 04/27/17 at 07:00; Status Future Hold Miscellaneous Information Patients own medicat... BID@,16 XX ; Start at 10:00 Miscellaneous Information 1 ea NOTE XX ; Start 04/28/17 at 14:30 Glucose (Glutose) 15 gm Q15M PRN PO DECREASED GLUCOSE; Start 04/28/17 at 14:30 Glucose (Glutose) 22.5 gm Q15M PRN PO DECREASED GLUCOSE; Start 04/28/17 at 14: 30 Dextrose (D50w Syringe) 25 ml Q15M PRN IV DECREASED GLUCOSE; Start 04/28/17 at 14:30 Dextrose (D50w Syringe) 50 ml Q15M PRN IV DECREASED GLUCOSE; Start 04/28/17 at 14:30 Glucagon (Glucagen) 1 mg Q15M PRN IM DECREASED GLUCOSE; Start 04/28/17 at 14:30 Glucose (Glutose) 15 gm Q15M PRN BUCCAL DECREASED GLUCOSE; Start 04/28/17 at 14 :30 Hydralazine HCl (Apresoline) 10 mg Q4H PRN IV ELEVATED SYSTOLIC BP; Start 05/01 at 22:00 Rifaximin (Xifaxan) 550 mg BID PO ; Start 05/03/17 at 09:00; Status Future Hold Lactulose (Lactulose Enema) 100 ml Q6 PRN [place] NOTE Last administered on 23:45; Admin Dose 100 ML; Start 05/03/17 at 12:30 Lactulose (Enulose) 20 gm Q8 PO Last administered on 05/04/17 06:11; Admin Dose 20 GM; Start 05/03/17 at 14:00 Diphenhydramine HCl (Benadryl) 25 mg Q6H PRN IV allergic reaction ; Start 05/03 at 15:30 Pantoprazole (Protonix Tab) 40 mg DAILY@06 PO Last administered on 05/04/17 06 :11; Admin Dose 40 MG; Start 05/04/17 at 06:00 Sodium Chloride (Nacl) 1 gm TID PO Last administered on 05/04/17 09:07; Admin Dose 1 GM; Start 05/04/17 at 09:00 MAE VILCHIS MD May 04, 2017 10:00
[2017-05-04 11:46] LABS: ALBUMIN/GLOBULIN RATIO 0.55; BILIRUBIN,DIRECT 5.6 mg/dl (0.00-0.20); BILIRUBIN,INDIRECT 4.8 mg/dl (0-1.1); BILIRUBIN,TOTAL 10.4 mg/dl (0.2-1.3); CALCIUM 7.6 mg/dl (8.4-10.2); CREATININE 0.66 mg/dl (0.44-1.00); TOTAL PROTEIN 5.6 g/dl (6.1-8.1)
[2017-05-04 11:49] LABS: POTASSIUM 2.7 mmol/L (3.5-5.1)
[2017-05-04 11:58] LABS: ABNORMAL IP MESSAGE 1; BASOPHIL # 0.1 10^3/ul (0.0-0.1); EOSINOPHILS # 0.3 10^3/ul (0.0-0.5); EOSINOPHILS % 3.7 % (0.0-7.0); HEMATOCRIT 31.3 % (37.0-47.0); HEMOGLOBIN 11.4 g/dl (12.0-16.0); MEAN CORPUSCULAR HGB CONC 36.4 g/dl (32.0-37.0); MEAN CORPUSCULAR VOLUME 104.3 fl (82.0-101.0); MEAN PLATELET VOLUME 8.7 fl (7.4-10.4); MONOCYTE # 0.9 10^3/ul (0.3-0.9); MONOCYTES % 9.6 % (0.0-11.0); NEUTROPHIL # 6.3 10^3/ul (1.6-7.5); NEUTROPHILS % 68.3 % (39.0-77.0); NUCLEATED RED BLOOD CELLS% 0.2 /100WBC (0.0-0.0); RED CELL DISTRIBUTION WIDTH 17.4 % (11.5-14.5); WHITE BLOOD COUNT 9.3 10^3/ul (4.8-10.8)
[2017-05-04 12:00] LABS: PLATELET COUNT 62 10^3/UL (140-415)
[2017-05-04] MEDS ORDERED: POTASSIUM CHLORIDE 250 ML IVPB ONE (14:00)
--- NOTE | 2017-05-04 15:26 | PN ---
Date/Time of Note Date/Time of Note DATE: 05/04/17 TIME: 15:17 Assessment/Plan VTE Prophylaxis VTE Prophylaxis Intervention: SCD's Lines/Catheters IV [facility] [place] Urinary Cath still in place: Yes Assessment/Plan Chief Complaint/Hosp Course Assessment and plan 1. Acute encephalopathy. Likely toxic metabolic from underlying hyperammonemia. Continue lactulose. CT scan of the brain was negative for any acute findings from outside hospital. 2. Hyperammonemia. Continue lactulose. 3. Abdominal pain secondary to ascites. Plan for another paracentesis. Of note patient did have recent paracentesis with more than a liter of fluid removed on April 26, 2017. Repeat paracentesis was planned for May 04, 2017 however not enough fluid. Will monitor for now. 4. Metastatic carcinoma with HCC. Oncologist following. Tentative plan for chemotherapy per oncologist. 5. Transaminitis with hyperbilirubinemia secondary to hepatocellular carcinoma. Avoid hepatotoxic medications. 6. Normocytic anemia secondary to hepatocellular carcinoma. Monitor platelets and for signs of bleeding 7. Diabetes mellitus. Continue insulin regimen. 8. Nicotine use. Cessation was advised. 9. Hyponatremia. Strategic Marketing Leader is following. Continue IV fluid regimen per gun stocker. Disposition plan: Overall prognosis is poor. Did have lengthy discussion with bioethics meeting and family and power of paper production engineer concerning goals of care. Family and power of paper production engineer made fully aware of patient condition and prognosis. Per family and POA request they still want to move forward with chemotherapy. Will plan for chemotherapy administration. Transfer to telemetry for further monitoring. Plan for PICC line placement. Continue with supportive care Discussed plan of care with Dr. Tsang Problems: Subjective 24 Hr Interval Summary Free Text/Dictation still lethargic and somnolent. Arousable to noxious stimulus Exam/Review of Systems Vital Signs Vitals Vital Signs Date Time Temp Pulse Resp B/P Pulse Ox O2 Delivery O2 Flow Rate FiO2 05/04/17 07:21 99.2 102 16 146/68 93 05/03/17 05:53 Room Air Intake and Output 05/03/17 05/03/17 05/04/17 15:00 23:00 07:00 Intake Total 240 ml Output Total 1100 ml Balance -860 ml Exam Constitutional: other (Awakens to noxious stimulus. Lethargic.) Head: normocephalic Eyes: icteric Neck: non-tender, supple Respiratory: diminished breath sounds Cardiovascular: regular rate and rhythm Gastrointestinal: non-tender, soft Musculoskeletal: swelling (bilateral lower extremities ) Neurological: other (alert, lethargic ) Results Result Diagram: 05/04/17 1030 05/04/17 1032 Results 24 hrs Laboratory Tests Test 05/03/17 17:34 05/03/17 21:26 05/04/17 08:11 05/04/17 10:30 Bedside Glucose 201 134 151 White Blood Count 9.3 Red Blood Count 3.00 L Hemoglobin 11.4 L Hematocrit 31.3 L Mean Corpuscular Volume 104.3 H Mean Corpuscular Hemoglobin 38.0 H Mean Corpuscular Hemoglobin Concent 36.4 Red Cell Distribution Width 17.4 H Platelet Count 62 L Mean Platelet Volume 8.7 Neutrophils % 68.3 Lymphocytes % 11.0 L Monocytes % 9.6 Eosinophils % 3.7 Basophils % 1.0 Nucleated Red Blood Cells % 0.2 H Neutrophils # 6.3 Lymphocytes # 1.0 Monocytes # 0.9 Eosinophils # 0.3 Basophils # 0.1 Nucleated Red Blood Cells # 0.0 Test 05/04/17 10:32 05/04/17 12:16 Sodium Level 130 L Potassium Level 2.7 *L Chloride Level 90 L Carbon Dioxide Level 35 H Anion Gap 8 Blood Urea Nitrogen 24 H Creatinine 0.66 Glucose Level 128 Calcium Level 7.6 L Total Bilirubin 10.4 H Direct Bilirubin 5.60 H Indirect Bilirubin 4.8 H Aspartate Amino Transf (AST/SGOT) 180 H Alanine Aminotransferase (ALT/SGPT) 96 H Alkaline Phosphatase 191 H Total Protein 5.6 L Albumin 2.0 L Globulin 3.60 H Albumin/Globulin Ratio 0.55 Bedside Glucose 134 Medications Medications Current Medications Ondansetron HCl (Zofran Inj) 4 mg Q6H PRN IV NAUSEA AND/OR VOMITING Last administered on 04/27/17 14:53; Admin Dose 4 MG; Start 04/26/17 at 15:00 Acetaminophen/ Hydrocodone Bitart ([place] (5/325)) 1 tab Q6H PRN PO MODERATE PAIN LEVEL 4-6 Last administered on 04/26/17 22:03; Admin Dose 1 TAB; Start 04/26/17 at 15:00 Acetaminophen/ Hydrocodone Bitart ([place] (5/325)) 2 tab Q6H PRN PO SEVERE PAIN LEVEL 7-10 Last administered on 04/28/17 14:01; Admin Dose 2 TAB; Start at 15:00 Diagnostic Test (Pha) (Accu-Chek) 1 ea 02 XX ; Start 04/27/17 at 02:00 Non-Formulary Medication 2 ea BID@ PO Last administered on 04/27/17 06: 18; Admin Dose 2 EA; Start 04/27/17 at 07:00; Status Future Hold Miscellaneous Information Patients own medicat... BID@ XX ; Start at 10:00 Miscellaneous Information 1 ea NOTE XX ; Start 04/28/17 at 14:30 Glucose (Glutose) 15 gm Q15M PRN PO DECREASED GLUCOSE; Start 04/28/17 at 14:30 Glucose (Glutose) 22.5 gm Q15M PRN PO DECREASED GLUCOSE; Start 04/28/17 at 14: 30 Dextrose (D50w Syringe) 25 ml Q15M PRN IV DECREASED GLUCOSE; Start 04/28/17 at 14:30 Dextrose (D50w Syringe) 50 ml Q15M PRN IV DECREASED GLUCOSE; Start 04/28/17 at 14:30 Glucagon (Glucagen) 1 mg Q15M PRN IM DECREASED GLUCOSE; Start 04/28/17 at 14:30 Glucose (Glutose) 15 gm Q15M PRN BUCCAL DECREASED GLUCOSE; Start 04/28/17 at 14 :30 Hydralazine HCl (Apresoline) 10 mg Q4H PRN IV ELEVATED SYSTOLIC BP; Start 05/01 at 22:00 Rifaximin (Xifaxan) 550 mg BID PO ; Start 05/03/17 at 09:00; Status Future Hold Lactulose (Lactulose Enema) 100 ml Q6 PRN [place] NOTE Last administered on 23:45; Admin Dose 100 ML; Start 05/03/17 at 12:30 Lactulose (Enulose) 20 gm Q8 PO Last administered on 05/04/17 06:11; Admin Dose 20 GM; Start 05/03/17 at 14:00 Diphenhydramine HCl (Benadryl) 25 mg Q6H PRN IV allergic reaction ; Start 05/03 at 15:30 Pantoprazole (Protonix Tab) 40 mg DAILY@06 PO Last administered on 05/04/17 06 :11; Admin Dose 40 MG; Start 05/04/17 at 06:00 Sodium Chloride 1 gm 1 gm TID PO Last administered on 05/04/17 09:07; Admin Dose 1 GM; Start 05/04/17 at 09:00 Potassium Chloride (KCl 40 MEQ/250 ML NS) 250 ml @ 62.5 mls/hr ONCE ONCE IVPB ; Start 05/04/17 at 14:00; Stop 05/04/17 at 17:59 CECILIA SMITH May 04, 2017 15:26
--- NOTE | 2017-05-04 18:03 | RADRPT ---
PROCEDURE: XR Chest. CLINICAL INDICATION: Shortness of breath. PICC line placement TECHNIQUE: A single portable view of the chest was obtained. COMPARISON: 04/27/2017 FINDINGS: A left PICC line is seen with the tip in the atrial caval junction. The aorta is tortuous and athero sclerotic. The cardiomediastinal silhouette is otherwise within normal limits. The lung volumes are low with bibasilar compressive atelectasis. The remaining lungs and pleural spaces are clear. The soft tissues and osseous structures demonstrate benign age related senescent changes. IMPRESSION: 1. Satisfactory placement of a left PICC line. 2. Low lung volumes with bibasilar compressive atelectasis. RPTAT: HPNM Physician Severino Date Time Electronically viewed and signed by Physician Severino on 05/04/2017 18:03 /
--- NOTE | 2017-05-04 18:13 | RADRPT ---
PROCEDURE: Ultrasound guidance for placement of needle in left upper extremity vein. CLINICAL INDICATION: PICC placement. TECHNIQUE: Limited sonography of the left upper extremity was performed. Ultrasound images were recorded and st ored in the patient's medical record. COMPARISON: Chest radiograph of the same day. FINDINGS: The ultrasound images demonstrate a patent left upper extremity vein. The PICC line was inserted by the PICC line nurse. IMPRESSION: 1. Ultrasound guidance for a needle placement in a left upper extremity vein. 2. The visualized left upper extremity vein is patent. RPTAT: HH .Homar Zuñiga MD, Date Time Electronically viewed and signed by .Homar Zuñiga MD, on 05/04/2017 18:12 .N/
[2017-05-04] MEDS ORDERED: SOD CHLORIDE 0.9% 100 ML ONE (18:20)
[2017-05-04 20:00] VITALS: BP 145/67; RESP 19
--- NOTE | 2017-05-04 20:41 | PN ---
DATE: 05/04/2017 SUBJECTIVE: The patient states that she is feeling well. She states that she is able to eat. Is not experiencing pain where a PICC line was placed in the left upper extremity. OBJECTIVE: GENERAL: The patient is a well-developed, lethargic and ill-appearing female who is in no acute dis tress. VITAL SIGNS: Temperature 99.2, pulse 102 per minute and regular, respirations 16, blood pressure 14 6/68, pulse oximetry is 93% on room air. SKIN: Warm and dry. There are spider telangiectasias. Scattered ecchymoses. The patient is icter ic. HEENT: Normocephalic. No evidence of trauma. The pupils are equal, round, react to light and acco mmodation. Sclerae are 3 to 4+ icteric. Oral mucosa is moist without lesions. Tongue is well eveline llated. No gingival hyperplasia. NECK: Supple, no jugular venous distention or thyroid enlargement. CHEST: Clear to auscultation and percussion. No rhonchi, wheezes, rales or rubs, but there are dec reased breath sounds in the bases. HEART: Sinus tachycardia. No S3, S4 or murmurs. ABDOMEN: Distended. There is obvious ascites. Slight tenderness on palpation of the right upper q uadrant. Unable to ballot the liver but spleen tip is ballotable. No rebound tenderness. EXTREMITIES: Good range of motion, no clubbing, edema or cyanosis. There are athrombotic pumps in place. There has been a PICC line placed in the left upper extremity. NEUROLOGIC: Patient is lethargic but oriented. There are no focal neurologic abnormalities. There are no focal neurologic abnormalities. There is asterixis present. White count 9,300, hemoglobin 11.4, hematocrit 31.3, and platelet count 62,000. Sodium 130, potassi um 3.7, BUN 24, creatinine 0.66, calcium 7.6, total bilirubin 10.4 with a direct of 5.6, alkaline ph osphatase is 191, AST 180, ALT 96, albumin 2.0. ASSESSMENT: 1. Hepatocellular carcinoma with cirrhosis. 2. Hepatic encephalopathy. DISCUSSION: The patient has had a PICC line placed in the left upper extremity. She is scheduled t o receive nivolumab 240 mg. This apparently is going to be given in the a.m. The patient is to be transferred to telemetry, although this medication does not require any monitoring or premedication. The patient has received potassium replacement. Dictated By: TONE KAPLAN MD, SR/BRENNAN Conf#: [id number] DID#: [id number]
[2017-05-04 22:15] VITALS: BP 155/73; PULSE 95; RESP 20
[2017-05-04 22:25] VITALS: PULSE 95
[2017-05-05] VITALS (18 sets, daily range): BP systolic 125–148; BP diastolic 57–69; PULSE 85–95; RESP 16–20
[2017-05-05] MEDS: ACCU-CHEK XX SCH (02:00)
[2017-05-05] MEDS: FUROSEMIDE 40 MG INJ IV SCH ×2 (05:44→17:39)
[2017-05-05] MEDS: LACTULOSE 30ML CUP PO SCH ×3 (05:44→21:13)
[2017-05-05] MEDS: PANTOPRAZOLE (EC) 40 MG TAB PO SCH (05:44)
[2017-05-05] MEDS: INSULIN ASPART [NOVOLOG] 3 ML PEN SC SCH ×4 (07:55→21:00)
[2017-05-05 08:26] LABS: ALBUMIN 2.1 g/dl (3.3-4.9); ALBUMIN/GLOBULIN RATIO 0.6; BILIRUBIN,DIRECT 5.9 mg/dl (0.00-0.20); BILIRUBIN,INDIRECT 4.8 mg/dl (0-1.1); BILIRUBIN,TOTAL 10.7 mg/dl (0.2-1.3); CALCIUM 7.2 mg/dl (8.4-10.2); CREATININE 0.62 mg/dl (0.44-1.00); TOTAL PROTEIN 5.6 g/dl (6.1-8.1)
[2017-05-05 08:29] LABS: POTASSIUM 2.5 mmol/L (3.5-5.1)
--- NOTE | 2017-05-05 08:45 | PN ---
DATE: 05/05/2017 SUBJECTIVE: Patient has been transferred to telemetry in order to receive her initial dose of nivol umab. The patient has no new complaints. She states that there is no pain in the location of the placemen t of the PICC line in the left upper extremity. She denies any abdominal pain. OBJECTIVE: VITAL SIGNS: Temperature 98.1, pulse 88 per minute and regular, respirations 19, blood pressure 146 /65 and pulse oximetry 93% on room air. GENERAL: The patient is a well-developed, well-nourished female who is lethargic but oriented. SKIN: There are spider telangiectasias, no rashes. The patient is icteric. HEENT: Normocephalic. No evidence of trauma. Pupils equal, round, react to light and accommodatio n. Extraocular movements are intact. Sclerae are 3+ icteric. NECK: Supple, no jugular venous distention or thyroid enlargement. CHEST: Clear to auscultation and percussion except for decreased breath sounds in both bases. No r honchi, wheezes, rales or rubs. No pain on percussion of spine, sternum, clavicles or ribs. HEART: Regular sinus rhythm, no S3, S4, murmurs. No rubs. ABDOMEN: Markedly distended but soft. There is obvious ascites. Neither the liver or spleen are b allottable. EXTREMITIES: No clubbing or cyanosis. There is a PICC line in the left upper extremity with some d ry blood at the insertion site, but no active bleeding. There is 2+ pedal edema. No palpable cords or Homans sign. NEUROLOGIC: Reveals no focal neurologic abnormalities. The patient is lethargic but arousable and actually oriented. There is asterixis. LABORATORY DATA: Both the comprehensive metabolic panel and ammonia levels that were ordered for morning are not yet available. ASSESSMENT: 1. Hepatocellular carcinoma. 2. Cirrhosis. 3. Hepatic encephalopathy. DISCUSSION: The patient is to receive initial dose of nivolumab today. This will be 240 mg. Origi aroldo this was to be at 7 a.m., but apparently has been delayed until 11 a.m. The patient will require a paracentesis in the next day or 2. We will also attempt to start mobiliz ing patient, but this will depend somewhat on her mental status and ability to cooperate. Dictated By: TONE KAPLAN MD SR/NTS Conf#: [id number] DID#: [id number]
[2017-05-05] MEDS: SODIUM CHLORIDE 1 GM TAB PO SCH ×3 (09:19→21:13)
[2017-05-05] MEDS: POTASSIUM CHLORIDE 250 ML IVPB SCH ×2 (12:36→17:00)
[2017-05-05] MEDS ORDERED: DEXTROSE 5% IV SCH ×3 (13:00)
[2017-05-05] MEDS ORDERED: NIVOLUMAB IV SCH ×3 (13:00)
--- NOTE | 2017-05-05 14:40 | PN ---
Date/Time of Note Date/Time of Note DATE: 05/05/17 TIME: 14:39 Assessment/Plan VTE Prophylaxis VTE Prophylaxis Intervention: SCD's Lines/Catheters IV C[facility]ter Type [facility]from [facility] PICC Line Urinary Cath still in place: Yes Assessment/Plan Chief Complaint/Hosp Course Assessment and plan 1. Acute encephalopathy. Likely toxic metabolic from underlying hyperammonemia. Continue lactulose. CT scan of the brain was negative for any acute findings from outside hospital. 2. Hyperammonemia. Continue lactulose. 3. Abdominal pain secondary to ascites. Plan for another paracentesis. Of note patient did have recent paracentesis with more than a liter of fluid removed on April 26, 2017. Repeat paracentesis was planned for May 04, 2017 however not enough fluid. Will monitor for now. 4. Metastatic carcinoma with HCC. Oncologist following. Tentative plan for chemotherapy per oncologist. 5. Transaminitis with hyperbilirubinemia secondary to hepatocellular carcinoma. Avoid hepatotoxic medications. 6. Normocytic anemia secondary to hepatocellular carcinoma. Monitor platelets and for signs of bleeding 7. Diabetes mellitus. Continue insulin regimen. 8. Nicotine use. Cessation was advised. 9. Hyponatremia. Director Of Financial Planning is following. Continue IV fluid regimen per lead network architect. Disposition plan: Overall prognosis is poor. Continue with chemotherapy. Monitor response. Continue in-house monitoring Discussed plan of care with Dr. Tsang Problems: Subjective 24 Hr Interval Summary Free Text/Dictation Comfortable at present. Denies any pain. Receiving chemotherapy Exam/Review of Systems Vital Signs Vitals Vital Signs Date Time Temp Pulse Resp B/P Pulse Ox O2 Delivery O2 Flow Rate FiO2 05/05/17 12:08 89 05/05/17 11:26 98.7 19 144/65 95 05/04/17 22:15 Room Air Intake and Output 05/04/17 05/04/17 05/05/17 15:00 23:00 07:00 Intake Total 670 ml 100 ml Output Total 1200 ml 700 ml Balance -530 ml -600 ml Exam Constitutional: other (Awakens to noxious stimulus. Lethargic.) Head: normocephalic Eyes: icteric Neck: non-tender, supple Respiratory: diminished breath sounds Cardiovascular: regular rate and rhythm Gastrointestinal: non-tender, soft Musculoskeletal: swelling (bilateral lower extremities ) Neurological: other (alert, lethargic ) Results Result Diagram: 05/04/17 1030 05/05/17 0702 Results 24 hrs Laboratory Tests Test 05/04/17 18:19 05/04/17 21:09 05/05/17 02:09 05/05/17 07:02 Bedside Glucose 173 173 170 Sodium Level 130 L Potassium Level 2.5 *L Chloride Level 90 L Carbon Dioxide Level 32 H Anion Gap 11 Blood Urea Nitrogen 22 H Creatinine 0.62 Glucose Level 160 Calcium Level 7.2 L Magnesium Level 1.8 Total Bilirubin 10.7 H Direct Bilirubin 5.90 H Indirect Bilirubin 4.8 H Aspartate Amino Transf (AST/SGOT) 177 H Alanine Aminotransferase (ALT/SGPT) 91 H Alkaline Phosphatase 206 H Ammonia 83 H Total Protein 5.6 L Albumin 2.1 L Globulin 3.50 H Albumin/Globulin Ratio 0.60 Test 05/05/17 08:02 05/05/17 12:12 Bedside Glucose 163 236 H Medications Medications Current Medications Ondansetron HCl (Zofran Inj) 4 mg Q6H PRN IV NAUSEA AND/OR VOMITING Last administered on 04/27/17 14:53; Admin Dose 4 MG; Start 04/26/17 at 15:00 Acetaminophen/ Hydrocodone Bitart ([place] (5/325)) 1 tab Q6H PRN PO MODERATE PAIN LEVEL 4-6 Last administered on 04/26/17 22:03; Admin Dose 1 TAB; Start 04/26/17 at 15:00 Acetaminophen/ Hydrocodone Bitart ([place] (5/325)) 2 tab Q6H PRN PO SEVERE PAIN LEVEL 7-10 Last administered on 04/28/17 14:01; Admin Dose 2 TAB; Start at 15:00 Diagnostic Test (Pha) (Accu-Chek) 1 ea 02 XX ; Start 04/27/17 at 02:00 Non-Formulary Medication 2 ea BID@ PO Last administered on 04/27/17 06: 18; Admin Dose 2 EA; Start 04/27/17 at 07:00; Status Future Hold Miscellaneous Information Patients own medicat... BID@ XX ; Start at 10:00 Miscellaneous Information 1 ea NOTE XX ; Start 04/28/17 at 14:30 Glucose (Glutose) 15 gm Q15M PRN PO DECREASED GLUCOSE; Start 04/28/17 at 14:30 Glucose (Glutose) 22.5 gm Q15M PRN PO DECREASED GLUCOSE; Start 04/28/17 at 14: 30 Dextrose (D50w Syringe) 25 ml Q15M PRN IV DECREASED GLUCOSE; Start 04/28/17 at 14:30 Dextrose (D50w Syringe) 50 ml Q15M PRN IV DECREASED GLUCOSE; Start 04/28/17 at 14:30 Glucagon (Glucagen) 1 mg Q15M PRN IM DECREASED GLUCOSE; Start 04/28/17 at 14:30 Glucose (Glutose) 15 gm Q15M PRN BUCCAL DECREASED GLUCOSE; Start 04/28/17 at 14 :30 Hydralazine HCl (Apresoline) 10 mg Q4H PRN IV ELEVATED SYSTOLIC BP; Start 05/01 at 22:00 Rifaximin (Xifaxan) 550 mg BID PO ; Start 05/03/17 at 09:00; Status Future Hold Lactulose (Lactulose Enema) 100 ml Q6 PRN [place] NOTE Last administered on 23:45; Admin Dose 100 ML; Start 05/03/17 at 12:30 Lactulose (Enulose) 20 gm Q8 PO Last administered on 05/05/17 05:44; Admin Dose 20 GM; Start 05/03/17 at 14:00 Diphenhydramine HCl (Benadryl) 25 mg Q6H PRN IV allergic reaction ; Start 05/03 at 15:30 Pantoprazole (Protonix Tab) 40 mg DAILY@06 PO Last administered on 05/05/17 05 :44; Admin Dose 40 MG; Start 05/04/17 at 06:00 Sodium Chloride (Nacl) 1 gm TID PO Last administered on 05/05/17 09:19; Admin Dose 1 GM; Start 05/04/17 at 09:00 IV Flush 10 ml 10 ml PRN PRN IV IV PROTOCOL; Start 05/04/17 at 18:00 Potassium Chloride 250 ml @ 62.5 mls/hr Q4H IVPB Last administered on 12:36; Admin Dose 62.5 MLS/HR; Start 05/05/17 at 12:00; Stop 05/05/17 at 19 :59 Nivolumab/ Nivolumab/Dextrose (Opdivo/Opdivo/ D5W) 240 ml @ 240 mls/hr ONCE IV Last administered on 05/05/17t 13:53; Admin Dose 240 MLS/HR; Start 05/05/17 at 13:00; Stop 05/05/17 at 16:00 CECILIA SMITH May 05, 2017 14:40
[2017-05-05] MEDS ORDERED: DIPHENHYDRAMINE 50 MG INJ IM PRN (15:00)
--- NOTE | 2017-05-05 18:55 | CONS ---
Date/Time of Note Date/Time of Note DATE: 05/05/17 TIME: 18:53 Assessment/Plan Assessment/Plan Additional Assessment/Plan 1. 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 2. acute hepatic encephalopathy- Ammonia level is still high 3 HCC 4. Acute transaminitis 5. Hypokalemia 6. DM II Plan: started on chemotherapy as per H & O US guided paracentesis attempted yesterday but not enough fluid as per Radiology continue Na chloride tablet 1 gram TID decrease lasix to 20mg IV BID will follow up on Na in AM labs- if continues to remain lower than 125- then we will consider 3% saline Not a candidate for tolvaptan at this point due to Elevated LFTs Consultation Date/Type/Reason Admit Date/Time Apr 26, 2017 at 13:32 Initial Consult Date 05/02/17 Type of Consultation: NEPHROLOGY Referring Provider: YOON ALVAREZ MD Exam/Review of Systems Vital Signs Vitals Vital Signs Date Time Temp Pulse Resp B/P Pulse Ox O2 Delivery O2 Flow Rate FiO2 05/05/17 17:00 98.7 95 18 126/60 94 Room Air Intake and Output 05/04/17 05/04/17 05/05/17 15:00 23:00 07:00 Intake Total 670 ml 100 ml Output Total 1200 ml 700 ml Balance -530 ml -600 ml Exam Constitutional: alert, Psych: no complaints Head: normocephalic Eyes: nl conjunctiva, other (no jaundice ) Neck: non-tender, supple Respiratory: diminished breath sounds, normal air movement Cardiovascular: nl pulses, regular rate and rhythm Gastrointestinal: ascites, distended, non-tender, soft Musculoskeletal: joint tenderness, muscle weakness, nl extremities to inspection, swelling Neurological: other (awake, alert but intermittently confused ) Results Result Diagram: 05/04/17 1030 05/05/17 0702 Results 24 hrs Laboratory Tests Test 05/04/17 21:09 05/05/17 02:09 05/05/17 07:02 05/05/17 08:02 Bedside Glucose 173 170 163 Sodium Level 130 L Potassium Level 2.5 *L Chloride Level 90 L Carbon Dioxide Level 32 H Anion Gap 11 Blood Urea Nitrogen 22 H Creatinine 0.62 Glucose Level 160 Calcium Level 7.2 L Magnesium Level 1.8 Total Bilirubin 10.7 H Direct Bilirubin 5.90 H Indirect Bilirubin 4.8 H Aspartate Amino Transf (AST/SGOT) 177 H Alanine Aminotransferase (ALT/SGPT) 91 H Alkaline Phosphatase 206 H Ammonia 83 H Total Protein 5.6 L Albumin 2.1 L Globulin 3.50 H Albumin/Globulin Ratio 0.60 Test 05/05/17 12:12 05/05/17 17:43 Bedside Glucose 236 H 200 Medications Medications Current Medications Ondansetron HCl (Zofran Inj) 4 mg Q6H PRN IV NAUSEA AND/OR VOMITING Last administered on 04/27/17 14:53; Admin Dose 4 MG; Start 04/26/17 at 15:00 Acetaminophen/ Hydrocodone Bitart ([place] (5/325)) 1 tab Q6H PRN PO MODERATE PAIN LEVEL 4-6 Last administered on 04/26/17 22:03; Admin Dose 1 TAB; Start 04/26/17 at 15:00 Acetaminophen/ Hydrocodone Bitart ([place] (5/325)) 2 tab Q6H PRN PO SEVERE PAIN LEVEL 7-10 Last administered on 04/28/17 14:01; Admin Dose 2 TAB; Start at 15:00 Diagnostic Test (Pha) (Accu-Chek) 1 ea 02 XX ; Start 04/27/17 at 02:00 Non-Formulary Medication 2 ea BID@17 PO Last administered on 04/27/17 06: 18; Admin Dose 2 EA; Start 04/27/17 at 07:00; Status Future Hold Miscellaneous Information Patients own medicat... BID@ XX ; Start at 10:00 Miscellaneous Information 1 ea NOTE XX ; Start 04/28/17 at 14:30 Glucose (Glutose) 15 gm Q15M PRN PO DECREASED GLUCOSE; Start 04/28/17 at 14:30 Glucose (Glutose) 22.5 gm Q15M PRN PO DECREASED GLUCOSE; Start 04/28/17 at 14: 30 Dextrose (D50w Syringe) 25 ml Q15M PRN IV DECREASED GLUCOSE; Start 04/28/17 at 14:30 Dextrose (D50w Syringe) 50 ml Q15M PRN IV DECREASED GLUCOSE; Start 04/28/17 at 14:30 Glucagon (Glucagen) 1 mg Q15M PRN IM DECREASED GLUCOSE; Start 04/28/17 at 14:30 Glucose (Glutose) 15 gm Q15M PRN BUCCAL DECREASED GLUCOSE; Start 04/28/17 at 14 :30 Hydralazine HCl (Apresoline) 10 mg Q4H PRN IV ELEVATED SYSTOLIC BP; Start 05/01 at 22:00 Rifaximin (Xifaxan) 550 mg BID PO ; Start 05/03/17 at 09:00; Status Future Hold Lactulose (Lactulose Enema) 100 ml Q6 PRN [place] NOTE Last administered on 23:45; Admin Dose 100 ML; Start 05/03/17 at 12:30 Lactulose (Enulose) 20 gm Q8 PO Last administered on 05/05/17 16:17; Admin Dose 20 GM; Start 05/03/17 at 14:00 Diphenhydramine HCl (Benadryl) 25 mg Q6H PRN IV allergic reaction ; Start 05/03 at 15:30 Pantoprazole (Protonix Tab) 40 mg DAILY@06 PO Last administered on 05/05/17 05 :44; Admin Dose 40 MG; Start 05/04/17 at 06:00 Sodium Chloride (Nacl) 1 gm TID PO Last administered on 05/05/17 16:17; Admin Dose 1 GM; Start 05/04/17 at 09:00 IV Flush 10 ml 10 ml PRN PRN IV IV PROTOCOL; Start 05/04/17 at 18:00 Potassium Chloride (KCl 40 MEQ/250 ML NS) 250 ml @ 62.5 mls/hr Q4H IVPB Last administered on 05/05/17 17:00; Admin Dose 62.5 MLS/HR; Start 05/05/17 at 12:00 ; Stop 05/05/17 at 19:59 Diphenhydramine HCl (Benadryl) 50 mg Q6H PRN IM allergic reaction; Start at 15:00 MAE VILCHIS MD May 05, 2017 18:55
[2017-05-05] MEDS: RIFAXIMIN 550 MG TAB PO SCH (22:24)
[2017-05-06] VITALS (11 sets, daily range): BP systolic 130–159; BP diastolic 67–76; PULSE 94–102; RESP 16–22
[2017-05-06] MEDS: ACCU-CHEK XX SCH (02:00)
[2017-05-06] MEDS: LACTULOSE 30ML CUP PO SCH ×3 (05:34→21:03)
[2017-05-06] MEDS: PANTOPRAZOLE (EC) 40 MG TAB PO SCH (05:34)
[2017-05-06] MEDS ORDERED: FUROSEMIDE 20 MG INJ IV SCH (06:00)
[2017-05-06 07:19] LABS: ABNORMAL IP MESSAGE 1; BASOPHILS % 0.3 % (0.0-2.0); EOSINOPHILS # 0.4 10^3/ul (0.0-0.5); EOSINOPHILS % 4.5 % (0.0-7.0); HEMATOCRIT 30.6 % (37.0-47.0); HEMOGLOBIN 10.4 g/dl (12.0-16.0); LYMPHOCYTES # 0.4 10^3/ul (0.8-2.9); LYMPHOCYTES % 4.2 % (15.0-51.0); MEAN CORPUSCULAR VOLUME 105.9 fl (82.0-101.0); MONOCYTE # 0.7 10^3/ul (0.3-0.9); NEUTROPHIL # 7.7 10^3/ul (1.6-7.5); NUCLEATED RED BLOOD CELLS% 0.2 /100WBC (0.0-0.0); PLATELET COUNT 53 10^3/UL (140-415); RED BLOOD COUNT 2.89 10^6/ul (4.20-5.40); RED CELL DISTRIBUTION WIDTH 18.2 % (11.5-14.5); WHITE BLOOD COUNT 9.8 10^3/ul (4.8-10.8)
[2017-05-06 07:26] LABS: POSITIVE DIFF @See below
[2017-05-06 07:46] LABS: CALCIUM 7.4 mg/dl (8.4-10.2); CREATININE 0.65 mg/dl (0.44-1.00)
[2017-05-06 07:51] LABS: POTASSIUM 2.8 mmol/L (3.5-5.1)
[2017-05-06] MEDS: INSULIN ASPART [NOVOLOG] 3 ML PEN SC SCH ×4 (08:10→20:20)
[2017-05-06] MEDS ORDERED: NACL 3% 500 ML IV SCH (09:00)
[2017-05-06] MEDS: RIFAXIMIN 550 MG TAB PO SCH ×2 (09:06→20:14)
--- NOTE | 2017-05-06 09:06 | CONS ---
Date/Time of Note Date/Time of Note DATE: 05/06/17 TIME: 08:54 Assessment/Plan Assessment/Plan Additional Assessment/Plan 1. 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 2. acute hepatic encephalopathy- Ammonia level is still high 3 HCC 4. Acute transaminitis 5. Hypokalemia severe- requiring IV replacement every day 6. DM II Plan: H & O following,getting chemotherapy as per H & O US guided paracentesis attempted 05/03/17- but not enough fluid as per Radiology - I ordered another Limited US abdomen for tomorrow and US paracentesis if enough fluid to remove K replacement as per protocol- pt will be getting KCl 30mEQ IV x 1 decrease Na chloride tablet to 1 gram BID, lasix decreased to 20 mg IV BID yesterday- will change lasix to 40mg PO BID today will add spironolactone 25 mg po daily will give 3% Hypertonic saline x 6 hr then stop BMP at 6 pm today to follow up on K and Na Cr normal, pt is making good urine, S osm 281- Uric acid normal Not a candidate for tolvaptan at this point due to Elevated LFTs will follow up Consultation Date/Type/Reason Admit Date/Time Apr 26, 2017 at 13:32 Initial Consult Date 05/02/17 Type of Consultation: NEPHROLOGY Referring Provider: YOON ALVAREZ MD 24 HR Interval Summary Free Text/Dictation Na 130., K 2.9 Exam/Review of Systems Vital Signs Vitals Vital Signs Date Time Temp Pulse Resp B/P Pulse Ox O2 Delivery O2 Flow Rate FiO2 05/06/17 08:04 102 05/06/17 04:38 98.7 22 143/76 96 05/05/17 17:00 Room Air Intake and Output 05/05/17 05/05/17 05/06/17 15:00 23:00 07:00 Intake Total 300 ml Balance 300 ml Exam Constitutional: alert, awake Eyes: nl conjunctiva, other (no jaundice ) Neck: non-tender, supple Respiratory: diminished breath sounds, normal air movement Cardiovascular: nl pulses, regular rate and rhythm Gastrointestinal: ascites, distended, non-tender, soft Musculoskeletal: joint tenderness, muscle weakness, nl extremities to inspection, swelling Neurological: other (awake, alert but intermittently confused ) Results Result Diagram: 05/06/17 0625 05/06/17 0625 Results 24 hrs Laboratory Tests Test 05/05/17 12:12 05/05/17 17:43 05/05/17 21:11 05/06/17 06:25 Bedside Glucose 236 H 200 167 White Blood Count 9.8 Red Blood Count 2.89 L Hemoglobin 10.4 L Hematocrit 30.6 L Mean Corpuscular Volume 105.9 H Mean Corpuscular Hemoglobin 36.0 H Mean Corpuscular Hemoglobin Concent 34.0 Red Cell Distribution Width 18.2 H Platelet Count 53 L Mean Platelet Volume 9.0 Neutrophils % 79.0 H Lymphocytes % 4.2 L Monocytes % 7.0 Eosinophils % 4.5 Basophils % 0.3 Nucleated Red Blood Cells % 0.2 H Neutrophils # 7.7 H Lymphocytes # 0.4 L Monocytes # 0.7 Eosinophils # 0.4 Basophils # 0.0 Nucleated Red Blood Cells # 0.0 Sodium Level 130 L Potassium Level 2.8 *L Chloride Level 91 L Carbon Dioxide Level 33 H Anion Gap 9 Blood Urea Nitrogen 21 H Creatinine 0.65 Glucose Level 137 Calcium Level 7.4 L Test 05/06/17 07:54 05/06/17 07:57 Lab Scanned Report REFERENCE LAB Bedside Glucose 199 Medications Medications Current Medications Ondansetron HCl (Zofran Inj) 4 mg Q6H PRN IV NAUSEA AND/OR VOMITING Last administered on 04/27/17 14:53; Admin Dose 4 MG; Start 04/26/17 at 15:00 Acetaminophen/ Hydrocodone Bitart ([place] (5/325)) 1 tab Q6H PRN PO MODERATE PAIN LEVEL 4-6 Last administered on 04/26/17 22:03; Admin Dose 1 TAB; Start 04/26/17 at 15:00 Acetaminophen/ Hydrocodone Bitart ([place] (5/325)) 2 tab Q6H PRN PO SEVERE PAIN LEVEL 7-10 Last administered on 04/28/17 14:01; Admin Dose 2 TAB; Start at 15:00 Diagnostic Test (Pha) (Accu-Chek) 1 ea 02 XX ; Start 04/27/17 at 02:00 Non-Formulary Medication 2 ea BID@, PO Last administered on 04/27/17 06: 18; Admin Dose 2 EA; Start 04/27/17 at 07:00; Status Future Hold Miscellaneous Information Patients own medicat... BID@ XX ; Start at 10:00 Miscellaneous Information 1 ea NOTE XX ; Start 04/28/17 at 14:30 Glucose (Glutose) 15 gm Q15M PRN PO DECREASED GLUCOSE; Start 04/28/17 at 14:30 Glucose (Glutose) 22.5 gm Q15M PRN PO DECREASED GLUCOSE; Start 04/28/17 at 14: 30 Dextrose (D50w Syringe) 25 ml Q15M PRN IV DECREASED GLUCOSE; Start 04/28/17 at 14:30 Dextrose (D50w Syringe) 50 ml Q15M PRN IV DECREASED GLUCOSE; Start 04/28/17 at 14:30 Glucagon (Glucagen) 1 mg Q15M PRN IM DECREASED GLUCOSE; Start 04/28/17 at 14:30 Glucose (Glutose) 15 gm Q15M PRN BUCCAL DECREASED GLUCOSE; Start 04/28/17 at 14 :30 Hydralazine HCl (Apresoline) 10 mg Q4H PRN IV ELEVATED SYSTOLIC BP; Start 05/01 at 22:00 Lactulose (Lactulose Enema) 100 ml Q6 PRN [place] NOTE Last administered on 23:45; Admin Dose 100 ML; Start 05/03/17 at 12:30 Lactulose (Enulose) 20 gm Q8 PO Last administered on 05/06/17 05:34; Admin Dose 20 GM; Start 05/03/17 at 14:00 Diphenhydramine HCl (Benadryl) 25 mg Q6H PRN IV allergic reaction ; Start 05/03 at 15:30 Pantoprazole (Protonix Tab) 40 mg DAILY@06 PO Last administered on 05/06/17 05 :34; Admin Dose 40 MG; Start 05/04/17 at 06:00 Sodium Chloride (Nacl) 1 gm TID PO Last administered on 05/05/17 21:13; Admin Dose 1 GM; Start 05/04/17 at 09:00 IV Flush (NS 10 ml) 10 ml PRN PRN IV IV PROTOCOL; Start 05/04/17 at 18:00 Diphenhydramine HCl (Benadryl) 50 mg Q6H PRN IM allergic reaction; Start at 15:00 Rifaximin (Xifaxan) 550 mg BID PO Last administered on 05/05/17t 22:24; Admin Dose 550 MG; Start 05/05/17 at 22:17 MAE VILCHIS MD May 06, 2017 09:06
[2017-05-06] MEDS: SPIRONOLACTONE 25 MG TAB PO SCH (09:28)
[2017-05-06] MEDS: POTASSIUM CHLORIDE 50 ML IVPB PRN ×6 (09:29→23:58)
[2017-05-06] MEDS: SODIUM CHLORIDE 1 GM TAB PO SCH ×2 (12:15→20:14)
--- NOTE | 2017-05-06 12:15 | PN ---
Date/Time of Note Date/Time of Note DATE: 05/06/17 TIME: 12:13 Assessment/Plan VTE Prophylaxis VTE Prophylaxis Intervention: SCD's Lines/Catheters IV Catheter Type (from [facility]): PICC Line Urinary Cath still in place: Yes Assessment/Plan Chief Complaint/Hosp Course Assessment and plan 1. Acute encephalopathy. Likely toxic metabolic from underlying hyperammonemia. Continue lactulose. CT scan of the brain was negative for any acute findings from outside hospital. 2. Hyperammonemia. Continue lactulose. 3. Abdominal pain secondary to ascites. Plan for another paracentesis. Of note patient did have recent paracentesis with more than a liter of fluid removed on April 26, 2017. Repeat paracentesis was planned for May 04, 2017 however not enough fluid. Will monitor for now. Further paracentesis pending clinical course 4. Metastatic carcinoma with HCC. Oncologist following. Tentative plan for chemotherapy per oncologist. 5. Transaminitis with hyperbilirubinemia secondary to hepatocellular carcinoma. Avoid hepatotoxic medications. 6. Normocytic anemia secondary to hepatocellular carcinoma. Monitor platelets and for signs of bleeding 7. Diabetes mellitus. Continue insulin regimen. 8. Nicotine use. Cessation was advised. 9. Hyponatremia. Nut Processing Supervisor is following. Continue IV fluid regimen per electric razor mechanic. 10. Hypokalemia. Will monitor and replete electrolytes as needed 11. Vaginal bleeding. Etiology unknown. Follow-up on vaginal ultrasound. Disposition plan: Overall prognosis is poor. Continue with chemotherapy. Follow-up on vaginal ultrasound. Transfuse blood products as needed for anemia. Continue in-house monitoring Discussed plan of care with Dr. Tsang Problems: Subjective 24 Hr Interval Summary Free Text/Dictation With reported vaginal bleeding. No reports of pain at this time. Exam/Review of Systems Vital Signs Vitals Vital Signs Date Time Temp Pulse Resp B/P Pulse Ox O2 Delivery O2 Flow Rate FiO2 05/06/17 12:06 95 05/06/17 11:02 98.5 19 150/68 94 05/05/17 17:00 Room Air Intake and Output 05/05/17 05/05/17 05/06/17 15:00 23:00 07:00 Intake Total 300 ml Balance 300 ml Exam Constitutional: other (Awakens to noxious stimulus. Lethargic.) Head: normocephalic Eyes: icteric Neck: non-tender, supple Respiratory: diminished breath sounds Cardiovascular: regular rate and rhythm Gastrointestinal: non-tender, soft Musculoskeletal: swelling (bilateral lower extremities ) Neurological: other (alert, lethargic ) Results Result Diagram: 05/06/1762405/06/17624 Results 24 hrs Laboratory Tests Test 05/05/17 17:43 05/05/17 21:11 05/06/17 06:25 05/06/17 07:54 Bedside Glucose 200 167 White Blood Count 9.8 Red Blood Count 2.89 L Hemoglobin 10.4 L Hematocrit 30.6 L Mean Corpuscular Volume 105.9 H Mean Corpuscular Hemoglobin 36.0 H Mean Corpuscular Hemoglobin Concent 34.0 Red Cell Distribution Width 18.2 H Platelet Count 53 L Mean Platelet Volume 9.0 Neutrophils % 79.0 H Lymphocytes % 4.2 L Monocytes % 7.0 Eosinophils % 4.5 Basophils % 0.3 Nucleated Red Blood Cells % 0.2 H Neutrophils # 7.7 H Lymphocytes # 0.4 L Monocytes # 0.7 Eosinophils # 0.4 Basophils # 0.0 Nucleated Red Blood Cells # 0.0 Sodium Level 130 L Potassium Level 2.8 *L Chloride Level 91 L Carbon Dioxide Level 33 H Anion Gap 9 Blood Urea Nitrogen 21 H Creatinine 0.65 Glucose Level 137 Calcium Level 7.4 L Lab Scanned Report REFERENCE LAB Test 05/06/17 07:57 Bedside Glucose 199 Medications Medications Current Medications Ondansetron HCl (Zofran Inj) 4 mg Q6H PRN IV NAUSEA AND/OR VOMITING Last administered on 04/27/17 14:53; Admin Dose 4 MG; Start 04/26/17 at 15:00 Acetaminophen/ Hydrocodone Bitart ([place] (5/325)) 1 tab Q6H PRN PO MODERATE PAIN LEVEL 4-6 Last administered on 04/26/17 22:03; Admin Dose 1 TAB; Start 04/26/17 at 15:00 Acetaminophen/ Hydrocodone Bitart ([place] (5/325)) 2 tab Q6H PRN PO SEVERE PAIN LEVEL 7-10 Last administered on 04/28/17 14:01; Admin Dose 2 TAB; Start at 15:00 Diagnostic Test (Pha) (Accu-Chek) 1 ea 02 XX ; Start 04/27/17 at 02:00 Non-Formulary Medication 2 ea BID@ PO Last administered on 04/27/17 06: 18; Admin Dose 2 EA; Start 04/27/17 at 07:00; Status Future Hold Miscellaneous Information Patients own medicat... BID@ XX ; Start at 10:00 Miscellaneous Information 1 ea NOTE XX ; Start 04/28/17 at 14:30 Glucose (Glutose) 15 gm Q15M PRN PO DECREASED GLUCOSE; Start 04/28/17 at 14:30 Glucose (Glutose) 22.5 gm Q15M PRN PO DECREASED GLUCOSE; Start 04/28/17 at 14: 30 Dextrose (D50w Syringe) 25 ml Q15M PRN IV DECREASED GLUCOSE; Start 04/28/17 at 14:30 Dextrose (D50w Syringe) 50 ml Q15M PRN IV DECREASED GLUCOSE; Start 04/28/17 at 14:30 Glucagon (Glucagen) 1 mg Q15M PRN IM DECREASED GLUCOSE; Start 04/28/17 at 14:30 Glucose (Glutose) 15 gm Q15M PRN BUCCAL DECREASED GLUCOSE; Start 04/28/17 at 14 :30 Hydralazine HCl (Apresoline) 10 mg Q4H PRN IV ELEVATED SYSTOLIC BP; Start 05/01 at 22:00 Lactulose (Lactulose Enema) 100 ml Q6 PRN [place] NOTE Last administered on 23:45; Admin Dose 100 ML; Start 05/03/17 at 12:30 Lactulose (Enulose) 20 gm Q8 PO Last administered on 05/06/17 05:34; Admin Dose 20 GM; Start 05/03/17 at 14:00 Diphenhydramine HCl (Benadryl) 25 mg Q6H PRN IV allergic reaction ; Start 05/03 at 15:30 Pantoprazole (Protonix Tab) 40 mg DAILY@06 PO Last administered on 05/06/17 05 :34; Admin Dose 40 MG; Start 05/04/17 at 06:00 IV Flush (NS 10 ml) 10 ml PRN PRN IV IV PROTOCOL; Start 05/04/17 at 18:00 Diphenhydramine HCl (Benadryl) 50 mg Q6H PRN IM allergic reaction; Start at 15:00 Rifaximin (Xifaxan) 550 mg BID PO Last administered on 05/06/17 09:06; Admin Dose 550 MG; Start 05/05/17 at 22:17 Sodium Chloride (Nacl) 1 gm BID PO ; Start 05/06/17 at 09:00 Spironolactone 25 mg 25 mg DAILY PO Last administered on 05/06/17 09:28; Admin Dose 25 MG; Start 05/06/17 at 09:00 Sodium Chloride (Sodium Chloride Iv 3%) 500 ml @ 30 mls/hr [id number] IV Last administered on 05/06/17 10:35; Admin Dose 30 MLS/HR; Start 05/06/17 at 09:00 CECILIA SMITH May 06, 2017 12:15
[2017-05-06 15:22] LABS: INR 2.72; PARTIAL THROMBOPLASTIN TIME 50.2 Sec (25.0-35.0); PROTIME 29.2 Sec (12.2-14.2); PT RATIO 2.3
[2017-05-06] MEDS: FUROSEMIDE 40 MG TAB PO SCH (17:24)
--- NOTE | 2017-05-06 17:52 | RADRPT ---
PROCEDURE: US Pelvis. CLINICAL INDICATION: Pelvic pain. TECHNIQUE: The pelvis was evaluated with transabdominal sonography in the axial and sagittal plane s. This is a limited study as the patient refused transvaginal sonography. COMPARISON: No prior study is available for comparison. FINDINGS: Uterus: 8.6 x 4.6 x 5.0 cm. Endometrium: 9.4 mm. Right ovary: 2.5 x 1.6 x 1.7 cm. Left ovary: Not visualized. Uterine masses: None. Ovarian masses: The right ovary is normal. The left ovary is not visualized. Color Doppler and pulse d Doppler sonography demonstrate normal flow to the right ovary. Other pelvic masses: None. Free fluid: There is ascites. IMPRESSION: 1. Normal uterus, endometrium, and right ovary. 2. Left ovary not visualized. 3. Ascites. 4. Otherwise unremarkable study. RPTAT: QQ .Ben Curran MD, MD Date Time Electronically viewed and signed by .Ben Curran MD, on 05/06/2017 17:52 .R/
[2017-05-06 18:31] LABS: CALCIUM 7.4 mg/dl (8.4-10.2); CREATININE 0.67 mg/dl (0.44-1.00); POTASSIUM 3.3 mmol/L (3.5-5.1)
--- NOTE | 2017-05-06 19:23 | PN ---
DATE: 05/06/2017 SUBJECTIVE: The patient did receive nivolumab yesterday. Tolerated it well. The patient apparently has been somewhat more alert. Has, however, had some vaginal bleeding. OBJECTIVE: GENERAL: The patient is a well-developed, chronically ill-appearing female who is lethargic, in no acute distress. VITAL SIGNS: Temperature 98.9, pulse 101 and regular, respirations 19, blood pressure 151/68, pulse oximetry 94% on room air. SKIN: The patient is icteric. There are spider telangiectasias. HEENT: Normocephalic. No evidence of trauma. Pupils equal, round, react to light and accommodatio n. Sclerae are 3 to 4+ icteric. Oral mucosa is moist without lesions. NECK: Supple, no jugular venous distention or thyroid enlargement. CHEST: Clear to auscultation and percussion, but decreased breath sounds in both bases. No rhonchi or rubs, no wheezes. HEART: Sinus tachycardia. No S3, S4 or murmurs. ABDOMEN: Distended with obvious ascites. Liver and spleen are not ballottable. EXTREMITIES: No clubbing or cyanosis. NEUROLOGIC: The patient is lethargic. There is asterixis. She is appropriately responsive to ques tions. LABORATORY: White count 9800, hemoglobin 10.4, hematocrit 30.6 and platelet count is 53,000. Proth rombin time 29.2 seconds, INR 2.72, PTT is 50.2 seconds. Sodium 130, potassium 2.8, BUN 21, creatin ine 0.65. Ammonia is 70. ASSESSMENT: 1. Hepatocellular carcinoma. 2. Cirrhosis. 3. Hepatic encephalopathy. 4. Vaginal bleeding. The patient has had an ultrasound of the pelvis which does not reveal any abnormalities. The endome trial lining is not thickened. The patient's coagulation studies have deteriorated somewhat from the time of admission. The patien t has a combination of a coagulopathy due to decreased coagulation factor production by liver as wel l as decreased platelets due to hypersplenism. The patient does have portal hypertension with varices and may be experiencing some hemorrhoidal ble eding. Will obtain a fibrinogen. The patient will likely benefit from the use of cryoprecipitate or fibrin ogen depending whether fibrinogen alone is deficient. Dictated By: TONE KAPLAN MD SR/NTS Conf#: [id number] [facility]#: [id number]
[2017-05-07] VITALS (13 sets, daily range): BP systolic 95–140; BP diastolic 58–70; PULSE 92–105; RESP 14–20
[2017-05-07] MEDS: ACCU-CHEK XX SCH (02:00)
[2017-05-07] MEDS: PANTOPRAZOLE (EC) 40 MG TAB PO SCH (05:17)
[2017-05-07] MEDS: LACTULOSE 30ML CUP PO SCH ×3 (05:17→21:11)
[2017-05-07] MEDS: FUROSEMIDE 40 MG TAB PO SCH ×2 (05:18→17:13)
[2017-05-07] MEDS: SODIUM CHLORIDE 1 GM TAB PO SCH ×2 (08:17→21:11)
[2017-05-07] MEDS: RIFAXIMIN 550 MG TAB PO SCH ×2 (08:17→21:00)
[2017-05-07] MEDS: INSULIN ASPART [NOVOLOG] 3 ML PEN SC SCH ×4 (08:24→21:00)
--- NOTE | 2017-05-07 08:48 | PN ---
DATE: 05/07/2017 SUBJECTIVE: The patient states that she is feeling well. Denies any pain. Has not had nausea or v omiting, is still experiencing some vaginal bleeding. She does not complain of any abdominal or pel xenia cramping or pain. OBJECTIVE: GENERAL: Patient is a well-developed, grossly icteric and lethargic female who is in no acute distr ess. VITAL SIGNS: Temperature 98.6, pulse 100 per minute and regular, respirations 19, blood pressure 95 /50, pulse oximetry 99% on room air. SKIN: Icteric and spider telangiectasias, scattered ecchymosis, no petechiae or rashes. HEENT: Normocephalic. No evidence of trauma. Pupils equal, round, react to light and accommodatio n. There is scleral icterus. NECK: Supple, no jugular venous distention or thyroid enlargement. CHEST: Clear to auscultation and percussion. No rhonchi, wheezes, rales or rubs, but there are dec reased breath sounds in the bases. HEART: Sinus tachycardia. No S3, S4 or murmurs. ABDOMEN: Distended but soft. There is obvious ascites. There are no hernia defects. Liver, splee n are not ballottable or palpable. EXTREMITIES: No clubbing or cyanosis. There is a PICC line in place in the left upper extremity. There is also a 2+, bilateral pedal edema. NEUROLOGIC: The patient is lethargic. No focal neurologic abnormalities, but there is asterixis. Fibrinogen requested on yesterday's coagulation studies is only 116. Remaining laboratory including CBC and comprehensive metabolic panel are not available at this time. ASSESSMENT: 1. Hepatocellular carcinoma. 2. Cirrhosis. 3. Hepatic encephalopathy. 4. Vaginal bleeding and/or rectal bleeding. DISCUSSION: The patient does have coagulopathy due to her liver disease. Has decreased coagulation factor production but also a decrease in fibrinogen as well as of course a decrease in platelets. I will, at this time, replace fibrinogen by administering cryoprecipitate as well as 2 units of fres h frozen plasma to replace other hepatic dependent coagulation factors. As previously noted, I have requested that the patient be returned to [facility]. Dictated By: TONE KAPLAN MD, SR/BRENNAN Conf#: [id number] [facility]#: [id number]
[2017-05-07 09:07] LABS: ABNORMAL IP MESSAGE 1; BASOPHILS % 0.4 % (0.0-2.0); EOSINOPHILS # 0.5 10^3/ul (0.0-0.5); EOSINOPHILS % 4.5 % (0.0-7.0); HEMATOCRIT 27.3 % (37.0-47.0); HEMOGLOBIN 9.5 g/dl (12.0-16.0); LYMPHOCYTES # 0.8 10^3/ul (0.8-2.9); MEAN CORPUSCULAR HEMOGLOBIN 37.5 pg (29.0-33.0); MEAN CORPUSCULAR HGB CONC 34.8 g/dl (32.0-37.0); MEAN CORPUSCULAR VOLUME 107.9 fl (82.0-101.0); MEAN PLATELET VOLUME 9.1 fl (7.4-10.4); MONOCYTE # 0.8 10^3/ul (0.3-0.9); MONOCYTES % 6.9 % (0.0-11.0); NEUTROPHIL # 8.5 10^3/ul (1.6-7.5); RED BLOOD COUNT 2.53 10^6/ul (4.20-5.40); RED CELL DISTRIBUTION WIDTH 18.6 % (11.5-14.5); WHITE BLOOD COUNT 10.9 10^3/ul (4.8-10.8)
[2017-05-07 09:21] LABS: PLATELET COUNT 51 10^3/UL (140-415); POSITIVE DIFF @See below
[2017-05-07 09:27] LABS: ALBUMIN 1.8 g/dl (3.3-4.9); ALBUMIN/GLOBULIN RATIO 0.5; BILIRUBIN,DIRECT 4.9 mg/dl (0.00-0.20); BILIRUBIN,INDIRECT 4.3 mg/dl (0-1.1); BILIRUBIN,TOTAL 9.2 mg/dl (0.2-1.3); CALCIUM 7.5 mg/dl (8.4-10.2); CREATININE 0.75 mg/dl (0.44-1.00); POTASSIUM 3.5 mmol/L (3.5-5.1); TOTAL PROTEIN 5.4 g/dl (6.1-8.1)
[2017-05-07 09:30] LABS: MAGNESIUM 1.7 mg/dl (1.7-2.5); PHOSPHORUS 3.2 mg/dl (2.5-4.9)
--- NOTE | 2017-05-07 09:35 | RADRPT ---
PROCEDURE: Abdominal ultrasound. CLINICAL INDICATION: Ascites survey. TECHNIQUE: Multiple real-time images were acquired of the patient's abdomen and retroperitoneum ut ilizing a high resolution transducer. COMPARISON: 05/03/2017. FINDINGS: Real time gutiérrez-scale images of the abdomen were obtained of all 4 abdominal quadrants with a linear ray transducer. Small to moderate amount of ascites is present within the bilateral upper and left lower quadrants. IMPRESSION: Small to moderate amount of ascites within the bilateral upper and left lower quadrants. RPTAT: HRSR Physician Damon Date Time Electronically viewed and signed by Physician Damon on 05/07/2017 09:35 RR/
[2017-05-07] MEDS: SPIRONOLACTONE 25 MG TAB PO SCH (10:35)
--- NOTE | 2017-05-07 13:27 | PN ---
Date/Time of Note Date/Time of Note DATE: 05/07/17 TIME: 13:17 Assessment/Plan VTE Prophylaxis VTE Prophylaxis Intervention: SCD's, other Lines/Catheters IV Catheter Type (from Nrsg): PICC Line Central line still needed: Yes Urinary Cath still in place: Yes Reason Cath still needed: skin wounds contaminated by urine Assessment/Plan Chief Complaint/Hosp Course S: Awake alert not oriented to month. Year 17. Son at bedside. Highly unrealistic. No fever dyspnea or abdominal pain. Finished chemotherapy. O: Vital signs stable sinus rhythm PE No pallor adenopathy. Positive icterus S2 regular, no murmur rub gallop Clear bilaterally Bs+ nt nd. No r/r/g. Overweight potentially some fluid. Moderate edema negative Homans sign A/P 1. Ac hepatic encephalopathy. Etio liver failure. No evidence of SBP/ GiB. 2. Acute liver failure. Poor prognosis 3. Advanced hepatocellular Ca; multi- masses. Probably not a candidate for embolization. S/p chemo. Needs goals of care reevaluated. Son is highly unrealistic. 4. Renal Insuff 5. Coagulopathy due to liver failure. No need for Lovenox. Patient for FFP/ cryo if paracentesis is needed 6. Anemia likely of chronic disease 7. Acute cystitis? 8. Hcap? If cxr negative DC antibiotics 9. Tobacco abuse past 10. Diabetes/metabolic syndrome 11. Vagina bleeding due to coagulopathy. Fix coagulopathy if feasible. 12. Hypothyroidism? New? 13. SIADH/hypervolemic hypernatremia 14. Failure to thrive. Home health PT Problems: Exam/Review of Systems Vital Signs Vitals Vital Signs Date Time Temp Pulse Resp B/P Pulse Ox O2 Delivery O2 Flow Rate FiO2 05/07/17 12:00 92 05/07/17 11:13 98.4 18 124/58 94 05/05/17 17:00 Room Air Intake and Output 05/06/17 05/06/17 05/07/17 14:59 22:59 06:59 Intake Total 250 ml 300 ml 850 ml Output Total 500 ml 700 ml 800 ml Balance -250 ml -400 ml 50 ml Results Result Diagram: 05/07/17 0735 05/07/17 0735 Results 24 hrs Laboratory Tests Test 05/06/17 14:26 05/06/17 17:17 05/06/17 17:47 05/06/17 20:20 Prothrombin Time 29.2 #H Prothrombin Time Ratio 2.3 INR International Normalized Ratio 2.72 Activated Partial Thromboplast Time 50.2 H Fibrinogen 116.0 L Ammonia 70 H Bedside Glucose 162 162 Sodium Level 130 L Potassium Level 3.3 L Chloride Level 93 L Carbon Dioxide Level 32 H Anion Gap 8 Blood Urea Nitrogen 21 H Creatinine 0.67 Glucose Level 165 Calcium Level 7.4 L Test 05/07/17 07:35 05/07/17 08:16 05/07/17 12:14 White Blood Count 10.9 H Red Blood Count 2.53 L Hemoglobin 9.5 L Hematocrit 27.3 L Mean Corpuscular Volume 107.9 H Mean Corpuscular Hemoglobin 37.5 H Mean Corpuscular Hemoglobin Concent 34.8 Red Cell Distribution Width 18.6 H Platelet Count 51 L Mean Platelet Volume 9.1 Neutrophils % 78.0 H Lymphocytes % 7.0 L Monocytes % 6.9 Eosinophils % 4.5 Basophils % 0.4 Nucleated Red Blood Cells % 0.0 Neutrophils # 8.5 H Lymphocytes # 0.8 Monocytes # 0.8 Eosinophils # 0.5 Basophils # 0.0 Nucleated Red Blood Cells # 0.0 Sodium Level 130 L Potassium Level 3.5 Chloride Level 92 L Carbon Dioxide Level 32 H Anion Gap 10 Blood Urea Nitrogen 22 H Creatinine 0.75 Glucose Level 138 Calcium Level 7.5 L Phosphorus Level 3.2 Magnesium Level 1.7 Total Bilirubin 9.2 H Direct Bilirubin 4.90 H Indirect Bilirubin 4.3 H Aspartate Amino Transf (AST/SGOT) 136 H Alanine Aminotransferase (ALT/SGPT) 84 H Alkaline Phosphatase 209 H Total Protein 5.4 L Albumin 1.8 L Globulin 3.60 H Albumin/Globulin Ratio 0.50 Bedside Glucose 164 154 Medications Medications Current Medications Ondansetron HCl (Zofran Inj) 4 mg Q6H PRN IV NAUSEA AND/OR VOMITING Last administered on 04/27/17 14:53; Admin Dose 4 MG; Start 04/26/17 at 15:00 Acetaminophen/ Hydrocodone Bitart ([place] (5/325)) 1 tab Q6H PRN PO MODERATE PAIN LEVEL 4-6 Last administered on 04/26/17 22:03; Admin Dose 1 TAB; Start 04/26/17 at 15:00 Acetaminophen/ Hydrocodone Bitart ([place] (5/325)) 2 tab Q6H PRN PO SEVERE PAIN LEVEL 7-10 Last administered on 04/28/17 14:01; Admin Dose 2 TAB; Start at 15:00 Diagnostic Test (Pha) (Accu-Chek) 1 ea 02 XX ; Start 04/27/17 at 02:00 Non-Formulary Medication 2 ea BID@, PO Last administered on 04/27/17 06: 18; Admin Dose 2 EA; Start 04/27/17 at 07:00; Status Future Hold Miscellaneous Information Patients own medicat... BID@ XX ; Start at 10:00 Miscellaneous Information 1 ea NOTE XX ; Start 04/28/17 at 14:30 Glucose (Glutose) 15 gm Q15M PRN PO DECREASED GLUCOSE; Start 04/28/17 at 14:30 Glucose (Glutose) 22.5 gm Q15M PRN PO DECREASED GLUCOSE; Start 04/28/17 at 14: 30 Dextrose (D50w Syringe) 25 ml Q15M PRN IV DECREASED GLUCOSE; Start 04/28/17 at 14:30 Dextrose (D50w Syringe) 50 ml Q15M PRN IV DECREASED GLUCOSE; Start 04/28/17 at 14:30 Glucagon (Glucagen) 1 mg Q15M PRN IM DECREASED GLUCOSE; Start 04/28/17 at 14:30 Glucose (Glutose) 15 gm Q15M PRN BUCCAL DECREASED GLUCOSE; Start 04/28/17 at 14 :30 Hydralazine HCl (Apresoline) 10 mg Q4H PRN IV ELEVATED SYSTOLIC BP; Start 05/01 at 22:00 Lactulose (Lactulose Enema) 100 ml Q6 PRN [place] NOTE Last administered on 23:45; Admin Dose 100 ML; Start 05/03/17 at 12:30 Lactulose (Enulose) 20 gm Q8 PO Last administered on 05/07/17 13:07; Admin Dose 20 GM; Start 05/03/17 at 14:00 Diphenhydramine HCl (Benadryl) 25 mg Q6H PRN IV allergic reaction ; Start 05/03 at 15:30 Pantoprazole (Protonix Tab) 40 mg DAILY@06 PO Last administered on 05/07/17 05:17; Admin Dose 40 MG; Start 05/04/17 at 06:00 IV Flush (NS 10 ml) 10 ml PRN PRN IV IV PROTOCOL; Start 05/04/17 at 18:00 Diphenhydramine HCl (Benadryl) 50 mg Q6H PRN IM allergic reaction; Start at 15:00 Rifaximin (Xifaxan) 550 mg BID PO Last administered on 05/07/17 08:17; Admin Dose 550 MG; Start 05/05/17 at 22:17 Sodium Chloride (Nacl) 1 gm BID PO Last administered on 05/07/17 08:17; Admin Dose 1 GM; Start 05/06/17 at 09:00 Spironolactone (Aldactone) 25 mg DAILY PO Last administered on 05/07/17 10:35 ; Admin Dose 25 MG; Start 05/06/17 at 09:00 AMINATA MUNGUIA MD May 07, 2017 13:27
[2017-05-07] MEDS: LACTOBACILLUS RHAMNOSUS CAP PO SCH ×2 (16:19→21:11)
--- NOTE | 2017-05-07 17:42 | CONS ---
Date/Time of Note Date/Time of Note DATE: 05/07/17 TIME: 17:40 Assessment/Plan Assessment/Plan Additional Assessment/Plan 1. 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 2. acute hepatic encephalopathy- Ammonia level is still high 3 HCC 4. Acute transaminitis 5. Hypokalemia severe- requiring IV replacement every day 6. DM II Plan: H & O following,getting chemotherapy as per H & O US guided paracentesis attempted 05/03/17- but not enough fluid as per Radiology - repeat ABd US on 05/07/17 showed small to moderate ascites, paracentesis not done due to elevated INR and coagulopathy K replacement as per protoco decrease Na chloride tablet to 1 gram BID- on lasix 40mg PO BID + spironolactone 25 mg po daily s/p 3% Hypertonic saline x 6 hr on 05/06/2017- Na still 130- monitor it,Not a candidate for tolvaptan at this point due to Elevated LFTs will follow up Consultation Date/Type/Reason Admit Date/Time Apr 26, 2017 at 13:32 Initial Consult Date 05/02/17 Type of Consultation: NEPHROLOGY Referring Provider: YOON ALVAREZ MD 24 HR Interval Summary Free Text/Dictation s/p 3 % hypertonic saline yesterday, BP stable, Cr stable Exam/Review of Systems Vital Signs Vitals Vital Signs Date Time Temp Pulse Resp B/P Pulse Ox O2 Delivery O2 Flow Rate FiO2 05/07/17 16:00 95 05/07/17 15:36 98.4 19 128/64 95 05/05/17 17:00 Room Air Intake and Output 05/06/17 05/06/17 05/07/17 15:00 23:00 07:00 Intake Total 250 ml 300 ml 850 ml Output Total 500 ml 700 ml 800 ml Balance -250 ml -400 ml 50 ml Exam Constitutional: alert, awake Eyes: nl conjunctiva, other (no jaundice ) Neck: non-tender, supple Respiratory: diminished breath sounds, normal air movement Cardiovascular: nl pulses, regular rate and rhythm Gastrointestinal: ascites, distended, non-tender, soft Musculoskeletal: joint tenderness, muscle weakness, nl extremities to inspection, swelling Neurological: other (awake, alert but intermittently confused ) Results Result Diagram: 05/07/17 0735 05/07/17 0735 Results 24 hrs Laboratory Tests Test 05/06/17 17:47 05/06/17 20:20 05/07/17 07:35 05/07/17 08:16 Sodium Level 130 L 130 L Potassium Level 3.3 L 3.5 Chloride Level 93 L 92 L Carbon Dioxide Level 32 H 32 H Anion Gap 8 10 Blood Urea Nitrogen 21 H 22 H Creatinine 0.67 0.75 Glucose Level 165 138 Calcium Level 7.4 L 7.5 L Bedside Glucose 162 164 White Blood Count 10.9 H Red Blood Count 2.53 L Hemoglobin 9.5 L Hematocrit 27.3 L Mean Corpuscular Volume 107.9 H Mean Corpuscular Hemoglobin 37.5 H Mean Corpuscular Hemoglobin Concent 34.8 Red Cell Distribution Width 18.6 H Platelet Count 51 L Mean Platelet Volume 9.1 Neutrophils % 78.0 H Lymphocytes % 7.0 L Monocytes % 6.9 Eosinophils % 4.5 Basophils % 0.4 Nucleated Red Blood Cells % 0.0 Neutrophils # 8.5 H Lymphocytes # 0.8 Monocytes # 0.8 Eosinophils # 0.5 Basophils # 0.0 Nucleated Red Blood Cells # 0.0 Phosphorus Level 3.2 Magnesium Level 1.7 Total Bilirubin 9.2 H Direct Bilirubin 4.90 H Indirect Bilirubin 4.3 H Aspartate Amino Transf (AST/SGOT) 136 H Alanine Aminotransferase (ALT/SGPT) 84 H Alkaline Phosphatase 209 H Total Protein 5.4 L Albumin 1.8 L Globulin 3.60 H Albumin/Globulin Ratio 0.50 Test 05/07/17 12:14 05/07/17 17:16 Bedside Glucose 154 179 Medications Medications Current Medications Ondansetron HCl (Zofran Inj) 4 mg Q6H PRN IV NAUSEA AND/OR VOMITING Last administered on 04/27/17 14:53; Admin Dose 4 MG; Start 04/26/17 at 15:00 Acetaminophen/ Hydrocodone Bitart ([place] (5/325)) 1 tab Q6H PRN PO MODERATE PAIN LEVEL 4-6 Last administered on 04/26/17 22:03; Admin Dose 1 TAB; Start 04/26/17 at 15:00 Diagnostic Test (Pha) (Accu-Chek) 1 ea 02 XX ; Start 04/27/17 at 02:00 Non-Formulary Medication 2 ea BID@ PO Last administered on 04/27/17 06: 18; Admin Dose 2 EA; Start 04/27/17 at 07:00; Status Future Hold Miscellaneous Information Patients own medicat... BID@ XX ; Start at 10:00 Miscellaneous Information 1 ea NOTE XX ; Start 04/28/17 at 14:30 Glucose (Glutose) 15 gm Q15M PRN PO DECREASED GLUCOSE; Start 04/28/17 at 14:30 Glucose (Glutose) 22.5 gm Q15M PRN PO DECREASED GLUCOSE; Start 04/28/17 at 14: 30 Dextrose (D50w Syringe) 25 ml Q15M PRN IV DECREASED GLUCOSE; Start 04/28/17 at 14:30 Dextrose (D50w Syringe) 50 ml Q15M PRN IV DECREASED GLUCOSE; Start 04/28/17 at 14:30 Glucagon (Glucagen) 1 mg Q15M PRN IM DECREASED GLUCOSE; Start 04/28/17 at 14:30 Glucose (Glutose) 15 gm Q15M PRN BUCCAL DECREASED GLUCOSE; Start 04/28/17 at 14 :30 Hydralazine HCl (Apresoline) 10 mg Q4H PRN IV ELEVATED SYSTOLIC BP; Start 05/01 at 22:00 Lactulose (Lactulose Enema) 100 ml Q6 PRN [place] NOTE Last administered on 23:45; Admin Dose 100 ML; Start 05/03/17 at 12:30 Lactulose (Enulose) 20 gm Q8 PO Last administered on 05/07/17 13:07; Admin Dose 20 GM; Start 05/03/17 at 14:00 Diphenhydramine HCl (Benadryl) 25 mg Q6H PRN IV allergic reaction ; Start 05/03 at 15:30 Pantoprazole (Protonix Tab) 40 mg DAILY@06 PO Last administered on 05/07/17 05:17; Admin Dose 40 MG; Start 05/04/17 at 06:00 IV Flush (NS 10 ml) 10 ml PRN PRN IV IV PROTOCOL; Start 05/04/17 at 18:00 Diphenhydramine HCl (Benadryl) 50 mg Q6H PRN IM allergic reaction; Start at 15:00 Rifaximin (Xifaxan) 550 mg BID PO Last administered on 05/07/17 08:17; Admin Dose 550 MG; Start 05/05/17 at 22:17 Sodium Chloride (Nacl) 1 gm BID PO Last administered on 05/07/17 08:17; Admin Dose 1 GM; Start 05/06/17 at 09:00 Spironolactone (Aldactone) 25 mg DAILY PO Last administered on 05/07/17 10:35 ; Admin Dose 25 MG; Start 05/06/17 at 09:00 Lactobacillus Acidophilus/ Rhamnosus (Culturelle) 1 cap BID PO Last administered on 05/07/17 16:19; Admin Dose 1 CAP; Start 05/07/17 at 14:00 MAE VILCHIS MD May 07, 2017 17:42
[2017-05-08] VITALS (9 sets, daily range): BP systolic 118–144; BP diastolic 58–65; PULSE 102–108; RESP 16–20
[2017-05-08] MEDS: ACCU-CHEK XX SCH (02:00)
[2017-05-08] MEDS: LACTULOSE 30ML CUP PO SCH ×3 (06:36→21:44)
[2017-05-08] MEDS: FUROSEMIDE 40 MG TAB PO SCH ×2 (06:36→17:58)
[2017-05-08] MEDS: PANTOPRAZOLE (EC) 40 MG TAB PO SCH (06:37)
[2017-05-08] MEDS: INSULIN ASPART [NOVOLOG] 3 ML PEN SC SCH ×4 (07:50→21:00)
[2017-05-08] MEDS: SODIUM CHLORIDE 1 GM TAB PO SCH ×2 (09:18→21:44)
[2017-05-08] MEDS: LACTOBACILLUS RHAMNOSUS CAP PO SCH ×2 (09:18→21:44)
[2017-05-08] MEDS: SPIRONOLACTONE 25 MG TAB PO SCH (09:18)
[2017-05-08] MEDS: RIFAXIMIN 550 MG TAB PO SCH ×2 (09:18→21:44)
[2017-05-08 09:32] LABS: ABNORMAL IP MESSAGE 1; HEMATOCRIT 20.3 % (37.0-47.0); HEMOGLOBIN 7.1 g/dl (12.0-16.0); MEAN CORPUSCULAR HEMOGLOBIN 37.8 pg (29.0-33.0); MEAN PLATELET VOLUME 9.3 fl (7.4-10.4); NUCLEATED RED BLOOD CELLS% 0.2 /100WBC (0.0-0.0); PLATELET COUNT 37 10^3/UL (140-415); RED BLOOD COUNT 1.88 10^6/ul (4.20-5.40); RED CELL DISTRIBUTION WIDTH 18.5 % (11.5-14.5); WHITE BLOOD COUNT 9.2 10^3/ul (4.8-10.8)
[2017-05-08 09:45] LABS: POSITIVE DIFF @See below
[2017-05-08 10:09] LABS: ALBUMIN 1.9 g/dl (3.3-4.9); ALBUMIN/GLOBULIN RATIO 0.57; BILIRUBIN,DIRECT 5.3 mg/dl (0.00-0.20); BILIRUBIN,INDIRECT 5.3 mg/dl (0-1.1); CALCIUM 7.3 mg/dl (8.4-10.2); CREATININE 0.75 mg/dl (0.44-1.00); MAGNESIUM 1.6 mg/dl (1.7-2.5); PHOSPHORUS 3.4 mg/dl (2.5-4.9); TOTAL PROTEIN 5.2 g/dl (6.1-8.1)
[2017-05-08 10:36] LABS: INR 2.28; PROTIME 25.4 Sec (12.2-14.2)
[2017-05-08 10:37] LABS: PARTIAL THROMBOPLASTIN TIME 49.7 Sec (25.0-35.0)
[2017-05-08 11:16] LABS: BILIRUBIN,TOTAL 5.3 mg/dl (0.2-1.3)
--- NOTE | 2017-05-08 14:39 | PN ---
Date/Time of Note Date/Time of Note DATE: 05/08/17 TIME: 14:37 Assessment/Plan VTE Prophylaxis VTE Prophylaxis Intervention: contraindicated Lines/Catheters IV Catheter Type (from Nrs): PICC Line Central line still needed: Yes Urinary Cath still in place: Yes Reason Cath still needed: terminal illness/intractable pain Assessment/Plan Assessment/Plan ASSESSMENT: 1. Hepatocellular carcinoma. 2. Cirrhosis. 3. Hepatic encephalopathy. 4. Vaginal bleeding and/or rectal bleeding. DISCUSSION: The patient does have coagulopathy due to her liver disease. Has decreased coagulation factor production but also a decrease in fibrinogen as well as of course a decrease in platelets. I will recheck coagulation panel. I will administer vitamin K empirically I will also administer PRBC and platelet's today for recent decline. Subjective 24 Hr Interval Summary Free Text/Dictation Patient lethargic, encephalopathic, but arousable responsive Exam/Review of Systems Vital Signs Vitals Vital Signs Date Time Temp Pulse Resp B/P Pulse Ox O2 Delivery O2 Flow Rate FiO2 05/08/17 12:20 99.4 104 18 142/63 93 Room Air Intake and Output 05/07/17 05/07/17 05/08/17 15:00 23:00 07:00 Intake Total 1440 ml 720 ml Output Total 500 ml 700 ml Balance 940 ml 20 ml Exam Constitutional: frail, well developed Head: atraumatic, normocephalic Eyes: icteric, nl lids Neck: non-tender, supple Respiratory: clear to auscultation, normal air movement Cardiovascular: nl pulses, regular rate and rhythm Gastrointestinal: non-tender, soft Musculoskeletal: nl extremities to inspection Extremities: normal pulses Results Result Diagram: 05/08/1715 05/08/17 0915 Results 24 hrs Laboratory Tests Test 05/07/17 17:16 05/07/17 21:15 05/08/17 06:48 05/08/17 09:03 Bedside Glucose 179 176 175 Lab Scanned Report BLOOD TRANSFUSION Test 05/08/17 09:15 05/08/17 10:02 05/08/17 12:55 White Blood Count 9.2 Red Blood Count 1.88 #L Hemoglobin 7.1 #L Hematocrit 20.3 #L Mean Corpuscular Volume 108.0 H Mean Corpuscular Hemoglobin 37.8 H Mean Corpuscular Hemoglobin Concent 35.0 Red Cell Distribution Width 18.5 H Platelet Count 37 #L Mean Platelet Volume 9.3 Neutrophils % Lymphocytes % Monocytes % Eosinophils % Basophils % Nucleated Red Blood Cells % 0.2 H Neutrophils # Lymphocytes # Monocytes # Eosinophils # Basophils # Nucleated Red Blood Cells # Sodium Level 130 L Potassium Level 3.0 L Chloride Level 92 L Carbon Dioxide Level 32 H Anion Gap 9 Blood Urea Nitrogen 20 Creatinine 0.75 Glucose Level 139 Calcium Level 7.3 L Phosphorus Level 3.4 Magnesium Level 1.6 L Total Bilirubin 5.3 #H Direct Bilirubin 5.30 H Indirect Bilirubin 5.3 H Aspartate Amino Transf (AST/SGOT) 97 H Alanine Aminotransferase (ALT/SGPT) 69 Alkaline Phosphatase 145 H Ammonia 71 H Total Protein 5.2 L Albumin 1.9 L Globulin 3.30 H Albumin/Globulin Ratio 0.57 Prothrombin Time 25.4 H Prothrombin Time Ratio 2.0 INR International Normalized Ratio 2.28 Activated Partial Thromboplast Time 49.7 H Fibrinogen 162.0 #L Bedside Glucose 163 Medications Medications Current Medications Ondansetron HCl (Zofran Inj) 4 mg Q6H PRN IV NAUSEA AND/OR VOMITING Last administered on 04/27/17 14:53; Admin Dose 4 MG; Start 04/26/17 at 15:00 Acetaminophen/ Hydrocodone Bitart ([place] (5/325)) 1 tab Q6H PRN PO MODERATE PAIN LEVEL 4-6 Last administered on 04/26/17 22:03; Admin Dose 1 TAB; Start 04/26/17 at 15:00 Diagnostic Test (Pha) (Accu-Chek) 1 ea 02 XX ; Start 04/27/17 at 02:00 Non-Formulary Medication 2 ea BID@ PO Last administered on 04/27/17 06: 18; Admin Dose 2 EA; Start 04/27/17 at 07:00; Status Future Hold Miscellaneous Information Patients own medicat... BID@ XX ; Start at 10:00 Miscellaneous Information 1 ea NOTE XX ; Start 04/28/17 at 14:30 Glucose (Glutose) 15 gm Q15M PRN PO DECREASED GLUCOSE; Start 04/28/17 at 14:30 Glucose (Glutose) 22.5 gm Q15M PRN PO DECREASED GLUCOSE; Start 04/28/17 at 14: 30 Dextrose (D50w Syringe) 25 ml Q15M PRN IV DECREASED GLUCOSE; Start 04/28/17 at 14:30 Dextrose (D50w Syringe) 50 ml Q15M PRN IV DECREASED GLUCOSE; Start 04/28/17 at 14:30 Glucagon (Glucagen) 1 mg Q15M PRN IM DECREASED GLUCOSE; Start 04/28/17 at 14:30 Glucose (Glutose) 15 gm Q15M PRN BUCCAL DECREASED GLUCOSE; Start 04/28/17 at 14 :30 Hydralazine HCl (Apresoline) 10 mg Q4H PRN IV ELEVATED SYSTOLIC BP; Start 05/01 at 22:00 Lactulose (Lactulose Enema) 100 ml Q6 PRN [place] NOTE Last administered on 23:45; Admin Dose 100 ML; Start 05/03/17 at 12:30 Lactulose (Enulose) 20 gm Q8 PO Last administered on 05/08/17 06:36; Admin Dose 20 GM; Start 05/03/17 at 14:00 Diphenhydramine HCl (Benadryl) 25 mg Q6H PRN IV allergic reaction ; Start 05/03 at 15:30 Pantoprazole (Protonix Tab) 40 mg DAILY@06 PO Last administered on 05/08/17 06:37; Admin Dose 40 MG; Start 05/04/17 at 06:00 IV Flush (NS 10 ml) 10 ml PRN PRN IV IV PROTOCOL; Start 05/04/17 at 18:00 Diphenhydramine HCl (Benadryl) 50 mg Q6H PRN IM allergic reaction; Start at 15:00 Rifaximin (Xifaxan) 550 mg BID PO Last administered on 05/08/17 09:18; Admin Dose 550 MG; Start 05/05/17 at 22:17 Sodium Chloride (Nacl) 1 gm BID PO Last administered on 05/08/17 09:18; Admin Dose 1 GM; Start 05/06/17 at 09:00 Spironolactone (Aldactone) 25 mg DAILY PO Last administered on 05/08/17 09:18 ; Admin Dose 25 MG; Start 05/06/17 at 09:00 Lactobacillus Acidophilus/ Rhamnosus (Culturelle) 1 cap BID PO Last administered on 11/11/17at 09:18; Admin Dose 1 CAP; Start 05/07/17 at 14:00 BENI GARCIA MD May 08, 2017 14:39
[2017-05-08] MEDS ORDERED: PHYTONADIONE 10 MG/ML INJ SC ONE (15:00)
[2017-05-08] MEDS ORDERED: POTASSIUM CHLORIDE (SR) 20 MEQ TAB PO STA (15:54)
--- NOTE | 2017-05-08 15:55 | PN ---
Date/Time of Note Date/Time of Note DATE: 05/08/17 TIME: 15:51 Assessment/Plan VTE Prophylaxis VTE Prophylaxis Intervention: SCD's Lines/Catheters IV [facility] Type ([facility] PICC Line Central line still needed: Yes Urinary Cath still in place: Yes Reason Cath still needed: other (indicate) Assessment/Plan Chief Complaint/Hosp Course 1. Acute encephalopathy. Most probably toxic metabolic from underlying hyperammonemia. Continue lactulose. Brain CT scan at outside facility negative for any acute findings. 2. Hyperammonemia. Continue lactulose. 3. Abdominal pain. Largely resolved. Most likely secondary to underlying ascites. Status post paracentesis with removal of more than 1 L of fluid on . 4. Hepatocellular carcinoma. Being followed by oncology. 5. Transaminitis with hyperbilirubinemia. Most probably secondary to #6. Gastroenterology following. Avoid hepatotoxic medications. 6. Thrombocytopenia. Most probably secondary to #6. Replace as needed. 7. Vaginal bleeding. Most probably secondary to underlying coagulopathy. Treat coagulopathy as per oncology. 8. Diabetes mellitus. Hemoglobin A1c within normal limits. Hold biguanides. Continue sliding scale insulin. 9. Nicotine use. Cessation advised. 10. Hyponatremia. Monitor. Nephrology following. 11. Fluids, electrolytes, and nutrition. Carbohydrate controlled, low sodium diet. 12. DVT prophylaxis. Bilateral SCDs. 13. Plan. Replete potassium. Continue current management. Monitor sodium levels. Palliative Care following the patient. Very poor prognosis. Case discussed with Dr. Tsnag. Problems: Subjective 24 Hr Interval Summary Free Text/Dictation Reported profuse vaginal bleeding earlier today. Exam/Review of Systems Vital Signs Vitals Vital Signs Date Time Temp Pulse Resp B/P Pulse Ox O2 Delivery O2 Flow Rate FiO2 05/08/17 12:20 99.4 104 18 142/63 93 Room Air Intake and Output 05/07/17 05/07/17 05/08/17 15:00 23:00 07:00 Intake Total 1440 ml 720 ml Output Total 500 ml 700 ml Balance 940 ml 20 ml Exam General: Adequately build 56 year-old female lying in bed in no apparent distress. HEENT: Normocephalic, atraumatic. Eyes: icteric sclerae, conjunctivae clear. ENT : Nasal septum midline, oral mucosa moist. Neck supple, JVD noticed. Respiratory: Bilaterally diminished breath sounds. No use of accessory muscles of respiration. Cardiovascular: S1, S2 heard. Regular rate and rhythm. Abdomen: Distended. Ascites. Genitourinary: Deferred. Extremities: No cyanosis, no clubbing. B/L LE 2-3+ pitting edema. Neurologic:Somnolent. Wakes up to call and answers questions. Results Result Diagram: 05/08/17 0915 05/08/17 0915 Results 24 hrs Laboratory Tests Test 05/07/17 17:16 05/07/17 21:15 05/08/17 06:48 05/08/17 09:03 Bedside Glucose 179 176 175 Lab Scanned Report BLOOD TRANSFUSION Test 05/08/17 09:15 05/08/17 10:02 05/08/17 12:55 White Blood Count 9.2 Red Blood Count 1.88 #L Hemoglobin 7.1 #L Hematocrit 20.3 #L Mean Corpuscular Volume 108.0 H Mean Corpuscular Hemoglobin 37.8 H Mean Corpuscular Hemoglobin Concent 35.0 Red Cell Distribution Width 18.5 H Platelet Count 37 #L Mean Platelet Volume 9.3 Neutrophils % Lymphocytes % Monocytes % Eosinophils % Basophils % Nucleated Red Blood Cells % 0.2 H Neutrophils # Lymphocytes # Monocytes # Eosinophils # Basophils # Nucleated Red Blood Cells # Sodium Level 130 L Potassium Level 3.0 L Chloride Level 92 L Carbon Dioxide Level 32 H Anion Gap 9 Blood Urea Nitrogen 20 Creatinine 0.75 Glucose Level 139 Calcium Level 7.3 L Phosphorus Level 3.4 Magnesium Level 1.6 L Total Bilirubin 5.3 #H Direct Bilirubin 5.30 H Indirect Bilirubin 5.3 H Aspartate Amino Transf (AST/SGOT) 97 H Alanine Aminotransferase (ALT/SGPT) 69 Alkaline Phosphatase 145 H Ammonia 71 H Total Protein 5.2 L Albumin 1.9 L Globulin 3.30 H Albumin/Globulin Ratio 0.57 Prothrombin Time 25.4 H Prothrombin Time Ratio 2.0 INR International Normalized Ratio 2.28 Activated Partial Thromboplast Time 49.7 H Fibrinogen 162.0 #L Bedside Glucose 163 Medications Medications Current Medications Ondansetron HCl (Zofran Inj) 4 mg Q6H PRN IV NAUSEA AND/OR VOMITING Last administered on 04/27/17t 14:53; Admin Dose 4 MG; Start 04/26/17 at 15:00 Acetaminophen/ Hydrocodone Bitart ([place] (5/325)) 1 tab Q6H PRN PO MODERATE PAIN LEVEL 4-6 Last administered on 04/26/17 22:03; Admin Dose 1 TAB; Start 04/26/17 at 15:00 Diagnostic Test (Pha) (Accu-Chek) 1 ea 02 XX ; Start 04/27/17 at 02:00 Non-Formulary Medication 2 ea BID@, PO Last administered on 04/27/17 06: 18; Admin Dose 2 EA; Start 04/27/17 at 07:00; Status Future Hold Miscellaneous Information Patients own medicat... BID@ XX ; Start at 10:00 Miscellaneous Information 1 ea NOTE XX ; Start 04/28/17 at 14:30 Glucose (Glutose) 15 gm Q15M PRN PO DECREASED GLUCOSE; Start 04/28/17 at 14:30 Glucose (Glutose) 22.5 gm Q15M PRN PO DECREASED GLUCOSE; Start 04/28/17 at 14: 30 Dextrose (D50w Syringe) 25 ml Q15M PRN IV DECREASED GLUCOSE; Start 04/28/17 at 14:30 Dextrose (D50w Syringe) 50 ml Q15M PRN IV DECREASED GLUCOSE; Start 04/28/17 at 14:30 Glucagon (Glucagen) 1 mg Q15M PRN IM DECREASED GLUCOSE; Start 04/28/17 at 14:30 Glucose (Glutose) 15 gm Q15M PRN BUCCAL DECREASED GLUCOSE; Start 04/28/17 at 14 :30 Hydralazine HCl (Apresoline) 10 mg Q4H PRN IV ELEVATED SYSTOLIC BP; Start 05/01 at 22:00 Lactulose (Lactulose Enema) 100 ml Q6 PRN [place] NOTE Last administered on 23:45; Admin Dose 100 ML; Start 05/03/17 at 12:30 Lactulose (Enulose) 20 gm Q8 PO Last administered on 05/08/17 14:40; Admin Dose 20 GM; Start 05/03/17 at 14:00 Diphenhydramine HCl (Benadryl) 25 mg Q6H PRN IV allergic reaction ; Start 05/03 at 15:30 Pantoprazole (Protonix Tab) 40 mg DAILY@06 PO Last administered on 05/08/17 06:37; Admin Dose 40 MG; Start 05/04/17 at 06:00 IV Flush (NS 10 ml) 10 ml PRN PRN IV IV PROTOCOL; Start 05/04/17 at 18:00 Diphenhydramine HCl (Benadryl) 50 mg Q6H PRN IM allergic reaction; Start at 15:00 Rifaximin (Xifaxan) 550 mg BID PO Last administered on 05/08/17 09:18; Admin Dose 550 MG; Start 05/05/17 at 22:17 Sodium Chloride (Nacl) 1 gm BID PO Last administered on 05/08/17 09:18; Admin Dose 1 GM; Start 05/06/17 at 09:00 Spironolactone (Aldactone) 25 mg DAILY PO Last administered on 05/08/17 09:18 ; Admin Dose 25 MG; Start 05/06/17 at 09:00 Lactobacillus Acidophilus/ Rhamnosus (Culturelle) 1 cap BID PO Last administered on 05/08/17 09:18; Admin Dose 1 CAP; Start 05/07/17 at 14:00 HARI MESA NP May 08, 2017 15:55
[2017-05-08] MEDS ORDERED: MAGNESIUM SULFATE 2 GM/50 ML 50 ML IVPB ONE (16:00)
[2017-05-08] MEDS ORDERED: MAGNESIUM SULFATE 1 GM/D5W 100 ML IVPB ONE (16:00)
--- NOTE | 2017-05-08 16:00 | CONS ---
Date/Time of Note Date/Time of Note DATE: 05/08/17 TIME: 15:55 Assessment/Plan Assessment/Plan Additional Assessment/Plan 1. 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 2. acute hepatic encephalopathy- Ammonia level is still high 3 HCC 4. Acute transaminitis 5. Hypokalemia severe- requiring IV replacement every day per protocol 6. DM II 7. Hypomagnesium- replace Mag, AM mg LEVEL Plan: -H & O following,getting chemotherapy as per H & O -US guided paracentesis attempted 05/03/17- but not enough fluid as per Radiology - repeat ABd US on 05/07/17 showed small to moderate ascites, --- -paracentesis not done due to elevated INR and coagulopathy -K replacement as per protocol -decrease Na chloride tablet to 1 gram BID- on lasix 40mg PO BID + spironolactone 25 mg po daily -s/p 3% Hypertonic saline x 6 hr on 05/06/2017- Na still 130- monitor it,Not a candidate for tolvaptan at this point due to Elevated LFTs will follow up Dw Dr Jared Valdovinos/staff Consultation Date/Type/Reason Admit Date/Time Apr 26, 2017 at 13:32 Initial Consult Date 05/02/17 Type of Consultation: NEPHROLOGY Referring Provider: YOON ALVAREZ MD 24 HR Interval Summary Free Text/Dictation - NAD - Low K- replace per protocol - Low Maf- replce- am Mag level - NH3 -elevated -resting, seems comfortable, brother at bed side. dw staff. Constitutional: requiring IVF, requiring O2 Detailed Summary Respiratory: no complaints Cardiovascular: no complaints Gastrointestinal: pain Exam/Review of Systems Vital Signs Vitals Vital Signs Date Time Temp Pulse Resp B/P Pulse Ox O2 Delivery O2 Flow Rate FiO2 05/08/17 12:20 99.4 104 18 142/63 93 Room Air Intake and Output 05/07/17 05/07/17 05/08/17 15:00 23:00 07:00 Intake Total 1440 ml 720 ml Output Total 500 ml 700 ml Balance 940 ml 20 ml Exam Constitutional: alert, well developed Respiratory: diminished breath sounds Cardiovascular: nl pulses, other (s1s2) Gastrointestinal: other, soft Musculoskeletal: nl extremities to inspection Results Result Diagram: 11/11/17 0915 11/11/17 0915 Results 24 hrs Laboratory Tests Test 05/07/17 17:16 05/07/17 21:15 05/08/17 06:48 05/08/17 09:03 Bedside Glucose 179 176 175 Lab Scanned Report BLOOD TRANSFUSION Test 05/08/17 09:15 05/08/17 10:02 05/08/17 12:55 White Blood Count 9.2 Red Blood Count 1.88 #L Hemoglobin 7.1 #L Hematocrit 20.3 #L Mean Corpuscular Volume 108.0 H Mean Corpuscular Hemoglobin 37.8 H Mean Corpuscular Hemoglobin Concent 35.0 Red Cell Distribution Width 18.5 H Platelet Count 37 #L Mean Platelet Volume 9.3 Neutrophils % Lymphocytes % Monocytes % Eosinophils % Basophils % Nucleated Red Blood Cells % 0.2 H Neutrophils # Lymphocytes # Monocytes # Eosinophils # Basophils # Nucleated Red Blood Cells # Sodium Level 130 L Potassium Level 3.0 L Chloride Level 92 L Carbon Dioxide Level 32 H Anion Gap 9 Blood Urea Nitrogen 20 Creatinine 0.75 Glucose Level 139 Calcium Level 7.3 L Phosphorus Level 3.4 Magnesium Level 1.6 L Total Bilirubin 5.3 #H Direct Bilirubin 5.30 H Indirect Bilirubin 5.3 H Aspartate Amino Transf (AST/SGOT) 97 H Alanine Aminotransferase (ALT/SGPT) 69 Alkaline Phosphatase 145 H Ammonia 71 H Total Protein 5.2 L Albumin 1.9 L Globulin 3.30 H Albumin/Globulin Ratio 0.57 Prothrombin Time 25.4 H Prothrombin Time Ratio 2.0 INR International Normalized Ratio 2.28 Activated Partial Thromboplast Time 49.7 H Fibrinogen 162.0 #L Bedside Glucose 163 Medications Medications Current Medications Ondansetron HCl (Zofran Inj) 4 mg Q6H PRN IV NAUSEA AND/OR VOMITING Last administered on 04/27/17 14:53; Admin Dose 4 MG; Start 04/26/17 at 15:00 Acetaminophen/ Hydrocodone Bitart ([place] (5/325)) 1 tab Q6H PRN PO MODERATE PAIN LEVEL 4-6 Last administered on 04/26/17 22:03; Admin Dose 1 TAB; Start 04/26/17 at 15:00 Diagnostic Test (Pha) (Accu-Chek) 1 ea 02 XX ; Start 04/27/17 at 02:00 Non-Formulary Medication 2 ea BID@07,17 PO Last administered on 04/27/17 06: 18; Admin Dose 2 EA; Start 04/27/17 at 07:00; Status Future Hold Miscellaneous Information Patients own medicat... BID@ XX ; Start at 10:00 Miscellaneous Information 1 ea NOTE XX ; Start 04/28/17 at 14:30 Glucose (Glutose) 15 gm Q15M PRN PO DECREASED GLUCOSE; Start 04/28/17 at 14:30 Glucose (Glutose) 22.5 gm Q15M PRN PO DECREASED GLUCOSE; Start 04/28/17 at 14: 30 Dextrose (D50w Syringe) 25 ml Q15M PRN IV DECREASED GLUCOSE; Start 04/28/17 at 14:30 Dextrose (D50w Syringe) 50 ml Q15M PRN IV DECREASED GLUCOSE; Start 04/28/17 at 14:30 Glucagon (Glucagen) 1 mg Q15M PRN IM DECREASED GLUCOSE; Start 04/28/17 at 14:30 Glucose (Glutose) 15 gm Q15M PRN BUCCAL DECREASED GLUCOSE; Start 04/28/17 at 14 :30 Hydralazine HCl (Apresoline) 10 mg Q4H PRN IV ELEVATED SYSTOLIC BP; Start 05/01 at 22:00 Lactulose (Lactulose Enema) 100 ml Q6 PRN ME NOTE Last administered on 23:45; Admin Dose 100 ML; Start 05/03/17 at 12:30 Lactulose (Enulose) 20 gm Q8 PO Last administered on 05/08/17 14:40; Admin Dose 20 GM; Start 05/03/17 at 14:00 Diphenhydramine HCl (Benadryl) 25 mg Q6H PRN IV allergic reaction ; Start 05/03 at 15:30 Pantoprazole (Protonix Tab) 40 mg DAILY@06 PO Last administered on 05/08/17 06:37; Admin Dose 40 MG; Start 05/04/17 at 06:00 IV Flush (NS 10 ml) 10 ml PRN PRN IV IV PROTOCOL; Start 05/04/17 at 18:00 Diphenhydramine HCl (Benadryl) 50 mg Q6H PRN IM allergic reaction; Start at 15:00 Rifaximin (Xifaxan) 550 mg BID PO Last administered on 05/08/17 09:18; Admin Dose 550 MG; Start 05/05/17 at 22:17 Sodium Chloride (Nacl) 1 gm BID PO Last administered on 05/08/17 09:18; Admin Dose 1 GM; Start 05/06/17 at 09:00 Spironolactone (Aldactone) 25 mg DAILY PO Last administered on 05/08/17 09:18 ; Admin Dose 25 MG; Start 05/06/17 at 09:00 Lactobacillus Acidophilus/ Rhamnosus (Culturelle) 1 cap BID PO Last administered on 05/08/17 09:18; Admin Dose 1 CAP; Start 05/07/17 at 14:00 BIJAL RAND May 08, 2017 16:00
[2017-05-09] MEDS: ACCU-CHEK XX SCH ×2 (02:00→21:54)
[2017-05-09 05:13] LABS: ABNORMAL IP MESSAGE 1; BASOPHILS % 0.2 % (0.0-2.0); EOSINOPHILS # 0.5 10^3/ul (0.0-0.5); EOSINOPHILS % 4.3 % (0.0-7.0); HEMATOCRIT 22.5 % (37.0-47.0); HEMOGLOBIN 7.8 g/dl (12.0-16.0); LYMPHOCYTES % 9.4 % (15.0-51.0); MEAN CORPUSCULAR HEMOGLOBIN 35.8 pg (29.0-33.0); MEAN CORPUSCULAR HGB CONC 34.7 g/dl (32.0-37.0); MEAN CORPUSCULAR VOLUME 103.2 fl (82.0-101.0); MEAN PLATELET VOLUME 9.9 fl (7.4-10.4); MONOCYTE # 0.9 10^3/ul (0.3-0.9); MONOCYTES % 8.3 % (0.0-11.0); NEUTROPHIL # 8.1 10^3/ul (1.6-7.5); NUCLEATED RED BLOOD CELLS # 0.1 10^3/ul (0.0-0.0); NUCLEATED RED BLOOD CELLS% 0.5 /100WBC (0.0-0.0); PLATELET COUNT 65 10^3/UL (140-415); RED BLOOD COUNT 2.18 10^6/ul (4.20-5.40); RED CELL DISTRIBUTION WIDTH 20.8 % (11.5-14.5); WHITE BLOOD COUNT 11.1 10^3/ul (4.8-10.8)
[2017-05-09 05:16] LABS: POSITIVE DIFF @See below
[2017-05-09 05:40] LABS: INR 2.6; PROTIME 28.2 Sec (12.2-14.2); PT RATIO 2.2
[2017-05-09 05:41] LABS: PARTIAL THROMBOPLASTIN TIME 51.2 Sec (25.0-35.0)
[2017-05-09 05:45] LABS: ALBUMIN 1.9 g/dl (3.3-4.9); ALBUMIN/GLOBULIN RATIO 0.59; BILIRUBIN,DIRECT 5.9 mg/dl (0.00-0.20); BILIRUBIN,INDIRECT 5.1 mg/dl (0-1.1); CALCIUM 7.2 mg/dl (8.4-10.2); CREATININE 0.69 mg/dl (0.44-1.00); POTASSIUM 3.1 mmol/L (3.5-5.1); TOTAL PROTEIN 5.1 g/dl (6.1-8.1)
[2017-05-09 06:12] LABS: PHOSPHORUS 3.3 mg/dl (2.5-4.9)
[2017-05-09 06:22] VITALS: BP 122/62; PULSE 103; RESP 18
[2017-05-09] MEDS: LACTULOSE 30ML CUP PO SCH ×3 (06:24→21:26)
[2017-05-09] MEDS: PANTOPRAZOLE (EC) 40 MG TAB PO SCH (06:24)
[2017-05-09] MEDS: FUROSEMIDE 40 MG TAB PO SCH ×2 (06:25→18:04)
[2017-05-09 08:04] VITALS: BP 131/59; RESP 20
[2017-05-09] MEDS: RIFAXIMIN 550 MG TAB PO SCH ×2 (09:03→21:27)
[2017-05-09] MEDS: LACTOBACILLUS RHAMNOSUS CAP PO SCH ×2 (09:03→21:27)
[2017-05-09] MEDS: SODIUM CHLORIDE 1 GM TAB PO SCH ×2 (09:03→21:41)
[2017-05-09] MEDS: SPIRONOLACTONE 25 MG TAB PO SCH (09:04)
[2017-05-09] MEDS: INSULIN ASPART [NOVOLOG] 3 ML PEN SC SCH ×4 (09:13→21:00)
[2017-05-09] MEDS ORDERED: POTASSIUM CHLORIDE 250 ML IVPB ONE (11:30)
--- NOTE | 2017-05-09 11:38 | PN ---
Date/Time of Note Date/Time of Note DATE: 05/09/17 TIME: 11:31 Assessment/Plan VTE Prophylaxis VTE Prophylaxis Intervention: SCD's Lines/Catheters IV [facility] Type [facility]from [facility] P[facility] Line Urinary Cath still in place: Yes Assessment/Plan Chief Complaint/Hosp Course Assessment and plan 1. Acute encephalopathy. Likely toxic metabolic from underlying hyperammonemia. Continue lactulose. CT scan of the brain was negative for any acute findings from outside hospital. 2. Hyperammonemia. Continue lactulose. 3. Abdominal pain secondary to ascites. Plan for another paracentesis. Of note patient did have recent paracentesis with more than a liter of fluid removed on April 26, 2017. Repeat paracentesis was planned for May 04, 2017 however not enough fluid. Will monitor for now. Further paracentesis pending clinical course 4. Metastatic carcinoma with HCC. Oncologist following. chemotherapy per oncologist. 5. Transaminitis with hyperbilirubinemia secondary to hepatocellular carcinoma. Avoid hepatotoxic medications. 6. Normocytic anemia secondary to hepatocellular carcinoma. Monitor platelets and for signs of bleeding 7. Diabetes mellitus. Continue insulin regimen. 8. Nicotine use. Cessation was advised. 9. Hyponatremia. Drum Worker is following. Continue IV fluid regimen per supervisor case loading. 10. Hypokalemia. Will monitor and replete electrolytes as needed 11. Vaginal bleeding. likely from coagulopathy. transfuse blood products as needed Disposition plan: Overall prognosis is poor. Continue supportive care. Transfuse blood products as needed. Chemotherapy per oncologist. Continue in- house monitoring Discussed plan of care with Dr. Tsang Problems: Subjective 24 Hr Interval Summary Free Text/Dictation resting at this time. no s/s of distress Exam/Review of Systems Vital Signs Vitals Vital Signs Date Time Temp Pulse Resp B/P Pulse Ox O2 Delivery O2 Flow Rate FiO2 05/09/17 08:04 99.4 101 20 131/59 96 05/09/17 06:22 Room Air Intake and Output 05/08/17 05/08/17 05/09/17 14:59 22:59 06:59 Intake Total 510 ml 450 ml Output Total 350 ml 1000 ml Balance 160 ml -550 ml Exam Constitutional: alert, no s/s of distres Head: normocephalic Eyes: icteric Neck: non-tender, supple Respiratory: diminished breath sounds Cardiovascular: regular rate and rhythm Gastrointestinal: non-tender, soft Musculoskeletal: swelling (bilateral lower extremities ) Neurological: other (alert, lethargic, oriented ) Results Result Diagram: 05/09/17 0427 05/09/177 Results 24 hrs Laboratory Tests Test 05/08/17 12:55 05/08/17 17:43 05/08/17 21:52 05/09/17 04:25 Bedside Glucose 163 172 183 Fibrinogen 154.0 L Test 05/09/17 04:27 05/09/17 06:07 05/09/17 08:32 White Blood Count 11.1 #H Red Blood Count 2.18 L Hemoglobin 7.8 L Hematocrit 22.5 L Mean Corpuscular Volume 103.2 H Mean Corpuscular Hemoglobin 35.8 H Mean Corpuscular Hemoglobin Concent 34.7 Red Cell Distribution Width 20.8 H Platelet Count 65 #L Mean Platelet Volume 9.9 Neutrophils % 73.0 Lymphocytes % 9.4 L Monocytes % 8.3 Eosinophils % 4.3 Basophils % 0.2 Nucleated Red Blood Cells % 0.5 H Neutrophils # 8.1 H Lymphocytes # 1.0 Monocytes # 0.9 Eosinophils # 0.5 Basophils # 0.0 Nucleated Red Blood Cells # 0.1 H Prothrombin Time 28.2 H Prothrombin Time Ratio 2.2 INR International Normalized Ratio 2.60 Activated Partial Thromboplast Time 51.2 H Sodium Level 130 L Potassium Level 3.1 L Chloride Level 93 L Carbon Dioxide Level 29 Anion Gap 11 Blood Urea Nitrogen 22 H Creatinine 0.69 Glucose Level 167 Calcium Level 7.2 L Phosphorus Level 3.3 Magnesium Level 2.0 Total Bilirubin 11.0 #H Direct Bilirubin 5.90 H Indirect Bilirubin 5.1 H Aspartate Amino Transf (AST/SGOT) 97 H Alanine Aminotransferase (ALT/SGPT) 64 Alkaline Phosphatase 141 H Ammonia 68 H Total Protein 5.1 L Albumin 1.9 L Globulin 3.20 Albumin/Globulin Ratio 0.59 Lab Scanned Report BLOOD TRANSFUSION Bedside Glucose 177 Medications Medications Current Medications Ondansetron HCl (Zofran Inj) 4 mg Q6H PRN IV NAUSEA AND/OR VOMITING Last administered on 04/27/17t 14:53; Admin Dose 4 MG; Start 04/26/17 at 15:00 Acetaminophen/ Hydrocodone Bitart ([place] (5/325)) 1 tab Q6H PRN PO MODERATE PAIN LEVEL 4-6 Last administered on 04/26/17 22:03; Admin Dose 1 TAB; Start 04/26/17 at 15:00 Diagnostic Test (Pha) (Accu-Chek) 1 ea 02 XX ; Start 04/27/17 at 02:00 Non-Formulary Medication 2 ea BID@,17 PO Last administered on 04/27/17 06: 18; Admin Dose 2 EA; Start 04/27/17 at 07:00; Status Future Hold Miscellaneous Information Patients own medicat... BID@ XX ; Start at 10:00 Miscellaneous Information 1 ea NOTE XX ; Start 04/28/17 at 14:30 Glucose (Glutose) 15 gm Q15M PRN PO DECREASED GLUCOSE; Start 04/28/17 at 14:30 Glucose (Glutose) 22.5 gm Q15M PRN PO DECREASED GLUCOSE; Start 04/28/17 at 14: 30 Dextrose (D50w Syringe) 25 ml Q15M PRN IV DECREASED GLUCOSE; Start 04/28/17 at 14:30 Dextrose (D50w Syringe) 50 ml Q15M PRN IV DECREASED GLUCOSE; Start 04/28/17 at 14:30 Glucagon (Glucagen) 1 mg Q15M PRN IM DECREASED GLUCOSE; Start 04/28/17 at 14:30 Glucose (Glutose) 15 gm Q15M PRN BUCCAL DECREASED GLUCOSE; Start 04/28/17 at 14 :30 Hydralazine HCl (Apresoline) 10 mg Q4H PRN IV ELEVATED SYSTOLIC BP; Start 05/01 at 22:00 Lactulose (Lactulose Enema) 100 ml Q6 PRN [place] NOTE Last administered on 23:45; Admin Dose 100 ML; Start 05/03/17 at 12:30 Lactulose (Enulose) 20 gm Q8 PO Last administered on 05/09/17 06:24; Admin Dose 20 GM; Start 05/03/17 at 14:00 Diphenhydramine HCl (Benadryl) 25 mg Q6H PRN IV allergic reaction ; Start 05/03 at 15:30 Pantoprazole (Protonix Tab) 40 mg DAILY@06 PO Last administered on 05/09/17 06:24; Admin Dose 40 MG; Start 05/04/17 at 06:00 IV Flush (NS 10 ml) 10 ml PRN PRN IV IV PROTOCOL; Start 05/04/17 at 18:00 Diphenhydramine HCl (Benadryl) 50 mg Q6H PRN IM allergic reaction; Start at 15:00 Rifaximin (Xifaxan) 550 mg BID PO Last administered on 05/09/17 09:03; Admin Dose 550 MG; Start 05/05/17 at 22:17 Sodium Chloride (Nacl) 1 gm BID PO Last administered on 05/09/17 09:03; Admin Dose 1 GM; Start 05/06/17 at 09:00 Spironolactone (Aldactone) 25 mg DAILY PO Last administered on 05/09/17 09:04 ; Admin Dose 25 MG; Start 05/06/17 at 09:00 Lactobacillus Acidophilus/ Rhamnosus 1 cap 1 cap BID PO Last administered on 09:03; Admin Dose 1 CAP; Start 05/07/17 at 14:00 Potassium Chloride (KCl 40 MEQ/250 ML NS) 250 ml @ 62.5 mls/hr ONCE ONCE IVPB ; Start 05/09/17 at 11:30; Stop 05/09/17 at 15:29 CECILIA SMITH May 09, 2017 11:38
--- NOTE | 2017-05-09 14:42 | CONS ---
Date/Time of Note Date/Time of Note DATE: 05/09/17 TIME: 14:35 Assessment/Plan Assessment/Plan Additional Assessment/Plan 1. 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 2. acute hepatic encephalopathy- Ammonia - 68 today 3 HCC 4. Acute transaminitis 5. Hypokalemia severe- requiring IV replacement every day per protocol 6. DM II 7. Hypomagnesium- resolved Plan: -H & O following,getting chemotherapy as per H & O -US guided paracentesis attempted 05/03/17- but not enough fluid as per Radiology - repeat ABd US on 05/07/17 showed small to moderate ascites, --- -paracentesis not done due to elevated INR and coagulopathy -K replacement as per protocol -decrease Na chloride tablet to 1 gram BID- on lasix 40mg PO BID + spironolactone 25 mg po daily -s/p 3% Hypertonic saline x 6 hr on 05/06/2017- Na still 130- monitor it,Not a candidate for tolvaptan at this point due to Elevated LFTs will follow up Austin Valdovinos/staff Consultation Date/Type/Reason Admit Date/Time Apr 26, 2017 at 13:32 Initial Consult Date 05/02/17 Type of Consultation: NEPHROLOGY Referring Provider: YOON ALVAREZ MD 24 HR Interval Summary Free Text/Dictation - NAD, more awake,alert per family -afebrile, - Mag - wnl -Na =130 -K-3.1- replace K per protocol - family at bed side-allQs answered- dw staff Constitutional: requiring IVF, requiring O2 Detailed Summary Respiratory: no complaints Cardiovascular: no complaints Gastrointestinal: no complaints Exam/Review of Systems Vital Signs Vitals Vital Signs Date Time Temp Pulse Resp B/P Pulse Ox O2 Delivery O2 Flow Rate FiO2 05/09/17 08:04 99.4 101 20 131/59 96 05/09/17 06:22 Room Air Intake and Output 05/08/17 05/08/17 05/09/17 15:00 23:00 07:00 Intake Total 510 ml 450 ml Output Total 350 ml 1000 ml Balance 160 ml -550 ml Exam Constitutional: alert Eyes: icteric Respiratory: diminished breath sounds Gastrointestinal: non-tender, soft Musculoskeletal: nl extremities to inspection Extremities: normal pulses Neurological: other (alert,responsive) Skin: other (jaundiced) Results Result Diagram: 05/09/177 05/09/17426 Results 24 hrs Laboratory Tests Test 05/08/17 17:43 05/08/17 21:52 05/09/17 04:25 05/09/17 04:27 Bedside Glucose 172 183 Fibrinogen 154.0 L White Blood Count 11.1 #H Red Blood Count 2.18 L Hemoglobin 7.8 L Hematocrit 22.5 L Mean Corpuscular Volume 103.2 H Mean Corpuscular Hemoglobin 35.8 H Mean Corpuscular Hemoglobin Concent 34.7 Red Cell Distribution Width 20.8 H Platelet Count 65 #L Mean Platelet Volume 9.9 Neutrophils % 73.0 Lymphocytes % 9.4 L Monocytes % 8.3 Eosinophils % 4.3 Basophils % 0.2 Nucleated Red Blood Cells % 0.5 H Neutrophils # 8.1 H Lymphocytes # 1.0 Monocytes # 0.9 Eosinophils # 0.5 Basophils # 0.0 Nucleated Red Blood Cells # 0.1 H Prothrombin Time 28.2 H Prothrombin Time Ratio 2.2 INR International Normalized Ratio 2.60 Activated Partial Thromboplast Time 51.2 H Sodium Level 130 L Potassium Level 3.1 L Chloride Level 93 L Carbon Dioxide Level 29 Anion Gap 11 Blood Urea Nitrogen 22 H Creatinine 0.69 Glucose Level 167 Calcium Level 7.2 L Phosphorus Level 3.3 Magnesium Level 2.0 Total Bilirubin 11.0 #H Direct Bilirubin 5.90 H Indirect Bilirubin 5.1 H Aspartate Amino Transf (AST/SGOT) 97 H Alanine Aminotransferase (ALT/SGPT) 64 Alkaline Phosphatase 141 H Ammonia 68 H Total Protein 5.1 L Albumin 1.9 L Globulin 3.20 Albumin/Globulin Ratio 0.59 Test 05/09/17 06:07 05/09/17 08:32 05/09/17 12:36 Lab Scanned Report BLOOD TRANSFUSION Bedside Glucose 177 189 Medications Medications Current Medications Ondansetron HCl (Zofran Inj) 4 mg Q6H PRN IV NAUSEA AND/OR VOMITING Last administered on 04/27/17 14:53; Admin Dose 4 MG; Start 04/26/17 at 15:00 Acetaminophen/ Hydrocodone Bitart ([place] (5/325)) 1 tab Q6H PRN PO MODERATE PAIN LEVEL 4-6 Last administered on 04/26/17 22:03; Admin Dose 1 TAB; Start 04/26/17 at 15:00 Diagnostic Test (Pha) (Accu-Chek) 1 ea 02 XX ; Start 04/27/17 at 02:00 Non-Formulary Medication 2 ea BID@, PO Last administered on 04/27/17 06: 18; Admin Dose 2 EA; Start 04/27/17 at 07:00; Status Future Hold Miscellaneous Information Patients own medicat... BID@ XX ; Start at 10:00 Miscellaneous Information 1 ea NOTE XX ; Start 04/28/17 at 14:30 Glucose (Glutose) 15 gm Q15M PRN PO DECREASED GLUCOSE; Start 04/28/17 at 14:30 Glucose (Glutose) 22.5 gm Q15M PRN PO DECREASED GLUCOSE; Start 04/28/17 at 14: 30 Dextrose (D50w Syringe) 25 ml Q15M PRN IV DECREASED GLUCOSE; Start 04/28/17 at 14:30 Dextrose (D50w Syringe) 50 ml Q15M PRN IV DECREASED GLUCOSE; Start 04/28/17 at 14:30 Glucagon (Glucagen) 1 mg Q15M PRN IM DECREASED GLUCOSE; Start 04/28/17 at 14:30 Glucose (Glutose) 15 gm Q15M PRN BUCCAL DECREASED GLUCOSE; Start 04/28/17 at 14 :30 Hydralazine HCl (Apresoline) 10 mg Q4H PRN IV ELEVATED SYSTOLIC BP; Start 05/01 at 22:00 Lactulose (Lactulose Enema) 100 ml Q6 PRN [place] NOTE Last administered on 23:45; Admin Dose 100 ML; Start 05/03/17 at 12:30 Lactulose (Enulose) 20 gm Q8 PO Last administered on 05/09/17 06:24; Admin Dose 20 GM; Start 05/03/17 at 14:00 Diphenhydramine HCl (Benadryl) 25 mg Q6H PRN IV allergic reaction ; Start 05/03 at 15:30 Pantoprazole (Protonix Tab) 40 mg DAILY@06 PO Last administered on 05/09/17 06:24; Admin Dose 40 MG; Start 05/04/17 at 06:00 IV Flush (NS 10 ml) 10 ml PRN PRN IV IV PROTOCOL; Start 05/04/17 at 18:00 Diphenhydramine HCl (Benadryl) 50 mg Q6H PRN IM allergic reaction; Start at 15:00 Rifaximin (Xifaxan) 550 mg BID PO Last administered on 05/09/17 09:03; Admin Dose 550 MG; Start 05/05/17 at 22:17 Sodium Chloride (Nacl) 1 gm BID PO Last administered on 05/09/17 09:03; Admin Dose 1 GM; Start 05/06/17 at 09:00 Spironolactone (Aldactone) 25 mg DAILY PO Last administered on 05/09/17 09:04 ; Admin Dose 25 MG; Start 05/06/17 at 09:00 Lactobacillus Acidophilus/ Rhamnosus 1 cap 1 cap BID PO Last administered on 09:03; Admin Dose 1 CAP; Start 05/07/17 at 14:00 Potassium Chloride (KCl 40 MEQ/250 ML NS) 250 ml @ 62.5 mls/hr ONCE ONCE IVPB Last administered on 05/09/17 13:30; Admin Dose 62.5 MLS/HR; Start at 11:30; Stop 05/09/17 at 15:29 BIJAL RAND May 09, 2017 14:42
--- NOTE | 2017-05-09 19:18 | PN ---
Date/Time of Note Date/Time of Note DATE: 05/09/17 TIME: 19:09 Assessment/Plan VTE Prophylaxis VTE Prophylaxis Intervention: contraindicated Lines/Catheters IV [facility] Type (from [facility]): PICC Line Central line still needed: Yes Urinary Cath still in place: Yes Reason Cath still needed: other (indicate) Assessment/Plan Assessment/Plan 1. Hepatocellular carcinoma. 2. Cirrhosis. 3. Hepatic encephalopathy. 4. Vaginal bleeding and/or rectal bleeding. DISCUSSION: The patient does have coagulopathy due to her liver disease. Has decreased coagulation factor production but also a decrease in fibrinogen as well as of course a decrease in platelets. Coagulation panel is stable, but no clinical bleeding I administered vitamin K empirically Patient responded to transfusion of PRBC and platelet's yesterday Recheck CBC. Case discussed with patient's sister and daughter at bedside Subjective 24 Hr Interval Summary Free Text/Dictation Patient somnolent, lethargic, encephalopathic Exam/Review of Systems Vital Signs Vitals Vital Signs Date Time Temp Pulse Resp B/P Pulse Ox O2 Delivery O2 Flow Rate FiO2 05/09/17 08:04 99.4 101 20 131/59 96 05/09/17 06:22 Room Air Intake and Output 05/08/17 05/08/17 05/09/17 15:00 23:00 07:00 Intake Total 510 ml 450 ml Output Total 350 ml 1000 ml Balance 160 ml -550 ml Exam Constitutional: alert, oriented Psych: nl mood/affect, no complaints Eyes: icteric, nl lids Neck: non-tender, supple Respiratory: clear to auscultation, normal air movement Cardiovascular: nl pulses, regular rate and rhythm Gastrointestinal: non-tender, soft Extremities: normal pulses Results Result Diagram: 05/09/17 0427 05/09/17 0427 Results 24 hrs Laboratory Tests Test 05/08/17 21:52 05/09/17 04:25 05/09/17 04:27 05/09/17 06:07 Bedside Glucose 183 Fibrinogen 154.0 L White Blood Count 11.1 #H Red Blood Count 2.18 L Hemoglobin 7.8 L Hematocrit 22.5 L Mean Corpuscular Volume 103.2 H Mean Corpuscular Hemoglobin 35.8 H Mean Corpuscular Hemoglobin Concent 34.7 Red Cell Distribution Width 20.8 H Platelet Count 65 #L Mean Platelet Volume 9.9 Neutrophils % 73.0 Lymphocytes % 9.4 L Monocytes % 8.3 Eosinophils % 4.3 Basophils % 0.2 Nucleated Red Blood Cells % 0.5 H Neutrophils # 8.1 H Lymphocytes # 1.0 Monocytes # 0.9 Eosinophils # 0.5 Basophils # 0.0 Nucleated Red Blood Cells # 0.1 H Prothrombin Time 28.2 H Prothrombin Time Ratio 2.2 INR International Normalized Ratio 2.60 Activated Partial Thromboplast Time 51.2 H Sodium Level 130 L Potassium Level 3.1 L Chloride Level 93 L Carbon Dioxide Level 29 Anion Gap 11 Blood Urea Nitrogen 22 H Creatinine 0.69 Glucose Level 167 Calcium Level 7.2 L Phosphorus Level 3.3 Magnesium Level 2.0 Total Bilirubin 11.0 #H Direct Bilirubin 5.90 H Indirect Bilirubin 5.1 H Aspartate Amino Transf (AST/SGOT) 97 H Alanine Aminotransferase (ALT/SGPT) 64 Alkaline Phosphatase 141 H Ammonia 68 H Total Protein 5.1 L Albumin 1.9 L Globulin 3.20 Albumin/Globulin Ratio 0.59 Lab Scanned Report BLOOD TRANSFUSION Test 05/09/17 08:32 05/09/17 12:36 05/09/17 17:39 Bedside Glucose 177 189 179 Medications Medications Current Medications Ondansetron HCl (Zofran Inj) 4 mg Q6H PRN IV NAUSEA AND/OR VOMITING Last administered on 04/27/17 14:53; Admin Dose 4 MG; Start 04/26/17 at 15:00 Acetaminophen/ Hydrocodone Bitart ([place] (5/325)) 1 tab Q6H PRN PO MODERATE PAIN LEVEL 4-6 Last administered on 04/26/17 22:03; Admin Dose 1 TAB; Start 04/26/17 at 15:00 Diagnostic Test (Pha) (Accu-Chek) 1 ea 02 XX ; Start 04/27/17 at 02:00 Non-Formulary Medication 2 ea BID@ PO Last administered on 04/27/17 06: 18; Admin Dose 2 EA; Start 04/27/17 at 07:00; Status Future Hold Miscellaneous Information Patients own medicat... BID@ XX ; Start at 10:00 Miscellaneous Information 1 ea NOTE XX ; Start 04/28/17 at 14:30 Glucose (Glutose) 15 gm Q15M PRN PO DECREASED GLUCOSE; Start 04/28/17 at 14:30 Glucose (Glutose) 22.5 gm Q15M PRN PO DECREASED GLUCOSE; Start 04/28/17 at 14: 30 Dextrose (D50w Syringe) 25 ml Q15M PRN IV DECREASED GLUCOSE; Start 04/28/17 at 14:30 Dextrose (D50w Syringe) 50 ml Q15M PRN IV DECREASED GLUCOSE; Start 04/28/17 at 14:30 Glucagon (Glucagen) 1 mg Q15M PRN IM DECREASED GLUCOSE; Start 04/28/17 at 14:30 Glucose (Glutose) 15 gm Q15M PRN BUCCAL DECREASED GLUCOSE; Start 04/28/17 at 14 :30 Hydralazine HCl (Apresoline) 10 mg Q4H PRN IV ELEVATED SYSTOLIC BP; Start 05/01 at 22:00 Lactulose (Lactulose Enema) 100 ml Q6 PRN [place] NOTE Last administered on 23:45; Admin Dose 100 ML; Start 05/03/17 at 12:30 Lactulose (Enulose) 20 gm Q8 PO Last administered on 05/09/17 14:49; Admin Dose 20 GM; Start 05/03/17 at 14:00 Diphenhydramine HCl (Benadryl) 25 mg Q6H PRN IV allergic reaction ; Start 05/03 at 15:30 Pantoprazole (Protonix Tab) 40 mg DAILY@06 PO Last administered on 05/09/17 06:24; Admin Dose 40 MG; Start 05/04/17 at 06:00 IV Flush (NS 10 ml) 10 ml PRN PRN IV IV PROTOCOL; Start 05/04/17 at 18:00 Diphenhydramine HCl (Benadryl) 50 mg Q6H PRN IM allergic reaction; Start at 15:00 Rifaximin (Xifaxan) 550 mg BID PO Last administered on 05/09/17 09:03; Admin Dose 550 MG; Start 05/05/17 at 22:17 Sodium Chloride (Nacl) 1 gm BID PO Last administered on 05/09/17 09:03; Admin Dose 1 GM; Start 05/06/17 at 09:00 Spironolactone (Aldactone) 25 mg DAILY PO Last administered on 05/09/17 09:04 ; Admin Dose 25 MG; Start 05/06/17 at 09:00 Lactobacillus Acidophilus/ Rhamnosus (Culturelle) 1 cap BID PO Last administered on 05/09/17 09:03; Admin Dose 1 CAP; Start 05/07/17 at 14:00 BENI GARCIA MD May 09, 2017 19:18
[2017-05-09 19:46] VITALS: BP 130/60; RESP 18
[2017-05-09] MEDS ORDERED: PHYTONADIONE 10 MG/ML INJ SC ONE (23:00)
[2017-05-09 23:10] LABS: ABNORMAL IP MESSAGE 1; BASOPHILS % 0.1 % (0.0-2.0); EOSINOPHILS # 0.6 10^3/ul (0.0-0.5); EOSINOPHILS % 4.8 % (0.0-7.0); HEMATOCRIT 20.3 % (37.0-47.0); HEMOGLOBIN 7.1 g/dl (12.0-16.0); LYMPHOCYTES # 1.5 10^3/ul (0.8-2.9); LYMPHOCYTES % 12.5 % (15.0-51.0); MEAN CORPUSCULAR HEMOGLOBIN 35.9 pg (29.0-33.0); MEAN CORPUSCULAR VOLUME 102.5 fl (82.0-101.0); MEAN PLATELET VOLUME 9.6 fl (7.4-10.4); MONOCYTE # 1.2 10^3/ul (0.3-0.9); MONOCYTES % 9.9 % (0.0-11.0); NEUTROPHIL # 8.5 10^3/ul (1.6-7.5); NEUTROPHILS % 69.5 % (39.0-77.0); NUCLEATED RED BLOOD CELLS # 0.1 10^3/ul (0.0-0.0); NUCLEATED RED BLOOD CELLS% 0.7 /100WBC (0.0-0.0); PLATELET COUNT 66 10^3/UL (140-415); RED BLOOD COUNT 1.98 10^6/ul (4.20-5.40); RED CELL DISTRIBUTION WIDTH 21.2 % (11.5-14.5); WHITE BLOOD COUNT 12.2 10^3/ul (4.8-10.8)
[2017-05-09 23:12] LABS: POSITIVE DIFF @See below
[2017-05-09 23:16] VITALS: PULSE 104
[2017-05-09 23:27] LABS: ALBUMIN 1.7 g/dl (3.3-4.9); ALBUMIN/GLOBULIN RATIO 0.5; BILIRUBIN,DIRECT 5.9 mg/dl (0.00-0.20); BILIRUBIN,INDIRECT 4.7 mg/dl (0-1.1); BILIRUBIN,TOTAL 10.6 mg/dl (0.2-1.3); CALCIUM 7.3 mg/dl (8.4-10.2); CREATININE 0.83 mg/dl (0.44-1.00); POTASSIUM 3.3 mmol/L (3.5-5.1); TOTAL PROTEIN 5.1 g/dl (6.1-8.1)
[2017-05-09 23:30] VITALS: BP 135/63; PULSE 104; RESP 19
[2017-05-10] VITALS (26 sets, daily range): BP systolic 104–128; BP diastolic 47–62; PULSE 89–103; RESP 15–24
[2017-05-10 05:33] LABS: HEMATOCRIT 16.6 % (37.0-47.0); MEAN CORPUSCULAR HEMOGLOBIN 35.4 pg (29.0-33.0); MEAN CORPUSCULAR HGB CONC 34.3 g/dl (32.0-37.0); MEAN CORPUSCULAR VOLUME 103.1 fl (82.0-101.0); MEAN PLATELET VOLUME 9.9 fl (7.4-10.4); RED BLOOD COUNT 1.61 10^6/ul (4.20-5.40); RED CELL DISTRIBUTION WIDTH 21.1 % (11.5-14.5); WHITE BLOOD COUNT 9.6 10^3/ul (4.8-10.8)
[2017-05-10 05:34] LABS: ABNORMAL IP MESSAGE 1; NUCLEATED RED BLOOD CELLS% 0.8 /100WBC (0.0-0.0)
[2017-05-10] MEDS: LACTULOSE 30ML CUP PO SCH ×3 (05:45→21:09)
[2017-05-10] MEDS: FUROSEMIDE 40 MG TAB PO SCH ×2 (05:46→18:16)
[2017-05-10] MEDS: PANTOPRAZOLE (EC) 40 MG TAB PO SCH (05:46)
[2017-05-10 05:51] LABS: CALCIUM 7.1 mg/dl (8.4-10.2); CREATININE 0.83 mg/dl (0.44-1.00); POTASSIUM 3.2 mmol/L (3.5-5.1)
[2017-05-10 06:32] LABS: POSITIVE DIFF @See below
[2017-05-10 06:34] LABS: PLATELET COUNT 48 10^3/UL (140-415)
[2017-05-10 06:36] LABS: HEMOGLOBIN 5.7 g/dl (12.0-16.0)
[2017-05-10] MEDS ORDERED: FUROSEMIDE 20 MG INJ IV ONE (07:00)
[2017-05-10] MEDS: SPIRONOLACTONE 25 MG TAB PO SCH (08:56)
[2017-05-10] MEDS: SODIUM CHLORIDE 1 GM TAB PO SCH ×2 (08:56→20:39)
[2017-05-10] MEDS: LACTOBACILLUS RHAMNOSUS CAP PO SCH ×2 (08:56→20:39)
[2017-05-10] MEDS: RIFAXIMIN 550 MG TAB PO SCH ×2 (08:59→20:39)
[2017-05-10] MEDS: INSULIN ASPART [NOVOLOG] 3 ML PEN SC SCH ×4 (11:10→20:39)
--- NOTE | 2017-05-10 16:54 | PN ---
Date/Time of Note Date/Time of Note DATE: 05/10/17 TIME: 16:53 Assessment/Plan VTE Prophylaxis VTE Prophylaxis Intervention: other Lines/Catheters IV Catheter Type (from [facility]): PICC Line Central line still needed: Yes Urinary Cath still in place: Yes Reason Cath still needed: urinary retention Assessment/Plan Chief Complaint/Hosp Course 56 yo female with cirrhosis and metastatic hepatocellular carinoma with acute blood loss anemia - Contniue transfusions PRN Hyponatremia: - management per renal Ascites: - Paracentesis for comfort HCC: - Managmeent per oncology Dismal prognosis, will continue goals of care discussions Problems: Subjective 24 Hr Interval Summary Free Text/Dictation MOved to ICU for bleeding, transfused Continues to have vaginal bleeding Exam/Review of Systems Vital Signs Vitals Vital Signs Date Time Temp Pulse Resp B/P Pulse Ox O2 Delivery O2 Flow Rate FiO2 05/10/17 16:00 92 05/10/17 11:00 20 106/55 05/10/17 10:50 2.0 05/10/17 10:00 100 Nasal Cannula 05/10/17 08:00 98.3 Intake and Output 05/09/17 05/09/17 05/10/17 15:00 23:00 07:00 Intake Total 450 ml 120 ml Output Total 250 ml 500 ml Balance 200 ml -380 ml Exam Constitutional: alert, oriented, well developed Psych: nl mood/affect, no complaints Head: atraumatic, normocephalic Eyes: EOMI, PERRL, nl conjunctiva, nl lids, nl sclera ENMT: nl external ears & nose, nl lips & teeth, nl nasal mucosa & septum Neck: non-tender, supple Respiratory: clear to auscultation, normal air movement Cardiovascular: nl pulses, regular rate and rhythm Gastrointestinal: nl liver, spleen, non-tender, soft Musculoskeletal: nl extremities to inspection, nl gait and stance Extremities: normal pulses Neurological: [employer] TECH[employer]ICIAN II-XII intact, nl mental status, nl speech, nl strength Skin: nl turgor, No rash or lesions Lymph: nl lymph nodes Results Result Diagram: 05/10/17 0500 05/10/17 0500 Results 24 hrs Laboratory Tests Test 05/09/17 17:39 05/09/17 21:17 05/09/17 23:03 05/10/17 05:00 Bedside Glucose 179 175 White Blood Count 12.2 H 9.6 # Red Blood Count 1.98 L 1.61 L Hemoglobin 7.1 L 5.7 *L Hematocrit 20.3 L 16.6 L Mean Corpuscular Volume 102.5 H 103.1 H Mean Corpuscular Hemoglobin 35.9 H 35.4 H Mean Corpuscular Hemoglobin Concent 35.0 34.3 Red Cell Distribution Width 21.2 H 21.1 H Platelet Count 66 L 48 #L Mean Platelet Volume 9.6 9.9 Neutrophils % 69.5 Lymphocytes % 12.5 L Monocytes % 9.9 Eosinophils % 4.8 Basophils % 0.1 Nucleated Red Blood Cells % 0.7 H 0.8 H Neutrophils # 8.5 H Lymphocytes # 1.5 Monocytes # 1.2 H Eosinophils # 0.6 H Basophils # 0.0 Nucleated Red Blood Cells # 0.1 H Sodium Level 130 L 130 L Potassium Level 3.3 L 3.2 L Chloride Level 94 L 95 L Carbon Dioxide Level 30 29 Anion Gap 9 9 Blood Urea Nitrogen 25 H 25 H Creatinine 0.83 0.83 Glucose Level 146 138 Calcium Level 7.3 L 7.1 L Total Bilirubin 10.6 H Direct Bilirubin 5.90 H Indirect Bilirubin 4.7 H Aspartate Amino Transf (AST/SGOT) 91 H Alanine Aminotransferase (ALT/SGPT) 66 Alkaline Phosphatase 132 H Total Protein 5.1 L Albumin 1.7 L Globulin 3.40 H Albumin/Globulin Ratio 0.50 Test 05/10/17 08:32 05/10/17 12:36 Bedside Glucose 158 156 Medications Medications Current Medications Ondansetron HCl (Zofran Inj) 4 mg Q6H PRN IV NAUSEA AND/OR VOMITING Last administered on 04/27/17 14:53; Admin Dose 4 MG; Start 04/26/17 at 15:00 Acetaminophen/ Hydrocodone Bitart ([place] (5/325)) 1 tab Q6H PRN PO MODERATE PAIN LEVEL 4-6 Last administered on 04/26/17 22:03; Admin Dose 1 TAB; Start 04/26/17 at 15:00 Diagnostic Test (Pha) (Accu-Chek) 1 ea 02 XX ; Start 04/27/17 at 02:00 Miscellaneous Information 1 ea NOTE XX ; Start 04/28/17 at 14:30 Glucose (Glutose) 15 gm Q15M PRN PO DECREASED GLUCOSE; Start 04/28/17 at 14:30 Glucose (Glutose) 22.5 gm Q15M PRN PO DECREASED GLUCOSE; Start 04/28/17 at 14: 30 Dextrose (D50w Syringe) 25 ml Q15M PRN IV DECREASED GLUCOSE; Start 04/28/17 at 14:30 Dextrose (D50w Syringe) 50 ml Q15M PRN IV DECREASED GLUCOSE; Start 04/28/17 at 14:30 Glucagon (Glucagen) 1 mg Q15M PRN IM DECREASED GLUCOSE; Start 04/28/17 at 14:30 Glucose (Glutose) 15 gm Q15M PRN BUCCAL DECREASED GLUCOSE; Start 04/28/17 at 14 :30 Hydralazine HCl (Apresoline) 10 mg Q4H PRN IV ELEVATED SYSTOLIC BP; Start 05/01 at 22:00 Lactulose (Lactulose Enema) 100 ml Q6 PRN [place] NOTE Last administered on 23:45; Admin Dose 100 ML; Start 05/03/17 at 12:30 Lactulose (Enulose) 20 gm Q8 PO Last administered on 05/10/17 14:09; Admin Dose 20 GM; Start 05/03/17 at 14:00 Diphenhydramine HCl (Benadryl) 25 mg Q6H PRN IV allergic reaction ; Start 05/03 at 15:30 Pantoprazole (Protonix Tab) 40 mg DAILY@06 PO Last administered on 05/10/17 05:46; Admin Dose 40 MG; Start 05/04/17 at 06:00 IV Flush (NS 10 ml) 10 ml PRN PRN IV IV PROTOCOL; Start 05/04/17 at 18:00 Diphenhydramine HCl (Benadryl) 50 mg Q6H PRN IM allergic reaction; Start at 15:00 Rifaximin (Xifaxan) 550 mg BID PO Last administered on 05/10/17 08:59; Admin Dose 550 MG; Start 05/05/17 at 22:17 Sodium Chloride (Nacl) 1 gm BID PO Last administered on 05/10/17 08:56; Admin Dose 1 GM; Start 05/06/17 at 09:00 Spironolactone (Aldactone) 25 mg DAILY PO Last administered on 05/10/17 08:56 ; Admin Dose 25 MG; Start 05/06/17 at 09:00 Lactobacillus Acidophilus/ Rhamnosus (Culturelle) 1 cap BID PO Last administered on 05/10/17 08:56; Admin Dose 1 CAP; Start 05/07/17 at 14:00 MICHELLE WALLS MD May 10, 2017 16:54
[2017-05-10] MEDS ORDERED: POTASSIUM CHLORIDE 50 ML IVPB PRN (17:00)
[2017-05-10] MEDS: POTASSIUM CHLORIDE 50 ML IVPB PRN ×3 (18:11→22:08)
--- NOTE | 2017-05-10 18:17 | PN ---
DATE: 05/10/2017 SUBJECTIVE: The patient states that she is feeling well. She has been transferred to the intensive care unit following a drop in blood pressure, accompanied by a decreasing hemoglobin. The patient has continued to have vaginal bleeding. Did not complain of cramping. She has not had bleeding from other mucosal sites. On questioning, the patient and her family, there apparently has been some occasional mild postmenop ausal bleeding but nothing to this degree. She has not taken any type of hormonal replacement thera py, etc. OBJECTIVE: GENERAL: The patient is a well-developed, chronically ill-appearing grossly icteric female who is i n no acute distress. VITAL SIGNS: Temperature is 98.3 orally, pulse 92 per minute and regular, respirations 20, blood pr essure 106/55, pulse oximetry 100% on 2 liters of oxygen via nasal cannula SKIN: Scattered ecchymoses. There are spider telangiectasias. There is obvious icterus. HEENT: Normocephalic. No evidence of trauma. The pupils are equal, round, react to light and acco mmodation. Sclerae are 4+ icteric. Oral mucosa is moist without lesions. NECK: Supple, no jugular venous distention or thyroid enlargement. CHEST: Clear to auscultation and percussion. No rhonchi, wheezes, rales or rubs, but there are dec reased breath sounds in the bases. HEART: Regular sinus rhythm, no S3, S4 or murmurs. ABDOMEN: Distended. There is ascites. The liver and spleen are not . There is a Taylor pratima ter in place. EXTREMITIES: No clubbing or cyanosis. There is 2+ pretibial and pedal edema. No palpable cords or Homans sign. NEUROLOGIC: Reveals no focal neurologic abnormalities. The patient is lethargic but responds appro priately to questions. She does have asterixis. White count 9600, hemoglobin 5.7, hematocrit 16.6, and platelet count is 48,000. Sodium 130, potassium 3.2, BUN 25, creatinine 0.83. ASSESSMENT: 1. Hepatocellular carcinoma. 2. Cirrhosis of the liver. 3. Hepatic encephalopathy. 4. Vaginal bleeding. DISCUSSION: It is unclear what is causing the patient's vaginal bleeding. The family has decided t his is because of the Nivolumab, although I certainly see no evidence of this. The patient's platel et count is unchanged from prior to her administration of Nivolumab as are the remainder of her coag ulation studies. The patient certainly has ample reason for bleeding without ascribing it to the us e of Nivolumab. The presence of this vaginal bleeding without other bleeding is of some concern. The ultrasound of the pelvis did not reveal any endometrial thickening or other similar lesions. I am somewhat concerned about any type of instrumentation to perform a diagnostic procedure or a D a nd C. Perhaps the patient can be given some progestational agent to help stop the bleeding. We will check coagulation studies again in the morning including a protime, PTT and fibrinogen as we ll as the patient's CBC and chemistry panel. Will replace clotting factors as required by the above studies. Dictated By: TONE KAPLAN MD SR/NTS Conf#: [id number] DID#: [id number] CC: TONE KAPLAN MD;*EndCC*
--- NOTE | 2017-05-10 20:50 | CONS ---
Date/Time of Note Date/Time of Note DATE: 05/10/17 TIME: 20:48 Assessment/Plan Assessment/Plan Additional Assessment/Plan 1. 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 2. acute hepatic encephalopathy- Ammonia - 68 today 3 HCC 4. Acute transaminitis 5. Hypokalemia severe- requiring IV replacement every day per protocol 6. DM II 7. Hypomagnesium- resolved Plan: -transferred to ICU due to low Hb- getting PRBC today -K replacement as per protocol, Na still low, continue Na chloride tablet 1 gram BID - on lasix 40mg PO BID + spironolactone 25 mg po daily -s/p 3% Hypertonic saline x 6 hr on 05/06/2017- Na still 130- monitor it,Not a candidate for tolvaptan at this point due to Elevated LFTs will follow up Full code, Guarded prognosis Consultation Date/Type/Reason Admit Date/Time Apr 26, 2017 at 13:32 Initial Consult Date 05/02/17 Type of Consultation: NEPHROLOGY Referring Provider: YOON ALVAREZ MD 24 HR Interval Summary Free Text/Dictation pt transferred to ICU due to low Hb, BP stable Exam/Review of Systems Vital Signs Vitals Vital Signs Date Time Temp Pulse Resp B/P Pulse Ox O2 Delivery O2 Flow Rate FiO2 05/10/17 16:00 92 05/10/17 11:00 20 106/55 05/10/17 10:50 2.0 05/10/17 10:00 100 Nasal Cannula 05/10/17 08:00 98.3 Intake and Output 05/09/17 05/09/17 05/10/17 15:00 23:00 07:00 Intake Total 450 ml 120 ml Output Total 250 ml 500 ml Balance 200 ml -380 ml Exam Constitutional: alert, awake Eyes: nl conjunctiva, other (no jaundice ) Neck: non-tender, supple Respiratory: diminished breath sounds, normal air movement Cardiovascular: nl pulses, regular rate and rhythm Gastrointestinal: ascites, distended, non-tender, soft Musculoskeletal: joint tenderness, muscle weakness, nl extremities to inspection, swelling Neurological: other (awake, alert but intermittently confused ) Results Result Diagram: 05/10/17 0500 05/10/17 0500 Results 24 hrs Laboratory Tests Test 05/09/17 21:17 05/09/17 23:03 05/10/17 05:00 05/10/17 08:32 Bedside Glucose 175 158 White Blood Count 12.2 H 9.6 # Red Blood Count 1.98 L 1.61 L Hemoglobin 7.1 L 5.7 *L Hematocrit 20.3 L 16.6 L Mean Corpuscular Volume 102.5 H 103.1 H Mean Corpuscular Hemoglobin 35.9 H 35.4 H Mean Corpuscular Hemoglobin Concent 35.0 34.3 Red Cell Distribution Width 21.2 H 21.1 H Platelet Count 66 L 48 #L Mean Platelet Volume 9.6 9.9 Neutrophils % 69.5 Lymphocytes % 12.5 L Monocytes % 9.9 Eosinophils % 4.8 Basophils % 0.1 Nucleated Red Blood Cells % 0.7 H 0.8 H Neutrophils # 8.5 H Lymphocytes # 1.5 Monocytes # 1.2 H Eosinophils # 0.6 H Basophils # 0.0 Nucleated Red Blood Cells # 0.1 H Sodium Level 130 L 130 L Potassium Level 3.3 L 3.2 L Chloride Level 94 L 95 L Carbon Dioxide Level 30 29 Anion Gap 9 9 Blood Urea Nitrogen 25 H 25 H Creatinine 0.83 0.83 Glucose Level 146 138 Calcium Level 7.3 L 7.1 L Total Bilirubin 10.6 H Direct Bilirubin 5.90 H Indirect Bilirubin 4.7 H Aspartate Amino Transf (AST/SGOT) 91 H Alanine Aminotransferase (ALT/SGPT) 66 Alkaline Phosphatase 132 H Total Protein 5.1 L Albumin 1.7 L Globulin 3.40 H Albumin/Globulin Ratio 0.50 Test 05/10/17 12:36 05/10/17 18:00 05/10/17 20:34 Bedside Glucose 156 141 144 Medications Medications Current Medications Ondansetron HCl (Zofran Inj) 4 mg Q6H PRN IV NAUSEA AND/OR VOMITING Last administered on 04/27/17 14:53; Admin Dose 4 MG; Start 04/26/17 at 15:00 Acetaminophen/ Hydrocodone Bitart ([place] (5/325)) 1 tab Q6H PRN PO MODERATE PAIN LEVEL 4-6 Last administered on 04/26/17 22:03; Admin Dose 1 TAB; Start 04/26/17 at 15:00 Diagnostic Test (Pha) (Accu-Chek) 1 ea 02 XX ; Start 04/27/17 at 02:00 Miscellaneous Information 1 ea NOTE XX ; Start 04/28/17 at 14:30 Glucose (Glutose) 15 gm Q15M PRN PO DECREASED GLUCOSE; Start 04/28/17 at 14:30 Glucose (Glutose) 22.5 gm Q15M PRN PO DECREASED GLUCOSE; Start 04/28/17 at 14: 30 Dextrose (D50w Syringe) 25 ml Q15M PRN IV DECREASED GLUCOSE; Start 04/28/17 at 14:30 Dextrose (D50w Syringe) 50 ml Q15M PRN IV DECREASED GLUCOSE; Start 04/28/17 at 14:30 Glucagon (Glucagen) 1 mg Q15M PRN IM DECREASED GLUCOSE; Start 04/28/17 at 14:30 Glucose (Glutose) 15 gm Q15M PRN BUCCAL DECREASED GLUCOSE; Start 04/28/17 at 14 :30 Hydralazine HCl (Apresoline) 10 mg Q4H PRN IV ELEVATED SYSTOLIC BP; Start 05/01 at 22:00 Lactulose (Lactulose Enema) 100 ml Q6 PRN [place] NOTE Last administered on 23:45; Admin Dose 100 ML; Start 05/03/17 at 12:30 Lactulose (Enulose) 20 gm Q8 PO Last administered on 05/10/17 14:09; Admin Dose 20 GM; Start 05/03/17 at 14:00 Diphenhydramine HCl (Benadryl) 25 mg Q6H PRN IV allergic reaction ; Start 05/03 at 15:30 Pantoprazole (Protonix Tab) 40 mg DAILY@06 PO Last administered on 05/10/17 05:46; Admin Dose 40 MG; Start 05/04/17 at 06:00 IV Flush (NS 10 ml) 10 ml PRN PRN IV IV PROTOCOL; Start 05/04/17 at 18:00 Diphenhydramine HCl (Benadryl) 50 mg Q6H PRN IM allergic reaction; Start at 15:00 Rifaximin (Xifaxan) 550 mg BID PO Last administered on 05/10/17 20:39; Admin Dose 550 MG; Start 05/05/17 at 22:17 Sodium Chloride (Nacl) 1 gm BID PO Last administered on 11/13/17at 20:39; Admin Dose 1 GM; Start 05/06/17 at 09:00 Spironolactone (Aldactone) 25 mg DAILY PO Last administered on 05/10/17 08:56 ; Admin Dose 25 MG; Start 05/06/17 at 09:00 Lactobacillus Acidophilus/ Rhamnosus (Culturelle) 1 cap BID PO Last administered on 05/10/17 20:39; Admin Dose 1 CAP; Start 05/07/17 at 14:00 MAE VILCHIS MD May 10, 2017 20:50
[2017-05-10 21:01] LABS: HEMATOCRIT 22.8 % (37.0-47.0); HEMOGLOBIN 8.1 g/dl (12.0-16.0)
[2017-05-11] VITALS (22 sets, daily range): BP systolic 98–145; BP diastolic 43–65; PULSE 88–100; RESP 16–25
[2017-05-11] MEDS: ACCU-CHEK XX SCH (02:00)
[2017-05-11 05:13] LABS: ABNORMAL IP MESSAGE 1; BASOPHILS % 0.2 % (0.0-2.0); EOSINOPHILS # 0.7 10^3/ul (0.0-0.5); EOSINOPHILS % 6.8 % (0.0-7.0); HEMATOCRIT 21.9 % (37.0-47.0); HEMOGLOBIN 7.8 g/dl (12.0-16.0); LYMPHOCYTES # 1.4 10^3/ul (0.8-2.9); LYMPHOCYTES % 12.9 % (15.0-51.0); MEAN CORPUSCULAR HEMOGLOBIN 33.6 pg (29.0-33.0); MEAN CORPUSCULAR HGB CONC 35.6 g/dl (32.0-37.0); MEAN CORPUSCULAR VOLUME 94.4 fl (82.0-101.0); MONOCYTE # 1.1 10^3/ul (0.3-0.9); MONOCYTES % 10.1 % (0.0-11.0); NEUTROPHIL # 7.3 10^3/ul (1.6-7.5); NEUTROPHILS % 67.4 % (39.0-77.0); NUCLEATED RED BLOOD CELLS # 0.1 10^3/ul (0.0-0.0); NUCLEATED RED BLOOD CELLS% 0.6 /100WBC (0.0-0.0); PLATELET COUNT 50 10^3/UL (140-415); RED BLOOD COUNT 2.32 10^6/ul (4.20-5.40); RED CELL DISTRIBUTION WIDTH 23.2 % (11.5-14.5); WHITE BLOOD COUNT 10.8 10^3/ul (4.8-10.8)
[2017-05-11 05:14] LABS: POSITIVE DIFF @See below
[2017-05-11] MEDS: PANTOPRAZOLE (EC) 40 MG TAB PO SCH (05:36)
[2017-05-11] MEDS: FUROSEMIDE 40 MG TAB PO SCH ×2 (05:37→18:16)
[2017-05-11] MEDS: LACTULOSE 30ML CUP PO SCH ×3 (05:37→20:20)
[2017-05-11 05:40] LABS: ALBUMIN 1.8 g/dl (3.3-4.9); ALBUMIN/GLOBULIN RATIO 0.56; BILIRUBIN,DIRECT 7.5 mg/dl (0.00-0.20); BILIRUBIN,INDIRECT 4.5 mg/dl (0-1.1); CALCIUM 7.3 mg/dl (8.4-10.2); CREATININE 0.78 mg/dl (0.44-1.00); POTASSIUM 3.4 mmol/L (3.5-5.1)
[2017-05-11] MEDS: POTASSIUM CHLORIDE 50 ML IVPB PRN ×2 (05:57→07:06)
[2017-05-11] MEDS: INSULIN ASPART [NOVOLOG] 3 ML PEN SC SCH ×4 (07:35→20:20)
[2017-05-11] MEDS: LACTOBACILLUS RHAMNOSUS CAP PO SCH ×2 (09:31→20:02)
[2017-05-11] MEDS: SPIRONOLACTONE 25 MG TAB PO SCH (09:31)
[2017-05-11] MEDS: RIFAXIMIN 550 MG TAB PO SCH ×2 (09:31→20:02)
[2017-05-11] MEDS: SODIUM CHLORIDE 1 GM TAB PO SCH ×2 (09:33→20:02)
[2017-05-11] MEDS ORDERED: NACL 3% IV ONE (10:00)
--- NOTE | 2017-05-11 14:04 | PN ---
Date/Time of Note Date/Time of Note DATE: 05/11/17 TIME: 14:00 Assessment/Plan VTE Prophylaxis VTE Prophylaxis Intervention: LMWH Lines/Catheters IV Catheter Type (from Nrs): PICC Line Central line still needed: Yes Urinary Cath still in place: Yes Reason Cath still needed: other (indicate) Assessment/Plan Chief Complaint/Hosp Course 56 yo female with cirrhosis and metastatic hepatocellular carcinoma with acute blood loss anemia Acute blood loss anemia: - Continue transfusions PRN Hyponatremia: - management per renal, salt and FW restriction Ascites: - Paracentesis for comfort HCC: - No longer interested in targeted therapy Dismal prognosis, will continue goals of care discussions. Planing for home hospice though remains full code Problems: Subjective 24 Hr Interval Summary Free Text/Dictation Long discussion with [place] and A[place]USTINE her son Shahab regarding clinical condition They no longer want to have her received opdivo, feel she has worsened with it They want home hospice and ready to go home now, though son adamant against DNR/ DNI and insists on full code Patient transfused again today Exam/Review of Systems Vital Signs Vitals Vital Signs Date Time Temp Pulse Resp B/P Pulse Ox O2 Delivery O2 Flow Rate FiO2 05/11/17 12:00 92 05/11/17 11:00 18 109/56 95 Room Air 05/11/17 08:00 97.8 05/10/17 22:00 2.0 Intake and Output 05/10/17 05/10/17 05/11/17 15:00 23:00 07:00 Intake Total 240 ml 460 ml 400 ml Output Total 430 ml 465 ml 180 ml Balance -190 ml -5 ml 220 ml Exam Constitutional: alert, oriented, well developed Psych: nl mood/affect, no complaints Head: atraumatic, normocephalic Eyes: EOMI, PERRL, nl conjunctiva, nl lids, nl sclera ENMT: nl external ears & nose, nl lips & teeth, nl nasal mucosa & septum Neck: non-tender, supple Respiratory: clear to auscultation, normal air movement Cardiovascular: nl pulses, regular rate and rhythm Gastrointestinal: nl liver, spleen, non-tender, soft Musculoskeletal: nl extremities to inspection, nl gait and stance Extremities: normal pulses Neurological: HEATING MECHANIC II-XII intact, nl mental status, nl speech, nl strength Skin: nl turgor, No rash or lesions Lymph: nl lymph nodes Results Result Diagram: 05/11/17 0400 05/11/17 0400 Results 24 hrs Laboratory Tests Test 05/10/17 18:00 05/10/17 20:34 05/10/17 20:38 05/11/17 04:00 Bedside Glucose 141 144 Hemoglobin 8.1 #L 7.8 L Hematocrit 22.8 #L 21.9 L Activated Partial Thromboplast Time 55.2 H White Blood Count 10.8 Red Blood Count 2.32 #L Mean Corpuscular Volume 94.4 Mean Corpuscular Hemoglobin 33.6 H Mean Corpuscular Hemoglobin Concent 35.6 Red Cell Distribution Width 23.2 H Platelet Count 50 L Mean Platelet Volume 10.0 Neutrophils % 67.4 Lymphocytes % 12.9 L Monocytes % 10.1 Eosinophils % 6.8 Basophils % 0.2 Nucleated Red Blood Cells % 0.6 H Neutrophils # 7.3 Lymphocytes # 1.4 Monocytes # 1.1 H Eosinophils # 0.7 H Basophils # 0.0 Nucleated Red Blood Cells # 0.1 H Fibrinogen 110.0 #L Sodium Level 129 L Potassium Level 3.4 L Chloride Level 95 L Carbon Dioxide Level 28 Anion Gap 9 Blood Urea Nitrogen 29 H Creatinine 0.78 Glucose Level 109 Calcium Level 7.3 L Total Bilirubin 12.0 H Direct Bilirubin 7.50 H Indirect Bilirubin 4.5 H Aspartate Amino Transf (AST/SGOT) 96 H Alanine Aminotransferase (ALT/SGPT) 65 Alkaline Phosphatase 129 H Total Protein 5.0 L Albumin 1.8 L Globulin 3.20 Albumin/Globulin Ratio 0.56 Test 05/11/17 04:52 05/11/17 08:37 05/11/17 12:56 Lab Scanned Report BLOOD TRANSFUSION Bedside Glucose 140 142 Medications Medications Current Medications Ondansetron HCl (Zofran Inj) 4 mg Q6H PRN IV NAUSEA AND/OR VOMITING Last administered on 04/27/17 14:53; Admin Dose 4 MG; Start 04/26/17 at 15:00 Acetaminophen/ Hydrocodone Bitart ([place] (5/325)) 1 tab Q6H PRN PO MODERATE PAIN LEVEL 4-6 Last administered on 04/26/17 22:03; Admin Dose 1 TAB; Start 04/26/17 at 15:00 Diagnostic Test (Pha) (Accu-Chek) 1 ea 02 XX ; Start 04/27/17 at 02:00 Miscellaneous Information 1 ea NOTE XX ; Start 04/28/17 at 14:30 Glucose (Glutose) 15 gm Q15M PRN PO DECREASED GLUCOSE; Start 04/28/17 at 14:30 Glucose (Glutose) 22.5 gm Q15M PRN PO DECREASED GLUCOSE; Start 04/28/17 at 14: 30 Dextrose (D50w Syringe) 25 ml Q15M PRN IV DECREASED GLUCOSE; Start 04/28/17 at 14:30 Dextrose (D50w Syringe) 50 ml Q15M PRN IV DECREASED GLUCOSE; Start 04/28/17 at 14:30 Glucagon (Glucagen) 1 mg Q15M PRN IM DECREASED GLUCOSE; Start 04/28/17 at 14:30 Glucose (Glutose) 15 gm Q15M PRN BUCCAL DECREASED GLUCOSE; Start 04/28/17 at 14 :30 Hydralazine HCl (Apresoline) 10 mg Q4H PRN IV ELEVATED SYSTOLIC BP; Start 05/01 at 22:00 Lactulose (Lactulose Enema) 100 ml Q6 PRN [place] NOTE Last administered on 23:45; Admin Dose 100 ML; Start 05/03/17 at 12:30 Lactulose (Enulose) 20 gm Q8 PO Last administered on 05/11/17 05:37; Admin Dose 20 GM; Start 05/03/17 at 14:00 Diphenhydramine HCl (Benadryl) 25 mg Q6H PRN IV allergic reaction ; Start 05/03 at 15:30 Pantoprazole (Protonix Tab) 40 mg DAILY@06 PO Last administered on 05/11/17 05:36; Admin Dose 40 MG; Start 05/04/17 at 06:00 IV Flush (NS 10 ml) 10 ml PRN PRN IV IV PROTOCOL; Start 05/04/17 at 18:00 Diphenhydramine HCl (Benadryl) 50 mg Q6H PRN IM allergic reaction; Start at 15:00 Rifaximin (Xifaxan) 550 mg BID PO Last administered on 05/11/17 09:31; Admin Dose 550 MG; Start 05/05/17 at 22:17 Sodium Chloride (Nacl) 1 gm BID PO Last administered on 05/11/17 09:33; Admin Dose 1 GM; Start 05/06/17 at 09:00 Spironolactone (Aldactone) 25 mg DAILY PO Last administered on 05/11/17 09:31 ; Admin Dose 25 MG; Start 05/06/17 at 09:00 Lactobacillus Acidophilus/ Rhamnosus 1 cap 1 cap BID PO Last administered on 09:31; Admin Dose 1 CAP; Start 05/07/17 at 14:00 Sodium Chloride (Sodium Chloride Iv 3%) 360 ml @ 30 mls/hr ONCE ONCE IV Last administered on 05/11/17 10:56; Admin Dose 30 MLS/HR; Start 05/11/17 at 10:00 ; Stop 05/11/17 at 21:59 MICHELLE WALLS MD May 11, 2017 14:04
[2017-05-11] MEDS ORDERED: LACT20SO2 PO (16:56)
[2017-05-11] MEDS ORDERED: RIFA550T4 PO (16:56)
[2017-05-11] MEDS ORDERED: SPIR25TA PO (16:56)
--- NOTE | 2017-05-11 17:01 | DS ---
Date/Time of Note Date/Time of Note DATE: 05/11/17 TIME: 16:57 Discharge Summary Admission/Discharge Info Admit Date/Time Apr 26, 2017 at 13:32 Discharge Date/Time Discharge Diagnosis Hepatocellular carcinoma Patient Condition: Guarded Hx of Present Illness 56 yo F with PMH DM and Liver CA dx February 2017 was transferred from outside hospital secondary to altered mental status. Patient sister was at bedside and history obtained from sister. Patient is altered and poor historian and only oriented to self. Patient lives at home with daughter and has been acting strange for the past couple days. She was brought to the ED this am due to confusion. CT head performed was negative for any acute issues. Patient was found to have an elevated ammonia level and possible UTI. Patient was recently started on chemotherapy per her oncologist Dr. Schwartz, who was contacted and did not believe was associated with chemotherapy. Patient admits to abdominal pain but denies any fevers, shortness of breath, constipation, dizziness, or LOC. Hospital Course 56 yo female with cirrhosis and metastatic hepatocellular carcinoma with acute blood loss anemia and altered mental status. Patient recently diagonsed with liver cancer, metastatic. Given nevolumab as an outpateint. Per family, her conditioned worsened very soon after starting this medication. The patient encephelopathy was treated wtih lactulose and rifaxamin and cleared to baseline. Her hostpial course was complicated by blood loss anemia from vaginal bleeding. She required numerous transfusions of PRBCs for this. Her advanced stage of illness was extensively communicated to her and her family. She and family decided against any further chemotherapy. They elected for home hospice and she was discharge to home with hospice services. She was continued on rifaxamin and lactulose as well as lasix and spironolactone for her ascites Home Meds Active Scripts Lactulose* (Lactulose*) 20 Gm/30 Ml Solution, 20 GM PO Q8 for 60 Days, #90 Prov:MICHELLE WALLS MD 05/11/17 Spironolactone* (Aldactone*) 25 Mg Tablet, 25 MG PO DAILY for 30 Days, #30 TAB Prov:MICHELLE WALLS MD 05/11/17 Rifaximin* (Xifaxan*) 550 Mg Tablet, 550 MG PO BID for 60 Days, #60 TAB Prov:MICHELLE WALLS MD 05/11/17 Ondansetron (Zofran Odt) 4 Mg Tab.rapdis, 4 MG PO Q6, #10 Prov:CARYL CALHOUN DO 04/10/17 Alprazolam* (Alprazolam*) 1 Mg Tablet, 1 MG PO HS Y for ANXIETY, #20 TAB Prov:JULIA VIDES. 03/24/17 Reported Medications Polyethylene Glycol* (Miralax*) 17 Gm Powd.pack, 17 GM PO DAILY, #30 PACKET 04/17/17 Hydrocodone/Acetaminophen (Lorcet Hd 10-325 mg Tablet) 1 Each Tablet, 1 EACH PO Q6 Y for PAIN, TAB 04/17/17 Furosemide (Lasix) 40 Mg Tab, 40 MG PO DAILY, TAB 04/17/17 Discontinued Reported Medications Metformin Hcl* (Metformin Hcl*) 500 Mg Tablet, 500 MG PO WITH BREAKFAST, #30 TAB Every morning 03/18/17 Ergocalciferol (Vitamin D2) (VITAMIN D2) 50,000 Unit Capsule, 21220 UNIT PO Q7D , CAP 03/18/17 Primary Care Provider Terrence Perez Time spent on discharge: > 30 minutes Pending Labs Laboratory Tests Test 05/10/17 18:00 05/10/17 20:34 05/10/17 20:38 05/11/17 04:00 Bedside Glucose 141mg/dL (70-220) 144mg/dL (70-220) Hemoglobin 8.1g/dl (12.0-16.0) 7.8g/dl (12.0-16.0) Hematocrit 22.8% (37.0-47.0) 21.9% (37.0-47.0) Activated Partial Thromboplast Time 55.2Sec (25.0-35.0) White Blood Count 10.810^3/ul (4.8-10.8) Red Blood Count 2.3210^6/ul (4.20-5.40) Mean Corpuscular Volume 94.4fl (82.0-101.0) Mean Corpuscular Hemoglobin 33.6pg (29.0-33.0) Mean Corpuscular Hemoglobin Concent 35.6g/dl (32.0-37.0) Red Cell Distribution Width 23.2% (11.5-14.5) Platelet Count 5010^3/UL (140-415) Mean Platelet Volume 10.0fl (7.4-10.4) Neutrophils % 67.4% (39.0-77.0) Lymphocytes % 12.9% (15.0-51.0) Monocytes % 10.1% (0.0-11.0) Eosinophils % 6.8% (0.0-7.0) Basophils % 0.2% (0.0-2.0) Nucleated Red Blood Cells % 0.6/100WBC (0.0-0.0) Neutrophils # 7.310^3/ul (1.6-7.5) Lymphocytes # 1.410^3/ul (0.8-2.9) Monocytes # 1.110^3/ul (0.3-0.9) Eosinophils # 0.710^3/ul (0.0-0.5) Basophils # 0.010^3/ul (0.0-0.1) Nucleated Red Blood Cells # 0.110^3/ul (0.0-0.0) Fibrinogen 110.0mg/dl (207-461) Sodium Level 129mmol/L (135-144) Potassium Level 3.4mmol/L (3.5-5.1) Chloride Level 95mmol/L (97-110) Carbon Dioxide Level 28mmol/L (21-31) Anion Gap 9 (8-16) Blood Urea Nitrogen 29mg/dl (7-20) Creatinine 0.78mg/dl (0.44-1.00) Glucose Level 109mg/dl (70-220) Calcium Level 7.3mg/dl (8.4-10.2) Total Bilirubin 12.0mg/dl (0.2-1.3) Direct Bilirubin 7.50mg/dl (0.00-0.20) Indirect Bilirubin 4.5mg/dl (0-1.1) Aspartate Amino Transf (AST/SGOT) 96IU/L (15-46) Alanine Aminotransferase (ALT/SGPT) 65IU/L (13-69) Alkaline Phosphatase 129IU/L (42-121) Total Protein 5.0g/dl (6.1-8.1) Albumin 1.8g/dl (3.3-4.9) Globulin 3.20g/dl (1.3-3.2) Albumin/Globulin Ratio 0.56 Test 05/11/17 04:52 05/11/17 08:37 05/11/17 12:56 Lab Scanned Report BLOOD [id number] Bedside Glucose 140mg/dL (70-220) 142mg/dL (70-220) MICHELLE WALLS MD May 11, 2017 17:00
--- NOTE | 2017-05-11 19:29 | CONS ---
Date/Time of Note Date/Time of Note DATE: 05/11/17 TIME: 19:27 Assessment/Plan Assessment/Plan Additional Assessment/Plan 1. 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 2. acute hepatic encephalopathy- Ammonia - 68 today 3 HCC 4. Acute transaminitis 5. Hypokalemia severe- requiring IV replacement every day per protocol 6. DM II 7. Hypomagnesium- resolved Plan: - Hospice care evalaution tomorrow will give 3% hypertonic saline x 12 hr then stop -K replacement as per protocol, continue Na chloride tablet 1 gram BID - on lasix 40mg PO BID + spironolactone 25 mg po daily - Monitor Na , Not a candidate for tolvaptan at this point due to Elevated LFTs will follow up Full code, Guarded prognosis Consultation Date/Type/Reason Admit Date/Time Apr 26, 2017 at 13:32 Initial Consult Date 05/02/17 Type of Consultation: NEPHROLOGY Referring Provider: YOON ALVAREZ MD 24 HR Interval Summary Free Text/Dictation Na still low, Hospice service contacted Exam/Review of Systems Vital Signs Vitals Vital Signs Date Time Temp Pulse Resp B/P Pulse Ox O2 Delivery O2 Flow Rate FiO2 05/11/17 16:00 90 05/11/17 16:00 97.9 20 103/50 93 Room Air 05/10/17 22:00 2.0 Intake and Output 05/10/17 05/10/17 05/11/17 15:00 23:00 07:00 Intake Total 240 ml 460 ml 400 ml Output Total 430 ml 465 ml 180 ml Balance -190 ml -5 ml 220 ml Exam Constitutional: alert, awake Eyes: nl conjunctiva, other (no jaundice ) Neck: non-tender, supple Respiratory: diminished breath sounds, normal air movement Cardiovascular: nl pulses, regular rate and rhythm Gastrointestinal: ascites, distended, non-tender, soft Musculoskeletal: joint tenderness, muscle weakness, nl extremities to inspection, swelling Neurological: other (awake, alert but intermittently confused ) Results Result Diagram: 05/11/17 0400 05/11/17 0400 Results 24 hrs Laboratory Tests Test 05/10/17 20:34 05/10/17 20:38 05/11/17 04:00 05/11/17 04:52 Bedside Glucose 144 Hemoglobin 8.1 #L 7.8 L Hematocrit 22.8 #L 21.9 L Activated Partial Thromboplast Time 55.2 H White Blood Count 10.8 Red Blood Count 2.32 #L Mean Corpuscular Volume 94.4 Mean Corpuscular Hemoglobin 33.6 H Mean Corpuscular Hemoglobin Concent 35.6 Red Cell Distribution Width 23.2 H Platelet Count 50 L Mean Platelet Volume 10.0 Neutrophils % 67.4 Lymphocytes % 12.9 L Monocytes % 10.1 Eosinophils % 6.8 Basophils % 0.2 Nucleated Red Blood Cells % 0.6 H Neutrophils # 7.3 Lymphocytes # 1.4 Monocytes # 1.1 H Eosinophils # 0.7 H Basophils # 0.0 Nucleated Red Blood Cells # 0.1 H Fibrinogen 110.0 #L Sodium Level 129 L Potassium Level 3.4 L Chloride Level 95 L Carbon Dioxide Level 28 Anion Gap 9 Blood Urea Nitrogen 29 H Creatinine 0.78 Glucose Level 109 Calcium Level 7.3 L Total Bilirubin 12.0 H Direct Bilirubin 7.50 H Indirect Bilirubin 4.5 H Aspartate Amino Transf (AST/SGOT) 96 H Alanine Aminotransferase (ALT/SGPT) 65 Alkaline Phosphatase 129 H Total Protein 5.0 L Albumin 1.8 L Globulin 3.20 Albumin/Globulin Ratio 0.56 Lab Scanned Report BLOOD TRANSFUSION Test 05/11/17 08:37 05/11/17 12:56 05/11/17 17:48 Bedside Glucose 140 142 151 Medications Medications Current Medications Ondansetron HCl (Zofran Inj) 4 mg Q6H PRN IV NAUSEA AND/OR VOMITING Last administered on 04/27/17 14:53; Admin Dose 4 MG; Start 04/26/17 at 15:00 Acetaminophen/ Hydrocodone Bitart (Lutts (5/325)) 1 tab Q6H PRN PO MODERATE PAIN LEVEL 4-6 Last administered on 04/26/17 22:03; Admin Dose 1 TAB; Start 04/26/17 at 15:00 Diagnostic Test (Pha) (Accu-Chek) 1 ea 02 XX ; Start 04/27/17 at 02:00 Miscellaneous Information 1 ea NOTE XX ; Start 04/28/17 at 14:30 Glucose (Glutose) 15 gm Q15M PRN PO DECREASED GLUCOSE; Start 04/28/17 at 14:30 Glucose (Glutose) 22.5 gm Q15M PRN PO DECREASED GLUCOSE; Start 04/28/17 at 14: 30 Dextrose (D50w Syringe) 25 ml Q15M PRN IV DECREASED GLUCOSE; Start 04/28/17 at 14:30 Dextrose (D50w Syringe) 50 ml Q15M PRN IV DECREASED GLUCOSE; Start 04/28/17 at 14:30 Glucagon (Glucagen) 1 mg Q15M PRN IM DECREASED GLUCOSE; Start 04/28/17 at 14:30 Glucose (Glutose) 15 gm Q15M PRN BUCCAL DECREASED GLUCOSE; Start 04/28/17 at 14 :30 Hydralazine HCl (Apresoline) 10 mg Q4H PRN IV ELEVATED SYSTOLIC BP; Start 05/01 at 22:00 Lactulose (Lactulose Enema) 100 ml Q6 PRN NC NOTE Last administered on 23:45; Admin Dose 100 ML; Start 05/03/17 at 12:30 Lactulose (Enulose) 20 gm Q8 PO Last administered on 05/11/17 17:49; Admin Dose 20 GM; Start 05/03/17 at 14:00 Diphenhydramine HCl (Benadryl) 25 mg Q6H PRN IV allergic reaction ; Start 05/03 at 15:30 Pantoprazole (Protonix Tab) 40 mg DAILY@06 PO Last administered on 05/11/17 05:36; Admin Dose 40 MG; Start 05/04/17 at 06:00 IV Flush (NS 10 ml) 10 ml PRN PRN IV IV PROTOCOL; Start 05/04/17 at 18:00 Diphenhydramine HCl (Benadryl) 50 mg Q6H PRN IM allergic reaction; Start at 15:00 Rifaximin (Xifaxan) 550 mg BID PO Last administered on 05/11/17 09:31; Admin Dose 550 MG; Start 05/05/17 at 22:17 Sodium Chloride (Nacl) 1 gm BID PO Last administered on 05/11/17 09:33; Admin Dose 1 GM; Start 05/06/17 at 09:00 Spironolactone (Aldactone) 25 mg DAILY PO Last administered on 05/11/17 09:31 ; Admin Dose 25 MG; Start 05/06/17 at 09:00 Lactobacillus Acidophilus/ Rhamnosus 1 cap 1 cap BID PO Last administered on 09:31; Admin Dose 1 CAP; Start 05/07/17 at 14:00 Sodium Chloride (Sodium Chloride Iv 3%) 360 ml @ 30 mls/hr ONCE ONCE IV Last administered on 05/11/17 10:56; Admin Dose 30 MLS/HR; Start 05/11/17 at 10:00 ; Stop 05/11/17 at 21:59 MAE VILCHIS MD May 11, 2017 19:29
[2017-05-11] MEDS ORDERED: MEDROXYPROGESTERONE 10 MG TAB PO SCH (21:00)
== END 2017-05-11 20:58 | disposition hospice, home (50) | DRG 442 ==
LOC: MS1 13:32 → TEL 05-04 22:13 → MS1 05-07 18:42 → ICU 05-09 23:08
PROVIDERS: ADMIT Internal Medicine; ATTEND Internal Medicine
PROC: 0W9G3ZZ Drainage of Peritoneal Cavity, Percutaneous Approach (ICD-10-PCS; principal; 2017-04-26)
PROC: 02HV33Z Insertion of Infusion Device into Superior Vena Cava, Percutaneous Approach (ICD-10-PCS; 2017-05-04)
PROC: B548ZZA Ultrasonography of Superior Vena Cava, Guidance (ICD-10-PCS; 2017-05-04)
PROC: 30233K1 Transfusion of Nonautologous Frozen Plasma into Peripheral Vein, Percutaneous Approach (ICD-10-PCS; 2017-05-07)
PROC: 30233M1 Transfusion of Nonautologous Plasma Cryoprecipitate into Peripheral Vein, Percutaneous Approach (ICD-10-PCS; 2017-05-07)
PROC: 30233N1 Transfusion of Nonautologous Red Blood Cells into Peripheral Vein, Percutaneous Approach (ICD-10-PCS; 2017-05-08)
PROC: 30233R1 Transfusion of Nonautologous Platelets into Peripheral Vein, Percutaneous Approach (ICD-10-PCS; 2017-05-08)
DX: K72.90 Hepatic failure, unspecified without coma (principal); R18.8 Other ascites; D68.4 Acquired coagulation factor deficiency; C79.9 Secondary malignant neoplasm of unspecified site; C22.0 Liver cell carcinoma; E72.20 Disorder of urea cycle metabolism, unspecified; E22.2 Syndrome of inappropriate secretion of antidiuretic hormone; D69.59 Other secondary thrombocytopenia; D62 Acute posthemorrhagic anemia; N39.0 Urinary tract infection, site not specified; E87.70 Fluid overload, unspecified; K74.60 Unspecified cirrhosis of liver; E87.6 Hypokalemia; R09.89 Other specified symptoms and signs involving the circulatory and respiratory systems; E11.9 Type 2 diabetes mellitus without complications; Z79.899 Other long term (current) drug therapy; F17.210 Nicotine dependence, cigarettes, uncomplicated; D63.0 Anemia in neoplastic disease; N93.9 Abnormal uterine and vaginal bleeding, unspecified; R62.7 Adult failure to thrive
CPT/HCPCS: 36430; 36569; 71010; 76705; 76856; 76937; 80048; 80053; 80202; 81001; 81003; 82140; 82150; 82533; 82550; 82570; 82962; 83036; 83615; 83690; 83735; 83930; 83935; 84100; 84155; 84157; 84300; 84439; 84443; 84560; 85014; 85018; 85025; 85384; 85610; 85730; 86644; 86706; 86708; 86803; 86850; 86900; 86901; 86920; 87070; 87081; 87086; 87102; 87116; 87340; 88104; 88305; 89051; 89190; 97116; 97162; 97166; 97530; J1940; J0456; J0692; J1815; J2405; J3370; J3475; J3480; J7040; J7050; J7070; P9016; P9035; P9047; P9059